=== PATIENT | female | born 1995 | race Caucasian/White ===

== ENCOUNTER 2023-09-24 09:06 | Outpatient (OUT) | payer BC, SELFPAY ==
--- NOTE | 2023-09-24 | US_ITS ---
[address] [address] Patient Name: DONALD VELÁSQUEZ MRN: [id number] date: 1995 Sex: F Assigned Patient Location: [place] Current Patient Location: [place] Accession/Order Number: [id number] Exam Date: 09/24/2023 09:10 Report Date: 09/24/2023 13:14 At the request of: ADDIE DOE Procedure: US OB transvaginal EXAMINATION: US OB transvaginal HISTORY: MISSED MENSES COMPARISON: No relevant comparison available. FINDINGS: Rivero intrauterine gestation Gestational sac: 2.5 cm, 7 weeks 1 day CRL: 1.43 cm, 7 weeks 5 days Yolk sac: 3.1 mm Heart rate: 155 beats minute Cervix: Closed, 3.8 cm The uterus is normal, anteverted, anteflexed The left ovary is not visualized. The right ovary appears normal Clinical age: 10 weeks 4 days Clinical LAUREN: 04/17/2024 Ultrasound age: 7 weeks 5 days Ultrasound LAUREN: 05/07/2024 US/US OB transvaginal IMPRESSION: Viable rivero intrauterine gestation measuring 7 weeks 5 days Electronically authenticated by: DARLEEN LOZOYA Date: 09/24/2023 13:14
== END 2023-09-24 09:07 | disposition home or self-care (01) ==
LOC: US 09:06
PROVIDERS: Visit Provider Obstetrics & Gynecology
DX: Z34.91 Encounter for supervision of normal pregnancy, unspecified, first trimester (principal)
CPT/HCPCS: 76817

== ENCOUNTER 2023-10-28 11:15 | Outpatient (OUT) | payer BC, SELFPAY ==
--- OUTSIDE RECORDS SUMMARY | 2023-10-28 11:21 | XMS_ITS | CCD ---
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 Specialist Name Role Phone Sherry Nielsen Unavailable Sherry Nielsen Attending Unavailable Sherry Nielsen Primary Care Unavailable Sherry Nielsen Admitting Unavailable LYNNE Nielsen Primary Care Provider LYNNE Nielsen Attending Provider Allergies Allergy Classification Reported Allergen(s) Allergy Type Date of Onset Reaction(s) Facility (1 source) Adhesive agent Drug allergy [facility] Other Problems Problem Classification Problem Date Documented Da te Episodic/Chronic Unclassified (1 source) Encounter for general adult medical examination without abnormal findings; Translations: [Encounter for general adult medical examination without abnormal findings] Onset: 06-22-2023 Results Test Name Value Interpretation Reference Range Facility Alanine aminotransferase [En zymatic activity/volume] in Serum or PlasmaOrdered By: Sherry Nielsen on 06-22-2023 ALT [Catalytic activity/Vol] 14 U/L 7-52 [facility] Albumin [Mass/volume] in Ser um or Plasma by Bromocresol green (BCG) dye binding methoOrdered By: Sherry Nielsen on 06-22-2023 Albumin BCG dye [Mass/Vol] 4.3 g/dL 3.5-5.7 [facility] Alkaline phosphatase [Enzyma tic activity/volume] in Serum or PlasmaOrdered By: Sherry Nielsen on 06-22-2023 ALP [Catalytic activity/Vol] 88 U/L 34-104 [facility] Aspartate aminotransferase [ Enzymatic activity/volume] in Serum or PlasmaOrdered By: Sherry Nielsen on 06-22-2023 AST [Catalytic activity/Vol] 15 U/L 13-39 [facility] Basophils Auto (Bld) [#/Vol] Ordered By: Sherry Gia on 06-22-2023 Basophils (Bld) [#/Vol] 0.0 10*3/uL 0.0-0.2 [facility] Basophils/100 WBC Auto (Bld) Ordered By: Sherry Nielsen on 06-22-2023 Basophils/100 WBC (Bld) 0.5 % . [facility] Bilirubin.total [Mass/volume ] in Serum or PlasmaOrdered By: Sherry Nielsen on 06-22-2023 Bilirubin [Mass/Vol] 1.1 mg/dL 0.3-1.0 [facility] CMP with reflex to A1Con Albumin [Mass/Vol] 4.3 g/dL Normal 3.5-5.7 [facility] Comment on above: Order Comment: Reaso n for Exam Well adult exam Performed By: #### F E PRO, CMP wRFX A1C, TSH3, [id number], [id number], CBC, LIPID #### [facility] [address] Albumin/Globulin [Mass ratio] 1.4 {ratio} Normal [facility] Comment on above: Order Comment: Reaso n for Exam Well adult exam Performed By: #### F E PRO, CMP wRFX A1C, TSH3, [id number], [id number], CBC, LIPID #### [facility] [address] [place] [address] [place] ALP [Catalytic activity/Vol] 88 U/L Normal 34-104 [facility] Comment on above: Order Comment: Reaso n for Exam Well adult exam Performed By: #### F E PRO, CMP wRFX A1C, TSH3, [id number], [id number], CBC, LIPID #### [facility] [address] [place] [address] [place] ALT [Catalytic activity/Vol] 14 U/L Normal 7-52 [facility] Comment on above: Order Comment: Reaso n for Exam Well adult exam Performed By: #### F E PRO, CMP wRFX A1C, TSH3, [id number], [id number], CBC, LIPID #### [facility] [address] Anion gap [Moles/Vol] 10.2 mmol/L Normal 6.0-15.0 [facility] Comment on above: Order Comment: Reaso n for Exam Well adult exam Performed By: #### F E PRO, CMP wRFX A1C, TSH3, [id number], [id number], CBC, LIPID #### [facility] [address] AST [Catalytic activity/Vol] 15 U/L Normal 13-39 [facility] Comment on above: Order Comment: Reaso n for Exam Well adult exam Performed By: #### F E PRO, CMP wRFX A1C, TSH3, [id number], [id number], CBC, LIPID #### [facility] [address] Bilirubin [Mass/Vol] 1.1 mg/dL High 0.3-1.0 [facility] Comment on above: Order Comment: Reaso n for Exam Well adult exam Performed By: #### F E PRO, CMP wRFX A1C, TSH3, [id number], [id number], CBC, LIPID #### [facility] [address] [place] [id number] [facility] Calcium [Mass/Vol] 9.3 mg/dL Normal 8.6-10.3 [facility] Comment on above: Order Comment: Reaso n for Exam Well adult exam Performed By: #### F E PRO, CMP wRFX A1C, TSH3, [id number], [id number], CBC, LIPID #### [facility] [address] [place] [id number] [place] Chloride [Moles/Vol] 105 mmol/L Normal 98-107 [facility] Comment on above: Order Comment: Reaso n for Exam Well adult exam Performed By: #### F E PRO, CMP wRFX A1C, TSH3, [id number], [id number], CBC, LIPID #### [facility] [address] CO2 [Moles/Vol] 27.1 mmol/L Normal 21.0-31.0 [facility] Comment on above: Order Comment: Reaso n for Exam Well adult exam Performed By: #### F E PRO, CMP wRFX A1C, TSH3, [id number], [id number], CBC, LIPID #### [facility] [address] Creatinine [Mass/Vol] 0.90 mg/dL Normal 0.60-1.20 [facility] Comment on above: Order Comment: Reaso n for Exam Well adult exam Performed By: #### F E PRO, CMP wRFX A1C, TSH3, [id number], [id number], CBC, LIPID #### [address] GFR/1.73 sq M.predicted MDRD (S/P/Bld) [Vol rate/Area] mL/min/{1.73_m2} Normal [facility] Comment on above: Order Comment: Reaso n for Exam Well adult exam Performed By: #### F E PRO, CMP wRFX A1C, TSH3, [id number], [id number], CBC, LIPID #### [address] Globulin (S) [Mass/Vol] 3.1 g/dL Normal [facility] Comment on above: Order Comment: Reaso n for Exam Well adult exam Performed By: #### F E PRO, CMP wRFX A1C, TSH3, [id number], [id number], CBC, LIPID #### [facility] [address] Glucose [Mass/Vol] 94 mg/dL Normal 70-100 [facility] Comment on above: Order Comment: Reaso n for Exam Well adult exam Performed By: #### F E PRO, CMP wRFX A1C, TSH3, [id number], [id number], CBC, LIPID #### [facility] [address] Potassium [Moles/Vol] 4.3 mmol/L Normal 3.5-5.1 [facility] Comment on above: Order Comment: Reaso n for Exam Well adult exam Performed By: #### F E PRO, CMP wRFX A1C, TSH3, [id number], [id number], CBC, LIPID #### [facility] [address] Protein [Mass/Vol] 7.4 g/dL Normal 6.4-8.9 [facility] Comment on above: Order Comment: Reaso n for Exam Well adult exam Performed By: #### F E PRO, CMP wRFX A1C, TSH3, [id number], [id number], CBC, LIPID #### [facility] [address] Sodium [Moles/Vol] 138 mmol/L Normal 136-145 [facility] Comment on above: Order Comment: Reaso n for Exam Well adult exam Performed By: #### F E PRO, CMP wRFX A1C, TSH3, [id number], [id number], CBC, LIPID #### [facility] [address] [place] [id number] [place] Urea nitrogen [Mass/Vol] 16 mg/dL Normal 7-25 [facility] Comment on above: Order Comment: Reaso n for Exam Well adult exam Performed By: #### F E PRO, CMP wRFX A1C, TSH3, [id number], [id number], CBC, LIPID #### [facility] [address] [place] [id number] [place] Calcium [Mass/volume] in Ser um or PlasmaOrdered By: Sherry Nielsen on 06-22-2023 Calcium [Mass/Vol] 9.3 mg/dL 8.6-10.3 [facility] Carbon dioxide, total [Moles /volume] in Serum or PlasmaOrdered By: Sherry Nielsen on 06-22-2023 CO2 [Moles/Vol] 27.1 mmol/L 21.0-31.0 [facility] Chloride [Moles/volume] in S adriano or PlasmaOrdered By: Sherry Nielsen on 06-22-2023 Chloride [Moles/Vol] 105 mmol/L 98-107 [facility] Cholesterol [Mass/volume] in Serum or PlasmaOrdered By: Sherry Nielsen on 06-22-2023 Cholesterol [Mass/Vol] 149 mg/dL 140-200 [facility] Comment on above: Chol less than 200 m g/dl low riskChol 201-239 mg/dl borderline riskChol 240 mg/dl and greater high risk Cholesterol in LDL Calc [Mas s/Vol]Ordered By: Sherry Nielsen on 06-22-2023 Cholesterol in LDL [Mass/Vol] 70 mg/dL 0-100 [facility] Comment on above: LDL ATP III CLASSIFI CATIONLDL less than 100 mg/dL OptimalLDL 100-129 mg/dL Near or above optimalLDL 130-159 mg/dL Borderline highLDL 160-189 mg/dL HighLDL greater than 189 mg/dL Very high Cholesterol in VLDL Calc [Ma ss/Vol]Ordered By: Sherry Nielsen on 06-22-2023 Cholesterol in VLDL [Mass/Vol] 16 mg/dL [facility] Complete Blood Count Auto Di ffon 06-22-2023 Basophils (Bld) [#/Vol] 0.0 10*3/uL Normal 0.0-0.2 [facility] Comment on above: Order Comment: Reaso n for Exam Well adult exam Result Comment: PERF ORMED BY: [place] [address] PATHOLOGIST FOUNDATION ASSISTANT GLORIA MESA M.D. Performed By: #### F E PRO, CMP wRFX A1C, TSH3, [id number], [id number], CBC, LIPID #### [facility] [address] Basophils/100 WBC (Bld) 0.5 % Normal . [facility] Comment on above: Order Comment: Reaso n for Exam Well adult exam Performed By: #### F E PRO, CMP wRFX A1C, TSH3, [id number], [id number], CBC, LIPID #### [facility] [address] [place] [address] Eosinophils (Bld) [#/Vol] 0.1 10*3/uL Normal 0.0-0.45 [facility] Comment on above: Order Comment: Reaso n for Exam Well adult exam Performed By: #### F E PRO, CMP wRFX A1C, TSH3, [id number], [id number], CBC, LIPID #### [facility] [address] [place] [address] Eosinophils/100 WBC (Bld) 2.2 % Normal . [facility] Comment on above: Order Comment: Reaso n for Exam Well adult exam Performed By: #### F E PRO, CMP wRFX A1C, TSH3, [id number], [id number], CBC, LIPID #### [address] Erythrocyte distribution width (RBC) [Ratio] 12.6 % Normal 11.9-15.3 [facility] Comment on above: Order Comment: Reaso n for Exam Well adult exam Performed By: #### F E PRO, CMP wRFX A1C, TSH3, [id number], [id number], CBC, LIPID #### [address] Hematocrit (Bld) [Volume fraction] 41.6 % Normal 34.0-46.4 [facility] Comment on above: Order Comment: Reaso n for Exam Well adult exam Performed By: #### F E PRO, CMP wRFX A1C, TSH3, [id number], [id number], CBC, LIPID #### [address] Hemoglobin (Bld) [Mass/Vol] 14.0 g/dL Normal 11.8-15.4 [facility] Comment on above: Order Comment: Reaso n for Exam Well adult exam Performed By: #### F E PRO, CMP wRFX A1C, TSH3, [id number], [id number], CBC, LIPID #### [place] [address] [place] Lymphocytes (Bld) [#/Vol] 2.1 10*3/uL Normal 1.00-4.8 [facility] Comment on above: Order Comment: Reaso n for Exam Well adult exam Performed By: #### F E PRO, CMP wRFX A1C, TSH3, [id number], [id number], CBC, LIPID #### [facility] [address] Lymphocytes/100 WBC (Bld) 34.6 % Normal . [facility] Comment on above: Order Comment: Reaso n for Exam Well adult exam Performed By: #### F E PRO, CMP wRFX A1C, TSH3, [id number], [id number], CBC, LIPID #### [facility] [address] MCH (RBC) [Entitic mass] 30.5 pg Normal 24.7-34.3 [facility] Comment on above: Order Comment: Reaso n for Exam Well adult exam Performed By: #### F E PRO, CMP wRFX A1C, TSH3, [id number], [id number], CBC, LIPID #### [facility] [address] MCV (RBC) [Entitic vol] 90.9 fL Normal 80-100 [facility] Comment on above: Order Comment: Reaso n for Exam Well adult exam Performed By: #### F E PRO, CMP wRFX A1C, TSH3, [id number], [id number], CBC, LIPID #### [facility] [address] Mean Corpuscular HGB Conc 33.6 g/dL Normal 32.0-35.0 [facility] Comment on above: Order Comment: Reaso n for Exam Well adult exam Performed By: #### F E PRO, CMP wRFX A1C, TSH3, [id number], [id number], CBC, LIPID #### [address] Monocytes (Bld) [#/Vol] 0.5 10*3/uL Normal 0.0-0.8 [facility] Comment on above: Order Comment: Reaso n for Exam Well adult exam Performed By: #### F E PRO, CMP wRFX A1C, TSH3, [id number], [id number], CBC, LIPID #### [facility] [address] Monocytes/100 WBC (Bld) 7.9 % Normal . [facility] Comment on above: Order Comment: Reaso n for Exam Well adult exam Performed By: #### F E PRO, CMP wRFX A1C, TSH3, [id number], [id number], CBC, LIPID #### [facility] [address] Neutrophils (Bld) [#/Vol] 3.4 10*3/uL Normal 1.8-7.7 [facility] Comment on above: Order Comment: Reaso n for Exam Well adult exam Performed By: #### F E PRO, CMP wRFX A1C, TSH3, [id number], [id number], CBC, LIPID #### [facility] [address] Neutrophils/100 WBC (Bld) 54.8 % Normal . [facility] Comment on above: Order Comment: Reaso n for Exam Well adult exam Performed By: #### F E PRO, CMP wRFX A1C, TSH3, [id number], [id number], CBC, LIPID #### [facility] [address] [place] [address] NRBC% 0.3 /100{WBC} Normal 0-0.5 [facility] Comment on above: Order Comment: Reaso n for Exam Well adult exam Performed By: #### F E PRO, CMP wRFX A1C, TSH3, [id number], [id number], CBC, LIPID #### [facility] [address] [place] [address] Platelet mean volume (Bld) [Entitic vol] 8.8 fL Normal 6.3-10.7 [facility] Comment on above: Order Comment: Reaso n for Exam Well adult exam Performed By: #### F E PRO, CMP wRFX A1C, TSH3, [id number], [id number], CBC, LIPID #### [facility] [address] Platelets (Bld) [#/Vol] 219 10*3/uL Normal 150-450 [facility] Comment on above: Order Comment: Reaso n for Exam Well adult exam Performed By: #### F E PRO, CMP wRFX A1C, TSH3, [id number], [id number], CBC, LIPID #### [facility] [address] RBC (Bld) [#/Vol] 4.58 10*6/uL Normal 3.60-5.00 [facility] Comment on above: Order Comment: Reaso n for Exam Well adult exam Performed By: #### F E PRO, CMP wRFX A1C, TSH3, [id number], [id number], CBC, LIPID #### [facility] [address] WBC (Bld) [#/Vol] 6.1 10*3/uL Normal 3.8-11.6 [facility] Comment on above: Order Comment: Reaso n for Exam Well adult exam Performed By: #### F E PRO, CMP wRFX A1C, TSH3, [id number], [id number], CBC, LIPID #### [facility] [address] Creatinine [Mass/volume] in Serum or PlasmaOrdered By: Sherry Nielsen on 06-22-2023 Creatinine [Mass/Vol] 0.90 mg/dL 0.60-1.20 [facility] Eosinophils Auto (Bld) [#/Vo l]Ordered By: Sherry Nielsen on 06-22-2023 Eosinophils (Bld) [#/Vol] 0.1 10*3/uL 0.0-0.45 [facility] Eosinophils/100 WBC Auto (Bl d)Ordered By: Sherry Nielsen on 06-22-2023 Eosinophils/100 WBC (Bld) 2.2 % . [facility] Erythrocyte distribution wid th Auto (RBC) [Ratio]Ordered By: Sherry Nielsen on 06-22-2023 Erythrocyte distribution width (RBC) [Ratio] 12.6 % 11.9-15.3 [facility] FE PROon 06-22-2023 % Iron Saturation 34.8 % Normal 20-50 [facility] Comment on above: Order Comment: Reaso n for Exam Well adult exam Performed By: #### F E PRO, CMP wRFX A1C, TSH3, [id number], [id number], CBC, LIPID #### [facility] [address] [place] [id number] [place] Ferritin [Mass/Vol] 33.1 ng/mL Normal 11.0-306.8 [facility] Comment on above: Order Comment: Reaso n for Exam Well adult exam Performed By: #### F E PRO, CMP wRFX A1C, TSH3, [id number], [id number], CBC, LIPID #### [facility] [address] [place] [address] [place] Iron [Mass/Vol] 122 ug/dL Normal 50-212 [facility] Comment on above: Order Comment: Reaso n for Exam Well adult exam Performed By: #### F E PRO, CMP wRFX A1C, TSH3, [id number], [id number], CBC, LIPID #### [facility] [address] [place] [phone] [place] Total Iron Binding Capacity 351 ug/dL Normal 255-450 [facility] Comment on above: Order Comment: Reaso n for Exam Well adult exam Performed By: #### F E PRO, CMP wRFX A1C, TSH3, [id number], [id number], CBC, LIPID #### [facility] [address] [place] [id number] [place] Transferrin [Mass/Vol] 251 mg/dL Normal 203-362 [facility] Comment on above: Order Comment: Reaso n for Exam Well adult exam Performed By: #### F E PRO, CMP wRFX A1C, TSH3, [id number], [id number], CBC, LIPID #### [facility] [address] [place] [id number] [facility] Ferritin [Mass/volume] in Se rum or PlasmaOrdered By: Sherry Nielsen on 06-22-2023 Ferritin [Mass/Vol] 33.1 ng/mL 11.0-306.8 [facility] Folate [Mass/volume] in Seru m or PlasmaOrdered By: Sherry Nielsen on 06-22-2023 Folate [Mass/Vol] 23.0 ng/mL >5.9 [facility] Comment on above: Folate reference ran ge: >5.9 ng/mlThe WHO technical consultation on folate and vitamin [id number] has determined that folate concentrations lessthan 4 ng/ml are considered deficient. Globulin Calc (S) [Mass/Vol] Ordered By: Sherry Nielsen on 06-22-2023 Globulin (S) [Mass/Vol] 3.1 g/dL [facility] Glucose [Mass/volume] in Ser um or PlasmaOrdered By: Sherry Nielsen on 06-22-2023 Glucose [Mass/Vol] 94 mg/dL 70-100 [facility] Hematocrit Auto (Bld) [Volum e fraction]Ordered By: Sherry Nielsen on 06-22-2023 Hematocrit (Bld) [Volume fraction] 41.6 % 34.0-46.4 [facility] Hemoglobin [Mass/volume] in BloodOrdered By: Sherry Nielsen on 06-22-2023 Hemoglobin (Bld) [Mass/Vol] 14.0 g/dL 11.8-15.4 [facility] Iron [Mass/volume] in Serum or PlasmaOrdered By: Sherry Nielsen on 06-22-2023 Iron [Mass/Vol] 122 ug/dL 50-212 [facility] Iron binding capacity [Mass/ volume] in Serum or PlasmaOrdered By: Sherry Nielsen on 06-22-2023 Iron binding capacity [Mass/Vol] 351 ug/dL 255-450 [facility] Iron saturation [Mass Fracti on] in Serum or PlasmaOrdered By: Sherry Nielsen on 06-22-2023 Iron saturation [Mass fraction] 34.8 % 20-50 [facility] Leukocytes [#/volume] correc wilber for nucleated erythrocytes in Blood by Automated counOrdered By: Sherry Nielsen on 06-22-2023 WBC corrected for nucl RBC Auto (Bld) [#/Vol] 6.1 10*3/uL 3.8-11.6 [facility] Lipid Panelon 06-22-2023 Cholesterol [Mass/Vol] 149 mg/dL Normal 140-200 [facility] Comment on above: Order Comment: Silvanao n for Exam Well adult exam Result Comment: Chol less than 200 mg/dl low risk Chol 201-239 mg/dl borderline risk Chol 240 mg/dl and greater high risk Performed By: #### F E PRO, CMP wRFX A1C, TSH3, [id number], [id number], CBC, LIPID #### [facility] [address] [place] [id number] [facility] Cholesterol in HDL [Mass/Vol] 63 mg/dL Normal 23-92 [facility] Comment on above: Order Comment: [place] n for Exam Well adult exam Result Comment: HDL CHOL ATP-III CLASSIFICATION Cardiovascular Risk HDL > or equal to 60 mg/dL LOW HDL < 40 mg/dL HIGH Performed By: #### F E PRO, CMP wRFX A1C, TSH3, [id number], [id number], CBC, LIPID #### [facility] [address] [place] [address] [place] Cholesterol.total/Choles terol in HDL [Mass ratio] 2.4 {ratio} Normal <5.0 [facility] Comment on above: Order Comment: Silvanao n for Exam Well adult exam Performed By: #### F E PRO, CMP wRFX A1C, TSH3, [id number], [id number], CBC, LIPID #### [facility] [address] [place] [address] [place] LDL Cholesterol,Calculated 70 mg/dL Normal 0-100 [facility] Comment on above: Order Comment: Silvanao n for Exam Well adult exam Result Comment: LDL ATP III CLASSIFICATION LDL less than 100 mg/dL Optimal LDL 100-129 mg/dL Near or above optimal LDL 130-159 mg/dL Borderline high LDL 160-189 mg/dL High LDL greater than 189 mg/dL Very high Performed By: #### F E PRO, CMP wRFX A1C, TSH3, [id number], [id number], CBC, LIPID #### [facility] [address] Triglyceride w/Reflex 82 mg/dL Normal 0-149 [facility] Comment on above: Order Comment: Reaso n for Exam Well adult exam Result Comment: TRIG ATP III CLASSIFICATION TRIG less than 150 mg/dL Normal TRIG 150-199 mg/dL Borderline high TRIG 200-500 mg/dL High TRIG greater than 500 mg/dL Very high Standard traceable to the Center for Disease Conrtrol and Prevention (CDC) test method. Performed By: #### F E PRO, CMP wRFX A1C, TSH3, [id number], [id number], CBC, LIPID #### [facility] [address] VLDL CHOLESTEROL 16 mg/dL Normal [facility] Comment on above: Order Comment: Reaso n for Exam Well adult exam Performed By: #### F E PRO, CMP wRFX A1C, TSH3, [id number], [id number], CBC, LIPID #### [facility] [address] Lymphocytes Auto (Bld) [#/Vo l]Ordered By: Sherry Nielsen on 06-22-2023 Lymphocytes (Bld) [#/Vol] 2.1 10*3/uL 1.00-4.8 [facility] Lymphocytes/100 WBC Auto (Bl d)Ordered By: Sherry Nielsen on 06-22-2023 Lymphocytes/100 WBC (Bld) 34.6 % . [facility] MCH Auto (RBC) [Entitic mass ]Ordered By: Sherry Nielsen on 06-22-2023 MCH (RBC) [Entitic mass] 30.5 pg 24.7-34.3 [facility] MCHC Auto (RBC) [Mass/Vol]Or dered By: Sherry Nielsen on 06-22-2023 MCHC (RBC) [Mass/Vol] 33.6 g/dL 32.0-35.0 [facility] MCV Auto (RBC) [Entitic vol] Ordered By: Sherry Nielsen on 06-22-2023 MCV (RBC) [Entitic vol] 90.9 fL 80-100 [facility] Monocytes Auto (Bld) [#/Vol] Ordered By: Sherry Nielsen on 06-22-2023 Monocytes (Bld) [#/Vol] 0.5 10*3/uL 0.0-0.8 [facility] Monocytes/100 WBC Auto (Bld) Ordered By: Sherry Nielsen on 06-22-2023 Monocytes/100 WBC (Bld) 7.9 % . [facility] Neutrophils Auto (Bld) [#/Vo l]Ordered By: Sherry Nielsen on 06-22-2023 Neutrophils (Bld) [#/Vol] 3.4 10*3/uL 1.8-7.7 [facility] Neutrophils/100 WBC Auto (Bl d)Ordered By: Sherry Nielsen on 06-22-2023 Neutrophils/100 WBC (Bld) 54.8 % . [facility] No Panel InformationOrdered By: Sherry Nielsen on 06-22-2023 Estimated GFR (CKD-EPI) > 60.0 mL/Min [facility] Creatinine Clearance (Chem N/A [facility] Nucleated erythrocytes [Pres ence] in Blood by Automated countOrdered By: Sherry Nielsen on 06-22-2023 Nucleated RBC Auto Ql (Bld) 0.3 /100{WBC} 0-0.5 [facility] Platelet mean volume Auto (B ld) [Entitic vol]Ordered By: Sherry Nielsen on 06-22-2023 Platelet mean volume (Bld) [Entitic vol] 8.8 fL 6.3-10.7 [facility] Platelets Auto (Bld) [#/Vol] Ordered By: Sherry Nielsen on 06-22-2023 Platelets (Bld) [#/Vol] 219 10*3/uL 150-450 [facility] Potassium [Moles/volume] in Serum or PlasmaOrdered By: Sherry Nielsen on 06-22-2023 Potassium [Moles/Vol] 4.3 mmol/L 3.5-5.1 [facility] Protein [Mass/volume] in Ser um or PlasmaOrdered By: Sherry Nielsen on 06-22-2023 Protein [Mass/Vol] 7.4 g/dL 6.4-8.9 [facility] RBC Auto (Bld) [#/Vol]Ordere d By: Sherry Nielsen on 06-22-2023 RBC (Bld) [#/Vol] 4.58 10*6/uL 3.60-5.00 [facility] Serum or plasma albumin/glob ulin mass ratioOrdered By: Sherry Nielsen on 06-22-2023 Albumin/Globulin [Mass ratio] 1.4 {ratio} [facility] Serum or plasma anion gap de terminationOrdered By: Sherry Nielsen on 06-22-2023 Anion gap [Moles/Vol] 10.2 mmol/L 6.0-15.0 [facility] Serum or plasma high density lipoprotein (HDL) cholesterol measurementOrdered By: Sherry Nielsen on 06-22-2023 Cholesterol in HDL [Mass/Vol] 63 mg/dL 23-92 [facility] Comment on above: HDL CHOL ATP-III CLA SSIFICATION Cardiovascular RiskHDL > or equal to 60 mg/dL LOWHDL < 40 mg/dL HIGH Serum or plasma total choles terol/high density lipoprotein (HDL) cholesterol mass ratOrdered By: Sherry Nielsen on 06-22-2023 Cholesterol.total/Choles terol in HDL [Mass ratio] 2.4 {ratio} <5.0 [facility] Sodium [Moles/volume] in Ser um or PlasmaOrdered By: Sherry Nielsen on 06-22-2023 Sodium [Moles/Vol] 138 mmol/L 136-145 [facility] Thyroid Stimulating Hormoneo n 06-22-2023 TSH Qn 1.93 m[IU]/L Normal 0.45-5.33 [facility] Comment on above: Order Comment: Reaso n for Exam Well adult exam Performed By: #### F E PRO, CMP wRFX A1C, TSH3, [id number], [id number], CBC, LIPID #### [facility] [address] Thyrotropin [Units/volume] i n Serum or PlasmaOrdered By: Sherry Neilsen on 06-22-2023 TSH Qn 1.93 m[IU]/L 0.45-5.33 [facility] Transferrin [Mass/volume] in Serum or PlasmaOrdered By: Sherry Nielsen on 06-22-2023 Transferrin [Mass/Vol] 251 mg/dL 203-362 [facility] Triglyceride [Mass/volume] i n Serum or PlasmaOrdered By: Sherry Nielsen on 06-22-2023 Triglyceride [Mass/Vol] 82 mg/dL 0-149 [facility] Comment on above: TRIG ATP III CLASSIF ICATIONTRIG less than 150 mg/dL NormalTRIG 150-199 mg/dL Borderline highTRIG 200-500 mg/dL High TRIG greater than 500 mg/dL Very highStandard traceable to the Center for Disease Conrtrol and Prevention (CDC) test method. Urea nitrogen [Mass/volume] in Serum or PlasmaOrdered By: Sherry Nielsen on 06-22-2023 Urea nitrogen [Mass/Vol] 16 mg/dL 7-25 [facility] Vit. B12/Folate Profileon Cobalamin (Vitamin B12) [Mass/Vol] 333 pg/mL Normal 180-914 [facility] Comment on above: Order Comment: Reaso n for Exam Well adult exam Performed By: #### F E PRO, CMP wRFX A1C, TSH3, [id number], [id number], CBC, LIPID #### [facility] [address] Folate 23.0 ng/mL Normal >5.9 [facility] Comment on above: Order Comment: Reaso n for Exam Well adult exam Result Comment: [place] reference range: >5.9 ng/ml The WHO technical consultation on folate and vitamin b12 deficiencies has determined that folate concentrations less than 4 ng/ml are considered deficient. Performed By: #### F E PRO, CMP wRFX A1C, TSH3, [id number], [id number], CBC, LIPID #### [facility] [address] [place] [id number] [facility] Vitamin B12 ser/plasOrdered By: Sherry Nielsen on 06-22-2023 Cobalamin (Vitamin B12) [Mass/Vol] 333 pg/mL 180-914 [facility] Vitamin D 25 Hydroxy Totalon 06-22-2023 Vitamin D 25 Hydroxy Total 45.4 ng/mL Normal 30-100 [facility] Comment on above: Order Comment: Reaso n for Exam Well adult exam Result Comment: TEX MIN D STATUS 25(OH)VITAMIN D RANGE (ng/mL) Deficient <20 Insufficient 20 to <30 Sufficient 30 to 100 Reference: Marielena Sandoval, Maximilian HAMILTON, et al. Evaluation,treatment, and prevention of vitamin D deficiency; an Endocrine Society clinical practice guideline. JCEM. 2010; 96(7):191-. PERFORMED BY: [place] [address] PATHOLOGIST [employer] GLORIA MESA M.D. Performed By: #### F E PRO, CMP wRFX A1C, TSH3, [id number], [id number], CBC, LIPID #### [address] Vitamin D+Metabolites [Mass/ volume] in Serum or PlasmaOrdered By: Sherry Nielsen on 06-22-2023 Vitamin D+Metabolites [Mass/Vol] 45.4 ng/mL 30-100 [facility] Comment on above: VITAMIN D STATUS 25( [place])VITAMIN D RANGE (ng/mL) Deficient <20 Insufficient 20 to <30Sufficient 30 to 100Reference: Marielena Sandoval, Maximilian HAMILTON, et al. Evaluation,treatment, and prevention of vitamin D deficiency; an Endocrine Society clinical practice guideline. JCEM. 2010; 96(7):191-. WBC Auto (Bld) [#/Vol]Ordere d By: Sherry Nielsen on 06-22-2023 WBC (Bld) [#/Vol] 6.1 10*3/uL 3.8-11.6 [facility] Vital Signs Date Time Vital Sign Value Performing Clinician Facility 06-18-2023 07:30-0400 Body height 156.21 cm Sherry Nielsen Other [facility] Other 06-18-2023 07:30-0400 Body mass index (BMI) [Ratio] 31.73 kg/m2 Sherry Nielsen Other [facility] Other 06-18-2023 07:30-0400 Body weight 77.43 kg Sherry Nielsen Other [facility] Other 06-18-2023 07:30-0400 Diastolic blood pressure 70 mm[Hg] Sherry Nielsen Other [facility] Other 06-18-2023 07:30-0400 Respiratory rate 18 /min Sherry Nielsen Other [facility] Other 06-18-2023 07:30-0400 SaO2% (BldA) [Mass fraction] 98 % Sherry Nielsen Other [facility] Other 06-18-2023 07:30-0400 Systolic blood pressure 110 mm[Hg] Sherry Nielsen Other [facility] Other Encounters Encounter Date Encounter Type Care Provider Facility Start: 09-24-2023 End: 09-24-2023 ambulatory Not Available Start: 06-22-2023 End: 06-22-2023 ambulatory Sherry Nielsen Facility:[facility] Start: 06-22-2023 End: 06-22-2023 ambulatory DNP Sherry Nielsen Work Phone: [facility] Work Phone: Start: 06-22-2023 End: 06-22-2023 Patient encounter procedure DNP Sherry Nielsen Work Phone: [facility] Start: 06-18-2023 End: 06-18-2023 ambulatory Sherry Nielsen Other [facility] Other Start: 06-18-2023 Encounter for genera l adult medical examination without abnormal findings Sherry Gia [facility] [place] Start: 06-18-2023 Initial preventive medicine new pt age 18-39yrs Sherry Gia [facility] [place] Payers Date Payer Category Payer Self-pay 2023 [facility] [id number] 1993 Unknown [id number] Unknown [id number] Unknown HCAP/HFA/FAP Active [id number] Social History Date Type Detail Facility Sex Assigned At [facility]self [facility] [employer] Other Start: 1995 Sex Assigned At Female F [facility] Evaluation note 06-18-2023 Note Date & Type Note Facility 06-18-2023 Evaluation note Encounter Date Diagnosis Assessment Notes Jun, Well adult exam (ICD-10 - Z00.00) Routine lab work ordered. She will continue to keep appointment with [facility], eye doctor and dentist. Patient is advised to work on healthy diet choices and appropriate servings, weight control, regular exercise as directed, reduced fat intake, and salt avoidance. Patient voiced understanding of this and agrees to this plan. [facility] Other Evaluation note Note Date & Type Note Facility Evaluation note No assessment information availa [facility] Work Phone: History general Narrative - Reported Note Date & Type Note Facility History general Narrative - Reported Type Surgical History Foot Surgery Surgical History GALLBLADDER Surgical History 2015 Surgical History SHOULDER-LEFT 2018 Hospitalization History see above [facility] Other Summary Purpose Family History No Family History Records FoundNo Family History Records Found Advance Directives No Advanced Directives Records Found Advance Directive Response Recorded Date/ Time Advance Directives No June 22, 2023 7:06am Chief Complaint and Reason for Visit Chief Complaint Z00.00 Additional Source Comments REASON FOR VISIT (unrecogniz ed section and content) EST PCP INFORMATION SOURCE (unrecogn ized section and content) DATE CREATED AUTHOR 06/22/2023 [facility] DATE CREATED AUTHOR AUTHOR'S ORGANIZ ATION 09/27/2023 [facility] Care Teams (unrecognized sec tion and content) Team Status: Active Member Role Status Dates Sherry Nielsen DNP Primary Care Provider Active Team Status: Inactive Member Role Status Dates Sherry Nielsen DNP Primary Care Provider, Attending Provider Active Goals (unrecognized section and content) Goals may be documented in a n alternate section FOR RECORDS PERTAINING TO PATIENTS WHO ARE OR HAVE BEEN ENROLLED IN A CHEMICAL DEPENDENCY/SUBSTANCEABUSE PROGRAM, SOME INFORMATION MAY BE OMITTED. This clinical summary was aggregated from multiple sources. Caution should be exercised in using it in the provision of clinical care. This summary normalizes information from multiple sources, and as a consequence, information in this document may materially change the coding, format and clinical context of patient data. In addition, data may be omitted in some cases. CLINICAL DECISIONS SHOULD BE BASED ON THE PRIMARY CLINICAL RECORDS. [facility] [employer] [facility]. provides no warranty or guarantee of the accuracy or completeness of information in this document.
[2023-10-28 11:41] LABS: Basophils Percent Auto 0.3 % (0.2-2.0); Eosinophils Absolute Auto 0.1 10^3/uL (0.0-0.7); Eosinophils Percent Auto 0.8 % (0.9-7.0); Hematocrit 40.3 % (36.0-48.0); Hemoglobin 13.2 g/dL (12.0-16.0); Immature Granulocytes Abs Auto 0.06 10^3/uL (0.00-0.03); Immature Granulocytes Pct Auto 0.5 % (0.0-0.5); Lymphocytes Absolute Auto 2.3 10^3/uL (1.2-3.8); Lymphocytes Percent Auto 19.4 % (20.5-60.0); Mean Corpuscular HGB Conc 32.8 g/dL (29.9-35.2); Mean Corpuscular Hemoglobin 30.4 pg (26.7-34.0); Mean Corpuscular Volume 92.9 fL (81.0-99.0); Monocytes Absolute Auto 0.6 10^3/uL (0.3-0.8); Monocytes Percent Auto 5.4 % (1.7-12.0); Neutrophils Absolute Auto 8.7 10^3/uL (1.4-6.5); Neutrophils Percent Auto 73.6 % (43.0-75.0); Platelet Count 259 10^3/uL (150-450); Red Blood Count 4.34 10^6/uL (4.20-5.40); Red Cell Distribution Width 12.6 % (11.0-15.0); White Blood Count 11.8 10^3/uL (4.0-11.0)
[2023-10-28 11:54] LABS: Estimated Average Glucose 108 mg/dL; Glycohemoglobin A1C 5.4 % (4.5-6.2)
[2023-10-28 12:03] LABS: Thyroid Stimulating Hormone 0.996 uIU/mL (0.358-3.740)
[2023-10-29 06:16] LABS: HBsAg Screen Negative (Negative); HCV Ab Non Reactive (Non Reactive); HIV Ab/p24 Ag Screen Non Reactive (Non Reactive)
[2023-10-29 08:22] LABS: Rubella Antibodies, IgG 6.55 index (Immune >0.99)
[2023-10-29 10:13] LABS: Rapid Plasma Reagin, Quant Non Reactive titer (NonRea<1:1)
== END 2023-10-28 11:16 | disposition home or self-care (01) ==
LOC: LAB 11:18
PROVIDERS: Visit Provider Obstetrics & Gynecology
DX: Z12.4 Encounter for screening for malignant neoplasm of cervix (principal); N92.6 Irregular menstruation, unspecified
CPT/HCPCS: 36415; 83036; 84443; 85025; 86592; 86762; 86803; 86850; 86900; 86901; 87086; 87340; 87389; 87624; G0145

== ENCOUNTER 2023-10-28 20:29 | Outpatient (REF) | payer BC, SELFPAY ==
--- OUTSIDE RECORDS SUMMARY | 2023-10-28 20:33 | XMS_ITS | CCD ---
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 Name Role Phone Sherry Nielsen Unavailable Sherry Nielsen Attending Unavailable Sherry Nielsen Primary Care Unavailable Sherry Nielsen Admitting Unavailable LYNNE Nielsen Primary Care Provider LYNNE Nielsen Attending Provider Allergies Allergy Classification Reported Allergen(s) Allergy Type Date of Onset Reaction(s) Facility (1 source) Adhesive agent Drug allergy [employer] Other Problems Problem Classification Problem Date Documented Da te Episodic/Chronic Unclassified (1 source) Encounter for general adult medical examination without abnormal findings; Translations: [Encounter for general adult medical examination without abnormal findings] Onset: 06-22-2023 Results Test Name Value Interpretation Reference Range Facility Alanine aminotransferase [En zymatic activity/volume] in Serum or PlasmaOrdered By: Sherry Nielsen on 06-22-2023 ALT [Catalytic activity/Vol] 14 U/L 7-52 [facility] Albumin [Mass/volume] in Ser um or Plasma by Bromocresol green (BCG) dye binding methoOrdered By: Sherry Nielsen on 06-22-2023 Albumin BCG dye [Mass/Vol] 4.3 g/dL 3.5-5.7 [facility] Alkaline phosphatase [Enzyma tic activity/volume] in Serum or PlasmaOrdered By: Sherry Nielsen on 06-22-2023 ALP [Catalytic activity/Vol] 88 U/L 34-104 [facility] Aspartate aminotransferase [ Enzymatic activity/volume] in Serum or PlasmaOrdered By: Sherry Nielsen on 06-22-2023 AST [Catalytic activity/Vol] 15 U/L 13-39 [facility] Basophils Auto (Bld) [#/Vol] Ordered By: Sherry Gia on 06-22-2023 Basophils (Bld) [#/Vol] 0.0 10*3/uL 0.0-0.2 [facility] Basophils/100 WBC Auto (Bld) Ordered By: Sherry Nielsen on 06-22-2023 Basophils/100 WBC (Bld) 0.5 % . [facility] Bilirubin.total [Mass/volume ] in Serum or PlasmaOrdered By: Sherry Nielsen on 06-22-2023 Bilirubin [Mass/Vol] 1.1 mg/dL 0.3-1.0 [facility] CMP with reflex to A1Con Albumin [Mass/Vol] 4.3 g/dL Normal 3.5-5.7 [facility] Comment on above: Order Comment: Reaso n for Exam Well adult exam Performed By: #### F E PRO, CMP wRFX A1C, TSH3, [id number], [id number], CBC, LIPID #### [facility] [address] Albumin/Globulin [Mass ratio] 1.4 {ratio} Normal [facility] Comment on above: Order Comment: Reaso n for Exam Well adult exam Performed By: #### F E PRO, CMP wRFX A1C, TSH3, [id number], [id number], CBC, LIPID #### [facility] [address] [place] [address] [place] ALP [Catalytic activity/Vol] 88 U/L Normal 34-104 [facility] Comment on above: Order Comment: Reaso n for Exam Well adult exam Performed By: #### F E PRO, CMP wRFX A1C, TSH3, [id number], [id number], CBC, LIPID #### [facility] [address] [place] [address] [place] ALT [Catalytic activity/Vol] 14 U/L Normal 7-52 [facility] Comment on above: Order Comment: Reaso n for Exam Well adult exam Performed By: #### F E PRO, CMP wRFX A1C, TSH3, [id number], [id number], CBC, LIPID #### [facility] [address] Anion gap [Moles/Vol] 10.2 mmol/L Normal 6.0-15.0 [facility] Comment on above: Order Comment: Reaso n for Exam Well adult exam Performed By: #### F E PRO, CMP wRFX A1C, TSH3, [id number], [id number], CBC, LIPID #### [facility] [address] AST [Catalytic activity/Vol] 15 U/L Normal 13-39 [facility] Comment on above: Order Comment: Reaso n for Exam Well adult exam Performed By: #### F E PRO, CMP wRFX A1C, TSH3, [id number], [id number], CBC, LIPID #### [facility] [address] Bilirubin [Mass/Vol] 1.1 mg/dL High 0.3-1.0 [facility] Comment on above: Order Comment: Reaso n for Exam Well adult exam Performed By: #### F E PRO, CMP wRFX A1C, TSH3, [id number], [id number], CBC, LIPID #### [facility] [address] [place] [id number] [facility] Calcium [Mass/Vol] 9.3 mg/dL Normal 8.6-10.3 [facility] Comment on above: Order Comment: Reaso n for Exam Well adult exam Performed By: #### F E PRO, CMP wRFX A1C, TSH3, [id number], [id number], CBC, LIPID #### [facility] [address] [place] [id number] [place] Chloride [Moles/Vol] 105 mmol/L Normal 98-107 [facility] Comment on above: Order Comment: Reaso n for Exam Well adult exam Performed By: #### F E PRO, CMP wRFX A1C, TSH3, [id number], [id number], CBC, LIPID #### [facility] [address] CO2 [Moles/Vol] 27.1 mmol/L Normal 21.0-31.0 [facility] Comment on above: Order Comment: Reaso n for Exam Well adult exam Performed By: #### F E PRO, CMP wRFX A1C, TSH3, [id number], [id number], CBC, LIPID #### [facility] [address] Creatinine [Mass/Vol] 0.90 mg/dL Normal 0.60-1.20 [facility] Comment on above: Order Comment: Reaso n for Exam Well adult exam Performed By: #### F E PRO, CMP wRFX A1C, TSH3, [id number], [id number], CBC, LIPID #### [address] GFR/1.73 sq M.predicted MDRD (S/P/Bld) [Vol rate/Area] mL/min/{1.73_m2} Normal [facility] Comment on above: Order Comment: Reaso n for Exam Well adult exam Performed By: #### F E PRO, CMP wRFX A1C, TSH3, [id number], [id number], CBC, LIPID #### [address] Globulin (S) [Mass/Vol] 3.1 g/dL Normal [facility] Comment on above: Order Comment: Reaso n for Exam Well adult exam Performed By: #### F E PRO, CMP wRFX A1C, TSH3, [id number], [id number], CBC, LIPID #### [facility] [address] Glucose [Mass/Vol] 94 mg/dL Normal 70-100 [facility] Comment on above: Order Comment: Reaso n for Exam Well adult exam Performed By: #### F E PRO, CMP wRFX A1C, TSH3, [id number], [id number], CBC, LIPID #### [facility] [address] Potassium [Moles/Vol] 4.3 mmol/L Normal 3.5-5.1 [facility] Comment on above: Order Comment: Reaso n for Exam Well adult exam Performed By: #### F E PRO, CMP wRFX A1C, TSH3, [id number], [id number], CBC, LIPID #### [facility] [address] Protein [Mass/Vol] 7.4 g/dL Normal 6.4-8.9 [facility] Comment on above: Order Comment: Reaso n for Exam Well adult exam Performed By: #### F E PRO, CMP wRFX A1C, TSH3, [id number], [id number], CBC, LIPID #### [facility] [address] Sodium [Moles/Vol] 138 mmol/L Normal 136-145 [facility] Comment on above: Order Comment: Reaso n for Exam Well adult exam Performed By: #### F E PRO, CMP wRFX A1C, TSH3, [id number], [id number], CBC, LIPID #### [facility] [address] [place] [id number] [place] Urea nitrogen [Mass/Vol] 16 mg/dL Normal 7-25 [facility] Comment on above: Order Comment: Reaso n for Exam Well adult exam Performed By: #### F E PRO, CMP wRFX A1C, TSH3, [id number], [id number], CBC, LIPID #### [facility] [address] [place] [id number] [place] Calcium [Mass/volume] in Ser um or PlasmaOrdered By: Sherry Nielsen on 06-22-2023 Calcium [Mass/Vol] 9.3 mg/dL 8.6-10.3 [facility] Carbon dioxide, total [Moles /volume] in Serum or PlasmaOrdered By: Sherry Nielsen on 06-22-2023 CO2 [Moles/Vol] 27.1 mmol/L 21.0-31.0 [facility] Chloride [Moles/volume] in S adriano or PlasmaOrdered By: Sherry Nielsen on 06-22-2023 Chloride [Moles/Vol] 105 mmol/L 98-107 [facility] Cholesterol [Mass/volume] in Serum or PlasmaOrdered By: Sherry Nielsen on 06-22-2023 Cholesterol [Mass/Vol] 149 mg/dL 140-200 [facility] Comment on above: Chol less than 200 m g/dl low riskChol 201-239 mg/dl borderline riskChol 240 mg/dl and greater high risk Cholesterol in LDL Calc [Mas s/Vol]Ordered By: Sherry Nielsen on 06-22-2023 Cholesterol in LDL [Mass/Vol] 70 mg/dL 0-100 [facility] Comment on above: LDL ATP III CLASSIFI CATIONLDL less than 100 mg/dL OptimalLDL 100-129 mg/dL Near or above optimalLDL 130-159 mg/dL Borderline highLDL 160-189 mg/dL HighLDL greater than 189 mg/dL Very high Cholesterol in VLDL Calc [Ma ss/Vol]Ordered By: Sherry Nielsen on 06-22-2023 Cholesterol in VLDL [Mass/Vol] 16 mg/dL [facility] Complete Blood Count Auto Di ffon 06-22-2023 Basophils (Bld) [#/Vol] 0.0 10*3/uL Normal 0.0-0.2 [facility] Comment on above: Order Comment: Reaso n for Exam Well adult exam Result Comment: PERF ORMED BY: [place] [address] PATHOLOGIST AUTO DRIVER GLORIA MESA M.D. Performed By: #### F E PRO, CMP wRFX A1C, TSH3, [id number], [id number], CBC, LIPID #### [facility] [address] Basophils/100 WBC (Bld) 0.5 % Normal . [facility] Comment on above: Order Comment: Reaso n for Exam Well adult exam Performed By: #### F E PRO, CMP wRFX A1C, TSH3, [id number], [id number], CBC, LIPID #### [facility] [address] [place] [address] Eosinophils (Bld) [#/Vol] 0.1 10*3/uL Normal 0.0-0.45 [facility] Comment on above: Order Comment: Reaso n for Exam Well adult exam Performed By: #### F E PRO, CMP wRFX A1C, TSH3, [id number], [id number], CBC, LIPID #### [facility] [address] [place] [address] Eosinophils/100 WBC (Bld) 2.2 % Normal . [facility] Comment on above: Order Comment: Reaso n for Exam Well adult exam Performed By: #### F E PRO, CMP wRFX A1C, TSH3, [id number], [id number], CBC, LIPID #### [address] Erythrocyte distribution width (RBC) [Ratio] 12.6 % Normal 11.9-15.3 [facility] Comment on above: Order Comment: Reaso n for Exam Well adult exam Performed By: #### F E PRO, CMP wRFX A1C, TSH3, [id number], [id number], CBC, LIPID #### [address] Hematocrit (Bld) [Volume fraction] 41.6 % Normal 34.0-46.4 [facility] Comment on above: Order Comment: Reaso n for Exam Well adult exam Performed By: #### F E PRO, CMP wRFX A1C, TSH3, [id number], [id number], CBC, LIPID #### [address] Hemoglobin (Bld) [Mass/Vol] 14.0 g/dL Normal 11.8-15.4 [facility] Comment on above: Order Comment: Reaso n for Exam Well adult exam Performed By: #### F E PRO, CMP wRFX A1C, TSH3, [id number], [id number], CBC, LIPID #### [place] [address] [place] Lymphocytes (Bld) [#/Vol] 2.1 10*3/uL Normal 1.00-4.8 [facility] Comment on above: Order Comment: Reaso n for Exam Well adult exam Performed By: #### F E PRO, CMP wRFX A1C, TSH3, [id number], [id number], CBC, LIPID #### [facility] [address] Lymphocytes/100 WBC (Bld) 34.6 % Normal . [facility] Comment on above: Order Comment: Reaso n for Exam Well adult exam Performed By: #### F E PRO, CMP wRFX A1C, TSH3, [id number], [id number], CBC, LIPID #### [facility] [address] MCH (RBC) [Entitic mass] 30.5 pg Normal 24.7-34.3 [facility] Comment on above: Order Comment: Reaso n for Exam Well adult exam Performed By: #### F E PRO, CMP wRFX A1C, TSH3, [id number], [id number], CBC, LIPID #### [facility] [address] MCV (RBC) [Entitic vol] 90.9 fL Normal 80-100 [facility] Comment on above: Order Comment: Reaso n for Exam Well adult exam Performed By: #### F E PRO, CMP wRFX A1C, TSH3, [id number], [id number], CBC, LIPID #### [facility] [address] Mean Corpuscular HGB Conc 33.6 g/dL Normal 32.0-35.0 [facility] Comment on above: Order Comment: Reaso n for Exam Well adult exam Performed By: #### F E PRO, CMP wRFX A1C, TSH3, [id number], [id number], CBC, LIPID #### [address] Monocytes (Bld) [#/Vol] 0.5 10*3/uL Normal 0.0-0.8 [facility] Comment on above: Order Comment: Reaso n for Exam Well adult exam Performed By: #### F E PRO, CMP wRFX A1C, TSH3, [id number], [id number], CBC, LIPID #### [facility] [address] Monocytes/100 WBC (Bld) 7.9 % Normal . [facility] Comment on above: Order Comment: Reaso n for Exam Well adult exam Performed By: #### F E PRO, CMP wRFX A1C, TSH3, [id number], [id number], CBC, LIPID #### [facility] [address] Neutrophils (Bld) [#/Vol] 3.4 10*3/uL Normal 1.8-7.7 [facility] Comment on above: Order Comment: Reaso n for Exam Well adult exam Performed By: #### F E PRO, CMP wRFX A1C, TSH3, [id number], [id number], CBC, LIPID #### [facility] [address] Neutrophils/100 WBC (Bld) 54.8 % Normal . [facility] Comment on above: Order Comment: Reaso n for Exam Well adult exam Performed By: #### F E PRO, CMP wRFX A1C, TSH3, [id number], [id number], CBC, LIPID #### [facility] [address] [place] [address] NRBC% 0.3 /100{WBC} Normal 0-0.5 [facility] Comment on above: Order Comment: Reaso n for Exam Well adult exam Performed By: #### F E PRO, CMP wRFX A1C, TSH3, [id number], [id number], CBC, LIPID #### [facility] [address] [place] [address] Platelet mean volume (Bld) [Entitic vol] 8.8 fL Normal 6.3-10.7 [facility] Comment on above: Order Comment: Reaso n for Exam Well adult exam Performed By: #### F E PRO, CMP wRFX A1C, TSH3, [id number], [id number], CBC, LIPID #### [facility] [address] Platelets (Bld) [#/Vol] 219 10*3/uL Normal 150-450 [facility] Comment on above: Order Comment: Reaso n for Exam Well adult exam Performed By: #### F E PRO, CMP wRFX A1C, TSH3, [id number], [id number], CBC, LIPID #### [facility] [address] RBC (Bld) [#/Vol] 4.58 10*6/uL Normal 3.60-5.00 [facility] Comment on above: Order Comment: Reaso n for Exam Well adult exam Performed By: #### F E PRO, CMP wRFX A1C, TSH3, [id number], [id number], CBC, LIPID #### [facility] [address] WBC (Bld) [#/Vol] 6.1 10*3/uL Normal 3.8-11.6 [facility] Comment on above: Order Comment: Reaso n for Exam Well adult exam Performed By: #### F E PRO, CMP wRFX A1C, TSH3, [id number], [id number], CBC, LIPID #### [facility] [address] Creatinine [Mass/volume] in Serum or PlasmaOrdered By: Sherry Nielsen on 06-22-2023 Creatinine [Mass/Vol] 0.90 mg/dL 0.60-1.20 [facility] Eosinophils Auto (Bld) [#/Vo l]Ordered By: Sherry Nielsen on 06-22-2023 Eosinophils (Bld) [#/Vol] 0.1 10*3/uL 0.0-0.45 [facility] Eosinophils/100 WBC Auto (Bl d)Ordered By: Sherry Nielsen on 06-22-2023 Eosinophils/100 WBC (Bld) 2.2 % . [facility] Erythrocyte distribution wid th Auto (RBC) [Ratio]Ordered By: Sherry Nielsen on 06-22-2023 Erythrocyte distribution width (RBC) [Ratio] 12.6 % 11.9-15.3 [facility] FE PROon 06-22-2023 % Iron Saturation 34.8 % Normal 20-50 [facility] Comment on above: Order Comment: Reaso n for Exam Well adult exam Performed By: #### F E PRO, CMP wRFX A1C, TSH3, [id number], [id number], CBC, LIPID #### [facility] [address] [place] [id number] [place] Ferritin [Mass/Vol] 33.1 ng/mL Normal 11.0-306.8 [facility] Comment on above: Order Comment: Reaso n for Exam Well adult exam Performed By: #### F E PRO, CMP wRFX A1C, TSH3, [id number], [id number], CBC, LIPID #### [facility] [address] [place] [address] [place] Iron [Mass/Vol] 122 ug/dL Normal 50-212 [facility] Comment on above: Order Comment: Reaso n for Exam Well adult exam Performed By: #### F E PRO, CMP wRFX A1C, TSH3, [id number], [id number], CBC, LIPID #### [facility] [address] [place] [id number] [place] Total Iron Binding Capacity 351 ug/dL Normal 255-450 [facility] Comment on above: Order Comment: Reaso n for Exam Well adult exam Performed By: #### F E PRO, CMP wRFX A1C, TSH3, [id number], [id number], CBC, LIPID #### [facility] [address] [place] [id number] [place] Transferrin [Mass/Vol] 251 mg/dL Normal 203-362 [facility] Comment on above: Order Comment: Reaso n for Exam Well adult exam Performed By: #### F E PRO, CMP wRFX A1C, TSH3, [id number], [id number], CBC, LIPID #### [facility] [address] [place] [id number] [facility] Ferritin [Mass/volume] in Se rum or PlasmaOrdered By: Sherry Nielsen on 06-22-2023 Ferritin [Mass/Vol] 33.1 ng/mL 11.0-306.8 [facility] Folate [Mass/volume] in Seru m or PlasmaOrdered By: Sherry Nielsen on 06-22-2023 Folate [Mass/Vol] 23.0 ng/mL >5.9 [facility] Comment on above: Folate reference ran ge: >5.9 ng/mlThe WHO technical consultation on folate and vitamin [id number] has determined that folate concentrations lessthan 4 ng/ml are considered deficient. Globulin Calc (S) [Mass/Vol] Ordered By: Sherry Nielsen on 06-22-2023 Globulin (S) [Mass/Vol] 3.1 g/dL [facility] Glucose [Mass/volume] in Ser um or PlasmaOrdered By: Sherry Nielsen on 06-22-2023 Glucose [Mass/Vol] 94 mg/dL 70-100 [facility] Hematocrit Auto (Bld) [Volum e fraction]Ordered By: Sherry Nielsen on 06-22-2023 Hematocrit (Bld) [Volume fraction] 41.6 % 34.0-46.4 [facility] Hemoglobin [Mass/volume] in BloodOrdered By: Sherry Nielsen on 06-22-2023 Hemoglobin (Bld) [Mass/Vol] 14.0 g/dL 11.8-15.4 [facility] Iron [Mass/volume] in Serum or PlasmaOrdered By: Sherry Nielsen on 06-22-2023 Iron [Mass/Vol] 122 ug/dL 50-212 [facility] Iron binding capacity [Mass/ volume] in Serum or PlasmaOrdered By: Sherry Nielsen on 06-22-2023 Iron binding capacity [Mass/Vol] 351 ug/dL 255-450 [facility] Iron saturation [Mass Fracti on] in Serum or PlasmaOrdered By: Sherry Nielsen on 06-22-2023 Iron saturation [Mass fraction] 34.8 % 20-50 [facility] Leukocytes [#/volume] correc wilber for nucleated erythrocytes in Blood by Automated counOrdered By: Sherry Nielsen on 06-22-2023 WBC corrected for nucl RBC Auto (Bld) [#/Vol] 6.1 10*3/uL 3.8-11.6 [facility] Lipid Panelon 06-22-2023 Cholesterol [Mass/Vol] 149 mg/dL Normal 140-200 [facility] Comment on above: Order Comment: Silvanao n for Exam Well adult exam Result Comment: Chol less than 200 mg/dl low risk Chol 201-239 mg/dl borderline risk Chol 240 mg/dl and greater high risk Performed By: #### F E PRO, CMP wRFX A1C, TSH3, [id number], [id number], CBC, LIPID #### [facility] [address] [place] [id number] [facility] Cholesterol in HDL [Mass/Vol] 63 mg/dL Normal 23-92 [facility] Comment on above: Order Comment: Chandler n for Exam Well adult exam Result Comment: HDL CHOL ATP-III CLASSIFICATION Cardiovascular Risk HDL > or equal to 60 mg/dL LOW HDL < 40 mg/dL HIGH Performed By: #### F E PRO, CMP wRFX A1C, TSH3, [id number], [id number], CBC, LIPID #### [facility] [address] [place] [address] [place] Cholesterol.total/Choles terol in HDL [Mass ratio] 2.4 {ratio} Normal <5.0 [facility] Comment on above: Order Comment: Silvanao n for Exam Well adult exam Performed By: #### F E PRO, CMP wRFX A1C, TSH3, [id number], [id number], CBC, LIPID #### [facility] [address] [place] [address] [place] LDL Cholesterol,Calculated 70 mg/dL Normal 0-100 [facility] Comment on above: Order Comment: Silvanao n for Exam Well adult exam Result Comment: LDL ATP III CLASSIFICATION LDL less than 100 mg/dL Optimal LDL 100-129 mg/dL Near or above optimal LDL 130-159 mg/dL Borderline high LDL 160-189 mg/dL High LDL greater than 189 mg/dL Very high Performed By: #### F E PRO, CMP wRFX A1C, TSH3, [id number], [id number], CBC, LIPID #### [facility] [address] Triglyceride w/Reflex 82 mg/dL Normal 0-149 [facility] Comment on above: Order Comment: Reaso [...] F E PRO, CMP wRFX A1C, TSH3, [id number], [id number], CBC, LIPID #### [facility] [address] VLDL CHOLESTEROL 16 mg/dL Normal [facility] Comment on above: Order Comment: Reaso n for Exam Well adult exam Performed By: #### F E PRO, CMP wRFX A1C, TSH3, [id number], [id number], CBC, LIPID #### [facility] [address] Lymphocytes Auto (Bld) [#/Vo l]Ordered By: Sherry Nielsen on 06-22-2023 Lymphocytes (Bld) [#/Vol] 2.1 10*3/uL 1.00-4.8 [facility] Lymphocytes/100 WBC Auto (Bl d)Ordered By: Sherry Nielsen on 06-22-2023 Lymphocytes/100 WBC (Bld) 34.6 % . [facility] MCH Auto (RBC) [Entitic mass ]Ordered By: Sherry Nielsen on 06-22-2023 MCH (RBC) [Entitic mass] 30.5 pg 24.7-34.3 [facility] MCHC Auto (RBC) [Mass/Vol]Or dered By: Sherry Nielsen on 06-22-2023 MCHC (RBC) [Mass/Vol] 33.6 g/dL 32.0-35.0 [facility] MCV Auto (RBC) [Entitic vol] Ordered By: Sherry Nielsen on 06-22-2023 MCV (RBC) [Entitic vol] 90.9 fL 80-100 [facility] Monocytes Auto (Bld) [#/Vol] Ordered By: Sherry Nielsen on 06-22-2023 Monocytes (Bld) [#/Vol] 0.5 10*3/uL 0.0-0.8 [facility] Monocytes/100 WBC Auto (Bld) Ordered By: Sherry Nielsen on 06-22-2023 Monocytes/100 WBC (Bld) 7.9 % . [facility] Neutrophils Auto (Bld) [#/Vo l]Ordered By: Sherry Nielsen on 06-22-2023 Neutrophils (Bld) [#/Vol] 3.4 10*3/uL 1.8-7.7 [facility] Neutrophils/100 WBC Auto (Bl d)Ordered By: Sherry Nielsen on 06-22-2023 Neutrophils/100 WBC (Bld) 54.8 % . [facility] No Panel InformationOrdered By: Sherry Nielsen on 06-22-2023 Estimated GFR (CKD-EPI) > 60.0 mL/Min [facility] Creatinine Clearance (Chem N/A [facility] Nucleated erythrocytes [Pres ence] in Blood by Automated countOrdered By: Sherry Nielsen on 06-22-2023 Nucleated RBC Auto Ql (Bld) 0.3 /100{WBC} 0-0.5 [facility] Platelet mean volume Auto (B ld) [Entitic vol]Ordered By: Sherry Nielsen on 06-22-2023 Platelet mean volume (Bld) [Entitic vol] 8.8 fL 6.3-10.7 [facility] Platelets Auto (Bld) [#/Vol] Ordered By: Sherry Nielsen on 06-22-2023 Platelets (Bld) [#/Vol] 219 10*3/uL 150-450 [facility] Potassium [Moles/volume] in Serum or PlasmaOrdered By: Sherry Nielsen on 06-22-2023 Potassium [Moles/Vol] 4.3 mmol/L 3.5-5.1 [facility] Protein [Mass/volume] in Ser um or PlasmaOrdered By: Sherry Nielsen on 06-22-2023 Protein [Mass/Vol] 7.4 g/dL 6.4-8.9 [facility] RBC Auto (Bld) [#/Vol]Ordere d By: Sherry Nielsen on 06-22-2023 RBC (Bld) [#/Vol] 4.58 10*6/uL 3.60-5.00 [facility] Serum or plasma albumin/glob ulin mass ratioOrdered By: Sherry Nielsen on 06-22-2023 Albumin/Globulin [Mass ratio] 1.4 {ratio} [facility] Serum or plasma anion gap de terminationOrdered By: Sherry Nielsen on 06-22-2023 Anion gap [Moles/Vol] 10.2 mmol/L 6.0-15.0 [facility] Serum or plasma high density lipoprotein (HDL) cholesterol measurementOrdered By: Sherry Nielsen on 06-22-2023 Cholesterol in HDL [Mass/Vol] 63 mg/dL 23-92 [facility] Comment on above: HDL CHOL ATP-III CLA SSIFICATION Cardiovascular RiskHDL > or equal to 60 mg/dL LOWHDL < 40 mg/dL HIGH Serum or plasma total choles terol/high density lipoprotein (HDL) cholesterol mass ratOrdered By: Sherry Nielsen on 06-22-2023 Cholesterol.total/Choles terol in HDL [Mass ratio] 2.4 {ratio} <5.0 [facility] Sodium [Moles/volume] in Ser um or PlasmaOrdered By: Sherry Nielsen on 06-22-2023 Sodium [Moles/Vol] 138 mmol/L 136-145 [facility] Thyroid Stimulating Hormoneo n 06-22-2023 TSH Qn 1.93 m[IU]/L Normal 0.45-5.33 [facility] Comment on above: Order Comment: Reaso n for Exam Well adult exam Performed By: #### F E PRO, CMP wRFX A1C, TSH3, [id number], [id number], CBC, LIPID #### [facility] [address] Thyrotropin [Units/volume] i n Serum or PlasmaOrdered By: Sherry Nielsen on 06-22-2023 TSH Qn 1.93 m[IU]/L 0.45-5.33 [facility] Transferrin [Mass/volume] in Serum or PlasmaOrdered By: Sherry Nielsen on 06-22-2023 Transferrin [Mass/Vol] 251 mg/dL 203-362 [facility] Triglyceride [Mass/volume] i n Serum or PlasmaOrdered By: Sherry Nielsen on 06-22-2023 Triglyceride [Mass/Vol] 82 mg/dL 0-149 [facility] Comment on above: TRIG ATP III CLASSIF ICATIONTRIG less than 150 mg/dL NormalTRIG 150-199 mg/dL Borderline highTRIG 200-500 mg/dL High TRIG greater than 500 mg/dL Very highStandard traceable to the Center for Disease Conrtrol and Prevention (CDC) test method. Urea nitrogen [Mass/volume] in Serum or PlasmaOrdered By: Sherry Nielsen on 06-22-2023 Urea nitrogen [Mass/Vol] 16 mg/dL 7-25 [facility] Vit. B12/Folate Profileon Cobalamin (Vitamin B12) [Mass/Vol] 333 pg/mL Normal 180-914 [facility] Comment on above: Order Comment: Reaso n for Exam Well adult exam Performed By: #### F E PRO, CMP wRFX A1C, TSH3, [id number], [id number], CBC, LIPID #### [facility] [address] Folate 23.0 ng/mL Normal >5.9 [facility] Comment on above: Order Comment: Reaso n for Exam Well adult exam Result Comment: [place] reference range: >5.9 ng/ml The WHO technical consultation on folate and vitamin b12 deficiencies has determined that folate concentrations less than 4 ng/ml are considered deficient. Performed By: #### F E PRO, CMP wRFX A1C, TSH3, [id number], [id number], CBC, LIPID #### [facility] [address] [place] [id number] [facility] Vitamin B12 ser/plasOrdered By: Sherry Nielsen on 06-22-2023 Cobalamin (Vitamin B12) [Mass/Vol] 333 pg/mL 180-914 [facility] Vitamin D 25 Hydroxy Totalon 06-22-2023 Vitamin D 25 Hydroxy Total 45.4 ng/mL Normal 30-100 [facility] Comment on above: Order Comment: Reaso n for Exam Well adult exam Result Comment: [place] MIN D STATUS 25(OH)VITAMIN D RANGE (ng/mL) Deficient <20 Insufficient 20 to <30 Sufficient 30 to 100 Reference: Marielena Sandoval, Maximilian HAMILTON, et al. Evaluation,treatment, and prevention of vitamin D deficiency; an Endocrine Society clinical practice guideline. JCEM. 2010; 96(7):191-. PERFORMED BY: [place] [address] PATHOLOGIST AUTO DRIVER GLORIA MESA M.D. Performed By: #### F E PRO, CMP wRFX A1C, TSH3, [id number], [id number], CBC, LIPID #### [address] Vitamin D+Metabolites [Mass/ volume] in Serum or PlasmaOrdered By: Sherry Nielsen on 06-22-2023 Vitamin D+Metabolites [Mass/Vol] 45.4 ng/mL 30-100 [facility] Comment on above: VITAMIN D STATUS 25( [place])VITAMIN D RANGE (ng/mL) Deficient <20 Insufficient 20 to <30Sufficient 30 to 100Reference: Marielena Sandoval, Maximilian HAMILTON, et al. Evaluation,treatment, and prevention of vitamin D deficiency; an Endocrine Society clinical practice guideline. JCEM. 2010; 96(7):191-. WBC Auto (Bld) [#/Vol]Ordere d By: Sherry Nielsen on 06-22-2023 WBC (Bld) [#/Vol] 6.1 10*3/uL 3.8-11.6 [facility] Vital Signs Date Time Vital Sign Value Performing Clinician Facility 06-18-2023 07:30-0400 Body height 156.21 cm Sherry Nielsen Other [facility] Other 06-18-2023 07:30-0400 Body mass index (BMI) [Ratio] 31.73 kg/m2 Sherry Nielsen Other [facility] Other 06-18-2023 07:30-0400 Body weight 77.43 kg Sherry Nielsen Other [facility] Other 06-18-2023 07:30-0400 Diastolic blood pressure 70 mm[Hg] Sherry Nielsen Other [facility] Other 06-18-2023 07:30-0400 Respiratory rate 18 /min Sherry Nielsen Other [facility] Other 06-18-2023 07:30-0400 SaO2% (BldA) [Mass fraction] 98 % Sherry Nielsen Other [facility] Other 06-18-2023 07:30-0400 Systolic blood pressure 110 mm[Hg] Sherry Nielsen Other [facility] Other Encounters Encounter Date Encounter Type Care Provider Facility Start: 09-24-2023 End: 09-24-2023 ambulatory Not Available Start: 06-22-2023 End: 06-22-2023 ambulatory Sherry Nielsen Facility:[facility] Start: 06-22-2023 End: 06-22-2023 ambulatory DNP Sherry Nielsen Work Phone: [facility] Work Phone: Start: 06-22-2023 End: 06-22-2023 Patient encounter procedure DNP Sherry Nielsen Work Phone: [facility] Start: 06-18-2023 End: 06-18-2023 ambulatory Sherry Nielsen Other [facility] Other Start: 06-18-2023 Encounter for genera l adult medical examination without abnormal findings Sherry Gia [facility] [place] Start: 06-18-2023 Initial preventive medicine new pt age 18-39yrs Sherry Gia [facility] [place] Payers Date Payer Category Payer Self-pay 2023 [facility] [id number] 1995 Unknown [id number] Unknown [id number] Unknown HCAP/HFA/FAP Active [id number] Social History Date Type Detail Facility Sex Assigned At [facility] [employer] Other Start: 1995 Sex Assigned At Female F [facility] Evaluation note 06-18-2023 Note Date & Type Note Facility 06-18-2023 Evaluation note Encounter Date Diagnosis Assessment Notes Jun, Well adult exam (ICD-10 - Z00.00) Routine lab work ordered. She will continue to keep appointment with EQUIPMENT OPERATION INSTRUCTOR, eye doctor and dentist. Patient is advised to work on healthy diet choices and appropriate servings, weight control, regular exercise as directed, reduced fat intake, and salt avoidance. Patient voiced understanding of this and agrees to this plan. [facility] Other Evaluation note Note Date & Type Note Facility Evaluation note No assessment information availa [facility] Work Phone: History general Narrative - Reported Note Date & Type Note Facility History general Narrative - Reported Type Surgical History Foot Surgery Surgical History GALLBLADDER Surgical History 2015 Surgical History SHOULDER-LEFT 2018 Hospitalization History see above [facility] Other Summary Purpose Family History No Family [...] section and content) DATE CREATED AUTHOR 06/22/2023 [facility] DATE CREATED AUTHOR AUTHOR'S ORGANIZ ATION 09/27/2023 [facility] Care Teams (unrecognized sec tion and content) [...] BE BASED ON THE PRIMARY CLINICAL RECORDS. [facility] [email or web address] [facility]. provides no warranty or guarantee of the accuracy or completeness of information in this document.
[2023-11-04 11:08] LABS: Age Gdln ACOG Testing Note (.); HPV Aptima Negative (Negative); IGP, Aptima HPV, rfx 16/18,45 Note (.)
== END 2023-10-28 20:30 | disposition home or self-care (01) ==
LOC: LAB 20:29
PROVIDERS: Visit Provider Obstetrics & Gynecology
DX: Z12.4 Encounter for screening for malignant neoplasm of cervix (principal)
CPT/HCPCS: 87624; G0145

== ENCOUNTER 2023-12-27 08:36 | Outpatient (OUT) | payer BC, SELFPAY ==
--- NOTE | 2023-12-27 08:39 | US_ITS ---
[address] [address] Patient Name: DONALD VELÁSQUEZ MRN: [id number] date: 1995 Sex: F Assigned Patient Location: [facility] Current Patient Location: [facility] Accession/Order Number: [id number] Exam Date: 12/27/2023 08:40 Report Date: 12/27/2023 10:07 At the request of: ADDIE DOE Procedure: US OB cervical length EXAMINATION: US OB anatomy, US OB cervical length HISTORY: ANATOMY COMPARISON: No relevant comparison available. TECHNIQUE: Transabdominal sonographic examination was performed for obstetrical and evaluation. FINDINGS: Number: 1 Heart Rate: 166.0 bpm H.B. /min Amniotic Fluid Volume: Subjectively normal Placental Location: ANT/FUNDAL with lower margin 8.1 cm from os. Cervix Length: 3.9 cm, closed. ANATOMY: Normal Structures -cerebellum, choroid plexus, cisterna magna, lateral cerebral ventricles, orbits, midline falx, hard palate, four-chamber heart, RVOT, LVOT, stomach, kidneys, bladder, umbilical cord insertion into abdomen, three-vessel cord, cervical spine, thoracic spine, lumbar spine, sacral spine, right upper extremity, left upper extremity, right lower extremity, left lower extremity. SUBOPTIMALLY SEEN: None ABNORMALITIES: None BIOMETRY: BPD: 4.9 cm 21 weeks 0 days HC: 18.0 cm 20 weeks 3 days AC: 15.7 cm 20 weeks 6 days FL: 3.4 cm 20 weeks 5 days EFW:373.5 grams; 24 % FL/AC: 21.7 FL/BPD: 68.8 HC/AC: 1.2 GESTATIONAL AGE: Age by EDC: 21 weeks 1 days LAUREN by EDC: 05/07/2024 Age by current US: 20 weeks 5 days LAUREN by current US: 05/10/2024 US/US OB cervical length IMPRESSION: 1. Single live intrauterine with growth detailed above. Electronically authenticated by: EMMA NOEL Date: 12/27/2023 10:07
--- NOTE | 2023-12-27 08:39 | US_ITS ---
[address] [address] Patient Name: DONALD VELÁSQUEZ MRN: [id number] date: 1995 Sex: F Assigned Patient Location: [facility] Current Patient Location: [facility] Accession/Order Number: [id number] Exam Date: 12/27/2023 08:40 Report Date: 12/27/2023 10:07 At the request of: ADDIE DOE Procedure: US OB anatomy EXAMINATION: US OB anatomy, US OB cervical length HISTORY: ANATOMY COMPARISON: No relevant comparison available. TECHNIQUE: Transabdominal sonographic examination was performed for obstetrical and evaluation. FINDINGS: Number: 1 Heart Rate: 166.0 bpm H.B. /min Amniotic Fluid Volume: Subjectively normal Placental Location: ANT/FUNDAL with lower margin 8.1 cm from os. Cervix Length: 3.9 cm, closed. ANATOMY: Normal Structures -cerebellum, choroid plexus, cisterna magna, lateral cerebral ventricles, orbits, midline falx, hard palate, four-chamber heart, RVOT, LVOT, stomach, kidneys, bladder, umbilical cord insertion into abdomen, three-vessel cord, cervical spine, thoracic spine, lumbar spine, sacral spine, right upper extremity, left upper extremity, right lower extremity, left lower extremity. SUBOPTIMALLY SEEN: None ABNORMALITIES: None BIOMETRY: BPD: 4.9 cm 21 weeks 0 days HC: 18.0 cm 20 weeks 3 days AC: 15.7 cm 20 weeks 6 days FL: 3.4 cm 20 weeks 5 days EFW:373.5 grams; 24 % FL/AC: 21.7 FL/BPD: 68.8 HC/AC: 1.2 GESTATIONAL AGE: Age by EDC: 21 weeks 1 days LAUREN by EDC: 05/07/2024 Age by current US: 20 weeks 5 days LAUREN by current US: 05/10/2024 US/US OB anatomy IMPRESSION: 1. Single live intrauterine with growth detailed above. Electronically authenticated by: EMMA NOEL Date: 12/27/2023 10:07
--- OUTSIDE RECORDS SUMMARY | 2023-12-27 08:39 | XMS_ITS | CCD ---
Author Name Unknown Address [address] [place] [address] Organization [facility] Care Team Providers Care Mixer Tender Name Role Phone Sherry Nielsen Unavailable Sherry Nielsen Attending Unavailable Sherry Nielsen Primary Care Unavailable Sherry Nielsen Admitting Unavailable LYNNE Nielsen Primary Care Provider LYNNE Nielsen Attending Provider [phone] ROMMEL MARQUEZ Attending Unavailable ADDIE DOE Attending Unavailable Allergies Allergy Classification Reported Allergen(s) Allergy Type Date of Onset Reaction(s) Facility (1 source) Adhesive agent Drug allergy Adore Me Other Problems Problem Classification Problem Date Documented Da te Episodic/Chronic Unclassified (1 source) Encounter for general adult medical examination without abnormal findings; Translations: [Encounter for general adult medical examination without abnormal findings] Onset: 06-22-2023 Results Test Name Value Interpretation Reference Range Facility Alanine aminotransferase [En zymatic activity/volume] in Serum or PlasmaOrdered By: Sherry Nielsen on 06-22-2023 ALT [Catalytic activity/Vol] 14 U/L 7-52 [facility] Albumin [Mass/volume] in Ser um or Plasma by Bromocresol green (BCG) dye binding methoOrdered By: Sherry Nielsen on 06-22-2023 Albumin BCG dye [Mass/Vol] 4.3 g/dL 3.5-5.7 [facility] Alkaline phosphatase [Enzyma tic activity/volume] in Serum or PlasmaOrdered By: Sherry Nielsen on 06-22-2023 ALP [Catalytic activity/Vol] 88 U/L 34-104 [facility] Aspartate aminotransferase [ Enzymatic activity/volume] in Serum or PlasmaOrdered By: Sherry Nielsen on 06-22-2023 AST [Catalytic activity/Vol] 15 U/L 13-39 [facility] Basophils Auto (Bld) [#/Vol] Ordered By: Sherry Nielsen on 06-22-2023 Basophils (Bld) [#/Vol] 0.0 10*3/uL 0.0-0.2 [facility] Basophils/100 WBC Auto (Bld) Ordered By: Sherry Nielsen on 06-22-2023 Basophils/100 WBC (Bld) 0.5 % . [facility] Bilirubin.total [Mass/volume ] in Serum or PlasmaOrdered By: Sherry Nielsen on 06-22-2023 Bilirubin [Mass/Vol] 1.1 mg/dL 0.3-1.0 [facility] CMP with reflex to A1Con Albumin [Mass/Vol] 4.3 g/dL Normal 3.5-5.7 [facility] Comment on above: Order Comment: Reaso n for Exam Well adult exam Performed By: #### F E PRO, CMP wRFX A1C, TSH3, [id number], [id number], CBC, LIPID #### [facility] [address] Albumin/Globulin [Mass ratio] 1.4 {ratio} Normal [facility] Comment on above: Order Comment: Reaso n for Exam Well adult exam Performed By: #### F E PRO, CMP wRFX A1C, TSH3, [id number], [id number], CBC, LIPID #### [facility] [address] [place] [id number] [place] ALP [Catalytic activity/Vol] 88 U/L Normal 34-104 [facility] Comment on above: Order Comment: Reaso n for Exam Well adult exam Performed By: #### F E PRO, CMP wRFX A1C, TSH3, [id number], [id number], CBC, LIPID #### [facility] [address] [place] [phone] [place] ALT [Catalytic activity/Vol] 14 U/L Normal 7-52 [facility] Comment on above: Order Comment: Reaso n for Exam Well adult exam Performed By: #### F E PRO, CMP wRFX A1C, TSH3, [id number], [id number], CBC, LIPID #### [facility] [address] [place] [phone] [facility] Anion gap [Moles/Vol] 10.2 mmol/L Normal 6.0-15.0 [facility] Comment on above: Order Comment: Reaso n for Exam Well adult exam Performed By: #### F E PRO, CMP wRFX A1C, TSH3, [id number], [id number], CBC, LIPID #### [facility] [address] [place] [phone] [facility] AST [Catalytic activity/Vol] 15 U/L Normal 13-39 [facility] Comment on above: Order Comment: Reaso n for Exam Well adult exam Performed By: #### F E PRO, CMP wRFX A1C, TSH3, [id number], [id number], CBC, LIPID #### [facility] [address] Bilirubin [Mass/Vol] 1.1 mg/dL High 0.3-1.0 [facility] Comment on above: Order Comment: Reaso n for Exam Well adult exam Performed By: #### F E PRO, CMP wRFX A1C, TSH3, [id number], [id number], CBC, LIPID #### [facility] [address] Calcium [Mass/Vol] 9.3 mg/dL Normal 8.6-10.3 [facility] Comment on above: Order Comment: Reaso n for Exam Well adult exam Performed By: #### F E PRO, CMP wRFX A1C, TSH3, [id number], [id number], CBC, LIPID #### [facility] [address] [place] [phone] [facility] Chloride [Moles/Vol] 105 mmol/L Normal 98-107 [facility] Comment on above: Order Comment: Reaso n for Exam Well adult exam Performed By: #### F E PRO, CMP wRFX A1C, TSH3, [id number], [id number], CBC, LIPID #### [facility] [address] [place] [address] CO2 [Moles/Vol] 27.1 mmol/L Normal 21.0-31.[address] [facility] Comment on above: Order Comment: Reaso n for Exam Well adult exam Performed By: #### F E PRO, CMP wRFX A1C, TSH3, [id number], [id number], CBC, LIPID #### [address] Creatinine [Mass/Vol] 0.90 mg/dL Normal 0.60-1.20 [facility] Comment on above: Order Comment: Reaso n for Exam Well adult exam Performed By: #### F E PRO, CMP wRFX A1C, TSH3, [id number], [id number], CBC, LIPID #### [address] GFR/1.73 sq M.predicted MDRD (S/P/Bld) [Vol rate/Area] mL/min/{1.73_m2} [facility] Comment on above: Order Comment: Reaso n for Exam Well adult exam Performed By: #### F E PRO, CMP wRFX A1C, TSH3, [id number], [id number], CBC, LIPID #### [facility] [address] [place] [address] Globulin (S) [Mass/Vol] 3.1 g/dL Normal [facility] Comment on above: Order Comment: Reaso n for Exam Well adult exam Performed By: #### F E PRO, CMP wRFX A1C, TSH3, [id number], [id number], CBC, LIPID #### [facility] [address] [place] [address] Glucose [Mass/Vol] 94 mg/dL Normal 70-100 [facility] Comment on above: Order Comment: Reaso n for Exam Well adult exam Performed By: #### F E PRO, CMP wRFX A1C, TSH3, [id number], [id number], CBC, LIPID #### [facility] [address] Potassium [Moles/Vol] 4.3 mmol/L Normal 3.5-5.1 [facility] Comment on above: Order Comment: Reaso n for Exam Well adult exam Performed By: #### F E PRO, CMP wRFX A1C, TSH3, [id number], [id number], CBC, LIPID #### [facility] [address] Protein [Mass/Vol] 7.4 g/dL Normal 6.4-8.9 [facility] Comment on above: Order Comment: Reaso n for Exam Well adult exam Performed By: #### F E PRO, CMP wRFX A1C, TSH3, [id number], [id number], CBC, LIPID #### [facility] [address] [place] [phone] [place] Sodium [Moles/Vol] 138 mmol/L Normal 136-145 [facility] Comment on above: Order Comment: Reaso n for Exam Well adult exam Performed By: #### F E PRO, CMP wRFX A1C, TSH3, [id number], [id number], CBC, LIPID #### [facility] [address] [place] [phone] [place] Urea nitrogen [Mass/Vol] 16 mg/dL Normal 7-25 [facility] Comment on above: Order Comment: Reaso n for Exam Well adult exam Performed By: #### F E PRO, CMP wRFX A1C, TSH3, [id number], [id number], CBC, LIPID #### [facility] [address] [place] [phone] [place] Calcium [Mass/volume] in Ser um or PlasmaOrdered By: Sherry Nielsen on 06-22-2023 Calcium [Mass/Vol] 9.3 mg/dL 8.6-10.3 [facility] Carbon dioxide, total [Moles /volume] in Serum or PlasmaOrdered By: Sherry Nielsen on 06-22-2023 CO2 [Moles/Vol] 27.1 mmol/L 21.0-31.[address] [facility] Chloride [Moles/volume] in S adriano or PlasmaOrdered By: Sherry Nielsen on 06-22-2023 Chloride [Moles/Vol] 105 mmol/L 98-107 [facility] Cholesterol [Mass/volume] in Serum or PlasmaOrdered By: Sherry Nielsen on 06-22-2023 Cholesterol [Mass/Vol] 149 mg/dL 140-200 [facility] Comment on above: Chol less than 200 m g/dl low riskChol 201-239 mg/dl borderline riskChol 240 mg/dl and greater high risk Cholesterol in LDL Calc [Mas s/Vol]Ordered By: Sherry Nielsen on 06-22-2023 Cholesterol in LDL [Mass/Vol] 70 mg/dL 0-100 [facility] Comment on above: LDL ATP III CLASSIFI CATIONLDL less than 100 mg/dL OptimalLDL 100-129 mg/dL Near or above optimalLDL 130-159 mg/dL Borderline highLDL 160-189 mg/dL HighLDL greater than 189 mg/dL Very high Cholesterol in VLDL Calc [Ma ss/Vol]Ordered By: Sherry Nielsen on 06-22-2023 Cholesterol in VLDL [Mass/Vol] 16 mg/dL [facility] Complete Blood Count Auto Di ffon 06-22-2023 Basophils (Bld) [#/Vol] 0.0 10*3/uL Normal 0.0-0.2 [facility] Comment on above: Order Comment: Reaso n for Exam Well adult exam Result Comment: PERF ORMED BY: [place] [address] PATHOLOGIST [employer]ORAT[employer] TECHNICIAN GLORIA MESA M.D. Performed By: #### F E PRO, CMP wRFX A1C, TSH3, [id number], [id number], CBC, LIPID #### [facility] [address] Basophils/100 WBC (Bld) 0.5 % Normal . [facility] Comment on above: Order Comment: Reaso n for Exam Well adult exam Performed By: #### F E PRO, CMP wRFX A1C, TSH3, [id number], [id number], CBC, LIPID #### [facility] [address] Eosinophils (Bld) [#/Vol] 0.1 10*3/uL Normal 0.0-0.45 [facility] Comment on above: Order Comment: Reaso n for Exam Well adult exam Performed By: #### F E PRO, CMP wRFX A1C, TSH3, [id number], [id number], CBC, LIPID #### [facility] [address] Eosinophils/100 WBC (Bld) 2.2 % Normal . [facility] Comment on above: Order Comment: Reaso n for Exam Well adult exam Performed By: #### F E PRO, CMP wRFX A1C, TSH3, [id number], [id number], CBC, LIPID #### [address] Erythrocyte distribution width (RBC) [Ratio] 12.6 % Normal 11.9-15.3 [facility] Comment on above: Order Comment: Reaso n for Exam Well adult exam Performed By: #### F E PRO, CMP wRFX A1C, TSH3, [id number], [id number], CBC, LIPID #### [address] Hematocrit (Bld) [Volume fraction] 41.6 % Normal 34.0-46.4 [facility] Comment on above: Order Comment: Reaso n for Exam Well adult exam Performed By: #### F E PRO, CMP wRFX A1C, TSH3, [id number], [id number], CBC, LIPID #### [address] Hemoglobin (Bld) [Mass/Vol] 14.0 g/dL Normal 11.8-15.4 [facility] Comment on above: Order Comment: Reaso n for Exam Well adult exam Performed By: #### F E PRO, CMP wRFX A1C, TSH3, [id number], [id number], CBC, LIPID #### [facility] [address] Lymphocytes (Bld) [#/Vol] 2.1 10*3/uL Normal 1.00-4.8 [facility] Comment on above: Order Comment: Reaso n for Exam Well adult exam Performed By: #### F E PRO, CMP wRFX A1C, TSH3, [id number], [id number], CBC, LIPID #### [facility] [address] Lymphocytes/100 WBC (Bld) 34.6 % Normal . [facility] Comment on above: Order Comment: Reaso n for Exam Well adult exam Performed By: #### F E PRO, CMP wRFX A1C, TSH3, [id number], [id number], CBC, LIPID #### [address] MCH (RBC) [Entitic mass] 30.5 pg Normal 24.7-34.3 [facility] Comment on above: Order Comment: Reaso n for Exam Well adult exam Performed By: #### F E PRO, CMP wRFX A1C, TSH3, [id number], [id number], CBC, LIPID #### [address] MCV (RBC) [Entitic vol] 90.9 fL Normal 80-100 [facility] Comment on above: Order Comment: Reaso n for Exam Well adult exam Performed By: #### F E PRO, CMP wRFX A1C, TSH3, [id number], [id number], CBC, LIPID #### [address] Mean Corpuscular HGB Conc 33.6 g/dL Normal 32.0-35.0 [facility] Comment on above: Order Comment: Reaso n for Exam Well adult exam Performed By: #### F E PRO, CMP wRFX A1C, TSH3, [id number], [id number], CBC, LIPID #### [place] [address] [place] Monocytes (Bld) [#/Vol] 0.5 10*3/uL Normal 0.0-0.8 [facility] Comment on above: Order Comment: Reaso n for Exam Well adult exam Performed By: #### F E PRO, CMP wRFX A1C, TSH3, [id number], [id number], CBC, LIPID #### [facility] [address] [place] [address] [place] Monocytes/100 WBC (Bld) 7.9 % Normal . [facility] Comment on above: Order Comment: Reaso n for Exam Well adult exam Performed By: #### F E PRO, CMP wRFX A1C, TSH3, [id number], [id number], CBC, LIPID #### [facility] [address] [place] [address] [place] Neutrophils (Bld) [#/Vol] 3.4 10*3/uL Normal 1.8-7.7 [facility] Comment on above: Order Comment: Reaso n for Exam Well adult exam Performed By: #### F E PRO, CMP wRFX A1C, TSH3, [id number], [id number], CBC, LIPID #### [facility] [address] [place] [address] [place] Neutrophils/100 WBC (Bld) 54.8 % Normal . [facility] Comment on above: Order Comment: Reaso n for Exam Well adult exam Performed By: #### F E PRO, CMP wRFX A1C, TSH3, [id number], [id number], CBC, LIPID #### [facility] [address] [place] [address] [place] NRBC% 0.3 /100{WBC} Normal 0-0.5 [facility] Comment on above: Order Comment: Reaso n for Exam Well adult exam Performed By: #### F E PRO, CMP wRFX A1C, TSH3, [id number], [id number], CBC, LIPID #### [facility] [address] [place] [address] [place] Platelet mean volume (Bld) [Entitic vol] 8.8 fL Normal 6.3-10.7 [facility] Comment on above: Order Comment: Reaso n for Exam Well adult exam Performed By: #### F E PRO, CMP wRFX A1C, TSH3, [id number], [id number], CBC, LIPID #### [facility] [address] Platelets (Bld) [#/Vol] 219 10*3/uL Normal 150-450 [facility] Comment on above: Order Comment: Reaso n for Exam Well adult exam Performed By: #### F E PRO, CMP wRFX A1C, TSH3, [id number], [id number], CBC, LIPID #### [facility] [address] RBC (Bld) [#/Vol] 4.58 10*6/uL Normal 3.60-5.00 [facility] Comment on above: Order Comment: Reaso n for Exam Well adult exam Performed By: #### F E PRO, CMP wRFX A1C, TSH3, [id number], [id number], CBC, LIPID #### [facility] [address] WBC (Bld) [#/Vol] 6.1 10*3/uL Normal 3.8-11.6 [facility] Comment on above: Order Comment: Reaso n for Exam Well adult exam Performed By: #### F E PRO, CMP wRFX A1C, TSH3, [id number], [id number], CBC, LIPID #### [facility] [address] Creatinine [Mass/volume] in Serum or PlasmaOrdered By: Sherry Nielsen on 06-22-2023 Creatinine [Mass/Vol] 0.90 mg/dL 0.60-1.20 [facility] Eosinophils Auto (Bld) [#/Vo l]Ordered By: Sherry Nielsen on 06-22-2023 Eosinophils (Bld) [#/Vol] 0.1 10*3/uL 0.0-0.45 [facility] Eosinophils/100 WBC Auto (Bl d)Ordered By: Sherry Nielsen on 06-22-2023 Eosinophils/100 WBC (Bld) 2.2 % . [facility] Erythrocyte distribution wid th Auto (RBC) [Ratio]Ordered By: Sherry Nielsen on 06-22-2023 Erythrocyte distribution width (RBC) [Ratio] 12.6 % 11.9-15.3 [facility] FE PROon 06-22-2023 % Iron Saturation 34.8 % Normal 20-50 [facility] Comment on above: Order Comment: Reaso n for Exam Well adult exam Performed By: #### F E PRO, CMP wRFX A1C, TSH3, [id number], [id number], CBC, LIPID #### [facility] [address] [place] [address] [place] Ferritin [Mass/Vol] 33.1 ng/mL Normal 11.0-306.8 [facility] Comment on above: Order Comment: Reaso n for Exam Well adult exam Performed By: #### F E PRO, CMP wRFX A1C, TSH3, [id number], [id number], CBC, LIPID #### [facility] [address] [place] [address] [facility] Iron [Mass/Vol] 122 ug/dL Normal 50-212 [facility] Comment on above: Order Comment: Reaso n for Exam Well adult exam Performed By: #### F E PRO, CMP wRFX A1C, TSH3, [id number], [id number], CBC, LIPID #### [facility] [address] [place] [address] [place] Total Iron Binding Capacity 351 ug/dL Normal 255-450 [facility] Comment on above: Order Comment: Reaso n for Exam Well adult exam Performed By: #### F E PRO, CMP wRFX A1C, TSH3, [id number], [id number], CBC, LIPID #### [facility] [address] [place] [address] [place] Transferrin [Mass/Vol] 251 mg/dL Normal 203-362 [facility] Comment on above: Order Comment: Reaso n for Exam Well adult exam Performed By: #### F E PRO, CMP wRFX A1C, TSH3, [id number], [id number], CBC, LIPID #### [facility] [address] Ferritin [Mass/volume] in Se rum or PlasmaOrdered By: Sherry Nielsen on 06-22-2023 Ferritin [Mass/Vol] 33.1 ng/mL 11.0-306.8 [facility] Folate [Mass/volume] in Seru m or PlasmaOrdered By: Sherry Nielsen on 06-22-2023 Folate [Mass/Vol] 23.0 ng/mL >5.9 [facility] Comment on above: Folate reference ran ge: >5.9 ng/mlThe WHO technical consultation on folate and vitamin [id number] has determined that folate concentrations lessthan 4 ng/ml are considered deficient. Globulin Calc (S) [Mass/Vol] Ordered By: Sherry Nielsen on 06-22-2023 Globulin (S) [Mass/Vol] 3.1 g/dL [facility] Glucose [Mass/volume] in Ser um or PlasmaOrdered By: Sherry Nielsen on 06-22-2023 Glucose [Mass/Vol] 94 mg/dL 70-100 [facility] Hematocrit Auto (Bld) [Volum e fraction]Ordered By: Sherry Nielsen on 06-22-2023 Hematocrit (Bld) [Volume fraction] 41.6 % 34.0-46.4 [facility] Hemoglobin [Mass/volume] in BloodOrdered By: Sherry Nielsen on 06-22-2023 Hemoglobin (Bld) [Mass/Vol] 14.0 g/dL 11.8-15.4 [facility] Iron [Mass/volume] in Serum or PlasmaOrdered By: Sherry Nielsen on 06-22-2023 Iron [Mass/Vol] 122 ug/dL 50-212 [facility] Iron binding capacity [Mass/ volume] in Serum or PlasmaOrdered By: Sherry Nielsen on 06-22-2023 Iron binding capacity [Mass/Vol] 351 ug/dL 255-450 [facility] Iron saturation [Mass Fracti on] in Serum or PlasmaOrdered By: Sherry Nielsen on 06-22-2023 Iron saturation [Mass fraction] 34.8 % 20-50 [facility] Leukocytes [#/volume] correc wilber for nucleated erythrocytes in Blood by Automated counOrdered By: Sherry Nielsen on 06-22-2023 WBC corrected for nucl RBC Auto (Bld) [#/Vol] 6.1 10*3/uL 3.8-11.6 [facility] Lipid Panelon 06-22-2023 Cholesterol [Mass/Vol] 149 mg/dL Normal 140-200 [facility] Comment on above: Order Comment: Reaso n for Exam Well adult exam Result Comment: Chol less than 200 mg/dl low risk Chol 201-239 mg/dl borderline risk Chol 240 mg/dl and greater high risk Performed By: #### F E PRO, CMP wRFX A1C, TSH3, [id number], [id number], CBC, LIPID #### [facility] [address] [place] [id number] [place] Cholesterol in HDL [Mass/Vol] 63 mg/dL Normal 23-92 [facility] Comment on above: Order Comment: Reaso n for Exam Well adult exam Result Comment: HDL CHOL ATP-III CLASSIFICATION Cardiovascular Risk HDL > or equal to 60 mg/dL LOW HDL < 40 mg/dL HIGH Performed By: #### F E PRO, CMP wRFX A1C, TSH3, [id number], [id number], CBC, LIPID #### [facility] [address] [place] [address] [place] Cholesterol.total/Choles terol in HDL [Mass ratio] 2.4 {ratio} Normal <5.0 [facility] Comment on above: Order Comment: Reaso n for Exam Well adult exam Performed By: #### F E PRO, CMP wRFX A1C, TSH3, [id number], [id number], CBC, LIPID #### [facility] [address] [place] [address] [place] LDL Cholesterol,Calculated 70 mg/dL Normal 0-100 [facility] Comment on above: Order Comment: Reaso n for Exam Well adult exam Result Comment: LDL ATP III CLASSIFICATION LDL less than 100 mg/dL Optimal LDL 100-129 mg/dL Near or above optimal LDL 130-159 mg/dL Borderline high LDL 160-189 mg/dL High LDL greater than 189 mg/dL Very high Performed By: #### F E PRO, CMP wRFX A1C, TSH3, [id number], [id number], CBC, LIPID #### [facility] [address] Triglyceride w/Reflex 82 mg/dL Normal 0-149 [facility] Comment on above: Order Comment: Reaso n for Exam Well adult exam Result Comment: TRIG ATP III CLASSIFICATION TRIG less than 150 mg/dL Normal TRIG 150-199 mg/dL Borderline high TRIG 200-500 mg/dL High TRIG greater than 500 mg/dL Very high Standard traceable to the Center for Disease Conrtrol and Prevention (CDC) test method. Performed By: #### F E PRO, CMP wRFX A1C, TSH3, [id number], [id number], CBC, LIPID #### [facility] [address] VLDL CHOLESTEROL 16 mg/dL Normal [facility] Comment on above: Order Comment: Reaso n for Exam Well adult exam Performed By: #### F E PRO, CMP wRFX A1C, TSH3, [id number], [id number], CBC, LIPID #### [facility] [address] Lymphocytes Auto (Bld) [#/Vo l]Ordered By: Sherry Nielsen on 06-22-2023 Lymphocytes (Bld) [#/Vol] 2.1 10*3/uL 1.00-4.8 [facility] Lymphocytes/100 WBC Auto (Bl d)Ordered By: Sherry Nielsen on 06-22-2023 Lymphocytes/100 WBC (Bld) 34.6 % . [facility] MCH Auto (RBC) [Entitic mass ]Ordered By: Sherry Nielsen on 06-22-2023 MCH (RBC) [Entitic mass] 30.5 pg 24.7-34.3 [facility] MCHC Auto (RBC) [Mass/Vol]Or dered By: Sherry Nielsen on 06-22-2023 MCHC (RBC) [Mass/Vol] 33.6 g/dL 32.0-35.0 [facility] MCV Auto (RBC) [Entitic vol] Ordered By: Sherry Nielsen on 06-22-2023 MCV (RBC) [Entitic vol] 90.9 fL 80-100 [facility] Monocytes Auto (Bld) [#/Vol] Ordered By: Sherry Nielsen on 06-22-2023 Monocytes (Bld) [#/Vol] 0.5 10*3/uL 0.0-0.8 [facility] Monocytes/100 WBC Auto (Bld) Ordered By: Sherry Nielsen on 06-22-2023 Monocytes/100 WBC (Bld) 7.9 % . [facility] Neutrophils Auto (Bld) [#/Vo l]Ordered By: Sherry Nielsen on 06-22-2023 Neutrophils (Bld) [#/Vol] 3.4 10*3/uL 1.8-7.7 [facility] Neutrophils/100 WBC Auto (Bl d)Ordered By: Sherry Nielsen on 06-22-2023 Neutrophils/100 WBC (Bld) 54.8 % . [facility] No Panel InformationOrdered By: Sherry Nielsen on 06-22-2023 Estimated GFR (CKD-EPI) > 60.0 mL/Min [facility] Creatinine Clearance (Chem N/A [facility] Nucleated erythrocytes [Pres ence] in Blood by Automated countOrdered By: Sherry Nielsen on 06-22-2023 Nucleated RBC Auto Ql (Bld) 0.3 /100{WBC} 0-0.5 [facility] Platelet mean volume Auto (B ld) [Entitic vol]Ordered By: Sherry Nielsen on 06-22-2023 Platelet mean volume (Bld) [Entitic vol] 8.8 fL 6.3-10.7 [facility] Platelets Auto (Bld) [#/Vol] Ordered By: Sherry Nielsen on 06-22-2023 Platelets (Bld) [#/Vol] 219 10*3/uL 150-450 [facility] Potassium [Moles/volume] in Serum or PlasmaOrdered By: Sherry Nielsen on 06-22-2023 Potassium [Moles/Vol] 4.3 mmol/L 3.5-5.1 [facility] Protein [Mass/volume] in Ser um or PlasmaOrdered By: Sherry Nielsen on 06-22-2023 Protein [Mass/Vol] 7.4 g/dL 6.4-8.9 [facility] RBC Auto (Bld) [#/Vol]Ordere d By: Sherry Nielsen on 06-22-2023 RBC (Bld) [#/Vol] 4.58 10*6/uL 3.60-5.00 [facility] Serum or plasma albumin/glob ulin mass ratioOrdered By: Sherry Nielsen on 06-22-2023 Albumin/Globulin [Mass ratio] 1.4 {ratio} [facility] Serum or plasma anion gap de terminationOrdered By: Sherry Nielsen on 06-22-2023 Anion gap [Moles/Vol] 10.2 mmol/L 6.0-15.0 [facility] Serum or plasma high density lipoprotein (HDL) cholesterol measurementOrdered By: Sherry Nielsen on 06-22-2023 Cholesterol in HDL [Mass/Vol] 63 mg/dL 23-92 [facility] Comment on above: HDL CHOL ATP-III CLA SSIFICATION Cardiovascular RiskHDL > or equal to 60 mg/dL LOWHDL < 40 mg/dL HIGH Serum or plasma total choles terol/high density lipoprotein (HDL) cholesterol mass ratOrdered By: Sherry Nielsen on 06-22-2023 Cholesterol.total/Choles terol in HDL [Mass ratio] 2.4 {ratio} <5.0 [facility] Sodium [Moles/volume] in Ser um or PlasmaOrdered By: Sherry Nielsen on 06-22-2023 Sodium [Moles/Vol] 138 mmol/L 136-145 [facility] Thyroid Stimulating Hormoneo n 06-22-2023 TSH Qn 1.93 m[IU]/L Normal 0.45-5.33 [facility] Comment on above: Order Comment: Reaso n for Exam Well adult exam Performed By: #### F E PRO, CMP wRFX A1C, TSH3, [id number], [id number], CBC, LIPID #### [facility] [address] Thyrotropin [Units/volume] i n Serum or PlasmaOrdered By: Sherry Nielsen on 06-22-2023 TSH Qn 1.93 m[IU]/L 0.45-5.33 [facility] Transferrin [Mass/volume] in Serum or PlasmaOrdered By: Sherry Nielsen on 06-22-2023 Transferrin [Mass/Vol] 251 mg/dL 203-362 [facility] Triglyceride [Mass/volume] i n Serum or PlasmaOrdered By: Sherry Nielsen on 06-22-2023 Triglyceride [Mass/Vol] 82 mg/dL 0-149 [facility] Comment on above: TRIG ATP III CLASSIF ICATIONTRIG less than 150 mg/dL NormalTRIG 150-199 mg/dL Borderline highTRIG 200-500 mg/dL High TRIG greater than 500 mg/dL Very highStandard traceable to the Center for Disease Conrtrol and Prevention (CDC) test method. Urea nitrogen [Mass/volume] in Serum or PlasmaOrdered By: Sherry Nielsen on 06-22-2023 Urea nitrogen [Mass/Vol] 16 mg/dL 7-25 [facility] Vit. B12/Folate Profileon Cobalamin (Vitamin B12) [Mass/Vol] 333 pg/mL Normal 180-914 [facility] Comment on above: Order Comment: Reaso n for Exam Well adult exam Performed By: #### F E PRO, CMP wRFX A1C, TSH3, [id number], [id number], CBC, LIPID #### [facility] [address] [place] [id number] [facility] Folate 23.0 ng/mL Normal >5.9 [facility] Comment on above: Order Comment: Reaso n for Exam Well adult exam Result Comment: [place] te reference range: >5.9 ng/ml The WHO technical consultation on folate and vitamin b12 deficiencies has determined that folate concentrations less than 4 ng/ml are considered deficient. Performed By: #### F E PRO, CMP wRFX A1C, TSH3, [id number], [id number], CBC, LIPID #### [facility] [address] [place], [place] [id number] [facility] Vitamin B12 ser/plasOrdered By: Sherry Nielsen on 06-22-2023 Cobalamin (Vitamin B12) [Mass/Vol] 333 pg/mL 180-914 [facility] Vitamin D 25 Hydroxy Totalon 06-22-2023 Vitamin D 25 Hydroxy Total 45.4 ng/mL Normal 30-100 [facility] Comment on above: Order Comment: Reaso n for Exam Well adult exam Result Comment: TEX MIN D STATUS 25(OH)VITAMIN D RANGE (ng/mL) Deficient <20 Insufficient 20 to <30 Sufficient 30 to 100 Reference: Marielena Sandoval, Maximilian HAMILTON, et al. Evaluation,treatment, and prevention of vitamin D deficiency; an Endocrine Society clinical practice guideline. JCEM. 2010; 96(7):191-. PERFORMED BY: [place] [address] PATHOLOGIST [employer]ORATORY TECHNICIAN GLORIA MESA M.D. Performed By: #### F E PRO, CMP wRFX A1C, TSH3, [id number], [id number], CBC, LIPID #### [address] Vitamin D+Metabolites [Mass/ volume] in Serum or PlasmaOrdered By: Sherry Nielsen on 06-22-2023 Vitamin D+Metabolites [Mass/Vol] 45.4 ng/mL 30-100 [facility] Comment on above: VITAMIN D STATUS 25( [place])VITAMIN D RANGE (ng/mL) Deficient <20 Insufficient 20 to <30Sufficient 30 to 100Reference: Marielena Sandoval, Maximilian HAMILTON, et al. Evaluation,treatment, and prevention of vitamin D deficiency; an Endocrine Society clinical practice guideline. JCEM. 2010; 96(7):191-. WBC Auto (Bld) [#/Vol]Ordere d By: Sherry Nielsen on 06-22-2023 WBC (Bld) [#/Vol] 6.1 10*3/uL 3.8-11.6 [facility] Vital Signs Date Time Vital Sign Value Performing Clinician Facility 06-18-2023 07:30-0400 Body height 156.21 cm Sherry Nielsen Other [employer] Other 06-18-2023 07:30-0400 Body mass index (BMI) [Ratio] 31.73 kg/m2 Sherry Nielsen Other [employer] Other 06-18-2023 07:30-0400 Body weight 77.43 kg Sherry Nielsen Other [employer] Other 06-18-2023 07:30-0400 Diastolic blood pressure 70 mm[Hg] Sherry Nielsen Other [employer] Other 06-18-2023 07:30-0400 Respiratory rate 18 /min Sherry Nielsen Other [employer] Other 06-18-2023 07:30-0400 SaO2% (BldA) [Mass fraction] 98 % Sherry Nielsen Other [employer] Other 06-18-2023 07:30-0400 Systolic blood pressure 110 mm[Hg] Sherry Nielsen Other [employer] Other Encounters Encounter Date Encounter Type Care Provider Facility Start: 11-29-2023 End: 11-29-2023 ambulatory ROMMEL MARQUEZ Not Available Start: 10-28-2023 End: 10-28-2023 ambulatory ADDIE DOE Not Available Start: 09-24-2023 End: 09-24-2023 ambulatory ROMMEL MARQUEZ Not Available Start: 06-22-2023 End: 06-22-2023 ambulatory Sherry Nielsen Facility:[facility] Start: 06-22-2023 End: 06-22-2023 ambulatory DNP Sherry Nielsen Work Phone: [facility] Work Phone: Start: 06-22-2023 End: 06-22-2023 Patient encounter procedure DNP Sherry Nielsen Work Phone: [facility] Start: 06-18-2023 End: 06-18-2023 ambulatory Sherry Nielsen Other [facility] Other Start: 06-18-2023 Encounter for genera l adult medical examination without abnormal findings Sherry Gia [facility] [place] Start: 06-18-2023 Initial preventive medicine new pt age 18-39yrs Sherry Nielsen [facility] Payers Date Payer Category Payer Self-pay 2023 [employer] [place] [employer] [facility] [id number] 1995 Unknown [id number] 1995 Unknown [id number] 1995 Unknown [id number] Unknown [id number] Unknown HCAP/HFA/FAP Active [id number] Social History Date Type Detail Facility Sex Assigned At [facility] Other Start: 1995 Sex Assigned At Female F [facility] Evaluation note 06-18-2023 Note Date & Type Note Facility 06-18-2023 Evaluation note Encounter Date Diagnosis Assessment Notes Jun, Well adult exam (ICD-10 - Z00.00) Routine lab work ordered. 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 Patient is advised to work on healthy diet choices and appropriate servings, weight control, regular exercise as directed, reduced fat intake, and salt avoidance. Patient voiced understanding of this and agrees to this plan. [employer] Other Evaluation note Note Date & Type Note Facility Evaluation note No assessment information availa mani [facility] Work Phone: History general Narrative - Reported Note Date & Type Note Facility History general Narrative - Reported Type Surgical History Foot Surgery Surgical History GALLBLADDER Surgical History 2015 Surgical History SHOULDER-LEFT 2018 Hospitalization History see above [employer] [facility] Other Summary Purpose Family History No Family [...] section and content) DATE CREATED AUTHOR 06/22/2023 [facility] DATE CREATED AUTHOR AUTHOR'S ORGANIZ ATION 11/29/2023 [facility] [employer] Care Teams (unrecognized sec tion and content) [...] BE BASED ON THE PRIMARY CLINICAL RECORDS. [employer] provides no warranty or guarantee of the accuracy or completeness of information in this document.
== END 2023-12-27 08:37 | disposition home or self-care (01) ==
LOC: NOMS 08:36
PROVIDERS: Visit Provider Obstetrics & Gynecology
DX: Z36.89 Encounter for other specified antenatal screening (principal); Z3A.21 21 weeks gestation of pregnancy
CPT/HCPCS: 76805; 76817

== ENCOUNTER 2024-01-26 06:30 | Outpatient (OUT) | payer BC, SELFPAY ==
--- OUTSIDE RECORDS SUMMARY | 2024-01-26 06:32 | XMS_ITS | CCD ---
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 Name Role Phone Sherry Nielsen Unavailable Sherry Nielsen Attending Unavailable Sherry Nielsen Primary Care Unavailable Sherry Nielsen Admitting Unavailable LYNNE Nielsen Primary Care Provider LYNNE Nielsen Attending Provider [phone] ROMMEL MARQUEZ Attending Unavailable ADDIE DOE Attending Unavailable ADDIE DOE Attending Unavailable ROMMEL MARQUEZ Attending Unavailable Allergies Allergy Classification Reported Allergen(s) Allergy Type Date of Onset Reaction(s) Facility (1 source) Adhesive agent Drug allergy Vidaao Other Problems Problem Classification Problem Date Documented Da te Episodic/Chronic Unclassified (1 source) Encounter for general adult medical examination without abnormal findings; Translations: [Encounter for general adult medical examination without abnormal findings] Onset: 06-22-2023 Results Test Name Value Interpretation Reference Range Facility Alanine aminotransferase [En zymatic activity/volume] in Serum or PlasmaOrdered By: Sherry Nielsen on 06-22-2023 ALT [Catalytic activity/Vol] 14 U/L 7-52 [facility] Albumin [Mass/volume] in Ser um or Plasma by Bromocresol green (BCG) dye binding methoOrdered By: Sherry Nielsen on 06-22-2023 Albumin BCG dye [Mass/Vol] 4.3 g/dL 3.5-5.7 [facility] Alkaline phosphatase [Enzyma tic activity/volume] in Serum or PlasmaOrdered By: Sherry Nielsen on 06-22-2023 ALP [Catalytic activity/Vol] 88 U/L 34-104 [facility] Aspartate aminotransferase [ Enzymatic activity/volume] in Serum or PlasmaOrdered By: Sherry Nielsen on 06-22-2023 AST [Catalytic activity/Vol] 15 U/L 13-39 [facility] Basophils Auto (Bld) [#/Vol] Ordered By: Sherry Nielsen on 06-22-2023 Basophils (Bld) [#/Vol] 0.0 10*3/uL 0.0-0.2 [facility] Basophils/100 WBC Auto (Bld) Ordered By: Sherry Nielsen on 06-22-2023 Basophils/100 WBC (Bld) 0.5 % . [facility] Bilirubin.total [Mass/volume ] in Serum or PlasmaOrdered By: Sherry Nielsen on 06-22-2023 Bilirubin [Mass/Vol] 1.1 mg/dL 0.3-1.0 [facility] CMP with reflex to A1Con Albumin [Mass/Vol] 4.3 g/dL Normal 3.5-5.7 [facility] Comment on above: Order Comment: Reaso n for Exam Well adult exam Performed By: #### F E PRO, CMP wRFX A1C, TSH3, [id number], [id number], CBC, LIPID #### [facility] [address] Albumin/Globulin [Mass ratio] 1.4 {ratio} Normal [facility] Comment on above: Order Comment: Reaso n for Exam Well adult exam Performed By: #### F E PRO, CMP wRFX A1C, TSH3, [id number], [id number], CBC, LIPID #### [facility] [address] [place] [address] [place] ALP [Catalytic activity/Vol] 88 U/L Normal 34-104 [facility] Comment on above: Order Comment: Reaso n for Exam Well adult exam Performed By: #### F E PRO, CMP wRFX A1C, TSH3, [id number], [id number], CBC, LIPID #### [facility] [address] [place] [address] [place] ALT [Catalytic activity/Vol] 14 U/L Normal 7-52 [facility] Comment on above: Order Comment: Reaso n for Exam Well adult exam Performed By: #### F E PRO, CMP wRFX A1C, TSH3, [id number], [id number], CBC, LIPID #### [facility] [address] Anion gap [Moles/Vol] 10.2 mmol/L Normal 6.0-15.0 [facility] Comment on above: Order Comment: Reaso n for Exam Well adult exam Performed By: #### F E PRO, CMP wRFX A1C, TSH3, [id number], [id number], CBC, LIPID #### [facility] [address] AST [Catalytic activity/Vol] 15 U/L Normal 13-39 [facility] Comment on above: Order Comment: Reaso n for Exam Well adult exam Performed By: #### F E PRO, CMP wRFX A1C, TSH3, [id number], [id number], CBC, LIPID #### [facility] [address] Bilirubin [Mass/Vol] 1.1 mg/dL High 0.3-1.0 [facility] Comment on above: Order Comment: Reaso n for Exam Well adult exam Performed By: #### F E PRO, CMP wRFX A1C, TSH3, [id number], [id number], CBC, LIPID #### [facility] [address] Calcium [Mass/Vol] 9.3 mg/dL Normal 8.6-10.3 [facility] Comment on above: Order Comment: Reaso n for Exam Well adult exam Performed By: #### F E PRO, CMP wRFX A1C, TSH3, [id number], [id number], CBC, LIPID #### [facility] [address] [place] [id number] [facility] Chloride [Moles/Vol] 105 mmol/L Normal 98-107 [facility] Comment on above: Order Comment: Reaso n for Exam Well adult exam Performed By: #### F E PRO, CMP wRFX A1C, TSH3, [id number], [id number], CBC, LIPID #### [facility] [address] CO2 [Moles/Vol] 27.1 mmol/L Normal 21.0-31.0 [facility] Comment on above: Order Comment: Reaso n for Exam Well adult exam Performed By: #### F E PRO, CMP wRFX A1C, TSH3, [id number], [id number], CBC, LIPID #### [facility] [address] Creatinine [Mass/Vol] 0.90 mg/dL Normal 0.60-1.20 [facility] Comment on above: Order Comment: Reaso n for Exam Well adult exam Performed By: #### F E PRO, CMP wRFX A1C, TSH3, [id number], [id number], CBC, LIPID #### [facility] [address] [place] [address] GFR/1.73 sq M.predicted MDRD (S/P/Bld) [Vol rate/Area] mL/min/{1.73_m2} [facility] Comment on above: Order Comment: Reaso n for Exam Well adult exam Performed By: #### F E PRO, CMP wRFX A1C, TSH3, [id number], [id number], CBC, LIPID #### [facility] [address] [place] [address] Globulin (S) [Mass/Vol] 3.1 g/dL Normal [facility] Comment on above: Order Comment: Reaso n for Exam Well adult exam Performed By: #### F E PRO, CMP wRFX A1C, TSH3, [id number], [id number], CBC, LIPID #### [facility] [address] [place] [address] Glucose [Mass/Vol] 94 mg/dL Normal 70-100 [facility] Comment on above: Order Comment: Reaso n for Exam Well adult exam Performed By: #### F E PRO, CMP wRFX A1C, TSH3, [id number], [id number], CBC, LIPID #### [facility] [address] Potassium [Moles/Vol] 4.3 mmol/L Normal 3.5-5.1 [facility] Comment on above: Order Comment: Reaso n for Exam Well adult exam Performed By: #### F E PRO, CMP wRFX A1C, TSH3, [id number], [id number], CBC, LIPID #### [facility] [address] Protein [Mass/Vol] 7.4 g/dL Normal 6.4-8.9 [facility] Comment on above: Order Comment: Reaso n for Exam Well adult exam Performed By: #### F E PRO, CMP wRFX A1C, TSH3, [id number], [id number], CBC, LIPID #### [facility] [address] Sodium [Moles/Vol] 138 mmol/L Normal 136-145 [facility] Comment on above: Order Comment: Reaso n for Exam Well adult exam Performed By: #### F E PRO, CMP wRFX A1C, TSH3, [id number], [id number], CBC, LIPID #### [facility] [address] Urea nitrogen [Mass/Vol] 16 mg/dL Normal 7-25 [facility] Comment on above: Order Comment: Reaso n for Exam Well adult exam Performed By: #### F E PRO, CMP wRFX A1C, TSH3, [id number], [id number], CBC, LIPID #### [facility] [address] [place] [id number] [place] Calcium [Mass/volume] in Ser um or PlasmaOrdered By: Sherry Nielsen on 06-22-2023 Calcium [Mass/Vol] 9.3 mg/dL 8.6-10.3 [facility] Carbon dioxide, total [Moles /volume] in Serum or PlasmaOrdered By: Sherry Nielsen on 06-22-2023 CO2 [Moles/Vol] 27.1 mmol/L 21.0-31.0 [facility] Chloride [Moles/volume] in S adriano or PlasmaOrdered By: Sherry Nielsen on 06-22-2023 Chloride [Moles/Vol] 105 mmol/L 98-107 [facility] Cholesterol [Mass/volume] in Serum or PlasmaOrdered By: Sherry Nielsen on 06-22-2023 Cholesterol [Mass/Vol] 149 mg/dL 140-200 [facility] Comment on above: Chol less than 200 m g/dl low riskChol 201-239 mg/dl borderline riskChol 240 mg/dl and greater high risk Cholesterol in LDL Calc [Mas s/Vol]Ordered By: Sherry Nielsen on 06-22-2023 Cholesterol in LDL [Mass/Vol] 70 mg/dL 0-100 [facility] Comment on above: LDL ATP III CLASSIFI CATIONLDL less than 100 mg/dL OptimalLDL 100-129 mg/dL Near or above optimalLDL 130-159 mg/dL Borderline highLDL 160-189 mg/dL HighLDL greater than 189 mg/dL Very high Cholesterol in VLDL Calc [Ma ss/Vol]Ordered By: Sherry Nielsen on 06-22-2023 Cholesterol in VLDL [Mass/Vol] 16 mg/dL [facility] Complete Blood Count Auto Di ffon 06-22-2023 Basophils (Bld) [#/Vol] 0.0 10*3/uL Normal 0.0-0.2 [facility] Comment on above: Order Comment: Reaso n for Exam Well adult exam Result Comment: PERF ORMED BY: [place] [address] PATHOLOGIST WEB ANALYST GLORIA MESA M.D. Performed By: #### F E PRO, CMP wRFX A1C, TSH3, [id number], [id number], CBC, LIPID #### [facility] [address] Basophils/100 WBC (Bld) 0.5 % Normal . [facility] Comment on above: Order Comment: Reaso n for Exam Well adult exam Performed By: #### F E PRO, CMP wRFX A1C, TSH3, [id number], [id number], CBC, LIPID #### [facility] [address] Eosinophils (Bld) [#/Vol] 0.1 10*3/uL Normal 0.0-0.45 [facility] Comment on above: Order Comment: Reaso n for Exam Well adult exam Performed By: #### F E PRO, CMP wRFX A1C, TSH3, [id number], [id number], CBC, LIPID #### [facility] [address] Eosinophils/100 WBC (Bld) 2.2 % Normal . [facility] Comment on above: Order Comment: Reaso n for Exam Well adult exam Performed By: #### F E PRO, CMP wRFX A1C, TSH3, [id number], [id number], CBC, LIPID #### [address] Erythrocyte distribution width (RBC) [Ratio] 12.6 % Normal 11.9-15.3 [facility] Comment on above: Order Comment: Reaso n for Exam Well adult exam Performed By: #### F E PRO, CMP wRFX A1C, TSH3, [id number], [id number], CBC, LIPID #### [address] Hematocrit (Bld) [Volume fraction] 41.6 % Normal 34.0-46.4 [facility] Comment on above: Order Comment: Reaso n for Exam Well adult exam Performed By: #### F E PRO, CMP wRFX A1C, TSH3, [id number], [id number], CBC, LIPID #### [address] Hemoglobin (Bld) [Mass/Vol] 14.0 g/dL Normal 11.8-15.4 [facility] Comment on above: Order Comment: Reaso n for Exam Well adult exam Performed By: #### F E PRO, CMP wRFX A1C, TSH3, [id number], [id number], CBC, LIPID #### [facility] [address] [place] [address] Lymphocytes (Bld) [#/Vol] 2.1 10*3/uL Normal 1.00-4.8 [facility] Comment on above: Order Comment: Reaso n for Exam Well adult exam Performed By: #### F E PRO, CMP wRFX A1C, TSH3, [id number], [id number], CBC, LIPID #### [address] Lymphocytes/100 WBC (Bld) 34.6 % Normal . [facility] Comment on above: Order Comment: Reaso n for Exam Well adult exam Performed By: #### F E PRO, CMP wRFX A1C, TSH3, [id number], [id number], CBC, LIPID #### [address] MCH (RBC) [Entitic mass] 30.5 pg Normal 24.7-34.3 [facility] Comment on above: Order Comment: Reaso n for Exam Well adult exam Performed By: #### F E PRO, CMP wRFX A1C, TSH3, [id number], [id number], CBC, LIPID #### [address] MCV (RBC) [Entitic vol] 90.9 fL Normal 80-100 [facility] Comment on above: Order Comment: Reaso n for Exam Well adult exam Performed By: #### F E PRO, CMP wRFX A1C, TSH3, [id number], [id number], CBC, LIPID #### [address] Mean Corpuscular HGB Conc 33.6 g/dL Normal 32.0-35.0 [facility] Comment on above: Order Comment: Reaso n for Exam Well adult exam Performed By: #### F E PRO, CMP wRFX A1C, TSH3, [id number], [id number], CBC, LIPID #### [address] Monocytes (Bld) [#/Vol] 0.5 10*3/uL Normal 0.0-0.8 [facility] Comment on above: Order Comment: Reaso n for Exam Well adult exam Performed By: #### F E PRO, CMP wRFX A1C, TSH3, [id number], [id number], CBC, LIPID #### [facility] [address] [place] [address] [place] Monocytes/100 WBC (Bld) 7.9 % Normal . [facility] Comment on above: Order Comment: Reaso n for Exam Well adult exam Performed By: #### F E PRO, CMP wRFX A1C, TSH3, [id number], [id number], CBC, LIPID #### [facility] [address] [place] [address] [place] Neutrophils (Bld) [#/Vol] 3.4 10*3/uL Normal 1.8-7.7 [facility] Comment on above: Order Comment: Reaso n for Exam Well adult exam Performed By: #### F E PRO, CMP wRFX A1C, TSH3, [id number], [id number], CBC, LIPID #### [facility] [address] Neutrophils/100 WBC (Bld) 54.8 % Normal . [facility] Comment on above: Order Comment: Reaso n for Exam Well adult exam Performed By: #### F E PRO, CMP wRFX A1C, TSH3, [id number], [id number], CBC, LIPID #### [facility] [address] [place] [address] [place] NRBC% 0.3 /100{WBC} Normal 0-0.5 [facility] Comment on above: Order Comment: Reaso n for Exam Well adult exam Performed By: #### F E PRO, CMP wRFX A1C, TSH3, [id number], [id number], CBC, LIPID #### [facility] [address] Platelet mean volume (Bld) [Entitic vol] 8.8 fL Normal 6.3-10.7 [facility] Comment on above: Order Comment: Reaso n for Exam Well adult exam Performed By: #### F E PRO, CMP wRFX A1C, TSH3, [id number], [id number], CBC, LIPID #### [facility] [address] Platelets (Bld) [#/Vol] 219 10*3/uL Normal 150-450 [facility] Comment on above: Order Comment: Reaso n for Exam Well adult exam Performed By: #### F E PRO, CMP wRFX A1C, TSH3, [id number], [id number], CBC, LIPID #### [facility] [address] RBC (Bld) [#/Vol] 4.58 10*6/uL Normal 3.60-5.00 [facility] Comment on above: Order Comment: Reaso n for Exam Well adult exam Performed By: #### F E PRO, CMP wRFX A1C, TSH3, [id number], [id number], CBC, LIPID #### [facility] [address] WBC (Bld) [#/Vol] 6.1 10*3/uL Normal 3.8-11.6 [facility] Comment on above: Order Comment: Reaso n for Exam Well adult exam Performed By: #### F E PRO, CMP wRFX A1C, TSH3, [id number], [id number], CBC, LIPID #### [facility] [address] [place] [address] Creatinine [Mass/volume] in Serum or PlasmaOrdered By: Sherry Nielsen on 06-22-2023 Creatinine [Mass/Vol] 0.90 mg/dL 0.60-1.20 [facility] Eosinophils Auto (Bld) [#/Vo l]Ordered By: Sherry Nielsen on 06-22-2023 Eosinophils (Bld) [#/Vol] 0.1 10*3/uL 0.0-0.45 [facility] Eosinophils/100 WBC Auto (Bl d)Ordered By: Sherry Nielsen on 06-22-2023 Eosinophils/100 WBC (Bld) 2.2 % . [facility] Erythrocyte distribution wid th Auto (RBC) [Ratio]Ordered By: Sherry Nielsen on 06-22-2023 Erythrocyte distribution width (RBC) [Ratio] 12.6 % 11.9-15.3 [facility] FE PROon 06-22-2023 % Iron Saturation 34.8 % Normal 20-50 [facility] Comment on above: Order Comment: Reaso n for Exam Well adult exam Performed By: #### F E PRO, CMP wRFX A1C, TSH3, [id number], [id number], CBC, LIPID #### [facility] [address] [place] [address] [place] Ferritin [Mass/Vol] 33.1 ng/mL Normal 11.0-306.8 [facility] Comment on above: Order Comment: Reaso n for Exam Well adult exam Performed By: #### F E PRO, CMP wRFX A1C, TSH3, [id number], [id number], CBC, LIPID #### [facility] [address] [place] [id number] [facility] Iron [Mass/Vol] 122 ug/dL Normal 50-212 [facility] Comment on above: Order Comment: Reaso n for Exam Well adult exam Performed By: #### F E PRO, CMP wRFX A1C, TSH3, [id number], [id number], CBC, LIPID #### [facility] [address] [place] [address] [place] Total Iron Binding Capacity 351 ug/dL Normal 255-450 [facility] Comment on above: Order Comment: Reaso n for Exam Well adult exam Performed By: #### F E PRO, CMP wRFX A1C, TSH3, [id number], [id number], CBC, LIPID #### [facility] [address] [place] [address] [place] Transferrin [Mass/Vol] 251 mg/dL Normal 203-362 [facility] Comment on above: Order Comment: Reaso n for Exam Well adult exam Performed By: #### F E PRO, CMP wRFX A1C, TSH3, [id number], [id number], CBC, LIPID #### [facility] [address] [place] [id number] [facility] Ferritin [Mass/volume] in Se rum or PlasmaOrdered By: Sherry Nielsen on 06-22-2023 Ferritin [Mass/Vol] 33.1 ng/mL 11.0-306.8 [facility] Folate [Mass/volume] in Seru m or PlasmaOrdered By: Sherry Nielsen on 06-22-2023 Folate [Mass/Vol] 23.0 ng/mL >5.9 [facility] Comment on above: Folate reference ran ge: >5.9 ng/mlThe WHO technical consultation on folate and vitamin [id number] has determined that folate concentrations lessthan 4 ng/ml are considered deficient. Globulin Calc (S) [Mass/Vol] Ordered By: Sherry Nielsen on 06-22-2023 Globulin (S) [Mass/Vol] 3.1 g/dL [facility] Glucose [Mass/volume] in Ser um or PlasmaOrdered By: Sherry Nielsen on 06-22-2023 Glucose [Mass/Vol] 94 mg/dL 70-100 [facility] Hematocrit Auto (Bld) [Volum e fraction]Ordered By: Sherry Nielsen on 06-22-2023 Hematocrit (Bld) [Volume fraction] 41.6 % 34.0-46.4 [facility] Hemoglobin [Mass/volume] in BloodOrdered By: Sherry Nielsen on 06-22-2023 Hemoglobin (Bld) [Mass/Vol] 14.0 g/dL 11.8-15.4 [facility] Iron [Mass/volume] in Serum or PlasmaOrdered By: Sherry Nielsen on 06-22-2023 Iron [Mass/Vol] 122 ug/dL 50-212 [facility] Iron binding capacity [Mass/ volume] in Serum or PlasmaOrdered By: Sherry Nielsen on 06-22-2023 Iron binding capacity [Mass/Vol] 351 ug/dL 255-450 [facility] Iron saturation [Mass Fracti on] in Serum or PlasmaOrdered By: Sherry Nielsen on 06-22-2023 Iron saturation [Mass fraction] 34.8 % 20-50 [facility] Leukocytes [#/volume] correc wilber for nucleated erythrocytes in Blood by Automated counOrdered By: Sherry Nielsen on 06-22-2023 WBC corrected for nucl RBC Auto (Bld) [#/Vol] 6.1 10*3/uL 3.8-11.6 [facility] Lipid Panelon 06-22-2023 Cholesterol [Mass/Vol] 149 mg/dL Normal 140-200 [facility] Comment on above: Order Comment: Reaso n for Exam Well adult exam Result Comment: Chol less than 200 mg/dl low risk Chol 201-239 mg/dl borderline risk Chol 240 mg/dl and greater high risk Performed By: #### F E PRO, CMP wRFX A1C, TSH3, [id number], [id number], CBC, LIPID #### [facility] [address] [place] [address] [place] Cholesterol in HDL [Mass/Vol] 63 mg/dL Normal 23-92 [facility] Comment on above: Order Comment: Reaso n for Exam Well adult exam Result Comment: HDL CHOL ATP-III CLASSIFICATION Cardiovascular Risk HDL > or equal to 60 mg/dL LOW HDL < 40 mg/dL HIGH Performed By: #### F E PRO, CMP wRFX A1C, TSH3, [id number], [id number], CBC, LIPID #### [facility] [address] [place] [address] [place] Cholesterol.total/Choles terol in HDL [Mass ratio] 2.4 {ratio} Normal <5.0 [facility] Comment on above: Order Comment: Reaso n for Exam Well adult exam Performed By: #### F E PRO, CMP wRFX A1C, TSH3, [id number], [id number], CBC, LIPID #### [facility] [address] [place] [address] [place] LDL Cholesterol,Calculated 70 mg/dL Normal 0-100 [facility] Comment on above: Order Comment: Reaso n for Exam Well adult exam Result Comment: LDL ATP III CLASSIFICATION LDL less than 100 mg/dL Optimal LDL 100-129 mg/dL Near or above optimal LDL 130-159 mg/dL Borderline high LDL 160-189 mg/dL High LDL greater than 189 mg/dL Very high Performed By: #### F E PRO, CMP wRFX A1C, TSH3, [id number], [id number], CBC, LIPID #### [facility] [address] Triglyceride w/Reflex 82 mg/dL Normal 0-149 [facility] Comment on above: Order Comment: Reaso [...] F E PRO, CMP wRFX A1C, TSH3, [id number], [id number], CBC, LIPID #### [facility] [address] VLDL CHOLESTEROL 16 mg/dL Normal [facility] Comment on above: Order Comment: Reaso n for Exam Well adult exam Performed By: #### F E PRO, CMP wRFX A1C, TSH3, [id number], [id number], CBC, LIPID #### [facility] [address] Lymphocytes Auto (Bld) [#/Vo l]Ordered By: Sherry Nielsen on 06-22-2023 Lymphocytes (Bld) [#/Vol] 2.1 10*3/uL 1.00-4.8 [facility] Lymphocytes/100 WBC Auto (Bl d)Ordered By: Sherry Nielsen on 06-22-2023 Lymphocytes/100 WBC (Bld) 34.6 % . [facility] MCH Auto (RBC) [Entitic mass ]Ordered By: Sherry Nielsen on 06-22-2023 MCH (RBC) [Entitic mass] 30.5 pg 24.7-34.3 [facility] MCHC Auto (RBC) [Mass/Vol]Or dered By: Sherry Nielsen on 06-22-2023 MCHC (RBC) [Mass/Vol] 33.6 g/dL 32.0-35.0 [facility] MCV Auto (RBC) [Entitic vol] Ordered By: Sherry Nielsen on 06-22-2023 MCV (RBC) [Entitic vol] 90.9 fL 80-100 [facility] Monocytes Auto (Bld) [#/Vol] Ordered By: Sherry Nielsen on 06-22-2023 Monocytes (Bld) [#/Vol] 0.5 10*3/uL 0.0-0.8 [facility] Monocytes/100 WBC Auto (Bld) Ordered By: Sherry Nielsen on 06-22-2023 Monocytes/100 WBC (Bld) 7.9 % . [facility] Neutrophils Auto (Bld) [#/Vo l]Ordered By: Sherry Nielsen on 06-22-2023 Neutrophils (Bld) [#/Vol] 3.4 10*3/uL 1.8-7.7 [facility] Neutrophils/100 WBC Auto (Bl d)Ordered By: Sherry Nielsen on 06-22-2023 Neutrophils/100 WBC (Bld) 54.8 % . [facility] No Panel InformationOrdered By: Sherry Nielsen on 06-22-2023 Estimated GFR (CKD-EPI) > 60.0 mL/Min [facility] Creatinine Clearance (Chem N/A [facility] Nucleated erythrocytes [Pres ence] in Blood by Automated countOrdered By: Sherry Nielsen on 06-22-2023 Nucleated RBC Auto Ql (Bld) 0.3 /100{WBC} 0-0.5 [facility] Platelet mean volume Auto (B ld) [Entitic vol]Ordered By: Sherry Nielsen on 06-22-2023 Platelet mean volume (Bld) [Entitic vol] 8.8 fL 6.3-10.7 [facility] Platelets Auto (Bld) [#/Vol] Ordered By: Sherry Nielsen on 06-22-2023 Platelets (Bld) [#/Vol] 219 10*3/uL 150-450 [facility] Potassium [Moles/volume] in Serum or PlasmaOrdered By: Sherry Nielsen on 06-22-2023 Potassium [Moles/Vol] 4.3 mmol/L 3.5-5.1 [facility] Protein [Mass/volume] in Ser um or PlasmaOrdered By: Sherry Nielsen on 06-22-2023 Protein [Mass/Vol] 7.4 g/dL 6.4-8.9 [facility] RBC Auto (Bld) [#/Vol]Ordere d By: Sherry Nielsen on 06-22-2023 RBC (Bld) [#/Vol] 4.58 10*6/uL 3.60-5.00 [facility] Serum or plasma albumin/glob ulin mass ratioOrdered By: Sherry Nielsen on 06-22-2023 Albumin/Globulin [Mass ratio] 1.4 {ratio} [facility] Serum or plasma anion gap de terminationOrdered By: Sherry Nielsen on 06-22-2023 Anion gap [Moles/Vol] 10.2 mmol/L 6.0-15.0 [facility] Serum or plasma high density lipoprotein (HDL) cholesterol measurementOrdered By: Sherry Nielsen on 06-22-2023 Cholesterol in HDL [Mass/Vol] 63 mg/dL 23-92 [facility] Comment on above: HDL CHOL ATP-III CLA SSIFICATION Cardiovascular RiskHDL > or equal to 60 mg/dL LOWHDL < 40 mg/dL HIGH Serum or plasma total choles terol/high density lipoprotein (HDL) cholesterol mass ratOrdered By: Sherry Nielsen on 06-22-2023 Cholesterol.total/Choles terol in HDL [Mass ratio] 2.4 {ratio} <5.0 [facility] Sodium [Moles/volume] in Ser um or PlasmaOrdered By: Sherry Nilesen on 06-22-2023 Sodium [Moles/Vol] 138 mmol/L 136-145 [facility] [place] Thyroid Stimulating Hormoneo n 06-22-2023 TSH Qn 1.93 m[IU]/L Normal 0.45-5.33 [facility] Comment on above: Order Comment: Reaso n for Exam Well adult exam Performed By: #### F E PRO, CMP wRFX A1C, TSH3, [id number], [id number], CBC, LIPID #### [facility] [address] Thyrotropin [Units/volume] i n Serum or PlasmaOrdered By: Sherry Nielsen on 06-22-2023 TSH Qn 1.93 m[IU]/L 0.45-5.33 [facility] Transferrin [Mass/volume] in Serum or PlasmaOrdered By: Sherry Nielsen on 06-22-2023 Transferrin [Mass/Vol] 251 mg/dL 203-362 [facility] Triglyceride [Mass/volume] i n Serum or PlasmaOrdered By: Sherry Nielsen on 06-22-2023 Triglyceride [Mass/Vol] 82 mg/dL 0-149 [facility] Comment on above: TRIG ATP III CLASSIF ICATIONTRIG less than 150 mg/dL NormalTRIG 150-199 mg/dL Borderline highTRIG 200-500 mg/dL High TRIG greater than 500 mg/dL Very highStandard traceable to the Center for Disease Conrtrol and Prevention (CDC) test method. Urea nitrogen [Mass/volume] in Serum or PlasmaOrdered By: Sherry Nielsen on 06-22-2023 Urea nitrogen [Mass/Vol] 16 mg/dL 7-25 [facility] Vit. B12/Folate Profileon Cobalamin (Vitamin B12) [Mass/Vol] 333 pg/mL Normal 180-914 [facility] Comment on above: Order Comment: Reaso n for Exam Well adult exam Performed By: #### F E PRO, CMP wRFX A1C, TSH3, [id number], [id number], CBC, LIPID #### [facility] [address] Folate 23.0 ng/mL Normal >5.9 [facility] Comment on above: Order Comment: Reaso n for Exam Well adult exam Result Comment: [place] reference range: >5.9 ng/ml The WHO technical consultation on folate and vitamin b12 deficiencies has determined that folate concentrations less than 4 ng/ml are considered deficient. Performed By: #### F E PRO, CMP wRFX A1C, TSH3, [id number], [id number], CBC, LIPID #### [facility] [address] Vitamin B12 ser/plasOrdered By: Sherry Nielsen on 06-22-2023 Cobalamin (Vitamin B12) [Mass/Vol] 333 pg/mL 180-914 [facility] Vitamin D 25 Hydroxy Totalon 06-22-2023 Vitamin D 25 Hydroxy Total 45.4 ng/mL Normal 30-100 [facility] Comment on above: Order Comment: Reaso n for Exam Well adult exam Result Comment: TEX MIN D STATUS 25(OH)VITAMIN D RANGE (ng/mL) Deficient <20 Insufficient 20 to <30 Sufficient 30 to 100 Reference: Marielena Sandoval, Maximilian HAMILTON, et al. Evaluation,treatment, and prevention of vitamin D deficiency; an Endocrine Society clinical practice guideline. JCEM. 2010; 96(7):191-. PERFORMED BY: [place] [address] PATHOLOGIST WEB ANALYST GLORIA MESA M.D. Performed By: #### F E PRO, CMP wRFX A1C, TSH3, [id number], [id number], CBC, LIPID #### [facility] [address] [place] [id number] [facility] Vitamin D+Metabolites [Mass/ volume] in Serum or PlasmaOrdered By: Sherry Nielsen on 06-22-2023 Vitamin D+Metabolites [Mass/Vol] 45.4 ng/mL 30-100 [facility] Comment on above: VITAMIN D STATUS 25( [place])VITAMIN D RANGE (ng/mL) Deficient <20 Insufficient 20 to <30Sufficient 30 to 100Reference: Marielena Sandoval, Maximilian HAMILTON, et al. Evaluation,treatment, and prevention of vitamin D deficiency; an Endocrine Society clinical practice guideline. JCEM. 2010; 96(7):191-. WBC Auto (Bld) [#/Vol]Ordere d By: Sherry Nielsen on 06-22-2023 WBC (Bld) [#/Vol] 6.1 10*3/uL 3.8-11.6 [facility] [place] Vital Signs Date Time Vital Sign Value Performing Clinician Facility 06-18-2023 07:30-0400 Body height 156.21 cm Sherry Nielsen Other [facility] Other 06-18-2023 07:30-0400 Body mass index (BMI) [Ratio] 31.73 kg/m2 Sherry Nielsen Other [facility] Other 06-18-2023 07:30-0400 Body weight 77.43 kg Sherry Nielsen Other [facility] Other 06-18-2023 07:30-0400 Diastolic blood pressure 70 mm[Hg] Sherry Nielsen Other [facility] Other 06-18-2023 07:30-0400 Respiratory rate 18 /min Sherry Nielsen Other [facility] Other 06-18-2023 07:30-0400 SaO2% (BldA) [Mass fraction] 98 % Sherry Nielsen Other [facility] Other 06-18-2023 07:30-0400 Systolic blood pressure 110 mm[Hg] Sherry Nielsen Other [facility] Other Encounters Encounter Date Encounter Type Care Provider Facility Start: 01-24-2024 End: 01-24-2024 ambulatory ROMMEL MARQUEZ Not Available Start: 12-27-2023 End: 12-27-2023 ambulatory ADDIE BROOK Not Available Start: 11-29-2023 End: 11-29-2023 ambulatory ROMMEL ALMA Not Available Start: 10-28-2023 End: 10-28-2023 ambulatory ADDIE BROOK Not Available Start: 09-24-2023 End: 09-24-2023 ambulatory ROMMEL MARQUEZ Not Available Start: 06-22-2023 End: 06-22-2023 ambulatory Sherry Nielsen Facility:[facility] Start: 06-22-2023 End: 06-22-2023 ambulatory DNP Sherry Nielsen Work Phone: [facility] Work Phone: Start: 06-22-2023 End: 06-22-2023 Patient encounter procedure DNP Sherry Nielsen Work Phone: [facility] Start: 06-18-2023 End: 06-18-2023 ambulatory Sherry Gia Other [facility] Other Start: 06-18-2023 Encounter for genera l adult medical examination without abnormal findings Sherry Nielsen [facility] [place] Start: 06-18-2023 Initial preventive medicine new pt age 18-39yrs Sherry Nielsen [facility] [place] Payers Date Payer Category Payer Self-pay 2023 [facility] [id number] 1993 Unknown [id number] 1993 Unknown [id number] 1993 Unknown [id number] 1993 Unknown [id number] 1993 Unknown [id number] Unknown [id number] Unknown HCAP/HFA/FAP Active [id number] Social History Date Type Detail Facility Sex Assigned At [facility] Other Start: 1995 Sex Assigned At Female [facility] Evaluation note 06-18-2023 Note Date & Type Note Facility 06-18-2023 Evaluation note Encounter Date Diagnosis Assessment Notes Jun, Well adult exam (ICD-10 - Z00.00) Routine lab work ordered. She will continue to keep appointment with [employer], eye doctor and dentist. Patient is advised to work on healthy diet choices and appropriate servings, weight control, regular exercise as directed, reduced fat intake, and salt avoidance. Patient voiced understanding of this and agrees to this plan. [facility] Other Evaluation note Note Date & Type Note Facility Evaluation note No assessment information availa ble [facility] Work Phone: History general Narrative - Reported Note Date & Type Note Facility History general Narrative - Reported Type Surgical History Foot Surgery Surgical History GALLBLADDER Surgical History 2014 Surgical History SHOULDER-LEFT 2018 Hospitalization History see above [facility] Other Summary Purpose Family History No Family [...] section and content) DATE CREATED AUTHOR 06/22/2023 [facility] DATE CREATED AUTHOR AUTHOR'S ORGANIZ ATION 01/24/2024 [facility] EPIC Care Teams (unrecognized sec [...] BE BASED ON THE PRIMARY CLINICAL RECORDS. [facility] [employer] [facility]. provides no warranty or guarantee of the accuracy or completeness of information in this document.
[2024-01-26 07:46] LABS: Basophils Percent Auto 0.3 % (0.2-2.0); Eosinophils Absolute Auto 0.1 10^3/uL (0.0-0.7); Eosinophils Percent Auto 0.8 % (0.9-7.0); Hematocrit 38.2 % (36.0-48.0); Hemoglobin 12.4 g/dL (12.0-16.0); Immature Granulocytes Abs Auto 0.16 10^3/uL (0.00-0.03); Immature Granulocytes Pct Auto 1.2 % (0.0-0.5); Lymphocytes Absolute Auto 1.5 10^3/uL (1.2-3.8); Lymphocytes Percent Auto 11.4 % (20.5-60.0); Mean Corpuscular HGB Conc 32.5 g/dL (29.9-35.2); Mean Corpuscular Hemoglobin 30.2 pg (26.7-34.0); Mean Corpuscular Volume 93.2 fL (81.0-99.0); Mean Platelet Volume 9.9 fL (9.5-13.5); Monocytes Absolute Auto 0.6 10^3/uL (0.3-0.8); Neutrophils Absolute Auto 10.5 10^3/uL (1.4-6.5); Neutrophils Percent Auto 81.3 % (43.0-75.0); Platelet Count 214 10^3/uL (150-450); White Blood Count 12.9 10^3/uL (4.0-11.0)
[2024-01-26 07:57] LABS: Glucose 1 Hour 166 mg/dL (<130)
== END 2024-01-26 06:31 | disposition home or self-care (01) ==
LOC: LAB 06:30
PROVIDERS: Visit Provider Obstetrics & Gynecology
DX: Z13.1 Encounter for screening for diabetes mellitus (principal)
CPT/HCPCS: 36415; 82947; 82950; 85025

== ENCOUNTER 2024-01-29 06:17 | Outpatient (OUT) | payer BC, SELFPAY ==
--- OUTSIDE RECORDS SUMMARY | 2024-01-29 06:19 | XMS_ITS | CCD ---
Author Organization [facility] Care Team Providers Care Napper Grinder Name Role Phone Sherry Nielsen Unavailable Sherry Nielsen Attending Unavailable Sherry Nielsen Primary Care Unavailable Sherry Nielsen Admitting Unavailable LYNNE Nielsen Primary Care Provider LYNNE Nielsen Attending Provider ROMMEL MARQUEZ Attending Unavailable ADDIE DOE Attending Unavailable ADDIE DOE Attending Unavailable ROMMEL MARQUEZ Attending Unavailable Allergies Allergy Classification Reported Allergen(s) Allergy Type Date of Onset Reaction(s) Facility (1 source) Adhesive agent Drug allergy [facility] Other Problems Problem Classification Problem Date Documented Da te Episodic/Chronic Unclassified (1 source) Encounter for general adult medical examination without abnormal findings; Translations: [Encounter for general adult medical examination without abnormal findings] Onset: 06-22-2023 Results Test Name Value Interpretation Reference Range Facility Alanine aminotransferase [En zymatic activity/volume] in Serum or PlasmaOrdered By: Sherry Nielsen on 06-22-2023 ALT [Catalytic activity/Vol] 14 U/L 7-52 [facility] Albumin [Mass/volume] in Ser um or Plasma by Bromocresol green (BCG) dye binding methoOrdered By: Sherry Nielsen on 06-22-2023 Albumin BCG dye [Mass/Vol] 4.3 g/dL 3.5-5.7 [facility] Alkaline phosphatase [Enzyma tic activity/volume] in Serum or PlasmaOrdered By: Sherry Nielsen on 06-22-2023 ALP [Catalytic activity/Vol] 88 U/L 34-104 [facility] Aspartate aminotransferase [ Enzymatic activity/volume] in Serum or PlasmaOrdered By: Sherry Nielsen on 06-22-2023 AST [Catalytic activity/Vol] 15 U/L 13-39 [facility] Basophils Auto (Bld) [#/Vol] Ordered By: Sherry Nielsen on 06-22-2023 Basophils (Bld) [#/Vol] 0.0 10*3/uL 0.0-0.2 [facility] Basophils/100 WBC Auto (Bld) Ordered By: Sherry Nielsen on 06-22-2023 Basophils/100 WBC (Bld) 0.5 % . [facility] Bilirubin.total [Mass/volume ] in Serum or PlasmaOrdered By: Sherry Nielsen on 06-22-2023 Bilirubin [Mass/Vol] 1.1 mg/dL 0.3-1.0 [facility] CMP with reflex to A1Con Albumin [Mass/Vol] 4.3 g/dL Normal 3.5-5.7 [facility] Comment on above: Order Comment: Reaso n for Exam Well adult exam Performed By: #### F E PRO, CMP wRFX A1C, TSH3, [id number], [id number], CBC, LIPID #### [facility] [address] Albumin/Globulin [Mass ratio] 1.4 {ratio} Normal [facility] Comment on above: Order Comment: Reaso n for Exam Well adult exam Performed By: #### F E PRO, CMP wRFX A1C, TSH3, [id number], [id number], CBC, LIPID #### [facility] [address] [place] [address] [place] ALP [Catalytic activity/Vol] 88 U/L Normal 34-104 [facility] Comment on above: Order Comment: Reaso n for Exam Well adult exam Performed By: #### F E PRO, CMP wRFX A1C, TSH3, [id number], [id number], CBC, LIPID #### [facility] [address] [place] [address] [place] ALT [Catalytic activity/Vol] 14 U/L Normal 7-52 [facility] Comment on above: Order Comment: Reaso n for Exam Well adult exam Performed By: #### F E PRO, CMP wRFX A1C, TSH3, [id number], [id number], CBC, LIPID #### [facility] [address] Anion gap [Moles/Vol] 10.2 mmol/L Normal 6.0-15.0 [facility] Comment on above: Order Comment: Reaso n for Exam Well adult exam Performed By: #### F E PRO, CMP wRFX A1C, TSH3, [id number], [id number], CBC, LIPID #### [facility] [address] AST [Catalytic activity/Vol] 15 U/L Normal 13-39 [facility] Comment on above: Order Comment: Reaso n for Exam Well adult exam Performed By: #### F E PRO, CMP wRFX A1C, TSH3, [id number], [id number], CBC, LIPID #### [facility] [address] Bilirubin [Mass/Vol] 1.1 mg/dL High 0.3-1.0 [facility] Comment on above: Order Comment: Reaso n for Exam Well adult exam Performed By: #### F E PRO, CMP wRFX A1C, TSH3, [id number], [id number], CBC, LIPID #### [facility] [address] Calcium [Mass/Vol] 9.3 mg/dL Normal 8.6-10.3 [facility] Comment on above: Order Comment: Reaso n for Exam Well adult exam Performed By: #### F E PRO, CMP wRFX A1C, TSH3, [id number], [id number], CBC, LIPID #### [facility] [address] [place] [id number] [facility] Chloride [Moles/Vol] 105 mmol/L Normal 98-107 [facility] Comment on above: Order Comment: Reaso n for Exam Well adult exam Performed By: #### F E PRO, CMP wRFX A1C, TSH3, [id number], [id number], CBC, LIPID #### [facility] [address] CO2 [Moles/Vol] 27.1 mmol/L Normal 21.0-31.0 [facility] Comment on above: Order Comment: Reaso n for Exam Well adult exam Performed By: #### F E PRO, CMP wRFX A1C, TSH3, [id number], [id number], CBC, LIPID #### [facility] [address] Creatinine [Mass/Vol] 0.90 mg/dL Normal 0.60-1.20 [facility] Comment on above: Order Comment: Reaso n for Exam Well adult exam Performed By: #### F E PRO, CMP wRFX A1C, TSH3, [id number], [id number], CBC, LIPID #### [facility] [address] [place] [address] GFR/1.73 sq M.predicted MDRD (S/P/Bld) [Vol rate/Area] mL/min/{1.73_m2} [facility] Comment on above: Order Comment: Reaso n for Exam Well adult exam Performed By: #### F E PRO, CMP wRFX A1C, TSH3, [id number], [id number], CBC, LIPID #### [facility] [address] [place] [address] Globulin (S) [Mass/Vol] 3.1 g/dL Normal [facility] Comment on above: Order Comment: Reaso n for Exam Well adult exam Performed By: #### F E PRO, CMP wRFX A1C, TSH3, [id number], [id number], CBC, LIPID #### [facility] [address] [place] [address] Glucose [Mass/Vol] 94 mg/dL Normal 70-100 [facility] Comment on above: Order Comment: Reaso n for Exam Well adult exam Performed By: #### F E PRO, CMP wRFX A1C, TSH3, [id number], [id number], CBC, LIPID #### [facility] [address] Potassium [Moles/Vol] 4.3 mmol/L Normal 3.5-5.1 [facility] Comment on above: Order Comment: Reaso n for Exam Well adult exam Performed By: #### F E PRO, CMP wRFX A1C, TSH3, [id number], [id number], CBC, LIPID #### [facility] [address] Protein [Mass/Vol] 7.4 g/dL Normal 6.4-8.9 [facility] Comment on above: Order Comment: Reaso n for Exam Well adult exam Performed By: #### F E PRO, CMP wRFX A1C, TSH3, [id number], [id number], CBC, LIPID #### [facility] [address] Sodium [Moles/Vol] 138 mmol/L Normal 136-145 [facility] Comment on above: Order Comment: Reaso n for Exam Well adult exam Performed By: #### F E PRO, CMP wRFX A1C, TSH3, [id number], [id number], CBC, LIPID #### [facility] [address] Urea nitrogen [Mass/Vol] 16 mg/dL Normal 7-25 [facility] Comment on above: Order Comment: Reaso n for Exam Well adult exam Performed By: #### F E PRO, CMP wRFX A1C, TSH3, [id number], [id number], CBC, LIPID #### [facility] [address] [place] [id number] [place] Calcium [Mass/volume] in Ser um or PlasmaOrdered By: Sherry Nielsen on 06-22-2023 Calcium [Mass/Vol] 9.3 mg/dL 8.6-10.3 [facility] Carbon dioxide, total [Moles /volume] in Serum or PlasmaOrdered By: Sherry Nielsen on 06-22-2023 CO2 [Moles/Vol] 27.1 mmol/L 21.0-31.0 [facility] Chloride [Moles/volume] in S adriano or PlasmaOrdered By: Sherry Nielsen on 06-22-2023 Chloride [Moles/Vol] 105 mmol/L 98-107 [facility] Cholesterol [Mass/volume] in Serum or PlasmaOrdered By: Sherry Nielsen on 06-22-2023 Cholesterol [Mass/Vol] 149 mg/dL 140-200 [facility] Comment on above: Chol less than 200 m g/dl low riskChol 201-239 mg/dl borderline riskChol 240 mg/dl and greater high risk Cholesterol in LDL Calc [Mas s/Vol]Ordered By: Sherry Nielsen on 06-22-2023 Cholesterol in LDL [Mass/Vol] 70 mg/dL 0-100 [facility] Comment on above: LDL ATP III CLASSIFI CATIONLDL less than 100 mg/dL OptimalLDL 100-129 mg/dL Near or above optimalLDL 130-159 mg/dL Borderline highLDL 160-189 mg/dL HighLDL greater than 189 mg/dL Very high Cholesterol in VLDL Calc [Ma ss/Vol]Ordered By: Sherry Nielsen on 06-22-2023 Cholesterol in VLDL [Mass/Vol] 16 mg/dL [facility] Complete Blood Count Auto Di ffon 06-22-2023 Basophils (Bld) [#/Vol] 0.0 10*3/uL Normal 0.0-0.2 [facility] Comment on above: Order Comment: Reaso n for Exam Well adult exam Result Comment: PERF ORMED BY: [place] [address] PATHOLOGIST [employer]ACH[employer] MECHANIC GLORIA MESA M.D. Performed By: #### F E PRO, CMP wRFX A1C, TSH3, [id number], [id number], CBC, LIPID #### [facility] [address] Basophils/100 WBC (Bld) 0.5 % Normal . [facility] Comment on above: Order Comment: Reaso n for Exam Well adult exam Performed By: #### F E PRO, CMP wRFX A1C, TSH3, [id number], [id number], CBC, LIPID #### [facility] [address] Eosinophils (Bld) [#/Vol] 0.1 10*3/uL Normal 0.0-0.45 [facility] Comment on above: Order Comment: Reaso n for Exam Well adult exam Performed By: #### F E PRO, CMP wRFX A1C, TSH3, [id number], [id number], CBC, LIPID #### [facility] [address] Eosinophils/100 WBC (Bld) 2.2 % Normal . [facility] Comment on above: Order Comment: Reaso n for Exam Well adult exam Performed By: #### F E PRO, CMP wRFX A1C, TSH3, [id number], [id number], CBC, LIPID #### [address] Erythrocyte distribution width (RBC) [Ratio] 12.6 % Normal 11.9-15.3 [facility] Comment on above: Order Comment: Reaso n for Exam Well adult exam Performed By: #### F E PRO, CMP wRFX A1C, TSH3, [id number], [id number], CBC, LIPID #### [address] Hematocrit (Bld) [Volume fraction] 41.6 % Normal 34.0-46.4 [facility] Comment on above: Order Comment: Reaso n for Exam Well adult exam Performed By: #### F E PRO, CMP wRFX A1C, TSH3, [id number], [id number], CBC, LIPID #### [address] Hemoglobin (Bld) [Mass/Vol] 14.0 g/dL Normal 11.8-15.4 [facility] Comment on above: Order Comment: Reaso n for Exam Well adult exam Performed By: #### F E PRO, CMP wRFX A1C, TSH3, [id number], [id number], CBC, LIPID #### [facility] [address] [place] [address] Lymphocytes (Bld) [#/Vol] 2.1 10*3/uL Normal 1.00-4.8 [facility] Comment on above: Order Comment: Reaso n for Exam Well adult exam Performed By: #### F E PRO, CMP wRFX A1C, TSH3, [id number], [id number], CBC, LIPID #### [address] Lymphocytes/100 WBC (Bld) 34.6 % Normal . [facility] Comment on above: Order Comment: Reaso n for Exam Well adult exam Performed By: #### F E PRO, CMP wRFX A1C, TSH3, [id number], [id number], CBC, LIPID #### [address] MCH (RBC) [Entitic mass] 30.5 pg Normal 24.7-34.3 [facility] Comment on above: Order Comment: Reaso n for Exam Well adult exam Performed By: #### F E PRO, CMP wRFX A1C, TSH3, [id number], [id number], CBC, LIPID #### [address] MCV (RBC) [Entitic vol] 90.9 fL Normal 80-100 [facility] Comment on above: Order Comment: Reaso n for Exam Well adult exam Performed By: #### F E PRO, CMP wRFX A1C, TSH3, [id number], [id number], CBC, LIPID #### [address] Mean Corpuscular HGB Conc 33.6 g/dL Normal 32.0-35.0 [facility] Comment on above: Order Comment: Reaso n for Exam Well adult exam Performed By: #### F E PRO, CMP wRFX A1C, TSH3, [id number], [id number], CBC, LIPID #### [address] Monocytes (Bld) [#/Vol] 0.5 10*3/uL Normal 0.0-0.8 [facility] Comment on above: Order Comment: Reaso n for Exam Well adult exam Performed By: #### F E PRO, CMP wRFX A1C, TSH3, [id number], [id number], CBC, LIPID #### [facility] [address] [place] [address] [place] Monocytes/100 WBC (Bld) 7.9 % Normal . [facility] Comment on above: Order Comment: Reaso n for Exam Well adult exam Performed By: #### F E PRO, CMP wRFX A1C, TSH3, [id number], [id number], CBC, LIPID #### [facility] [address] [place] [address] [place] Neutrophils (Bld) [#/Vol] 3.4 10*3/uL Normal 1.8-7.7 [facility] Comment on above: Order Comment: Reaso n for Exam Well adult exam Performed By: #### F E PRO, CMP wRFX A1C, TSH3, [id number], [id number], CBC, LIPID #### [facility] [address] Neutrophils/100 WBC (Bld) 54.8 % Normal . [facility] Comment on above: Order Comment: Reaso n for Exam Well adult exam Performed By: #### F E PRO, CMP wRFX A1C, TSH3, [id number], [id number], CBC, LIPID #### [facility] [address] [place] [address] [place] NRBC% 0.3 /100{WBC} Normal 0-0.5 [facility] Comment on above: Order Comment: Reaso n for Exam Well adult exam Performed By: #### F E PRO, CMP wRFX A1C, TSH3, [id number], [id number], CBC, LIPID #### [facility] [address] Platelet mean volume (Bld) [Entitic vol] 8.8 fL Normal 6.3-10.7 [facility] Comment on above: Order Comment: Reaso n for Exam Well adult exam Performed By: #### F E PRO, CMP wRFX A1C, TSH3, [id number], [id number], CBC, LIPID #### [facility] [address] Platelets (Bld) [#/Vol] 219 10*3/uL Normal 150-450 [facility] Comment on above: Order Comment: Reaso n for Exam Well adult exam Performed By: #### F E PRO, CMP wRFX A1C, TSH3, [id number], [id number], CBC, LIPID #### [facility] [address] RBC (Bld) [#/Vol] 4.58 10*6/uL Normal 3.60-5.00 [facility] Comment on above: Order Comment: Reaso n for Exam Well adult exam Performed By: #### F E PRO, CMP wRFX A1C, TSH3, [id number], [id number], CBC, LIPID #### [facility] [address] WBC (Bld) [#/Vol] 6.1 10*3/uL Normal 3.8-11.6 [facility] Comment on above: Order Comment: Reaso n for Exam Well adult exam Performed By: #### F E PRO, CMP wRFX A1C, TSH3, [id number], [id number], CBC, LIPID #### [facility] [address] [place] [address] Creatinine [Mass/volume] in Serum or PlasmaOrdered By: Sherry Nielsen on 06-22-2023 Creatinine [Mass/Vol] 0.90 mg/dL 0.60-1.20 [facility] Eosinophils Auto (Bld) [#/Vo l]Ordered By: Sherry Nielsen on 06-22-2023 Eosinophils (Bld) [#/Vol] 0.1 10*3/uL 0.0-0.45 [facility] Eosinophils/100 WBC Auto (Bl d)Ordered By: Sherry Nielsen on 06-22-2023 Eosinophils/100 WBC (Bld) 2.2 % . [facility] Erythrocyte distribution wid th Auto (RBC) [Ratio]Ordered By: Sherry Nielsen on 06-22-2023 Erythrocyte distribution width (RBC) [Ratio] 12.6 % 11.9-15.3 [facility] FE PROon 06-22-2023 % Iron Saturation 34.8 % Normal 20-50 [facility] Comment on above: Order Comment: Reaso n for Exam Well adult exam Performed By: #### F E PRO, CMP wRFX A1C, TSH3, [id number], [id number], CBC, LIPID #### [facility] [address] [place] [address] [place] Ferritin [Mass/Vol] 33.1 ng/mL Normal 11.0-306.8 [facility] Comment on above: Order Comment: Reaso n for Exam Well adult exam Performed By: #### F E PRO, CMP wRFX A1C, TSH3, [id number], [id number], CBC, LIPID #### [facility] [address] [place] [id number] [facility] Iron [Mass/Vol] 122 ug/dL Normal 50-212 [facility] Comment on above: Order Comment: Reaso n for Exam Well adult exam Performed By: #### F E PRO, CMP wRFX A1C, TSH3, [id number], [id number], CBC, LIPID #### [facility] [address] [place] [address] [place] Total Iron Binding Capacity 351 ug/dL Normal 255-450 [facility] Comment on above: Order Comment: Reaso n for Exam Well adult exam Performed By: #### F E PRO, CMP wRFX A1C, TSH3, [id number], [id number], CBC, LIPID #### [facility] [address] [place] [address] [place] Transferrin [Mass/Vol] 251 mg/dL Normal 203-362 [facility] Comment on above: Order Comment: Reaso n for Exam Well adult exam Performed By: #### F E PRO, CMP wRFX A1C, TSH3, [id number], [id number], CBC, LIPID #### [facility] [address] [place] [id number] [facility] Ferritin [Mass/volume] in Se rum or PlasmaOrdered By: Sherry Nielsen on 06-22-2023 Ferritin [Mass/Vol] 33.1 ng/mL 11.0-306.8 [facility] Folate [Mass/volume] in Seru m or PlasmaOrdered By: Sherry Nielsen on 06-22-2023 Folate [Mass/Vol] 23.0 ng/mL >5.9 [facility] Comment on above: Folate reference ran ge: >5.9 ng/mlThe WHO technical consultation on folate and vitamin [id number] has determined that folate concentrations lessthan 4 ng/ml are considered deficient. Globulin Calc (S) [Mass/Vol] Ordered By: Sherry Nielsen on 06-22-2023 Globulin (S) [Mass/Vol] 3.1 g/dL F [facility] Glucose [Mass/volume] in Ser um or PlasmaOrdered By: Sherry Nielsen on 06-22-2023 Glucose [Mass/Vol] 94 mg/dL 70-100 [facility] Hematocrit Auto (Bld) [Volum e fraction]Ordered By: Sherry Nielsen on 06-22-2023 Hematocrit (Bld) [Volume fraction] 41.6 % 34.0-46.4 [facility] Hemoglobin [Mass/volume] in BloodOrdered By: Sherry Nielsen on 06-22-2023 Hemoglobin (Bld) [Mass/Vol] 14.0 g/dL 11.8-15.4 [facility] Iron [Mass/volume] in Serum or PlasmaOrdered By: Sherry Nielsen on 06-22-2023 Iron [Mass/Vol] 122 ug/dL 50-212 [facility] Iron binding capacity [Mass/ volume] in Serum or PlasmaOrdered By: Sherry Nielsen on 06-22-2023 Iron binding capacity [Mass/Vol] 351 ug/dL 255-450 [facility] Iron saturation [Mass Fracti on] in Serum or PlasmaOrdered By: Sherry Nielsen on 06-22-2023 Iron saturation [Mass fraction] 34.8 % 20-50 [facility] Leukocytes [#/volume] correc wilber for nucleated erythrocytes in Blood by Automated counOrdered By: Sherry Nielsen on 06-22-2023 WBC corrected for nucl RBC Auto (Bld) [#/Vol] 6.1 10*3/uL 3.8-11.6 [facility] Lipid Panelon 06-22-2023 Cholesterol [Mass/Vol] 149 mg/dL Normal 140-200 [facility] Comment on above: Order Comment: Reaso n for Exam Well adult exam Result Comment: Chol less than 200 mg/dl low risk Chol 201-239 mg/dl borderline risk Chol 240 mg/dl and greater high risk Performed By: #### F E PRO, CMP wRFX A1C, TSH3, [id number], [id number], CBC, LIPID #### [facility] [address] [place] [address] [place] Cholesterol in HDL [Mass/Vol] 63 mg/dL Normal 23-92 [facility] Comment on above: Order Comment: Reaso n for Exam Well adult exam Result Comment: HDL CHOL ATP-III CLASSIFICATION Cardiovascular Risk HDL > or equal to 60 mg/dL LOW HDL < 40 mg/dL HIGH Performed By: #### F E PRO, CMP wRFX A1C, TSH3, [id number], [id number], CBC, LIPID #### [facility] [address] [place] [address] [place] Cholesterol.total/Choles terol in HDL [Mass ratio] 2.4 {ratio} Normal <5.0 [facility] Comment on above: Order Comment: Reaso n for Exam Well adult exam Performed By: #### F E PRO, CMP wRFX A1C, TSH3, [id number], [id number], CBC, LIPID #### [facility] [address] [place] [address] [place] LDL Cholesterol,Calculated 70 mg/dL Normal 0-100 [facility] Comment on above: Order Comment: Reaso n for Exam Well adult exam Result Comment: LDL ATP III CLASSIFICATION LDL less than 100 mg/dL Optimal LDL 100-129 mg/dL Near or above optimal LDL 130-159 mg/dL Borderline high LDL 160-189 mg/dL High LDL greater than 189 mg/dL Very high Performed By: #### F E PRO, CMP wRFX A1C, TSH3, [id number], [id number], CBC, LIPID #### [facility] [address] Triglyceride w/Reflex 82 mg/dL Normal 0-149 [facility] Comment on above: Order Comment: Reaso [...] F E PRO, CMP wRFX A1C, TSH3, [id number], [id number], CBC, LIPID #### [facility] [address] VLDL CHOLESTEROL 16 mg/dL Normal [facility] Comment on above: Order Comment: Reaso n for Exam Well adult exam Performed By: #### F E PRO, CMP wRFX A1C, TSH3, [id number], [id number], CBC, LIPID #### [facility] [address] Lymphocytes Auto (Bld) [#/Vo l]Ordered By: Sherry Nielsen on 06-22-2023 Lymphocytes (Bld) [#/Vol] 2.1 10*3/uL 1.00-4.8 [facility] Lymphocytes/100 WBC Auto (Bl d)Ordered By: Sherry Nielsen on 06-22-2023 Lymphocytes/100 WBC (Bld) 34.6 % . [facility] MCH Auto (RBC) [Entitic mass ]Ordered By: Sherry Nielsen on 06-22-2023 MCH (RBC) [Entitic mass] 30.5 pg 24.7-34.3 [facility] MCHC Auto (RBC) [Mass/Vol]Or dered By: Sherry Nielsen on 06-22-2023 MCHC (RBC) [Mass/Vol] 33.6 g/dL 32.0-35.0 [facility] MCV Auto (RBC) [Entitic vol] Ordered By: Sherry Nielsen on 06-22-2023 MCV (RBC) [Entitic vol] 90.9 fL 80-100 [facility] Monocytes Auto (Bld) [#/Vol] Ordered By: Sherry Nielsen on 06-22-2023 Monocytes (Bld) [#/Vol] 0.5 10*3/uL 0.0-0.8 [facility] Monocytes/100 WBC Auto (Bld) Ordered By: Sherry Nielsen on 06-22-2023 Monocytes/100 WBC (Bld) 7.9 % . [facility] Neutrophils Auto (Bld) [#/Vo l]Ordered By: Sherry Nielsen on 06-22-2023 Neutrophils (Bld) [#/Vol] 3.4 10*3/uL 1.8-7.7 [facility] Neutrophils/100 WBC Auto (Bl d)Ordered By: Sherry Nielsen on 06-22-2023 Neutrophils/100 WBC (Bld) 54.8 % . [facility] No Panel InformationOrdered By: Sherry Nielsen on 06-22-2023 Estimated GFR (CKD-EPI) > 60.0 mL/Min [facility] Creatinine Clearance (Chem N/A [facility] Nucleated erythrocytes [Pres ence] in Blood by Automated countOrdered By: Sherry Nielsen on 06-22-2023 Nucleated RBC Auto Ql (Bld) 0.3 /100{WBC} 0-0.5 [facility] Platelet mean volume Auto (B ld) [Entitic vol]Ordered By: Sherry Nielsen on 06-22-2023 Platelet mean volume (Bld) [Entitic vol] 8.8 fL 6.3-10.7 [facility] Platelets Auto (Bld) [#/Vol] Ordered By: Sherry Nielsen on 06-22-2023 Platelets (Bld) [#/Vol] 219 10*3/uL 150-450 [facility] Potassium [Moles/volume] in Serum or PlasmaOrdered By: Sherry Nielsen on 06-22-2023 Potassium [Moles/Vol] 4.3 mmol/L 3.5-5.1 [facility] Protein [Mass/volume] in Ser um or PlasmaOrdered By: Sherry Nielsen on 06-22-2023 Protein [Mass/Vol] 7.4 g/dL 6.4-8.9 [facility] RBC Auto (Bld) [#/Vol]Ordere d By: Sherry Nielsen on 06-22-2023 RBC (Bld) [#/Vol] 4.58 10*6/uL 3.60-5.00 [facility] Serum or plasma albumin/glob ulin mass ratioOrdered By: Sherry Nielsen on 06-22-2023 Albumin/Globulin [Mass ratio] 1.4 {ratio} [facility] Serum or plasma anion gap de terminationOrdered By: Sherry Nielsen on 06-22-2023 Anion gap [Moles/Vol] 10.2 mmol/L 6.0-15.0 [facility] Serum or plasma high density lipoprotein (HDL) cholesterol measurementOrdered By: Sherry Nielsen on 06-22-2023 Cholesterol in HDL [Mass/Vol] 63 mg/dL 23-92 [facility] Comment on above: HDL CHOL ATP-III CLA SSIFICATION Cardiovascular RiskHDL > or equal to 60 mg/dL LOWHDL < 40 mg/dL HIGH Serum or plasma total choles terol/high density lipoprotein (HDL) cholesterol mass ratOrdered By: Sherry Nielsen on 06-22-2023 Cholesterol.total/Choles terol in HDL [Mass ratio] 2.4 {ratio} <5.0 [facility] Sodium [Moles/volume] in Ser um or PlasmaOrdered By: Sherry Nielsen on 06-22-2023 Sodium [Moles/Vol] 138 mmol/L 136-145 [facility] Thyroid Stimulating Hormoneo n 06-22-2023 TSH Qn 1.93 m[IU]/L Normal 0.45-5.33 [facility] Comment on above: Order Comment: Reaso n for Exam Well adult exam Performed By: #### F E PRO, CMP wRFX A1C, TSH3, [id number], [id number], CBC, LIPID #### [facility] [address] Thyrotropin [Units/volume] i n Serum or PlasmaOrdered By: Sherry Nielsen on 06-22-2023 TSH Qn 1.93 m[IU]/L 0.45-5.33 [facility] Transferrin [Mass/volume] in Serum or PlasmaOrdered By: Sherry Nielsen on 06-22-2023 Transferrin [Mass/Vol] 251 mg/dL 203-362 [facility] Triglyceride [Mass/volume] i n Serum or PlasmaOrdered By: Sherry Nielsen on 06-22-2023 Triglyceride [Mass/Vol] 82 mg/dL 0-149 [facility] [facility] Comment on above: TRIG ATP III CLASSIF ICATIONTRIG less than 150 mg/dL NormalTRIG 150-199 mg/dL Borderline highTRIG 200-500 mg/dL High TRIG greater than 500 mg/dL Very highStandard traceable to the Center for Disease Conrtrol and Prevention (CDC) test method. Urea nitrogen [Mass/volume] in Serum or PlasmaOrdered By: Sherry Nielsen on 06-22-2023 Urea nitrogen [Mass/Vol] 16 mg/dL 7-25 [facility] Vit. B12/Folate Profileon Cobalamin (Vitamin B12) [Mass/Vol] 333 pg/mL Normal 180-914 [facility] Comment on above: Order Comment: Reaso n for Exam Well adult exam Performed By: #### F E PRO, CMP wRFX A1C, TSH3, [id number], [id number], CBC, LIPID #### [facility] [address] Folate 23.0 ng/mL Normal >5.9 [facility] Comment on above: Order Comment: Reaso n for Exam Well adult exam Result Comment: [place] reference range: >5.9 ng/ml The WHO technical consultation on folate and vitamin b12 deficiencies has determined that folate concentrations less than 4 ng/ml are considered deficient. Performed By: #### F E PRO, CMP wRFX A1C, TSH3, [id number], [id number], CBC, LIPID #### [facility] [address] Vitamin B12 ser/plasOrdered By: Sherry Nielsen on 06-22-2023 Cobalamin (Vitamin B12) [Mass/Vol] 333 pg/mL 180-914 [facility] Vitamin D 25 Hydroxy Totalon 06-22-2023 Vitamin D 25 Hydroxy Total 45.4 ng/mL Normal 30-100 [facility] Comment on above: Order Comment: Reaso n for Exam Well adult exam Result Comment: [place] MIN D STATUS 25(OH)VITAMIN D RANGE (ng/mL) Deficient <20 Insufficient 20 to <30 Sufficient 30 to 100 Reference: Marielena Sandoval, Maximilian HAMILTON, et al. Evaluation,treatment, and prevention of vitamin D deficiency; an Endocrine Society clinical practice guideline. JCEM. 2010; 96(7):191-. PERFORMED BY: [place] [address] PATHOLOGIST [employer] MACHINE MECHANIC GLORIA MESA M.D. Performed By: #### F E PRO, CMP wRFX A1C, TSH3, [id number], [id number], CBC, LIPID #### [facility] [id number] [facility] Vitamin D+Metabolites [Mass/ volume] in Serum or PlasmaOrdered By: Sherry Nielsen on 06-22-2023 Vitamin D+Metabolites [Mass/Vol] 45.4 ng/mL 30-100 [facility] Comment on above: VITAMIN D STATUS 25( [place])VITAMIN D RANGE (ng/mL) Deficient <20 Insufficient 20 to <30Sufficient 30 to 100Reference: Marielena Sandoval, Maximilian HAMILTON, et al. Evaluation,treatment, and prevention of vitamin D deficiency; an Endocrine Society clinical practice guideline. JCEM. 2010; 96(7):191-. WBC Auto (Bld) [#/Vol]Ordere d By: Sherry Nielsen on 06-22-2023 WBC (Bld) [#/Vol] 6.1 10*3/uL 3.8-11.6 [facility] Vital Signs Date Time Vital Sign Value Performing Clinician Facility 06-18-2023 07:30-0400 Body height 156.21 cm Sherry Nielsen Other [facility] Other 06-18-2023 07:30-0400 Body mass index (BMI) [Ratio] 31.73 kg/m2 Sherry Nielsen Other [facility] Other 06-18-2023 07:30-0400 Body weight 77.43 kg Sherry Nielsne Other [facility] Other 06-18-2023 07:30-0400 Diastolic blood pressure 70 mm[Hg] Sherry Nielsen Other [facility] Other 06-18-2023 07:30-0400 Respiratory rate 18 /min Sherry Nielsen Other [facility] Other 06-18-2023 07:30-0400 SaO2% (BldA) [Mass fraction] 98 % Sherry Nielsen Other [facility] Other 06-18-2023 07:30-0400 Systolic blood pressure 110 mm[Hg] Sherry Nielsen Other [facility] Other Encounters Encounter Date Encounter Type Care Provider Facility Start: 01-24-2024 End: 01-24-2024 ambulatory ROMMEL MARQUEZ Not Available Start: 12-27-2023 End: 12-27-2023 ambulatory ADDIE BROOK Not Available Start: 11-29-2023 End: 11-29-2023 ambulatory ROMMEL ALMA Not Available Start: 10-28-2023 End: 10-28-2023 ambulatory ADDIE BROOK Not Available Start: 09-24-2023 End: 09-24-2023 ambulatory ROMMEL MARQUEZ Not Available Start: 06-22-2023 End: 06-22-2023 ambulatory Sherry Nielsen Facility:[facility] Start: 06-22-2023 End: 06-22-2023 ambulatory DNP Sherry Nielsen Work Phone: [facility] Work Phone: Start: 06-22-2023 End: 06-22-2023 Patient encounter procedure DNP Sherry Nielsen Work Phone: [facility] Start: 06-18-2023 End: 06-18-2023 ambulatory Sherry Gia Other [facility] Other Start: 06-18-2023 Encounter for genera l adult medical examination without abnormal findings Sherry Nielsen [facility] [place] Start: 06-18-2023 Initial preventive medicine new pt age 18-39yrs Sherry Nielsen [facility] [place] Payers Date Payer Category Payer Self-pay 2023 [facility] [id number] 1993 Unknown [id number] 1993 Unknown [id number] 1993 Unknown [id number] 1993 Unknown [id number] 1993 Unknown [id number] Unknown [id number] Unknown HCAP/HFA/FAP Active [id number] Social History Date Type Detail Facility Sex Assigned At [facility] Other Start: 1995 Sex Assigned At Female F [facility] Evaluation note 06-18-2023 Note Date & Type Note Facility 06-18-2023 Evaluation note Encounter Date Diagnosis Assessment Notes Jun, Well adult exam (ICD-10 - Z00.00) Routine lab work ordered. 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 Patient is advised to work on healthy diet choices and appropriate servings, weight control, regular exercise as directed, reduced fat intake, and salt avoidance. Patient voiced understanding of this and agrees to this plan. [facility] Other Evaluation note Note Date & Type Note Facility Evaluation note No assessment information availa ble [facility] Work Phone: History general Narrative - Reported Note Date & Type Note Facility History general Narrative - Reported Type Surgical History Foot Surgery Surgical History GALLBLADDER Surgical History 2014 Surgical History SHOULDER-LEFT 2018 Hospitalization History see above [facility] Other Summary Purpose Family History No Family [...] section and content) DATE CREATED AUTHOR 06/22/2023 [facility] DATE CREATED AUTHOR AUTHOR'S ORGANIZ ATION 01/24/2024 [facility] d[facility] Specialists EPIC Care Teams (unrecognized [...] BE BASED ON THE PRIMARY CLINICAL RECORDS. [facility] [employer] [facility]. provides no warranty or guarantee of the accuracy or completeness of information in this document.
[2024-01-29 06:59] LABS: Glucose Fasting 97 mg/dL (<95)
[2024-01-29 08:02] LABS: Glucose 1 Hour 166 mg/dL (<180)
[2024-01-29 08:55] LABS: Glucose 2 Hour 153 mg/dL (<155)
[2024-01-29 10:22] LABS: Glucose 3 Hour 111 mg/dL (<140)
== END 2024-01-29 06:18 | disposition home or self-care (01) ==
PROVIDERS: Visit Provider Obstetrics & Gynecology
DX: R73.09 Other abnormal glucose (principal)
CPT/HCPCS: 36415; 82951; 82952

== ENCOUNTER 2024-04-13 19:31 | Outpatient (REF) | payer BC, SELFPAY ==
--- OUTSIDE RECORDS SUMMARY | 2024-04-13 19:35 | XMS_ITS | CCD ---
Author Organization [facility] Care Team Providers Care Handyman Name Role Phone Sherry Nielsen Unavailable Sherry Nielsen Attending Unavailable Sherry Nielsen Primary Care Unavailable Sherry Nielsen Admitting Unavailable LYNNE Nielsen Primary Care Provider LYNNE Nielsen Attending Provider ROMMEL MARQUEZ Attending Unavailable BROOK, ADDIE Attending Unavailable ROMMEL MARQUEZ Attending Unavailable BROOKADDIE Attending Unavailable BROOK, ADDIE Attending Unavailable BROOK, ADDIE Attending Unavailable BROOK, ADDIE Attending Unavailable BROOK, ADDIE Attending Unavailable Allergies Allergy Classification Reported Allergen(s) Allergy Type Date of Onset Reaction(s) Facility (1 source) Adhesive agent Drug allergy Quack Other Problems Problem Classification Problem Date Documented [...] [Catalytic activity/Vol] 14 U/L 7-[address] [facility] Albumin [Mass/volume] in Ser um or Plasma by Bromocresol green (BCG) dye binding methoOrdered By: Sherry Nielsen on 06-22-2023 Albumin BCG dye [Mass/Vol] 4.3 g/dL 3.5-5.[address] [facility] Alkaline phosphatase [Enzyma tic activity/volume] in Serum or PlasmaOrdered By: Sherry Nielsen on 06-22-2023 ALP [Catalytic activity/Vol] 88 U/L 34-[address] [facility] Aspartate aminotransferase [ Enzymatic activity/volume] in Serum or PlasmaOrdered By: Sherry Nielsen on 06-22-2023 AST [Catalytic activity/Vol] 15 U/L 13-[address] [facility] Basophils Auto (Bld) [#/Vol] Ordered By: Sherry Nielsen on 06-22-2023 Basophils (Bld) [#/Vol] 0.0 10*3/uL 0.0-0.[address] [facility] Basophils/100 WBC Auto (Bld) Ordered By: Sherry Nielsen on 06-22-2023 Basophils/100 WBC (Bld) 0.5 % . [facility] Bilirubin.total [Mass/volume ] in Serum or PlasmaOrdered By: Sherry Nielsen on 06-22-2023 Bilirubin [Mass/Vol] 1.1 mg/dL 0.3-1.0 [facility] CMP with reflex to A1Con Albumin [Mass/Vol] 4.3 g/dL Normal 3.5-5.7 [facility] Comment on above: Order Comment: Reaso n for Exam Well adult exam Performed By: #### F E PRO, CMP wRFX A1C, TSH3, [id number], [id number], CBC, LIPID #### [facility] [address] Albumin/Globulin [Mass ratio] 1.4 {ratio} Normal [facility] Comment on above: Order Comment: Reaso n for Exam Well adult exam Performed By: #### F E PRO, CMP wRFX A1C, TSH3, [id number], [id number], CBC, LIPID #### [facility] [address] [place] [address] [place] ALP [Catalytic activity/Vol] 88 U/L Normal 34-[address] [facility] Comment on above: Order Comment: Reaso n for Exam Well adult exam Performed By: #### F E PRO, CMP wRFX A1C, TSH3, [id number], [id number], CBC, LIPID #### [facility] [address] [place] [address] [place] ALT [Catalytic activity/Vol] 14 U/L Normal 7-[address] [facility] Comment on above: Order Comment: Reaso n for Exam Well adult exam Performed By: #### F E PRO, CMP wRFX A1C, TSH3, [id number], [id number], CBC, LIPID #### [facility] [address] [place] [address] [facility] Anion gap [Moles/Vol] 10.2 mmol/L Normal 6.0-15.0 [facility] Comment on above: Order Comment: Reaso n for Exam Well adult exam Performed By: #### F E PRO, CMP wRFX A1C, TSH3, [id number], [id number], CBC, LIPID #### [facility] [address] [place] [address] [facility] AST [Catalytic activity/Vol] 15 U/L Normal 13-[address] [facility] Comment on above: Order Comment: Reaso n for Exam Well adult exam Performed By: #### F E PRO, CMP wRFX A1C, TSH3, [id number], [id number], CBC, LIPID #### [facility] [address] [place] [address] [place] Bilirubin [Mass/Vol] 1.1 mg/dL High 0.3-1.0 [facility] Comment on above: Order Comment: Reaso n for Exam Well adult exam Performed By: #### F E PRO, CMP wRFX A1C, TSH3, [id number], [id number], CBC, LIPID #### [facility] [address] [place] [address] [place] Calcium [Mass/Vol] 9.3 mg/dL Normal 8.6-10.3 [facility] Comment on above: Order Comment: Reaso n for Exam Well adult exam Performed By: #### F E PRO, CMP wRFX A1C, TSH3, [id number], [id number], CBC, LIPID #### [facility] [address] [place] [address] [place] Chloride [Moles/Vol] 105 mmol/L Normal 98-107 [facility] Comment on above: Order Comment: Reaso n for Exam Well adult exam Performed By: #### F E PRO, CMP wRFX A1C, TSH3, [id number], [id number], CBC, LIPID #### [facility] [address] [place] [id number] [facility] CO2 [Moles/Vol] 27.1 mmol/L Normal 21.0-31.0 [facility] Comment on above: Order Comment: Reaso n for Exam Well adult exam Performed By: #### F E PRO, CMP wRFX A1C, TSH3, [id number], [id number], CBC, LIPID #### [facility] [address] Creatinine [Mass/Vol] 0.90 mg/dL Normal 0.60-1.20 [facility] Comment on above: Order Comment: Reaso n for Exam Well adult exam Performed By: #### F E PRO, CMP wRFX A1C, TSH3, [id number], [id number], CBC, LIPID #### [facility] [address] [place] [address] [place] GFR/1.73 sq M.predicted MDRD (S/P/Bld) [Vol rate/Area] mL/min/{1.73_m2} Normal [facility] Comment on above: Order Comment: Reaso n for Exam Well adult exam Performed By: #### F E PRO, CMP wRFX A1C, TSH3, [id number], [id number], CBC, LIPID #### [facility] [address] [place] [id number] [facility] Globulin (S) [Mass/Vol] 3.1 g/dL Normal [facility] Comment on above: Order Comment: Reaso n for Exam Well adult exam Performed By: #### F E PRO, CMP wRFX A1C, TSH3, [id number], [id number], CBC, LIPID #### [facility] [address] [place] [address] [facility] Glucose [Mass/Vol] 94 mg/dL Normal 70-100 [facility] Comment on above: Order Comment: Reaso n for Exam Well adult exam Performed By: #### F E PRO, CMP wRFX A1C, TSH3, [id number], [id number], CBC, LIPID #### [facility] [address] Potassium [Moles/Vol] 4.3 mmol/L Normal 3.5-5.1 [facility] Comment on above: Order Comment: Reaso n for Exam Well adult exam Performed By: #### F E PRO, CMP wRFX A1C, TSH3, [id number], [id number], CBC, LIPID #### [facility] [address] Protein [Mass/Vol] 7.4 g/dL Normal 6.4-8.9 [facility] Comment on above: Order Comment: Reaso n for Exam Well adult exam Performed By: #### F E PRO, CMP wRFX A1C, TSH3, [id number], [id number], CBC, LIPID #### [facility] [address] Sodium [Moles/Vol] 138 mmol/L Normal 136-145 [facility] Comment on above: Order Comment: Reaso n for Exam Well adult exam Performed By: #### F E PRO, CMP wRFX A1C, TSH3, [id number], [id number], CBC, LIPID #### [facility] [address] Urea nitrogen [Mass/Vol] 16 mg/dL Normal 7-[address] [facility] Comment on above: Order Comment: Reaso n for Exam Well adult exam Performed By: #### F E PRO, CMP wRFX A1C, TSH3, [id number], [id number], CBC, LIPID #### [facility] [address] [place] [id number] [place] Calcium [Mass/volume] in Ser um or PlasmaOrdered By: Sherry Nielsen on 06-22-2023 Calcium [Mass/Vol] 9.3 mg/dL 8.6-10.3 [facility] Carbon dioxide, total [Moles /volume] in Serum or PlasmaOrdered By: Sherry Nielsen on 06-22-2023 CO2 [Moles/Vol] 27.1 mmol/L 21.0-31.0 [facility] Chloride [Moles/volume] in S adriano or PlasmaOrdered By: Sherry Nielsen on 06-22-2023 Chloride [Moles/Vol] 105 mmol/L 98-107 [facility] Cholesterol [Mass/volume] in Serum or PlasmaOrdered By: Sherry Nielsen on 06-22-2023 Cholesterol [Mass/Vol] 149 mg/dL 140-200 [facility] Comment on above: Chol less than 200 m g/dl low riskChol 201-239 mg/dl borderline riskChol 240 mg/dl and greater high risk Cholesterol in LDL Calc [Mas s/Vol]Ordered By: Sherry Nielsen on 06-22-2023 Cholesterol in LDL [Mass/Vol] 70 mg/dL 0-[address] [facility] Comment on above: LDL ATP III CLASSIFI CATIONLDL less than 100 mg/dL OptimalLDL 100-129 mg/dL Near or above optimalLDL 130-159 mg/dL Borderline highLDL 160-189 mg/dL HighLDL greater than 189 mg/dL Very high Cholesterol in VLDL Calc [Ma ss/Vol]Ordered By: Sherry Nielsen on 06-22-2023 Cholesterol in VLDL [Mass/Vol] 16 mg/dL [facility] Complete Blood Count Auto Di ffon 06-22-2023 Basophils (Bld) [#/Vol] 0.0 10*3/uL Normal 0.0-0.[address] [facility] Comment on above: Order Comment: Reaso n for Exam Well adult exam Result Comment: PERF ORMED BY: [place] [address] PATHOLOGIST DIRECTOR OF DATABASE MARKETING GLORIA MESA M.D. Performed By: #### F E PRO, CMP wRFX A1C, TSH3, [id number], [id number], CBC, LIPID #### [facility] [address] Basophils/100 WBC (Bld) 0.5 % Normal . [facility] Comment on above: Order Comment: Reaso n for Exam Well adult exam Performed By: #### F E PRO, CMP wRFX A1C, TSH3, [id number], [id number], CBC, LIPID #### [facility] [address] Eosinophils (Bld) [#/Vol] 0.1 10*3/uL Normal 0.0-0.[address] [facility] Comment on above: Order Comment: Reaso n for Exam Well adult exam Performed By: #### F E PRO, CMP wRFX A1C, TSH3, [id number], [id number], CBC, LIPID #### [facility] [address] Eosinophils/100 WBC (Bld) 2.2 % Normal . [facility] Comment on above: Order Comment: Reaso n for Exam Well adult exam Performed By: #### F E PRO, CMP wRFX A1C, TSH3, [id number], [id number], CBC, LIPID #### [facility] [address] [place] [address] Erythrocyte distribution width (RBC) [Ratio] 12.6 % Normal 11.9-15.[address] [facility] Comment on above: Order Comment: Reaso n for Exam Well adult exam Performed By: #### F E PRO, CMP wRFX A1C, TSH3, [id number], [id number], CBC, LIPID #### [facility] [address] [place] [address] Hematocrit (Bld) [Volume fraction] 41.6 % Normal 34.0-46.[address] [facility] Comment on above: Order Comment: Reaso n for Exam Well adult exam Performed By: #### F E PRO, CMP wRFX A1C, TSH3, [id number], [id number], CBC, LIPID #### [facility] [address] [place] [address] Hemoglobin (Bld) [Mass/Vol] 14.0 g/dL Normal 11.8-15.[address] [facility] Comment on above: Order Comment: Reaso n for Exam Well adult exam Performed By: #### F E PRO, CMP wRFX A1C, TSH3, [id number], [id number], CBC, LIPID #### [address] Lymphocytes (Bld) [#/Vol] 2.1 10*3/uL Normal 1.00-4.[address] [facility] Comment on above: Order Comment: Reaso n for Exam Well adult exam Performed By: #### F E PRO, CMP wRFX A1C, TSH3, [id number], [id number], CBC, LIPID #### [facility] [address] Lymphocytes/100 WBC (Bld) 34.6 % Normal . [facility] Comment on above: Order Comment: Reaso n for Exam Well adult exam Performed By: #### F E PRO, CMP wRFX A1C, TSH3, [id number], [id number], CBC, LIPID #### [address] MCH (RBC) [Entitic mass] 30.5 pg Normal 24.7-34.[address] [facility] Comment on above: Order Comment: Reaso n for Exam Well adult exam Performed By: #### F E PRO, CMP wRFX A1C, TSH3, [id number], [id number], CBC, LIPID #### [address] MCV (RBC) [Entitic vol] 90.9 fL Normal 80-100 [facility] Comment on above: Order Comment: Reaso n for Exam Well adult exam Performed By: #### F E PRO, CMP wRFX A1C, TSH3, [id number], [id number], CBC, LIPID #### [address] Mean Corpuscular HGB Conc 33.6 g/dL Normal 32.0-35.[address] [facility] Comment on above: Order Comment: Reaso n for Exam Well adult exam Performed By: #### F E PRO, CMP wRFX A1C, TSH3, [id number], [id number], CBC, LIPID #### [facility] [address] [place] [address] [place] Monocytes (Bld) [#/Vol] 0.5 10*3/uL Normal 0.0-0.[address] [facility] Comment on above: Order Comment: Reaso n for Exam Well adult exam Performed By: #### F E PRO, CMP wRFX A1C, TSH3, [id number], [id number], CBC, LIPID #### [facility] [address] [place] [address] [place] Monocytes/100 WBC (Bld) 7.9 % Normal . [facility] Comment on above: Order Comment: Reaso n for Exam Well adult exam Performed By: #### F E PRO, CMP wRFX A1C, TSH3, [id number], [id number], CBC, LIPID #### [place] [address] [place] Neutrophils (Bld) [#/Vol] 3.4 10*3/uL Normal 1.8-7.[address] [facility] Comment on above: Order Comment: Reaso n for Exam Well adult exam Performed By: #### F E PRO, CMP wRFX A1C, TSH3, [id number], [id number], CBC, LIPID #### [address] Neutrophils/100 WBC (Bld) 54.8 % Normal . [facility] Comment on above: Order Comment: Reaso n for Exam Well adult exam Performed By: #### F E PRO, CMP wRFX A1C, TSH3, [id number], [id number], CBC, LIPID #### [place] [address] [place] NRBC% 0.3 /100{WBC} Normal 0-0.[address] [facility] Comment on above: Order Comment: Reaso n for Exam Well adult exam Performed By: #### F E PRO, CMP wRFX A1C, TSH3, [id number], [id number], CBC, LIPID #### [facility] [address] [place] [address] [place] Platelet mean volume (Bld) [Entitic vol] 8.8 fL Normal 6.3-10.[address] [facility] Comment on above: Order Comment: Reaso n for Exam Well adult exam Performed By: #### F E PRO, CMP wRFX A1C, TSH3, [id number], [id number], CBC, LIPID #### [facility] [address] [place] [address] [place] Platelets (Bld) [#/Vol] 219 10*3/uL Normal 150-[address] [facility] Comment on above: Order Comment: Reaso n for Exam Well adult exam Performed By: #### F E PRO, CMP wRFX A1C, TSH3, [id number], [id number], CBC, LIPID #### [facility] [address] [place] [id number] [facility] RBC (Bld) [#/Vol] 4.58 10*6/uL Normal 3.60-5.00 [facility] Comment on above: Order Comment: Reaso n for Exam Well adult exam Performed By: #### F E PRO, CMP wRFX A1C, TSH3, [id number], [id number], CBC, LIPID #### [facility] [address] [place] [id number] [place] WBC (Bld) [#/Vol] 6.1 10*3/uL Normal 3.8-11.6 [facility] Comment on above: Order Comment: Reaso n for Exam Well adult exam Performed By: #### F E PRO, CMP wRFX A1C, TSH3, [id number], [id number], CBC, LIPID #### [facility] [address] [place] [id number] [facility] Creatinine [Mass/volume] in Serum or PlasmaOrdered By: Sherry Nielsen on 06-22-2023 Creatinine [Mass/Vol] 0.90 mg/dL 0.60-1.20 [facility] Eosinophils Auto (Bld) [#/Vo l]Ordered By: Sherry Nielsen on 06-22-2023 Eosinophils (Bld) [#/Vol] 0.1 10*3/uL 0.0-0.[address] [facility] Eosinophils/100 WBC Auto (Bl d)Ordered By: Sherry Nielsen on 06-22-2023 Eosinophils/100 WBC (Bld) 2.2 % . [facility] Erythrocyte distribution wid th Auto (RBC) [Ratio]Ordered By: Sherry Nielsen on 06-22-2023 Erythrocyte distribution width (RBC) [Ratio] 12.6 % 11.9-15.[address] [facility] FE PROon 06-22-2023 % Iron Saturation 34.8 % Normal 20-50 [facility] Comment on above: Order Comment: Reaso n for Exam Well adult exam Performed By: #### F E PRO, CMP wRFX A1C, TSH3, [id number], [id number], CBC, LIPID #### [facility] [address] [place] [address] [facility] Ferritin [Mass/Vol] 33.1 ng/mL Normal 11.0-306.8 [facility] Comment on above: Order Comment: Reaso n for Exam Well adult exam Performed By: #### F E PRO, CMP wRFX A1C, TSH3, [id number], [id number], CBC, LIPID #### [facility] [address] [place] [address] [place] Iron [Mass/Vol] 122 ug/dL Normal 50-[address] [facility] Comment on above: Order Comment: Reaso n for Exam Well adult exam Performed By: #### F E PRO, CMP wRFX A1C, TSH3, [id number], [id number], CBC, LIPID #### [facility] [address] [place] [address] [place] Total Iron Binding Capacity 351 ug/dL Normal 255-[address] [facility] Comment on above: Order Comment: Reaso n for Exam Well adult exam Performed By: #### F E PRO, CMP wRFX A1C, TSH3, [id number], [id number], CBC, LIPID #### [facility] [address] [place] [address] [place] Transferrin [Mass/Vol] 251 mg/dL Normal 203-362 [facility] Comment on above: Order Comment: Reaso n for Exam Well adult exam Performed By: #### F E PRO, CMP wRFX A1C, TSH3, [id number], [id number], CBC, LIPID #### [facility] [address] [place] [id number] [facility] Ferritin [Mass/volume] in Se rum or PlasmaOrdered By: Sherry Nielsen on 06-22-2023 Ferritin [Mass/Vol] 33.1 ng/mL 11.0-306.8 [facility] Folate [Mass/volume] in Seru m or PlasmaOrdered By: Sherry Nielsen on 06-22-2023 Folate [Mass/Vol] 23.0 ng/mL >5.9 [facility] Comment on above: Folate reference ran ge: >5.9 ng/mlThe WHO technical consultation on folate and vitamin d62evsbrshyhsve has determined that folate concentrations lessthan 4 ng/ml are considered deficient. Globulin Calc (S) [Mass/Vol] Ordered By: Sherry Nielsen on 06-22-2023 Globulin (S) [Mass/Vol] 3.1 g/dL [facility] Glucose [Mass/volume] in Ser um or PlasmaOrdered By: Sherry Nielsen on 06-22-2023 Glucose [Mass/Vol] 94 mg/dL 70-100 [facility] Hematocrit Auto (Bld) [Volum e fraction]Ordered By: Sherry Nielsen on 06-22-2023 Hematocrit (Bld) [Volume fraction] 41.6 % 34.0-46.[address] [facility] Hemoglobin [Mass/volume] in BloodOrdered By: Sherry Nielsen on 06-22-2023 Hemoglobin (Bld) [Mass/Vol] 14.0 g/dL 11.8-15.[address] [facility] Iron [Mass/volume] in Serum or PlasmaOrdered By: Sherry Nielsen on 06-22-2023 Iron [Mass/Vol] 122 ug/dL 50-[address] [facility] Iron binding capacity [Mass/ volume] in Serum or PlasmaOrdered By: Sherry Nielsen on 06-22-2023 Iron binding capacity [Mass/Vol] 351 ug/dL 255-[address] [facility] Iron saturation [Mass Fracti on] in Serum or PlasmaOrdered By: Sherry Nielsen on 06-22-2023 Iron saturation [Mass fraction] 34.8 % 20-[address] [facility] Leukocytes [#/volume] correc wilber for nucleated erythrocytes in Blood by Automated counOrdered By: Sherry Nielsen on 06-22-2023 WBC corrected for nucl RBC Auto (Bld) [#/Vol] 6.1 10*3/uL 3.8-11.[address] [facility] Lipid Panelon 06-22-2023 Cholesterol [Mass/Vol] 149 mg/dL Normal 140-200 [facility] Comment on above: Order Comment: Reaso n for Exam Well adult exam Result Comment: Chol less than 200 mg/dl low risk Chol 201-239 mg/dl borderline risk Chol 240 mg/dl and greater high risk Performed By: #### F E PRO, CMP wRFX A1C, TSH3, [id number], [id number], CBC, LIPID #### [facility] [address] [place] [id number] [facility] Cholesterol in HDL [Mass/Vol] 63 mg/dL Normal 23-[address] [facility] Comment on above: Order Comment: Reaso n for Exam Well adult exam Result Comment: HDL CHOL ATP-III CLASSIFICATION Cardiovascular Risk HDL > or equal to 60 mg/dL LOW HDL < 40 mg/dL HIGH Performed By: #### F E PRO, CMP wRFX A1C, TSH3, [id number], [id number], CBC, LIPID #### [facility] [address] [place] [address] [facility] Cholesterol.total/Choles terol in HDL [Mass ratio] 2.4 {ratio} Normal <5.[address] [facility] Comment on above: Order Comment: Reaso n for Exam Well adult exam Performed By: #### F E PRO, CMP wRFX A1C, TSH3, [id number], [id number], CBC, LIPID #### [facility] [address] [place] [address] [place] LDL Cholesterol,Calculated 70 mg/dL Normal 0-[address] [facility] Comment on above: Order Comment: Reaso n for Exam Well adult exam Result Comment: LDL ATP III CLASSIFICATION LDL less than 100 mg/dL Optimal LDL 100-129 mg/dL Near or above optimal LDL 130-159 mg/dL Borderline high LDL 160-189 mg/dL High LDL greater than 189 mg/dL Very high Performed By: #### F E PRO, CMP wRFX A1C, TSH3, [id number], [id number], CBC, LIPID #### [facility] [address] Triglyceride w/Reflex 82 mg/dL Normal 0-149 [facility] Comment on above: Order Comment: [...] F E PRO, CMP wRFX A1C, TSH3, [id number], [id number], CBC, LIPID #### [facility] [address] VLDL CHOLESTEROL 16 mg/dL Normal [facility] Comment on above: Order Comment: Reaso n for Exam Well adult exam Performed By: #### F E PRO, CMP wRFX A1C, TSH3, [id number], [id number], CBC, LIPID #### [facility] [address] Lymphocytes Auto (Bld) [#/Vo l]Ordered By: Sherry Nielsen on 06-22-2023 Lymphocytes (Bld) [#/Vol] 2.1 10*3/uL 1.00-4.[address] [facility] Lymphocytes/100 WBC Auto (Bl d)Ordered By: Sherry Nielsen on 06-22-2023 Lymphocytes/100 WBC (Bld) 34.6 % . [facility] MCH Auto (RBC) [Entitic mass ]Ordered By: Sherry Nielsen on 06-22-2023 MCH (RBC) [Entitic mass] 30.5 pg 24.7-34.[address] [facility] MCHC Auto (RBC) [Mass/Vol]Or dered By: Sherry Nielsen on 06-22-2023 MCHC (RBC) [Mass/Vol] 33.6 g/dL 32.0-35.0 [facility] MCV Auto (RBC) [Entitic vol] Ordered By: Sherry Nielsen on 06-22-2023 MCV (RBC) [Entitic vol] 90.9 fL 80-100 [facility] Monocytes Auto (Bld) [#/Vol] Ordered By: Sherry Nielsen on 06-22-2023 Monocytes (Bld) [#/Vol] 0.5 10*3/uL 0.0-0.[address] [facility] Monocytes/100 WBC Auto (Bld) Ordered By: Sherry Nielsen on 06-22-2023 Monocytes/100 WBC (Bld) 7.9 % . [facility] Neutrophils Auto (Bld) [#/Vo l]Ordered By: Sherry Nielsen on 06-22-2023 Neutrophils (Bld) [#/Vol] 3.4 10*3/uL 1.8-7.[address] [facility] Neutrophils/100 WBC Auto (Bl d)Ordered By: Sherry Nielsen on 06-22-2023 Neutrophils/100 WBC (Bld) 54.8 % . [facility] No Panel InformationOrdered By: Sherry Nielsen on 06-22-2023 Estimated GFR (CKD-EPI) > 60.0 mL/Min [facility] Creatinine Clearance (Chem N/A [facility] Nucleated erythrocytes [Pres ence] in Blood by Automated countOrdered By: Sherry Nielsen on 06-22-2023 Nucleated RBC Auto Ql (Bld) 0.3 /100{WBC} 0-0.[address] [facility] Platelet mean volume Auto (B ld) [Entitic vol]Ordered By: Sherry Nielsen on 06-22-2023 Platelet mean volume (Bld) [Entitic vol] 8.8 fL 6.3-10.[address] [facility] Platelets Auto (Bld) [#/Vol] Ordered By: Sherry Nielsen on 06-22-2023 Platelets (Bld) [#/Vol] 219 10*3/uL 150-[address] [facility] Potassium [Moles/volume] in Serum or PlasmaOrdered By: Sherry Nielsen on 06-22-2023 Potassium [Moles/Vol] 4.3 mmol/L 3.5-5.1 [facility] Protein [Mass/volume] in Ser um or PlasmaOrdered By: Sherry Nielsen on 06-22-2023 Protein [Mass/Vol] 7.4 g/dL 6.4-8.9 [facility] RBC Auto (Bld) [#/Vol]Ordere d By: Sherry Nielsen on 06-22-2023 RBC (Bld) [#/Vol] 4.58 10*6/uL 3.60-5.00 [facility] Serum or plasma albumin/glob ulin mass ratioOrdered By: Sherry Nielsen on 06-22-2023 Albumin/Globulin [Mass ratio] 1.4 {ratio} [facility] Serum or plasma anion gap de terminationOrdered By: Sherry Nielsen on 06-22-2023 Anion gap [Moles/Vol] 10.2 mmol/L 6.0-15.0 [facility] Serum or plasma high density lipoprotein (HDL) cholesterol measurementOrdered By: Sherry Nielsen on 06-22-2023 Cholesterol in HDL [Mass/Vol] 63 mg/dL 23-[address] [facility] Comment on above: HDL CHOL ATP-III CLA SSIFICATION Cardiovascular RiskHDL > or equal to 60 mg/dL LOWHDL < 40 mg/dL HIGH Serum or plasma total choles terol/high density lipoprotein (HDL) cholesterol mass ratOrdered By: Sherry Nielsen on 06-22-2023 Cholesterol.total/Choles terol in HDL [Mass ratio] 2.4 {ratio} <5.[address] [facility] Sodium [Moles/volume] in Ser um or PlasmaOrdered By: Sherry Nielsen on 06-22-2023 Sodium [Moles/Vol] 138 mmol/L 136-145 [facility] Thyroid Stimulating Hormoneo n 06-22-2023 TSH Qn 1.93 m[IU]/L Normal 0.45-5.[address] [facility] Comment on above: Order Comment: Reaso n for Exam Well adult exam Performed By: #### F E PRO, CMP wRFX A1C, TSH3, [id number], [id number], CBC, LIPID #### [facility] [address] Thyrotropin [Units/volume] i n Serum or PlasmaOrdered By: Sherry Nielsen on 06-22-2023 TSH Qn 1.93 m[IU]/L 0.45-5.[address] [facility] Transferrin [Mass/volume] in Serum or PlasmaOrdered By: Sherry Nielsen on 06-22-2023 Transferrin [Mass/Vol] 251 mg/dL 203-362 [facility] Triglyceride [Mass/volume] i n Serum or PlasmaOrdered By: Sherry Nielsen on 06-22-2023 Triglyceride [Mass/Vol] 82 mg/dL 0-149 [facility] Comment on above: TRIG ATP III CLASSIF ICATIONTRIG less than 150 mg/dL NormalTRIG 150-199 mg/dL Borderline highTRIG 200-500 mg/dL High TRIG greater than 500 mg/dL Very highStandard traceable to the Center for Disease Conrtrol and Prevention (CDC) test method. Urea nitrogen [Mass/volume] in Serum or PlasmaOrdered By: Sherry Nielsen on 06-22-2023 Urea nitrogen [Mass/Vol] 16 mg/dL 7-[address] [facility] Vit. B12/Folate Profileon Cobalamin (Vitamin B12) [Mass/Vol] 333 pg/mL Normal 180-[address] [facility] Comment on above: Order Comment: Reaso n for Exam Well adult exam Performed By: #### F E PRO, CMP wRFX A1C, TSH3, [id number], [id number], CBC, LIPID #### [facility] [address] [place] [address] [facility] Folate 23.0 ng/mL Normal >5.[address] [facility] Comment on above: Order Comment: Reaso n for Exam Well adult exam Result Comment: [place] reference range: >5.9 ng/ml The WHO technical consultation on folate and vitamin b12 deficiencies has determined that folate concentrations less than 4 ng/ml are considered deficient. Performed By: #### F E PRO, CMP wRFX A1C, TSH3, [id number], [id number], CBC, LIPID #### [facility] [address] Vitamin B12 ser/plasOrdered By: Sherry Nielsen on 06-22-2023 Cobalamin (Vitamin B12) [Mass/Vol] 333 pg/mL 180-[address] [facility] Vitamin D 25 Hydroxy Totalon 06-22-2023 Vitamin D 25 Hydroxy Total 45.4 ng/mL Normal 30-[address] [facility] Comment on above: Order Comment: Reaso n for Exam Well adult exam Result Comment: TEX MIN D STATUS 25(OH)VITAMIN D RANGE (ng/mL) Deficient <20 Insufficient 20 to <30 Sufficient 30 to 100 Reference: Marielena Sandoval, Maximilian HAMILTON, et al. Evaluation,treatment, and prevention of vitamin D deficiency; an Endocrine Society clinical practice guideline. JCEM. 2010; 96(7):191-. PERFORMED BY: [place] [address] PATHOLOGIST DIRECTOR OF DATABASE MARKETING GLORIA MESA M.D. Performed By: #### F E PRO, CMP wRFX A1C, TSH3, [id number], [id number], CBC, LIPID #### [facility] [address] [place] [address] Vitamin D+Metabolites [Mass/ volume] in Serum or PlasmaOrdered By: Sherry Nielsen on 06-22-2023 Vitamin D+Metabolites [Mass/Vol] 45.4 ng/mL 30-[address] [facility] Comment on above: VITAMIN D STATUS 25( [place])VITAMIN D RANGE (ng/mL) Deficient <20 Insufficient 20 to <30Sufficient 30 to 100Reference: Marielena Sandoval, Maximilian HAMILTON, et al. Evaluation,treatment, and prevention of vitamin D deficiency; an Endocrine Society clinical practice guideline. JCEM. 2010; 96(7):1911-. WBC Auto (Bld) [#/Vol]Ordere d By: Sherry Nielsen on 06-22-2023 WBC (Bld) [#/Vol] 6.1 10*3/uL 3.8-11.6 [facility] Vital Signs Date Time Vital Sign Value Performing Clinician Facility 06-18-2023 07:30-0400 Body height 156.21 cm Sherry Nielsen Other [email or web address] Other 06-18-2023 07:30-0400 Body mass index (BMI) [Ratio] 31.73 kg/m2 Sherry Nielsen Other [email or web address] Other 06-18-2023 07:30-0400 Body weight 77.43 kg Sherry Nielsen Other [email or web address] Other 06-18-2023 07:30-0400 Diastolic blood pressure 70 mm[Hg] Sherry Nielsen Other [email or web address] Other 06-18-2023 07:30-0400 Respiratory rate 18 /min Sherry Nielsen Other [email or web address] Other 06-18-2023 07:30-0400 SaO2% (BldA) [Mass fraction] 98 % Sherry Nielsen Other [email or web address] Other 06-18-2023 07:30-0400 Systolic blood pressure 110 mm[Hg] Sherry Nielsen Other [email or web address] Other Encounters Encounter Date Encounter Type Care Provider Facility Start: 04-06-2024 End: 04-06-2024 ambulatory ADDIE BROOK Not Available Start: 03-23-2024 End: 03-23-2024 ambulatory ADDIE BROOK Not Available Start: 03-07-2024 End: 03-07-2024 ambulatory ADDIE BROOK Not Available Start: 02-22-2024 End: 02-22-2024 ambulatory ADDIE BROOK Not Available Start: 01-24-2024 End: 01-24-2024 ambulatory ROMMEL MARQUEZ Not Available Start: 12-27-2023 End: 12-27-2023 ambulatory ADDIE BROOK Not Available Start: 11-29-2023 End: 11-29-2023 ambulatory ROMMEL MARQUEZ Not Available Start: 10-28-2023 End: 10-28-2023 ambulatory ADDIE BROOK Not Available Start: 09-24-2023 End: 09-24-2023 ambulatory ROMMEL MARQUEZ Not Available Start: 06-22-2023 End: 06-22-2023 ambulatory Sherry Nielsen Facility:[facility] Start: 06-22-2023 End: 06-22-2023 ambulatory DNP Sherry Nielsen Work Phone: [facility] Work Phone: Start: 06-22-2023 End: 06-22-2023 Patient encounter procedure DNP Sherry Nielsen Work Phone: [facility] Start: 06-18-2023 End: 06-18-2023 ambulatory Sherry Nielsen Other [email or web address] Other Start: 06-18-2023 Encounter for genera l adult medical examination without abnormal findings Sherry Nielsen [facility] [place] Start: 06-18-2023 Initial preventive medicine new pt age 18-39yrs Sherry Nielsen [facility] [place] Payers Date Payer Category Payer Self-pay 2023 [facility] [id number] 1993 Unknown [id number] 1993 Unknown [id number] 1993 Unknown [id number] 1993 Unknown [id number] 1993 Unknown [id number] 1993 Unknown [id number] 1993 Unknown [id number] 1993 Unknown [id number] 1993 Unknown [id number] Unknown [id number] Unknown HCAP/HFA/FAP Active [id number] Social History Date Type Detail Facility Sex [facility]igned At [facility] [facility] Other Start: 1995 Sex Assigned At Female F [facility] Evaluation note 06-18-2023 Note Date & Type Note Facility 06-18-2023 Evaluation note Encounter Date Diagnosis Assessment Notes Jun, Well adult exam (ICD-10 - Z00.00) Routine lab work ordered. She will continue to keep appointment with [facility], eye doctor and dentist. Patient is advised to work on healthy diet choices and appropriate servings, weight control, regular exercise as directed, reduced fat intake, and salt avoidance. Patient voiced understanding of this and agrees to this plan. [email or web address] Other Evaluation note Note Date & Type Note Facility Evaluation note No assessment information availa [facility] Work Phone: History general Narrative - Reported Note Date & Type Note Facility History general Narrative - Reported Type Surgical History Foot Surgery Surgical History GALLBLADDER Surgical History 2015 Surgical History SHOULDER-LEFT 2018 Hospitalization History see above [email or web address] Other Summary Purpose Family History No Family [...] section and content) DATE CREATED AUTHOR 06/22/2023 [facility] DATE CREATED AUTHOR AUTHOR'S ORGANIZ ATION 04/07/2024 [facility] Care Teams (unrecognized sec tion and [...] BE BASED ON THE PRIMARY CLINICAL RECORDS. [employer] provides no warranty or guarantee of the accuracy or completeness of information in this document.
== END 2024-04-13 19:32 | disposition home or self-care (01) ==
LOC: LAB 19:31
PROVIDERS: Visit Provider Obstetrics & Gynecology
DX: Z34.93 Encounter for supervision of normal pregnancy, unspecified, third trimester (principal)
CPT/HCPCS: 87081

== ENCOUNTER 2024-04-19 16:54 | Inpatient (IN) | payer BC, SELFPAY ==
[2024-04-19] VITALS (43 sets, daily range): BP systolic 107–179; BP diastolic 71–104; PULSE 98–118; TEMP 36.3–36.8; O2SAT 99–100
--- OUTSIDE RECORDS SUMMARY | 2024-04-19 17:02 | XMS_ITS | CCD ---
Author Organization [facility] Care Team Providers Care Bulk Mail Clerk Name Role Phone Sherry Nielsen Unavailable Sherry Nielsen Attending Unavailable Sherry Nielsen Primary Care Unavailable Sherry Nielsen Admitting Unavailable LYNNE Nielsen Primary Care Provider LYNNE Nielsen Attending Provider ROMMEL MARQUEZ Attending Unavailable BROOK, ADDIE Attending Unavailable ROMMEL MARQUEZ Attending Unavailable BROOK, ADDIE Attending Unavailable BROOK, ADDIE Attending Unavailable BROOK, ADDIE Attending Unavailable BROOK, ADDIE Attending Unavailable BROOK, ADDIE Attending Unavailable BROOK, ADDIE Attending Unavailable Allergies Allergy Classification Reported Allergen(s) Allergy Type Date of Onset Reaction(s) Facility (1 source) Adhesive agent Drug allergy [employer] Other Problems Problem Classification Problem Date Documented Da te Episodic/Chronic Unclassified (1 source) Encounter for general adult medical examination without abnormal findings; Translations: [Encounter for general adult medical examination without abnormal findings] Onset: 06-22-2023 Results Test Name Value Interpretation Reference Range Facility Alanine aminotransferase [En zymatic activity/volume] in Serum or PlasmaOrdered By: Sherry Nielsen on 06-22-2023 ALT [Catalytic activity/Vol] 14 U/L 7-52 [facility] Albumin [Mass/volume] in Ser um or Plasma by Bromocresol green (BCG) dye binding methoOrdered By: Sherry Nielsen on 06-22-2023 Albumin BCG dye [Mass/Vol] 4.3 g/dL 3.5-5.7 [facility] Alkaline phosphatase [Enzyma tic activity/volume] in Serum or PlasmaOrdered By: Sherry Nielsen on 06-22-2023 ALP [Catalytic activity/Vol] 88 U/L 34-104 [facility] Aspartate aminotransferase [ Enzymatic activity/volume] in Serum or PlasmaOrdered By: Sherry Nielsen on 06-22-2023 AST [Catalytic activity/Vol] 15 U/L 13-39 [facility] Basophils Auto (Bld) [#/Vol] Ordered By: Sherry Nielsen on 06-22-2023 Basophils (Bld) [#/Vol] 0.0 10*3/uL 0.0-0.2 [facility] Basophils/100 WBC Auto (Bld) Ordered By: Sherry Nielsen on 06-22-2023 Basophils/100 WBC (Bld) 0.5 % . [facility] Bilirubin.total [Mass/volume ] in Serum or PlasmaOrdered By: Sherry Nielsen on 06-22-2023 Bilirubin [Mass/Vol] 1.1 mg/dL 0.3-1.0 [facility] CMP with reflex to A1Con Albumin [Mass/Vol] 4.3 g/dL Normal 3.5-5.7 [facility] Comment on above: Order Comment: Reaso n for Exam Well adult exam Performed By: #### F E PRO, CMP wRFX A1C, TSH3, [id number], [id number], CBC, LIPID #### [facility] [address] Albumin/Globulin [Mass ratio] 1.4 {ratio} Normal [facility] Comment on above: Order Comment: Reaso n for Exam Well adult exam Performed By: #### F E PRO, CMP wRFX A1C, TSH3, [id number], [id number], CBC, LIPID #### [facility] [address] [place] [address] [place] ALP [Catalytic activity/Vol] 88 U/L Normal 34-104 [facility] Comment on above: Order Comment: Reaso n for Exam Well adult exam Performed By: #### F E PRO, CMP wRFX A1C, TSH3, [id number], [id number], CBC, LIPID #### [facility] [address] [place] [address] [place] ALT [Catalytic activity/Vol] 14 U/L Normal 7-52 [facility] Comment on above: Order Comment: Reaso n for Exam Well adult exam Performed By: #### F E PRO, CMP wRFX A1C, TSH3, [id number], [id number], CBC, LIPID #### [facility] [address] [place] [id number] [facility] Anion gap [Moles/Vol] 10.2 mmol/L Normal 6.0-15.0 [facility] Comment on above: Order Comment: Reaso n for Exam Well adult exam Performed By: #### F E PRO, CMP wRFX A1C, TSH3, [id number], [id number], CBC, LIPID #### [facility] [address] [place] [id number] [facility] AST [Catalytic activity/Vol] 15 U/L Normal 13-39 [facility] Comment on above: Order Comment: Reaso n for Exam Well adult exam Performed By: #### F E PRO, CMP wRFX A1C, TSH3, [id number], [id number], CBC, LIPID #### [facility] [address] [place] [id number] [place] Bilirubin [Mass/Vol] 1.1 mg/dL High 0.3-1.0 [facility] Comment on above: Order Comment: Reaso n for Exam Well adult exam Performed By: #### F E PRO, CMP wRFX A1C, TSH3, [id number], [id number], CBC, LIPID #### [facility] [address] [place] [phone] [place] Calcium [Mass/Vol] 9.3 mg/dL Normal 8.6-10.3 [facility] Comment on above: Order Comment: Reaso n for Exam Well adult exam Performed By: #### F E PRO, CMP wRFX A1C, TSH3, [id number], [id number], CBC, LIPID #### [facility] [address] [place] [phone] [place] Chloride [Moles/Vol] 105 mmol/L Normal 98-107 [facility] Comment on above: Order Comment: Reaso n for Exam Well adult exam Performed By: #### F E PRO, CMP wRFX A1C, TSH3, [id number], [id number], CBC, LIPID #### [facility] [address] [place] [phone] [place] CO2 [Moles/Vol] 27.1 mmol/L Normal 21.0-31.0 [facility] Comment on above: Order Comment: Reaso n for Exam Well adult exam Performed By: #### F E PRO, CMP wRFX A1C, TSH3, [id number], [id number], CBC, LIPID #### [facility] [address] Creatinine [Mass/Vol] 0.90 mg/dL Normal 0.60-1.20 [facility] Comment on above: Order Comment: Reaso n for Exam Well adult exam Performed By: #### F E PRO, CMP wRFX A1C, TSH3, [id number], [id number], CBC, LIPID #### [facility] [address] [place] [address] [place] GFR/1.73 sq M.predicted MDRD (S/P/Bld) [Vol rate/Area] mL/min/{1.73_m2} Normal [facility] Comment on above: Order Comment: Reaso n for Exam Well adult exam Performed By: #### F E PRO, CMP wRFX A1C, TSH3, [id number], [id number], CBC, LIPID #### [facility] [address] [place] [phone] [place] Globulin (S) [Mass/Vol] 3.1 g/dL Normal [facility] Comment on above: Order Comment: Reaso n for Exam Well adult exam Performed By: #### F E PRO, CMP wRFX A1C, TSH3, [id number], [id number], CBC, LIPID #### [facility] [address] [place] [phone] [place] Glucose [Mass/Vol] 94 mg/dL Normal 70-100 [facility] Comment on above: Order Comment: Reaso n for Exam Well adult exam Performed By: #### F E PRO, CMP wRFX A1C, TSH3, [id number], [id number], CBC, LIPID #### [facility] [address] Potassium [Moles/Vol] 4.3 mmol/L Normal 3.5-5.1 [facility] Comment on above: Order Comment: Reaso n for Exam Well adult exam Performed By: #### F E PRO, CMP wRFX A1C, TSH3, [id number], [id number], CBC, LIPID #### [facility] [address] Protein [Mass/Vol] 7.4 g/dL Normal 6.4-8.9 [facility] Comment on above: Order Comment: Reaso n for Exam Well adult exam Performed By: #### F E PRO, CMP wRFX A1C, TSH3, [id number], [id number], CBC, LIPID #### [facility] [address] Sodium [Moles/Vol] 138 mmol/L Normal 136-145 [facility] Comment on above: Order Comment: Reaso n for Exam Well adult exam Performed By: #### F E PRO, CMP wRFX A1C, TSH3, [id number], [id number], CBC, LIPID #### [facility] [address] [place] [phone] [facility] Urea nitrogen [Mass/Vol] 16 mg/dL Normal 7-25 [facility] Comment on above: Order Comment: Reaso n for Exam Well adult exam Performed By: #### F E PRO, CMP wRFX A1C, TSH3, [id number], [id number], CBC, LIPID #### [facility] [address] [place] [phone] [facility] Calcium [Mass/volume] in Ser um or PlasmaOrdered By: Sherry Nielsen on 06-22-2023 Calcium [Mass/Vol] 9.3 mg/dL 8.6-10.3 [facility] Carbon dioxide, total [Moles /volume] in Serum or PlasmaOrdered By: Sherry Nielsen on 06-22-2023 CO2 [Moles/Vol] 27.1 mmol/L 21.0-31.0 [facility] Chloride [Moles/volume] in S adriano or PlasmaOrdered By: Sherry Nielsen on 06-22-2023 Chloride [Moles/Vol] 105 mmol/L 98-107 [facility] Cholesterol [Mass/volume] in Serum or PlasmaOrdered By: Sherry Nielsen on 06-22-2023 Cholesterol [Mass/Vol] 149 mg/dL 140-200 [facility] Comment on above: Chol less than 200 m g/dl low riskChol 201-239 mg/dl borderline riskChol 240 mg/dl and greater high risk Cholesterol in LDL Calc [Mas s/Vol]Ordered By: Sherry Nielsen on 06-22-2023 Cholesterol in LDL [Mass/Vol] 70 mg/dL 0-100 [facility] Comment on above: LDL ATP III CLASSIFI CATIONLDL less than 100 mg/dL OptimalLDL 100-129 mg/dL Near or above optimalLDL 130-159 mg/dL Borderline highLDL 160-189 mg/dL HighLDL greater than 189 mg/dL Very high Cholesterol in VLDL Calc [Ma ss/Vol]Ordered By: Sherry Nielsen on 06-22-2023 Cholesterol in VLDL [Mass/Vol] 16 mg/dL [facility] Complete Blood Count Auto Di ffon 06-22-2023 Basophils (Bld) [#/Vol] 0.0 10*3/uL Normal 0.0-0.2 [facility] Comment on above: Order Comment: Reaso n for Exam Well adult exam Result Comment: PERF ORMED BY: [facility] [address] [place] [address] PATHOLOGIST [employer] GLORIA MESA M.D. Performed By: #### F E PRO, CMP wRFX A1C, TSH3, [id number], [id number], CBC, LIPID #### [facility] [address] Basophils/100 WBC (Bld) 0.5 % Normal . F [facility] Comment on above: Order Comment: Reaso n for Exam Well adult exam Performed By: #### F E PRO, CMP wRFX A1C, TSH3, [id number], [id number], CBC, LIPID #### [facility] [address] Eosinophils (Bld) [#/Vol] 0.1 10*3/uL Normal 0.0-0.45 [facility] Comment on above: Order Comment: Reaso n for Exam Well adult exam Performed By: #### F E PRO, CMP wRFX A1C, TSH3, [id number], [id number], CBC, LIPID #### [facility] [address] Eosinophils/100 WBC (Bld) 2.2 % Normal . [facility] Comment on above: Order Comment: Reaso n for Exam Well adult exam Performed By: #### F E PRO, CMP wRFX A1C, TSH3, [id number], [id number], CBC, LIPID #### [address] Erythrocyte distribution width (RBC) [Ratio] 12.6 % Normal 11.9-15.3 [facility] Comment on above: Order Comment: Reaso n for Exam Well adult exam Performed By: #### F E PRO, CMP wRFX A1C, TSH3, [id number], [id number], CBC, LIPID #### [facility] [address] [place] [address] Hematocrit (Bld) [Volume fraction] 41.6 % Normal 34.0-46.4 [facility] Comment on above: Order Comment: Reaso n for Exam Well adult exam Performed By: #### F E PRO, CMP wRFX A1C, TSH3, [id number], [id number], CBC, LIPID #### [facility] [address] [place] [address] Hemoglobin (Bld) [Mass/Vol] 14.0 g/dL Normal 11.8-15.4 [facility] Comment on above: Order Comment: Reaso n for Exam Well adult exam Performed By: #### F E PRO, CMP wRFX A1C, TSH3, [id number], [id number], CBC, LIPID #### [address] Lymphocytes (Bld) [#/Vol] 2.1 10*3/uL Normal 1.00-4.8 [facility] Comment on above: Order Comment: Reaso n for Exam Well adult exam Performed By: #### F E PRO, CMP wRFX A1C, TSH3, [id number], [id number], CBC, LIPID #### [address] Lymphocytes/100 WBC (Bld) 34.6 % Normal . [facility] Comment on above: Order Comment: Reaso n for Exam Well adult exam Performed By: #### F E PRO, CMP wRFX A1C, TSH3, [id number], [id number], CBC, LIPID #### [address] MCH (RBC) [Entitic mass] 30.5 pg Normal 24.7-34.3 [facility] Comment on above: Order Comment: Reaso n for Exam Well adult exam Performed By: #### F E PRO, CMP wRFX A1C, TSH3, [id number], [id number], CBC, LIPID #### [address] MCV (RBC) [Entitic vol] 90.9 fL Normal 80-100 [facility] Comment on above: Order Comment: Reaso n for Exam Well adult exam Performed By: #### F E PRO, CMP wRFX A1C, TSH3, [id number], [id number], CBC, LIPID #### [address] Mean Corpuscular HGB Conc 33.6 g/dL Normal 32.0-35.0 [facility] Comment on above: Order Comment: Reaso n for Exam Well adult exam Performed By: #### F E PRO, CMP wRFX A1C, TSH3, [id number], [id number], CBC, LIPID #### [facility] [address] [place] [address] [place] Monocytes (Bld) [#/Vol] 0.5 10*3/uL Normal 0.0-0.8 [facility] Comment on above: Order Comment: Reaso n for Exam Well adult exam Performed By: #### F E PRO, CMP wRFX A1C, TSH3, [id number], [id number], CBC, LIPID #### [facility] [address] [place] [address] [place] Monocytes/100 WBC (Bld) 7.9 % Normal . [facility] Comment on above: Order Comment: Reaso n for Exam Well adult exam Performed By: #### F E PRO, CMP wRFX A1C, TSH3, [id number], [id number], CBC, LIPID #### [facility] [address] [place] [address] [place] Neutrophils (Bld) [#/Vol] 3.4 10*3/uL Normal 1.8-7.7 [facility] Comment on above: Order Comment: Reaso n for Exam Well adult exam Performed By: #### F E PRO, CMP wRFX A1C, TSH3, [id number], [id number], CBC, LIPID #### [facility] [address] [place] [address] [place] Neutrophils/100 WBC (Bld) 54.8 % Normal . [facility] Comment on above: Order Comment: Reaso n for Exam Well adult exam Performed By: #### F E PRO, CMP wRFX A1C, TSH3, [id number], [id number], CBC, LIPID #### [facility] [address] [place] [address] [place] NRBC% 0.3 /100{WBC} Normal 0-0.5 [facility] Comment on above: Order Comment: Reaso n for Exam Well adult exam Performed By: #### F E PRO, CMP wRFX A1C, TSH3, [id number], [id number], CBC, LIPID #### [facility] [address] Platelet mean volume (Bld) [Entitic vol] 8.8 fL Normal 6.3-10.7 [facility] Comment on above: Order Comment: Reaso n for Exam Well adult exam Performed By: #### F E PRO, CMP wRFX A1C, TSH3, [id number], [id number], CBC, LIPID #### [facility] [address] Platelets (Bld) [#/Vol] 219 10*3/uL Normal 150-450 [facility] Comment on above: Order Comment: Reaso n for Exam Well adult exam Performed By: #### F E PRO, CMP wRFX A1C, TSH3, [id number], [id number], CBC, LIPID #### [facility] [address] RBC (Bld) [#/Vol] 4.58 10*6/uL Normal 3.60-5.00 [facility] Comment on above: Order Comment: Reaso n for Exam Well adult exam Performed By: #### F E PRO, CMP wRFX A1C, TSH3, [id number], [id number], CBC, LIPID #### [facility] [address] [place] [address] [place] WBC (Bld) [#/Vol] 6.1 10*3/uL Normal 3.8-11.6 [facility] Comment on above: Order Comment: Reaso n for Exam Well adult exam Performed By: #### F E PRO, CMP wRFX A1C, TSH3, [id number], [id number], CBC, LIPID #### [facility] [address] [place] [id number] [facility] Creatinine [Mass/volume] in Serum or PlasmaOrdered By: Sherry Nielsen on 06-22-2023 Creatinine [Mass/Vol] 0.90 mg/dL 0.60-1.20 [facility] Eosinophils Auto (Bld) [#/Vo l]Ordered By: Sherry Nielsen on 06-22-2023 Eosinophils (Bld) [#/Vol] 0.1 10*3/uL 0.0-0.45 [facility] Eosinophils/100 WBC Auto (Bl d)Ordered By: Sherry Gia on 06-22-2023 Eosinophils/100 WBC (Bld) 2.2 % . [facility] Erythrocyte distribution wid th Auto (RBC) [Ratio]Ordered By: Hserry Gia on 06-22-2023 Erythrocyte distribution width (RBC) [Ratio] 12.6 % 11.9-15.3 [facility] FE PROon 06-22-2023 % Iron Saturation 34.8 % Normal 20-50 [facility] Comment on above: Order Comment: Reaso n for Exam Well adult exam Performed By: #### F E PRO, CMP wRFX A1C, TSH3, [id number], [id number], CBC, LIPID #### [facility] [address] [place] [address] [place] Ferritin [Mass/Vol] 33.1 ng/mL Normal 11.0-306.8 [facility] Comment on above: Order Comment: Reaso n for Exam Well adult exam Performed By: #### F E PRO, CMP wRFX A1C, TSH3, [id number], [id number], CBC, LIPID #### [facility] [address] [place] [address] [place] Iron [Mass/Vol] 122 ug/dL Normal 50-212 [facility] Comment on above: Order Comment: Reaso n for Exam Well adult exam Performed By: #### F E PRO, CMP wRFX A1C, TSH3, [id number], [id number], CBC, LIPID #### [facility] [address] [place] [address] [place] Total Iron Binding Capacity 351 ug/dL Normal 255-450 [facility] Comment on above: Order Comment: Reaso n for Exam Well adult exam Performed By: #### F E PRO, CMP wRFX A1C, TSH3, [id number], [id number], CBC, LIPID #### [facility] [address] [place] [address] [place] Transferrin [Mass/Vol] 251 mg/dL Normal 203-362 [facility] Comment on above: Order Comment: Reaso n for Exam Well adult exam Performed By: #### F E PRO, CMP wRFX A1C, TSH3, [id number], [id number], CBC, LIPID #### [facility] [address] Ferritin [Mass/volume] in Se rum or PlasmaOrdered By: Sherry Nielsen on 06-22-2023 Ferritin [Mass/Vol] 33.1 ng/mL 11.0-306.8 [facility] Folate [Mass/volume] in Seru m or PlasmaOrdered By: Sherry Nielsen on 06-22-2023 Folate [Mass/Vol] 23.0 ng/mL >5.9 [facility] Comment on above: Folate reference ran ge: >5.9 ng/mlThe WHO technical consultation on folate and vitamin [id number] has determined that folate concentrations lessthan 4 ng/ml are considered deficient. Globulin Calc (S) [Mass/Vol] Ordered By: Sherry Nielsen on 06-22-2023 Globulin (S) [Mass/Vol] 3.1 g/dL [facility] Glucose [Mass/volume] in Ser um or PlasmaOrdered By: Sherry Nielsen on 06-22-2023 Glucose [Mass/Vol] 94 mg/dL 70-100 [facility] Hematocrit Auto (Bld) [Volum e fraction]Ordered By: Sherry Nielsen on 06-22-2023 Hematocrit (Bld) [Volume fraction] 41.6 % 34.0-46.4 [facility] Hemoglobin [Mass/volume] in BloodOrdered By: Sherry Nielsen on 06-22-2023 Hemoglobin (Bld) [Mass/Vol] 14.0 g/dL 11.8-15.4 [facility] Iron [Mass/volume] in Serum or PlasmaOrdered By: Sherry Nielsen on 06-22-2023 Iron [Mass/Vol] 122 ug/dL 50-212 [facility] Iron binding capacity [Mass/ volume] in Serum or PlasmaOrdered By: Sherry Nielsen on 06-22-2023 Iron binding capacity [Mass/Vol] 351 ug/dL 255-450 [facility] Iron saturation [Mass Fracti on] in Serum or PlasmaOrdered By: Sherry Nielsen on 06-22-2023 Iron saturation [Mass fraction] 34.8 % 20-50 [facility] Leukocytes [#/volume] correc wilber for nucleated erythrocytes in Blood by Automated counOrdered By: Sherry Nielsen on 06-22-2023 WBC corrected for nucl RBC Auto (Bld) [#/Vol] 6.1 10*3/uL 3.8-11.6 [facility] Lipid Panelon 06-22-2023 Cholesterol [Mass/Vol] 149 mg/dL Normal 140-200 [facility] Comment on above: Order Comment: Reaso n for Exam Well adult exam Result Comment: Chol less than 200 mg/dl low risk Chol 201-239 mg/dl borderline risk Chol 240 mg/dl and greater high risk Performed By: #### F E PRO, CMP wRFX A1C, TSH3, [id number], [id number], CBC, LIPID #### [facility] [address] [place] [id number] [facility] Cholesterol in HDL [Mass/Vol] 63 mg/dL Normal 23-92 [facility] Comment on above: Order Comment: Reaso n for Exam Well adult exam Result Comment: HDL CHOL ATP-III CLASSIFICATION Cardiovascular Risk HDL > or equal to 60 mg/dL LOW HDL < 40 mg/dL HIGH Performed By: #### F E PRO, CMP wRFX A1C, TSH3, [id number], [id number], CBC, LIPID #### [facility] [address] [place] [address] [facility] Cholesterol.total/Choles terol in HDL [Mass ratio] 2.4 {ratio} Normal <5.0 [facility] Comment on above: Order Comment: Reaso n for Exam Well adult exam Performed By: #### F E PRO, CMP wRFX A1C, TSH3, [id number], [id number], CBC, LIPID #### [facility] [address] [place] [address] [facility] LDL Cholesterol,Calculated 70 mg/dL Normal 0-100 [facility] Comment on above: Order Comment: Reaso n for Exam Well adult exam Result Comment: LDL ATP III CLASSIFICATION LDL less than 100 mg/dL Optimal LDL 100-129 mg/dL Near or above optimal LDL 130-159 mg/dL Borderline high LDL 160-189 mg/dL High LDL greater than 189 mg/dL Very high Performed By: #### F E PRO, CMP wRFX A1C, TSH3, [id number], [id number], CBC, LIPID #### [facility] [address] Triglyceride w/Reflex 82 mg/dL Normal 0-149 [facility] Comment on above: Order Comment: [...] F E PRO, CMP wRFX A1C, TSH3, [id number], [id number], CBC, LIPID #### [facility] [address] VLDL CHOLESTEROL 16 mg/dL Normal [facility] Comment on above: Order Comment: Reaso n for Exam Well adult exam Performed By: #### F E PRO, CMP wRFX A1C, TSH3, [id number], [id number], CBC, LIPID #### [facility] [address] Lymphocytes Auto (Bld) [#/Vo l]Ordered By: Sherry Nielsen on 06-22-2023 Lymphocytes (Bld) [#/Vol] 2.1 10*3/uL 1.00-4.8 [facility] Lymphocytes/100 WBC Auto (Bl d)Ordered By: Sherry Nielsen on 06-22-2023 Lymphocytes/100 WBC (Bld) 34.6 % . [facility] MCH Auto (RBC) [Entitic mass ]Ordered By: Sherry Nielsen on 06-22-2023 MCH (RBC) [Entitic mass] 30.5 pg 24.7-34.3 [facility] MCHC Auto (RBC) [Mass/Vol]Or dered By: Sherry Nielsen on 06-22-2023 MCHC (RBC) [Mass/Vol] 33.6 g/dL 32.0-35.0 [facility] MCV Auto (RBC) [Entitic vol] Ordered By: Sherry Nielsen on 06-22-2023 MCV (RBC) [Entitic vol] 90.9 fL 80-100 [facility] Monocytes Auto (Bld) [#/Vol] Ordered By: Sherry Nielsen on 06-22-2023 Monocytes (Bld) [#/Vol] 0.5 10*3/uL 0.0-0.8 [facility] Monocytes/100 WBC Auto (Bld) Ordered By: Sherry Nielsen on 06-22-2023 Monocytes/100 WBC (Bld) 7.9 % . [facility] Neutrophils Auto (Bld) [#/Vo l]Ordered By: Sherry Nielsen on 06-22-2023 Neutrophils (Bld) [#/Vol] 3.4 10*3/uL 1.8-7.7 [facility] Neutrophils/100 WBC Auto (Bl d)Ordered By: Sherry Nielsen on 06-22-2023 Neutrophils/100 WBC (Bld) 54.8 % . [facility] No Panel InformationOrdered By: Sherry Nielsen on 06-22-2023 Estimated GFR (CKD-EPI) > 60.0 mL/Min [facility] Creatinine Clearance (Chem N/A [facility] Nucleated erythrocytes [Pres ence] in Blood by Automated countOrdered By: Sherry Nielsen on 06-22-2023 Nucleated RBC Auto Ql (Bld) 0.3 /100{WBC} 0-0.5 [facility] Platelet mean volume Auto (B ld) [Entitic vol]Ordered By: Sherry Nielsen on 06-22-2023 Platelet mean volume (Bld) [Entitic vol] 8.8 fL 6.3-10.7 [facility] Platelets Auto (Bld) [#/Vol] Ordered By: Sherry Nielsen on 06-22-2023 Platelets (Bld) [#/Vol] 219 10*3/uL 150-450 [facility] Potassium [Moles/volume] in Serum or PlasmaOrdered By: Sherry Nielsen on 06-22-2023 Potassium [Moles/Vol] 4.3 mmol/L 3.5-5.1 [facility] Protein [Mass/volume] in Ser um or PlasmaOrdered By: Sherry Nielsen on 06-22-2023 Protein [Mass/Vol] 7.4 g/dL 6.4-8.9 [facility] RBC Auto (Bld) [#/Vol]Ordere d By: Sherry Nielsen on 06-22-2023 RBC (Bld) [#/Vol] 4.58 10*6/uL 3.60-5.00 [facility] Serum or plasma albumin/glob ulin mass ratioOrdered By: Sherry Nielsen on 06-22-2023 Albumin/Globulin [Mass ratio] 1.4 {ratio} [facility] Serum or plasma anion gap de terminationOrdered By: Sherry Nielsen on 06-22-2023 Anion gap [Moles/Vol] 10.2 mmol/L 6.0-15.0 [facility] Serum or plasma high density lipoprotein (HDL) cholesterol measurementOrdered By: Sherry Nielsen on 06-22-2023 Cholesterol in HDL [Mass/Vol] 63 mg/dL 23-92 [facility] Comment on above: HDL CHOL ATP-III CLA SSIFICATION Cardiovascular RiskHDL > or equal to 60 mg/dL LOWHDL < 40 mg/dL HIGH Serum or plasma total choles terol/high density lipoprotein (HDL) cholesterol mass ratOrdered By: Sherry Nielsen on 06-22-2023 Cholesterol.total/Choles terol in HDL [Mass ratio] 2.4 {ratio} <5.0 [facility] Sodium [Moles/volume] in Ser um or PlasmaOrdered By: Sherry Nielsen on 06-22-2023 Sodium [Moles/Vol] 138 mmol/L 136-145 [facility] Thyroid Stimulating Hormoneo n 06-22-2023 TSH Qn 1.93 m[IU]/L Normal 0.45-5.33 [facility] Comment on above: Order Comment: Reaso n for Exam Well adult exam Performed By: #### F E PRO, CMP wRFX A1C, TSH3, [id number], [id number], CBC, LIPID #### [facility] [address] Thyrotropin [Units/volume] i n Serum or PlasmaOrdered By: Sherry Nielsen on 06-22-2023 TSH Qn 1.93 m[IU]/L 0.45-5.33 [facility] Transferrin [Mass/volume] in Serum or PlasmaOrdered By: [...] 06-22-2023 Urea nitrogen [Mass/Vol] 16 mg/dL 7-25 [facility] Vit. B12/Folate Profileon Cobalamin (Vitamin B12) [Mass/Vol] 333 pg/mL Normal 180-914 [facility] Comment on above: Order Comment: Reaso n for Exam Well adult exam Performed By: #### F E PRO, CMP wRFX A1C, TSH3, [id number], [id number], CBC, LIPID #### [facility] [address] Folate 23.0 ng/mL Normal >5.9 [facility] Comment on above: Order Comment: Reaso n for Exam Well adult exam Result Comment: [place] reference range: >5.9 ng/ml The WHO technical consultation on folate and vitamin b12 deficiencies has determined that folate concentrations less than 4 ng/ml are considered deficient. Performed By: #### F E PRO, CMP wRFX A1C, TSH3, [id number], [id number], CBC, LIPID #### [facility] [address] Vitamin B12 ser/plasOrdered By: Sherry Nielsen on 06-22-2023 Cobalamin (Vitamin B12) [Mass/Vol] 333 pg/mL 180-914 [facility] Vitamin D 25 Hydroxy Totalon 06-22-2023 Vitamin D 25 Hydroxy Total 45.4 ng/mL Normal 30-100 [facility] Comment on above: Order Comment: Reaso n for Exam Well adult exam Result Comment: TEX MIN D STATUS 25(OH)VITAMIN D RANGE (ng/mL) Deficient <20 Insufficient 20 to <30 Sufficient 30 to 100 Reference: Marielena Sandoval, Maximilian HAMILTON, et al. Evaluation,treatment, and prevention of vitamin D deficiency; an Endocrine Society clinical practice guideline. JCEM. 2010; 96(7):1911-. PERFORMED BY: [place] [address] PATHOLOGIST [employer] SPECIALIST GLORIA MESA M.D. Performed By: #### F E PRO, CMP wRFX A1C, TSH3, [id number], [id number], CBC, LIPID #### [facility] [address] [place] [address] Vitamin D+Metabolites [Mass/ volume] in Serum or PlasmaOrdered By: Sherry Nielsen on 06-22-2023 Vitamin D+Metabolites [Mass/Vol] 45.4 ng/mL 30-100 [facility] Comment on above: VITAMIN D STATUS 25( [place])VITAMIN D RANGE (ng/mL) Deficient <20 Insufficient 20 to <30Sufficient 30 to 100Reference: Marielena Sandoval, Maximilian HAMILTON, et al. Evaluation,treatment, and prevention of vitamin D deficiency; an Endocrine Society clinical practice guideline. JCEM. 2010; 96(7):1911-30. WBC Auto (Bld) [#/Vol]Ordere d By: Sherry Nielsen on 06-22-2023 WBC (Bld) [#/Vol] 6.1 10*3/uL 3.8-11.6 [facility] Vital Signs Date Time Vital Sign Value Performing Clinician Facility 06-18-2023 07:30-0400 Body height 156.21 cm Sherry Nielsen Other [facility] Other 06-18-2023 07:30-0400 Body mass index (BMI) [Ratio] 31.73 kg/m2 Sherry Nielsen Other [facility] Other 06-18-2023 07:30-0400 Body weight 77.43 kg Sherry Nielsen Other [facility] Other 06-18-2023 07:30-0400 Diastolic blood pressure 70 mm[Hg] Sherry Nielsen Other [facility] Other 06-18-2023 07:30-0400 Respiratory rate 18 /min Sherry Nielsen Other [facility] Other 06-18-2023 07:30-0400 SaO2% (BldA) [Mass fraction] 98 % Sherry Nielsen Other [facility] Other 06-18-2023 07:30-0400 Systolic blood pressure 110 mm[Hg] Sherry Nielsen Other [facility] Other Encounters Encounter Date Encounter Type Care Provider Facility Start: 04-13-2024 End: 04-13-2024 ambulatory ADDIE BROOK Not Available Start: 04-06-2024 End: 04-06-2024 ambulatory ADDIE BROOK Not Available Start: 03-23-2024 End: 03-23-2024 ambulatory ADDIE BROOK Not Available Start: 03-07-2024 End: 03-07-2024 ambulatory ADDIE BROOK Not Available Start: 02-22-2024 End: 02-22-2024 ambulatory ADDIE BROOK Not Available Start: 01-24-2024 End: 01-24-2024 ambulatory ROMMEL ALMA Not Available Start: 12-27-2023 End: 12-27-2023 ambulatory ADDIE BROOK Not Available Start: 11-29-2023 End: 11-29-2023 ambulatory ROMMEL ALMA Not Available Start: 10-28-2023 End: 10-28-2023 ambulatory ADDIE BROOK Not Available Start: 09-24-2023 End: 09-24-2023 ambulatory ROMMEL ALMA Not Available Start: 06-22-2023 End: 06-22-2023 ambulatory Sherry Nielsen Facility:[facility] Start: 06-22-2023 End: 06-22-2023 ambulatory DNP Sherry Gia Work Phone: [facility] Work Phone: Start: 06-22-2023 End: 06-22-2023 Patient encounter procedure DNP Sherry Nielsen Work Phone: [facility] Start: 06-18-2023 End: 06-18-2023 ambulatory Sherry Nielsen Other [facility] [employer] Other Start: 06-18-2023 Encounter for genera l adult medical examination without abnormal findings Sherry Nielsen [facility] [place] Start: 06-18-2023 Initial preventive medicine new pt age 18-39yrs Sherry Nielsen [facility] [place] Payers Date Payer Category Payer Self-pay 2023 [facility] [id number] 1993 Unknown [id number] 1993 Unknown [id number] 1993 Unknown [id number] 1993 Unknown [id number] 1993 Unknown [id number] 1993 Unknown [id number] 1993 Unknown [id number] 1993 Unknown [id number] 1993 Unknown [id number] 1993 Unknown [id number] Unknown [id number] Unknown HCAP/HFA/FAP Active [id number] Social History Date Type Detail Facility Sex Assigned At [facility] Other Start: 1995 Sex Assigned At Female F [facility] Evaluation note 06-18-2023 Note Date & Type Note Facility 06-18-2023 Evaluation note Encounter Date Diagnosis Assessment Notes Jun, Well adult exam (ICD-10 - Z00.00) Routine lab work ordered. She will continue to keep appointment with [employer], eye doctor and dentist. Patient is advised to work on healthy diet choices and appropriate servings, weight control, regular exercise as directed, reduced fat intake, and salt avoidance. Patient voiced understanding of this and agrees to this plan. [facility] Other Evaluation note Note Date & Type Note Facility Evaluation note No assessment information [facility] Work Phone: History general Narrative - Reported Note Date & Type Note Facility History general Narrative - Reported Type Surgical History Foot Surgery Surgical History GALLBLADDER Surgical History 2015 Surgical History SHOULDER-LEFT 2018 Hospitalization History see above [facility] Other Summary Purpose Family History No Family [...] section and content) DATE CREATED AUTHOR 06/22/2023 [facility] DATE CREATED AUTHOR AUTHOR'S ORGANIZ ATION 04/14/2024 [facility] Care Teams (unrecognized sec tion and [...] BE BASED ON THE PRIMARY CLINICAL RECORDS. [employer] provides no warranty or guarantee of the accuracy or completeness of information in this document.
[2024-04-19 18:01] LABS: Basophils Percent Auto 0.2 % (0.2-2.0); Eosinophils Percent Auto 0.3 % (0.9-7.0); Hematocrit 34.4 % (36.0-48.0); Hemoglobin 11.2 g/dL (12.0-16.0); Immature Granulocytes Abs Auto 0.12 10^3/uL (0.00-0.03); Immature Granulocytes Pct Auto 0.9 % (0.0-0.5); Lymphocytes Absolute Auto 1.9 10^3/uL (1.2-3.8); Lymphocytes Percent Auto 14.4 % (20.5-60.0); Mean Corpuscular HGB Conc 32.6 g/dL (29.9-35.2); Mean Corpuscular Hemoglobin 28.8 pg (26.7-34.0); Mean Corpuscular Volume 88.4 fL (81.0-99.0); Mean Platelet Volume 10.7 fL (9.5-13.5); Monocytes Absolute Auto 0.8 10^3/uL (0.3-0.8); Monocytes Percent Auto 6.2 % (1.7-12.0); Neutrophils Absolute Auto 10.2 10^3/uL (1.4-6.5); Platelet Count 235 10^3/uL (150-450); Red Blood Count 3.89 10^6/uL (4.20-5.40); Red Cell Distribution Width 13.2 % (11.0-15.0)
[2024-04-19 18:08] LABS: Lactate Dehydrogenase 197 U/L (81-234)
[2024-04-19 18:13] LABS: Alanine Aminotransferase 18 U/L (14-59); Aspartate Amino Transferase 16 U/L (15-37); Estimated GFR (African America >60 (>=60); Estimated GFR (Non-African Ame >60 (>=60); Uric Acid 5.2 mg/dL (2.6-6.0)
[2024-04-19 18:33] LABS: Partial Thromboplastin Time 24.8 sec (22.3-36.2); Prothrombin Time 9.7 sec (9.0-11.6)
[2024-04-19 18:39] LABS: Fibrinogen 540 mg/dL (200-400); INR <0.93
[2024-04-19 18:55] LABS: Cannabinoid Screen Urine NEGATIVE (NEGATIVE); Cocaine Screen Urine NEGATIVE (NEGATIVE); Methamphetamines Screen Urine NEGATIVE (NEGATIVE); Opiate Screen Urine NEGATIVE (NEGATIVE); Phencyclidine Screen Urine NEGATIVE (NEGATIVE)
[2024-04-19 18:56] LABS: Amphetamine Screen Urine NEGATIVE (NEGATIVE); Barbiturates Screen Urine NEGATIVE (NEGATIVE); Benzodiazepines Screen Urine NEGATIVE (NEGATIVE); Buprenorphine Screen Urine NEGATIVE (NEGATIVE); Methadone Screen Urine NEGATIVE (NEGATIVE); Oxycodone Screen Urine NEGATIVE (NEGATIVE); Tricyclic Antidepressant Urine NEGATIVE (NEGATIVE)
[2024-04-19] MEDS: 0.9 % SODIUM CHLORIDE 1,000 ML 1000 ML IV ×2 (18:56→19:47)
[2024-04-19] MEDS: FAMOTIDINE/PF 20 MG/2 ML VIAL IV (18:56)
[2024-04-19] MEDS: METOCLOPRAMIDE HCL 10 MG/2 ML VIAL IVP (18:56)
[2024-04-19] MEDS: CITRIC ACID/SODIUM CITRATE 30 ML SOLUTION ORACIT SHOHL'S SOLN PO (19:03)
[2024-04-19] MEDS: CEFAZOLIN SODIUM/DEXTROSE,ISO 2 GM/50 ML PIGGYBACK IV (19:47)
--- NOTE | 2024-04-19 20:29 | P.OBPRC_ITS ---
Procedure Pre-op/Post-op diagnoses: Pre-Op/Post-Op Diagnoses Operation Date: 04/19/24 19:30 <No data on this case meets the specified criteria> Procedure: Procedures Operation Date: 04/19/24 19:30 Actual Procedure Side Surgeon p with bilateral salpingectomy Bilateral Domingo Jin DO Paint Sprayer Sandblaster: Sherry Sanchez Estimated blood loss (mL): 600 Disposition: PACU Anesthesia type: Spinal
[2024-04-19] MEDS: 0.9 % SODIUM CHLORIDE 10 ML VIAL 30 ML INJ (20:30)
[2024-04-19] MEDS: BUPIVACAINE HCL 0.5% PF 50 MG/10 ML VIAL INJ (20:30)
[2024-04-19] MEDS: BUPIVACAINE LIPOSOME/PF 266 MG/13.3 ML VIAL INJ (20:30)
--- NOTE | 2024-04-19 20:30 | PM.ONB ---
Brief Operative Note Date of procedure: 04/19/24 Pre-op diagnosis general: iup at 37 4/7wks, mild preeclampsia, previous c/s, desires permanent sterilization Post-op diagnosis: same as pre-op Procedure: NAME OF PROCEDURE: [ section with bilateral salpingectomy ] PROCEDURE: Patient was taken back to the Operating Room where she was given a spinal anesthesia with Duramorph without difficulty. She was prepped and draped in the normal sterile fashion. A Pfannenstiel skin incision was then made 2?cm above the symphysis pubis and carried down to underlying rectus fascia using a Bovie. The fascia was incised in the midline and extended laterally using Cano scissors. Two Ant clamps were placed on the superior aspect of the fascia and dissected off the underlying rectus muscles. The same was performed on the inferior aspect as well. The muscles were then in the midline. Peritoneum was identified and entered bluntly. The peritoneum was then extended superiorly and inferiorly with good visualization of the bladder. The bladder blade was inserted. Vesicouterine peritoneum was identified, tented up, and entered with Metzenbaum scissors. A bladder flap was then created digitally. The bladder blade was reinserted. A low transverse incision was made on the patient's uterus and extended laterally digitally. The was then delivered atraumatically after the bladder blade was removed in the cephalic position. The cord was clamped and cut. Cord blood was obtained. The infant was handed off to awaiting team. The patient's placenta was spontaneously delivered. The uterus was then exteriorized. The uterus was cleared of all clots and debris. The bladder blade was reinserted. The patient's uterine incision was closed using #0 Vicryl in a running lock fashion. Excellent hemostasis was assured.? The rt tube was identified and grasped with babock, the ligasure was used to transect and ligate the tube in its entirity, this was done on the contralateral side as well. The uterus was then returned to the patient's abdomen. The patient's abdomen was copiously irrigated using warm saline. Peritoneal gutters were cleared of all clots and debris. Again excellent hemostasis was assured. The patient's fascia was closed using #0 Vicryl in a running fashion. The patient's skin was closed using 4-0 Vicryl subcuticularly. The patient tolerated the procedure well. Sponge, lap, and needle counts were correct x2. The patient was taken to the Recovery Room in stable condition. Anesthesia: spinal Surgeon: Domingo Jin Dust Operator: Sherry Sanchez Estimated blood loss (mL): 600 Pathology: other (placenta and tubes) Condition: stable Disposition: floor Urinary Catheter Management Urinary Catheter Management Urethral: Cath placed during this visit: no
--- NOTE | 2024-04-19 21:31 | PC.NURSE ---
04/19/2024. Bilateral feet are swollen.
[2024-04-19] MEDS: OXYTOCIN/0.9 % SODIUM CHLORIDE 20 UNITS/1,000 ML PLAST..BAG 125 UNIT IV (21:57)
[2024-04-20] VITALS (8 sets, daily range): BP systolic 131–157; BP diastolic 72–89; PULSE 94–100; TEMP 36.7–37.1; O2SAT 98
[2024-04-20] MEDS: KETOROLAC TROMETHAMINE 30 MG/ML VIAL IVP ×2 (02:24→10:29)
[2024-04-20] MEDS: CEFAZOLIN SODIUM/DEXTROSE,ISO 2 GM/50 ML PIGGYBACK IV (02:24)
[2024-04-20 06:11] LABS: Basophils Percent Auto 0.2 % (0.2-2.0); Hematocrit 31.2 % (36.0-48.0); Hemoglobin 10.3 g/dL (12.0-16.0); Immature Granulocytes Abs Auto 0.17 10^3/uL (0.00-0.03); Immature Granulocytes Pct Auto 0.8 % (0.0-0.5); Lymphocytes Absolute Auto 1.4 10^3/uL (1.2-3.8); Mean Corpuscular Hemoglobin 28.9 pg (26.7-34.0); Mean Corpuscular Volume 87.6 fL (81.0-99.0); Mean Platelet Volume 10.6 fL (9.5-13.5); Monocytes Absolute Auto 0.8 10^3/uL (0.3-0.8); Monocytes Percent Auto 3.9 % (1.7-12.0); Neutrophils Absolute Auto 18.3 10^3/uL (1.4-6.5); Neutrophils Percent Auto 88.1 % (43.0-75.0); Platelet Count 218 10^3/uL (150-450); Red Blood Count 3.56 10^6/uL (4.20-5.40); Red Cell Distribution Width 13.1 % (11.0-15.0); White Blood Count 20.7 10^3/uL (4.0-11.0)
[2024-04-20] MEDS: ACETAMINOPHEN 500 MG TABLET 1000 MG PO ×2 (06:18→17:28)
--- NOTE | 2024-04-20 06:59 | PM.OBPN ---
OB - PN: Subj Subjective Patient comments: no complaints and pain well controlled status: doing well Exam Constitutional Vital Signs, click to edit/add: Last Vital Signs Temp 98.8 F 04/20/24 03:58 Pulse 98 H 04/20/24 03:34 Resp 16 04/20/24 03:58 BP 136/72 04/20/24 03:34 Pulse Ox 100 04/19/24 21:40 O2 Del Method Room Air 04/20/24 03:58 Documenting provider has reviewed patient's vital signs: yes Common normals: no apparent distress Respiratory Common normals: normal respiratory effort and clear to auscultation bilaterally Cardio Common normals: regular rate and regular rhythm GI Common normals: Normal to inspection, nondistended, normoactive bowel sounds present Extremity Common normals: no clubbing, cyanosis or edema and no calf tenderness Results Labs Labs: Short CBC 04/19/24 04/20/24 Range/Units 17:42 06:05 WBC 13.0 H 20.7 H (4.0-11.0) 10^3/uL Hgb 11.2 L 10.3 L (12.0-16.0) g/dL Hct 34.4 L 31.2 L (36.0-48.0) % Plt Count 235 218 (150-450) 10^3/uL BMP 04/19/24 17:42 BUN 10.0 Creatinine 0.93 Liver Function 04/19/24 Range/Units 17:42 AST 16 (15-37) U/L ALT 18 (14-59) U/L Urinary Catheter Management Urinary Catheter Management Urethral: Cath placed during this visit: no OB - PN: A/P Assessment and Plan (1) Mild preeclampsia: Plan - day: 1 Plan: routine postop care Time Spent with Patient Time: Total time spent is greater than 50% in coordination of care (as documented) at patient's floor/unit and/or counseling patient: Total time spent with greater than 50% in coordination of care (as documented) at patient's floor/unit and/or counseling patient: less than 15 minutes
[2024-04-20] MEDS: DOCUSATE SODIUM 100 MG CAPSULE PO (10:32)
[2024-04-20] MEDS: ENOXAPARIN SODIUM 40 MG/0.4 ML SYRINGE SUBQ (10:37)
[2024-04-20] MEDS: IBUPROFEN 400 MG TABLET 800 MG PO (19:40)
[2024-04-21 00:20] VITALS: TEMP 36.8
[2024-04-21 00:25] VITALS: BP 126/78; PULSE 104
[2024-04-21] MEDS: IBUPROFEN 400 MG TABLET 800 MG PO ×3 (02:08→18:07)
[2024-04-21] MEDS: ACETAMINOPHEN 500 MG TABLET 1000 MG PO ×3 (02:08→21:16)
[2024-04-21] MEDS: DOCUSATE SODIUM 100 MG CAPSULE PO ×2 (08:35→21:16)
[2024-04-21] MEDS: ENOXAPARIN SODIUM 40 MG/0.4 ML SYRINGE SUBQ (08:35)
[2024-04-21 08:39] VITALS: BP 139/89; PULSE 98
[2024-04-21 08:41] VITALS: PULSE 88; TEMP 36.5
--- NOTE | 2024-04-21 12:55 | PM.OBPN ---
OB - PN: Subj Subjective Patient comments: no complaints and pain well controlled Exam Narrative Exam Narrative: NO COMPLAINTS OF HEADACHE OR VISUAL CHANGES OR RUQ PAIN Constitutional Vital Signs, click to edit/add: Last Vital Signs Temp 97.7 F 04/21/24 08:41 Pulse 88 04/21/24 08:41 Resp 14 04/21/24 08:41 BP 139/89 04/21/24 08:39 Pulse Ox 98 04/20/24 07:44 O2 Del Method Room Air 04/21/24 08:41 Documenting provider has reviewed patient's vital signs: yes Common normals: no apparent distress and oriented x3 HENMT Common normals: normocephalic and head/scalp atraumatic Eye Pupil: PERRL and accommodation reflex normal Neck & C-Spine Common normals: full ROM and supple Respiratory Common normals: normal respiratory effort Cardio Common normals: regular rate and regular rhythm GI Common normals: Normal to inspection, nondistended, normoactive bowel sounds present and soft to palpation Common normals: no CVA tenderness Back & Pelvis Common normals: no thoracic nor lumbar tenderness Extremity Common normals: normal to inspection, full ROM and no calf tenderness Neuro Common normals: CN's II-XII intact bilaterally, moves all extremities, no focal motor deficits and no sensory deficits noted Psych Common normals: mental status grossly normal, thought process normal, cooperative, affect normal and speech normal Urinary Catheter Management Urinary Catheter Management Urethral: Cath placed during this visit: no OB - PN: A/P Assessment and Plan (1) Mild preeclampsia: Assessment and Plan: VOICING NO COMPLAINTS, HOWEVER BLOOD PRESSURES OCCASIONALLY ELEVATED AND SIGNIFICANT NONDEPENDENT EDEMA Qualifiers: Trimester: third trimester Qualified Code(s): O14.03 - Mild to moderate pre-eclampsia, third trimester Plan REASSESS FOR TOXEMIA WITH SEVERE FEATURES: CMP, CBC/DIF, PT, PTT, FIBRINOGEN, URIC ACID, LDH, URINE P:C RATION START MEDICATION FOR PERSISTENT BLOOD PRESSURES GREATER OR EQUAL TO 150/90 Plan - day: 2 Plan: routine postop care Time Spent with Patient Time: Total time spent is greater than 50% in coordination of care (as documented) at patient's floor/unit and/or counseling patient: Total time spent with greater than 50% in coordination of care (as documented) at patient's floor/unit and/or counseling patient: less than 15 minutes
[2024-04-21 13:35] LABS: Basophils Percent Auto 0.2 % (0.2-2.0); Eosinophils Absolute Auto 0.2 10^3/uL (0.0-0.7); Eosinophils Percent Auto 1.6 % (0.9-7.0); Hematocrit 31.5 % (36.0-48.0); Hemoglobin 10.2 g/dL (12.0-16.0); Immature Granulocytes Abs Auto 0.15 10^3/uL (0.00-0.03); Immature Granulocytes Pct Auto 1.1 % (0.0-0.5); Lymphocytes Absolute Auto 1.7 10^3/uL (1.2-3.8); Lymphocytes Percent Auto 12.7 % (20.5-60.0); Mean Corpuscular HGB Conc 32.4 g/dL (29.9-35.2); Mean Corpuscular Hemoglobin 28.6 pg (26.7-34.0); Mean Corpuscular Volume 88.2 fL (81.0-99.0); Mean Platelet Volume 10.3 fL (9.5-13.5); Monocytes Absolute Auto 0.7 10^3/uL (0.3-0.8); Neutrophils Absolute Auto 10.4 10^3/uL (1.4-6.5); Neutrophils Percent Auto 79.4 % (43.0-75.0); Platelet Count 250 10^3/uL (150-450); Red Blood Count 3.57 10^6/uL (4.20-5.40); Red Cell Distribution Width 13.2 % (11.0-15.0); White Blood Count 13.1 10^3/uL (4.0-11.0)
[2024-04-21 13:46] LABS: Alanine Aminotransferase 13 U/L (14-59); Albumin Globulin Ratio 0.5; Albumin Level 2.3 g/dL (3.4-5.0); Alkaline Phosphatase 169 U/L (46-116); Anion Gap 10.5; Aspartate Amino Transferase 15 U/L (15-37); BUN Creatinine Ratio 10.4; Bilirubin Total 0.5 mg/dL (0.2-1.0); Calcium 8.5 mg/dL (8.5-10.1); Carbon Dioxide 25.2 mmol/L (21.0-32.0); Chloride 105 mmol/L (98-107); Estimated GFR (African America >60 (>=60); Estimated GFR (Non-African Ame >60 (>=60); Globulin 4.3 g/dL; Glucose 99 mg/dL (74-106); Lactate Dehydrogenase 193 U/L (81-234); Potassium 3.7 mmol/L (3.5-5.1); Sodium 137 mmol/L (136-145); Total Protein 6.6 g/dL (6.4-8.2); Uric Acid 5.5 mg/dL (2.6-6.0)
[2024-04-21 13:47] LABS: Partial Thromboplastin Time 27.9 sec (22.3-36.2); Prothrombin Time 9.8 sec (9.0-11.6)
[2024-04-21 13:54] LABS: INR <0.93
[2024-04-21 14:08] LABS: Fibrinogen 522 mg/dL (200-400)
[2024-04-21 16:03] LABS: Creatinine Urine Random 47.81 mg/dL (20.00-300.00); Protein Creatinine Ratio Urine 0.32; Total Protein Urine Random 15.2 mg/dL (<=11.9)
--- NOTE | 2024-04-21 16:38 | RESP.RT ---
done per nursing
--- NOTE | 2024-04-21 18:48 | PC.NURSE ---
1814 Surgical dressing removed, incision clean with steri-strips intact. small amount of brown drainage noted to left side of dressing and steri strips. quarter size blister noted to right side of incision. patient states she is sensitive to adhesives. blister left open to air, patient applies surgical healing cover from home. education provided to keeping incision open to air to promote healing as well. pt verbalizes understanding
[2024-04-21 21:02] VITALS: BP 149/87; PULSE 96
[2024-04-21 21:04] VITALS: BP 142/86; PULSE 98
[2024-04-22] VITALS (9 sets, daily range): BP systolic 138–161; BP diastolic 88–102; PULSE 100–104; TEMP 36.6–36.8
[2024-04-22] MEDS: IBUPROFEN 400 MG TABLET 800 MG PO (02:35)
[2024-04-22] MEDS: ACETAMINOPHEN 500 MG TABLET 1000 MG PO ×2 (06:02→11:28)
[2024-04-22] MEDS: ENOXAPARIN SODIUM 40 MG/0.4 ML SYRINGE SUBQ (09:14)
[2024-04-22] MEDS: NIFEdipine 30 MG TAB.ER.24 PO (11:29)
--- NOTE | 2024-04-22 11:48 | PM.OBDS ---
DS: Providers Provider Date of admission: 04/19/24 18:05 Primary care physician: SKY JUAN Admitting clinician: Domingo Jin Attending physician on discharge: Shaunna Montaño Anticipated date of discharge: 04/22/24 DS: Diagnosis Discharge Diagnosis (1) Mild preeclampsia: Assessment and plan: FEELS WELL, WANTS TO BE DISCHARGED. CLINICAL EXAM NONFOCAL. FOLLOW UP WEDNESDAY FOR BLOOD PRESSURE CHECK. WILL CALL WITH SYMPTOMS C/W SEVERE PREECLAMPSIA Qualifiers: Trimester: third trimester Qualified Code(s): O14.03 - Mild to moderate pre-eclampsia, third trimester Plan INSTRUCTIONS: WHEN TO NOTIFY PHYSICIAN WITH SYMPTOMS OF TOXEMIA GIVEN TO PATIENT. HOMEGOING INSTRUCTIONS GIVEN. SCRIPTS PROVIDED FOR NIFEDIPINE 30 MG ER, PERCOCET 5/325 AND IBUPROFEN 600 MG. NO SWIMMING FOR 6 WEEKS. NO EXERCISE OTHER THAN WALKING FOR SIX WEEKS. NO SEX FOR SIX WEEKS. MAY SHOWER. SPORTS BRA 31/05 IF DECIDES TO STOP BREAST FEEDING. WILL FOLLOW UP WITH DR. JIN IN ONE WEEK FOR INCISION CHECK OB - DS: Summary Hospital Course Hospital Course: UNCOMPLICATED, HAD MILD PREECLAMPSIA WHEN DELIVERED WHICH IS RESOLVING Time spent discussing smoking cessation with patient: more than 10 minutes Peripartum Data - Procedures: Procedures Operation Date: 04/19/24 19:30 Actual Procedure Side Surgeon p with bilateral salpingectomy Bilateral Domingo Jin DO Peripartum Data - Vaginal Delivery Procedures: Procedures Operation Date: 04/19/24 19:30 Actual Procedure Side Surgeon p with bilateral salpingectomy Bilateral Domnigo Jin DO Complications complications: none Delivery method: section Gender: female Discharge plan: home Status at Discharge Cognitive/behavioral status at discharge: WNL Functional status at discharge: independent ambulation Overall status at discharge: patient is progressing back to baseline Time Spent with Patient Time attestation: Total time spent providing and/or coordinating discharge services: Time spent: greater than 30 minutes Exam Narrative Exam Narrative: VOICING NO COMPLAINTS Constitutional Vital Signs, click to edit/add: Last Vital Signs Temp 98.0 F 04/22/24 08:39 Pulse 104 H 04/22/24 11:31 Resp 16 04/22/24 08:39 BP 161/98 H 04/22/24 11:31 Pulse Ox 98 04/20/24 07:44 O2 Del Method Room Air 04/22/24 00:05 Documenting provider has reviewed patient's vital signs: yes Common normals: no apparent distress, oriented x3, no limitations, healthy appearing, alert and well nourished General appearance: cooperative, comfortable and well kempt Orientation/consciousness: Yes oriented to person, Yes oriented to place and Yes oriented to time HENMT Common normals: normocephalic and head/scalp atraumatic Eye Pupil: PERRL and accommodation reflex normal Neck & C-Spine Common normals: full ROM and supple Respiratory Common normals: normal respiratory effort Cardio Common normals: regular rate and regular rhythm GI Common normals: Normal to inspection, nondistended, normoactive bowel sounds present and soft to palpation Common normals: no CVA tenderness Back & Pelvis Common normals: no thoracic nor lumbar tenderness Extremity Common normals: normal to inspection, full ROM and no calf tenderness Neuro Common normals: CN's II-XII intact bilaterally, no focal motor deficits and no sensory deficits noted Sensorium/orientation: awake, alert, oriented to person, oriented to place and oriented to time Psych Common normals: mental status grossly normal, thought process normal, cooperative, affect normal and speech normal DS: Data Data Completed and Pending Labs on day of discharge: Labs from last 24 hours 04/21/24 04/21/24 15:45 13:17 WBC 13.1 H RBC 3.57 L Hgb 10.2 L Hct 31.5 L MCV 88.2 MCH 28.6 MCHC 32.4 RDW 13.2 Plt Count 250 MPV 10.3 Neut % (Auto) 79.4 H Lymph % (Auto) 12.7 L [place] % (Auto) 5.0 Eos % (Auto) 1.6 Baso % (Auto) 0.2 Neut # (Auto) 10.4 H Lymph # (Auto) 1.7 [place] # (Auto) 0.7 Eos # (Auto) 0.2 Baso # (Auto) 0.0 Abs Immat Gran (auto) 0.15 H Imm/Tot Granulo (auto) 1.1 H PT 9.8 INR <0.93 APTT 27.9 Fibrinogen 522 H Sodium 137 Potassium 3.7 Chloride 105 Carbon Dioxide 25.2 Anion Gap 10.5 BUN 10.0 Creatinine 0.96 Est GFR ( Amer) >60 Est GFR (Non-Af Amer) >60 BUN/Creatinine Ratio 10.4 Glucose 99 Uric Acid 5.5 Calcium 8.5 Total Bilirubin 0.5 AST 15 ALT 13 L Alkaline Phosphatase 169 H Lactate Dehydrogenase 193 Total Protein 6.6 Albumin 2.3 L Globulin 4.3 Albumin/Globulin Ratio 0.5 Ur Random Creatinine 47.81 U Random Total Protein 15.2 H Protein/Creatinin Ratio 0.32 Discharge Plan Discharge Disposition: Home, Self-Care Condition: Good Assessment: LFT'S, PLTS, CREATININE, NORMAL, URINE P:C RATION 0.390, DID START NIFEDIPINE 30 MG ER ONE PO QD, FOR BP'S 150'S OVER 90'S. NO SEVERE FEATURES. WILL SEND HOME ON BLOOD PRESSURE MEDICATION Health Concerns: MONITOR FOR TOTAL RESOLUTION OF PREECLAMPSIA WITHOUT SEVERE FEATURES Plan of Treatment: WILL DISCHARGE HOME WITH FOLLOW UP WEDNESDAY FOR BLOOD PRESSURE CHECK Discharge Medications: New ibuprofen 800 mg tablet 800 mg PO Q8H PRN (Reason: pain) 14 Days Qty: 40 0RF oxycodone-acetaminophen [Percocet] 5-325 mg tablet 1 tab PO Q6H PRN (Reason: pain) 7 Days Qty: 28 0RF Print Language: Kosovan Patient Instructions: Preeclampsia During (DC), Preeclampsia and Eclampsia After Delivery (GEN) Forms: Delivery - Discharge, Portal Instructions
== END 2024-04-22 13:45 | disposition home or self-care (01) | DRG 785 ==
PROVIDERS: Obstetrics & Gynecology; Admitting Provider Obstetrics & Gynecology; PCP Nurse Practitioner Family; Visit Provider Obstetrics & Gynecology
PROC: 10D00Z1 Extraction of Products of Conception, Low, Open Approach (ICD-10-PCS; CPT 59514; principal; 2024-04-19 19:30)
DX: O14.04 Mild to moderate pre-eclampsia, complicating childbirth (principal); Z3A.37 37 weeks gestation of pregnancy; Z37.0 Single live birth; Z30.2 Encounter for sterilization; O34.219 Maternal care for unspecified type scar from previous cesarean delivery; Z90.49 Acquired absence of other specified parts of digestive tract
CPT/HCPCS: 36415; 51702; 59025; 64488; 80053; 80307; 82565; 82570; 82948; 83615; 84156; 84450; 84460; 84520; 84550; 85025; 85384; 85610; 85730; 86850; 86900; 86901; 88302; 88307; 94667; 94668; 96372; 96374; 96375; J0131; J0665; J0690; J1100; J1650; J1885; J2274; J2405; J2590; J2765

== ENCOUNTER 2024-04-24 08:29 | Outpatient (OUT) | payer BC, SELFPAY ==
--- OUTSIDE RECORDS SUMMARY | 2024-04-24 08:44 | XMS_ITS | CCD ---
Author Organization [facility] Care Team Providers Care Bone Tender Name Role Phone Sherry Nielsen Unavailable LYNNE Nielsen Primary Care Provider LYNNE Nielsen Attending Provider [phone] Addie Jin Attending Provider ALMA, ROMMEL Attending Unavailable ANNABEL, ADDIE Attending Unavailable ALMA, ROMMEL Attending Unavailable ANNABEL, ADDIE Attending Unavailable ANNABEL, ADDIE Attending Unavailable ANNABEL, ADDIE Attending Unavailable ANNABEL, ADDIE Attending Unavailable ANNABEL, ADDIE Attending Unavailable ANNABEL, ADDIE Attending Unavailable ANNABEL, ADDIE Attending Unavailable Annabel, Addie Attending Unavailable Annabel, Addie Admitting Unavailable Sherry Nielsen Attending Unavailable Sherry Nielsen Primary Care Unavailable Sherry Nielsen Admitting Unavailable Allergies Allergy Classification Reported Allergen(s) Allergy Type Date of Onset Reaction(s) Facility (2 sources) Adhesive agent; Translations: [adhesive] Drug allergy 06-18-2023 [facility] Repository Problems Problem Classification Problem Date Documented Da te Episodic/Chronic Unclassified (1 source) Encounter for general adult medical examination without abnormal findings; Translations: [Encounter for general adult medical examination without abnormal findings] Onset: 06-22-2023 Results Test Name Value Interpretation Reference Range Facility Basophils Auto (Bld) [#/Vol] on 04-20-2024 Basophils (Bld) [#/Vol] 0.0 10 3/uL 0.0-0.1 [facility] Basophils/100 WBC Auto (Bld) on 04-20-2024 Basophils/100 WBC (Bld) 0.2 % 0.2-2.0 [facility] Eosinophils/100 WBC Auto (Bl d)on 04-20-2024 Eosinophils/100 WBC (Bld) 0.0 % 0.9-7.0 [facility] Erythrocyte distribution wid th Auto (RBC) [Ratio]on 04-20-2024 Erythrocyte distribution width (RBC) [Ratio] 13.1 % 11.0-15.0 [facility] Hematocrit Auto (Bld) [Volum e fraction]on 04-20-2024 Hematocrit (Bld) [Volume fraction] 31.2 % 36.0-48.0 [facility] Hemoglobin [Mass/volume] in Bloodon 04-20-2024 Hemoglobin (Bld) [Mass/Vol] 10.3 g/dL 12.0-16.0 [facility] Laboratory - Hematology and Cell countson 04-20-2024 Immature granulocytes/100 WBC (Bld) 0.8 % 0.0-0.5 [facility] Leukocytes [#/volume] correc wilber for nucleated erythrocytes in Blood by Automated counon 04-20-2024 WBC corrected for nucl RBC Auto (Bld) [#/Vol] 20.7 10 3/uL 4.0-11.0 [facility] Lymphocytes Auto (Bld) [#/Vo l]on 04-20-2024 Lymphocytes (Bld) [#/Vol] 1.4 10 3/uL 1.2-3.8 [facility] Lymphocytes/100 WBC Auto (Bl d)on 04-20-2024 Lymphocytes/100 WBC (Bld) 7.0 % 20.5-60.0 [facility] MCH Auto (RBC) [Entitic mass ]on 04-20-2024 MCH (RBC) [Entitic mass] 28.9 pg 26.7-34.0 [facility] MCHC Auto (RBC) [Mass/Vol]on 04-20-2024 MCHC (RBC) [Mass/Vol] 33.0 g/dL 29.9-35.2 [facility] MCV Auto (RBC) [Entitic vol] on 04-20-2024 MCV (RBC) [Entitic vol] 87.6 fL 81.0-99.0 [facility] Monocytes Auto (Bld) [#/Vol] on 04-20-2024 Monocytes (Bld) [#/Vol] 0.8 10 3/uL 0.3-0.8 [facility] Monocytes/100 WBC Auto (Bld) on 04-20-2024 Monocytes/100 WBC (Bld) 3.9 % 1.7-12.0 [facility] Neutrophils Auto (Bld) [#/Vo l]on 04-20-2024 Neutrophils (Bld) [#/Vol] 18.3 10 3/uL 1.4-6.5 [facility] Neutrophils/100 WBC Auto (Bl d)on 04-20-2024 Neutrophils/100 WBC (Bld) 88.1 % 43.0-75.0 [facility] No Panel Informationon 04-20 Eosinophils # (Auto) 0.0 10 3/uL 0.0-0.7 [facility] Immature Granulocyte # (Auto) 0.17 10 3/uL 0.00-0.03 [facility] Platelet mean volume Auto (B ld) [Entitic vol]on 04-20-2024 Platelet mean volume (Bld) [Entitic vol] 10.6 fL 9.5-13.5 [facility] Platelets Auto (Bld) [#/Vol] on 04-20-2024 Platelets (Bld) [#/Vol] 218 10 3/uL 150-450 [facility] RBC Auto (Bld) [#/Vol]on RBC (Bld) [#/Vol] 3.56 10 6/uL 4.20-5.[address] [facility] Activated partial thrombopla stin time (aPTT) in platelet poor plasma by coagulation aon 04-19-2024 aPTT Coag (PPP) [Time] 24.8 s 22.3-36.2 [facility] Basophils Auto (Bld) [#/Vol] on 04-19-2024 Basophils (Bld) [#/Vol] 0.0 10 3/uL 0.0-0.1 [facility] Basophils/100 WBC Auto (Bld) on 04-19-2024 Basophils/100 WBC (Bld) 0.2 % 0.2-2.0 [facility] Buprenorphine [Presence] in Urineon 04-19-2024 Buprenorphine Ql (U) Negative NEGATIVE [facility] Comment on above: DRUG CLASS TEST SYST EM CUT-OFF CONCENTRATIONS ARE ASFOLLOWS:AMP (Amphetamine): 500 ng/mLBAR (Barbiturates): 200 ng/mLBZO (Benzodiazepines): 150 ng/mLBUP (Buprenorphine): 10 ng/mLCOC (Cocaine): 150 ng/mLmAMP (Methamphetamine): 500 ng/mLMTD (Methadone): 200 ng/mLOPI (Opiates): 100 ng/mLOXY (Oxycodone): 100 ng/mLPCP (Phencyclidine): 25 ng/mLTHC (Cannabinoids): 50 ng/mLTCA (Trycyclic Antidepressants): 300 ng/mL Eosinophils/100 WBC Auto (Bl d)on 04-19-2024 Eosinophils/100 WBC (Bld) 0.3 % 0.9-7.0 [facility] Erythrocyte distribution wid th Auto (RBC) [Ratio]on 04-19-2024 Erythrocyte distribution width (RBC) [Ratio] 13.2 % 11.0-15.0 [facility] Estimated glomerular filtrat ion rate (GFR) non- Americanon 04-19-2024 GFR/1.73 sq M.predicted among non-blacks MDRD (S/P/Bld) [Vol rate/Area] mL/min/{1.73_m2} >=60 [facility] Fibrinogen [Mass/volume] in Platelet poor plasma by Coagulation assayon 04-19-2024 Fibrinogen Coag (PPP) [Mass/Vol] 540 mg/dL 200-400 [facility] Hematocrit Auto (Bld) [Volum e fraction]on 04-19-2024 Hematocrit (Bld) [Volume fraction] 34.4 % 36.0-48.0 [facility] Hemoglobin [Mass/volume] in Bloodon 04-19-2024 Hemoglobin (Bld) [Mass/Vol] 11.2 g/dL 12.0-16.0 [facility] INR in Platelet poor plasma by Coagulation assayon 04-19-2024 INR Coag (PPP) [Relative time] {INR} [facility] Comment on above: DESIRED INR:2.0-3.0 CONDITIONS NOT LISTED BELOW2.5-3.5 FOR PROSTHETIC HEART VALVE REPLACEMENT2.5-3.5 RECURRENT THROMBOSIS Laboratory - Chemistry and C hemistry - challengeon 04-19-2024 ALT [Catalytic activity/Vol] 18 U/L 14-59 [facility] AST [Catalytic activity/Vol] 16 U/L 15-37 [facility] Creatinine [Mass/Vol] 0.93 mg/dL 0.55-1.02 [facility] GFR/1.73 sq M.predicted MDRD (S/P/Bld) [Vol rate/Area] mL/min/{1.73_m2} >=60 [facility] LDH [Catalytic activity/Vol] 197 U/L 81-234 [facility] Urate [Mass/Vol] 5.2 mg/dL 2.6-6.0 [facility] Urea nitrogen [Mass/Vol] 10.0 mg/dL 7.0-18.0 [facility] Laboratory - Drug toxicology on 04-19-2024 Amphetamines Ql (U) Negative NEGATIVE [facility] Benzodiazepines Ql (U) Negative NEGATIVE [facility] Cocaine Ql (U) Negative NEGATIVE [facility] Opiates Ql (U) Negative NEGATIVE [facility] Phencyclidine Ql (U) Negative NEGATIVE [facility] Laboratory - Hematology and Cell countson 04-19-2024 Immature granulocytes/100 WBC (Bld) 0.9 % 0.0-0.5 [facility] Leukocytes [#/volume] correc wilber for nucleated erythrocytes in Blood by Automated counon 04-19-2024 WBC corrected for nucl RBC Auto (Bld) [#/Vol] 13.0 10 3/uL 4.0-11.0 [facility] Lymphocytes Auto (Bld) [#/Vo l]on 04-19-2024 Lymphocytes (Bld) [#/Vol] 1.9 10 3/uL 1.2-3.8 [facility] Lymphocytes/100 WBC Auto (Bl d)on 04-19-2024 Lymphocytes/100 WBC (Bld) 14.4 % 20.5-60.0 [facility] MCH Auto (RBC) [Entitic mass ]on 04-19-2024 MCH (RBC) [Entitic mass] 28.8 pg 26.7-34.0 [facility] MCHC Auto (RBC) [Mass/Vol]on 04-19-2024 MCHC (RBC) [Mass/Vol] 32.6 g/dL 29.9-35.2 [facility] MCV Auto (RBC) [Entitic vol] on 04-19-2024 MCV (RBC) [Entitic vol] 88.4 fL 81.0-99.0 [facility] Methadone [Presence] in Urin e by Screen methodon 04-19-2024 Methadone Screen Ql (U) Negative NEGATIVE [facility] Monocytes Auto (Bld) [#/Vol] on 04-19-2024 Monocytes (Bld) [#/Vol] 0.8 10 3/uL 0.3-0.8 [facility] Monocytes/100 WBC Auto (Bld) on 04-19-2024 Monocytes/100 WBC (Bld) 6.2 % 1.7-12.0 [facility] Neutrophils Auto (Bld) [#/Vo l]on 04-19-2024 Neutrophils (Bld) [#/Vol] 10.2 10 3/uL 1.4-6.5 [facility] Neutrophils/100 WBC Auto (Bl d)on 04-19-2024 Neutrophils/100 WBC (Bld) 78.0 % 43.0-75.0 [facility] No Panel Informationon 04-19 Urine Barbiturates Screen Negative NEGATIVE [facility] Urine Marijuana (THC) Screen Negative NEGATIVE [facility] Urine Methamphetamines Screen Negative NEGATIVE [facility] Eosinophils # (Auto) 0.0 10 3/uL 0.0-0.7 [facility] Immature Granulocyte # (Auto) 0.12 10 3/uL 0.00-0.03 [facility] Platelet mean volume Auto (B ld) [Entitic vol]on 04-19-2024 Platelet mean volume (Bld) [Entitic vol] 10.7 fL 9.5-13.5 [facility] Platelets Auto (Bld) [#/Vol] on 04-19-2024 Platelets (Bld) [#/Vol] 235 10 3/uL 150-450 [facility] Prothrombin time (PT)on 04-08 PT Coag (PPP) [Time] 9.7 s 9.0-11.6 [facility] RBC Auto (Bld) [#/Vol]on RBC (Bld) [#/Vol] 3.89 10 6/uL 4.20-5.[address] [facility] Urine tricyclic antidepressa nt measurementon 04-19-2024 Tricyclic antidepressants (U) [Mass/Vol] Negative NEGATIVE [facility] oxyCODONE+oxyMORphone [Prese nce] in Urine by Screen methodon 04-19-2024 oxyCODONE+oxyMORphone Screen Ql (U) Negative NEGATIVE [facility] Alanine aminotransferase [En zymatic activity/volume] in Serum or PlasmaOrdered By: Sherry Nielsen on 06-22-2023 ALT [Catalytic activity/Vol] 14 U/L Normal 7-52 [facility] Comment on above: Order Comment: Reaso n for Exam Well adult exam Performed By: #### F E PRO, CMP wRFX A1C, TSH3, [id number], [id number], CBC, LIPID #### [facility] [address] [id number] [place] Albumin [Mass/volume] in Ser um or Plasma by Bromocresol green (BCG) dye binding methoOrdered By: Sherry Nielsen on 06-22-2023 Albumin BCG dye [Mass/Vol] 4.3 g/dL 3.5-5.7 [facility] Alkaline phosphatase [Enzyma tic activity/volume] in Serum or PlasmaOrdered By: Sherry Nielsen on 06-22-2023 ALP [Catalytic activity/Vol] 88 U/L Normal 34-104 [facility] Comment on above: Order Comment: Reaso n for Exam Well adult exam Performed By: #### F E PRO, CMP wRFX A1C, TSH3, [id number], [id number], CBC, LIPID #### [facility] [address] [place] [address] [place] Aspartate aminotransferase [ Enzymatic activity/volume] in Serum or PlasmaOrdered By: Sherry Nielsen on 06-22-2023 AST [Catalytic activity/Vol] 15 U/L Normal 13-39 [facility] Comment on above: Order Comment: Reaso n for Exam Well adult exam Performed By: #### F E PRO, CMP wRFX A1C, TSH3, [id number], [id number], CBC, LIPID #### [address] Automated basophil %Ordered By: Sherry Nielsen on 06-22-2023 Basophils/100 WBC (Bld) 0.5 % Normal . [facility] Comment on above: Order Comment: Reaso n for Exam Well adult exam Performed By: #### F E PRO, CMP wRFX A1C, TSH3, [id number], [id number], CBC, LIPID #### [address] Automated basophil countOrde red By: Sherry Nielsen on 06-22-2023 Basophils (Bld) [#/Vol] 0.0 10*3/uL Normal 0.0-0.2 [facility] Comment on above: Order Comment: Reaso n for Exam Well adult exam Result Comment: PERF ORMED BY: [place] [address] PATHOLOGIST MERCURY PURIFIER GLORIA MESA M.D. Performed By: #### F E PRO, CMP wRFX A1C, TSH3, [id number], [id number], CBC, LIPID #### [address] Automated blood monocyte cou ntOrdered By: Sherry Nielsen on 06-22-2023 Monocytes (Bld) [#/Vol] 0.5 10*3/uL Normal 0.0-0.8 [facility] Comment on above: Order Comment: Reaso n for Exam Well adult exam Performed By: #### F E PRO, CMP wRFX A1C, TSH3, [id number], [id number], CBC, LIPID #### [address] Automated eosinophil %Ordere d By: Sherry Nielsen on 06-22-2023 Eosinophils/100 WBC (Bld) 2.2 % Normal . [facility] Comment on above: Order Comment: Reaso n for Exam Well adult exam Performed By: #### F E PRO, CMP wRFX A1C, TSH3, [id number], [id number], CBC, LIPID #### [facility] [address] Automated eosinophil countOr dered By: Sherry Nielsen on 06-22-2023 Eosinophils (Bld) [#/Vol] 0.1 10*3/uL Normal 0.0-0.45 [facility] Comment on above: Order Comment: Reaso n for Exam Well adult exam Performed By: #### F E PRO, CMP wRFX A1C, TSH3, [id number], [id number], CBC, LIPID #### [facility] [address] Automated monocyte %Ordered By: Sherry Nielsen on 06-22-2023 Monocytes/100 WBC (Bld) 7.9 % Normal . [facility] Comment on above: Order Comment: Reaso n for Exam Well adult exam Performed By: #### F E PRO, CMP wRFX A1C, TSH3, [id number], [id number], CBC, LIPID #### [facility] [address] [phone] [facility] Automated neutrophil %Ordere d By: Sherry Nielsen on 06-22-2023 Neutrophils/100 WBC (Bld) 54.8 % Normal . [facility] Comment on above: Order Comment: Reaso n for Exam Well adult exam Performed By: #### F E PRO, CMP wRFX A1C, TSH3, [id number], [id number], CBC, LIPID #### [facility] [address] [place] [address] [place] Bilirubin.total [Mass/volume ] in Serum or PlasmaOrdered By: Sherry Nielsen on 06-22-2023 Bilirubin [Mass/Vol] 1.1 mg/dL High 0.3-1.0 [facility] Comment on above: Order Comment: Reaso n for Exam Well adult exam Performed By: #### F E PRO, CMP wRFX A1C, TSH3, [id number], [id number], CBC, LIPID #### [facility] [address] CMP with reflex to A1Con Albumin [Mass/Vol] 4.3 g/dL Normal 3.5-5.7 [facility] Comment on above: Order Comment: Reaso n for Exam Well adult exam Performed By: #### F E PRO, CMP wRFX A1C, TSH3, [id number], [id number], CBC, LIPID #### [facility] [address] GFR/1.73 sq M.predicted MDRD (S/P/Bld) [Vol rate/Area] mL/min/{1.73_m2} Normal [facility] Comment on above: Order Comment: Reaso n for Exam Well adult exam Performed By: #### F E PRO, CMP wRFX A1C, TSH3, [id number], [id number], CBC, LIPID #### [facility] [address] Calcium [Mass/volume] in Ser um or PlasmaOrdered By: Sherry Nielsen on 06-22-2023 Calcium [Mass/Vol] 9.3 mg/dL Normal 8.6-10.3 [facility] Comment on above: Order Comment: Reaso n for Exam Well adult exam Performed By: #### F E PRO, CMP wRFX A1C, TSH3, [id number], [id number], CBC, LIPID #### [facility] [address] [id number] [facility] Carbon dioxide, total [Moles /volume] in Serum or PlasmaOrdered By: Sherry Nielsen on 06-22-2023 CO2 [Moles/Vol] 27.1 mmol/L Normal 21.0-31.0 [facility] Comment on above: Order Comment: Reaso n for Exam Well adult exam Performed By: #### F E PRO, CMP wRFX A1C, TSH3, [id number], [id number], CBC, LIPID #### [facility] [address] [place] [address] [place] Chloride [Moles/volume] in S adriano or PlasmaOrdered By: Sherry Nielsen on 06-22-2023 Chloride [Moles/Vol] 105 mmol/L Normal 98-107 [facility] Comment on above: Order Comment: Reaso n for Exam Well adult exam Performed By: #### F E PRO, CMP wRFX A1C, TSH3, [id number], [id number], CBC, LIPID #### [facility] [address] [place] [address] [place] Cholesterol [Mass/volume] in Serum or PlasmaOrdered By: Sherry Nielsen on 06-22-2023 Cholesterol [Mass/Vol] 149 mg/dL Normal 140-200 [facility] Comment on above: Chol less than 200 m g/dl low riskChol 201-239 mg/dl borderline riskChol 240 mg/dl and greater high risk Order Comment: Reaso n for Exam Well adult exam Result Comment: Chol less than 200 mg/dl low risk Chol 201-239 mg/dl borderline risk Chol 240 mg/dl and greater high risk Performed By: #### F E PRO, CMP wRFX A1C, TSH3, [id number], [id number], CBC, LIPID #### [facility] [address] [place] [address] [place] Cholesterol in LDL Calc [Mas s/Vol]Ordered By: Sherry Nielsen on 06-22-2023 Cholesterol in LDL [Mass/Vol] 70 mg/dL 0-100 [facility] Comment on above: LDL ATP III CLASSIFI CATIONLDL less than 100 mg/dL OptimalLDL 100-129 mg/dL Near or above optimalLDL 130-159 mg/dL Borderline highLDL 160-189 mg/dL HighLDL greater than 189 mg/dL Very high Cholesterol in VLDL Calc [Ma ss/Vol]Ordered By: Sherry Nielsen on 06-22-2023 Cholesterol in VLDL [Mass/Vol] 16 mg/dL [facility] Complete Blood Count Auto Di ffon 06-22-2023 Mean Corpuscular HGB Conc 33.6 g/dL Normal 32.0-35.0 [facility] Comment on above: Order Comment: Reaso n for Exam Well adult exam Performed By: #### F E PRO, CMP wRFX A1C, TSH3, [id number], [id number], CBC, LIPID #### [facility] [address] NRBC% 0.3 /100{WBC} Normal 0-0.5 [facility] Comment on above: Order Comment: Reaso n for Exam Well adult exam Performed By: #### F E PRO, CMP wRFX A1C, TSH3, [id number], [id number], CBC, LIPID #### [facility] [address] Creatinine [Mass/volume] in Serum or PlasmaOrdered By: Sherry Nielsen on 06-22-2023 Creatinine [Mass/Vol] 0.90 mg/dL Normal 0.60-1.20 [facility] Comment on above: Order Comment: Reaso n for Exam Well adult exam Performed By: #### F E PRO, CMP wRFX A1C, TSH3, [id number], [id number], CBC, LIPID #### [facility] [address] Erythrocyte distribution wid th [Ratio] by Automated countOrdered By: Sherry Nielsen on 06-22-2023 Erythrocyte distribution width (RBC) [Ratio] 12.6 % Normal 11.9-15.3 [facility] Comment on above: Order Comment: Reaso n for Exam Well adult exam Performed By: #### F E PRO, CMP wRFX A1C, TSH3, [id number], [id number], CBC, LIPID #### [facility] [address] [id number] [facility] Erythrocytes [#/volume] in B lood by Automated countOrdered By: Sherry Nielsen on 06-22-2023 RBC (Bld) [#/Vol] 4.58 10*6/uL Normal 3.60-5.[address] [facility] Comment on above: Order Comment: Reaso n for Exam Well adult exam Performed By: #### F E PRO, CMP wRFX A1C, TSH3, [id number], [id number], CBC, LIPID #### [facility] [address] [place] [address] [place] FE PROon 06-22-2023 % Iron Saturation 34.8 % Normal 20-50 [facility] Comment on above: Order Comment: Reaso n for Exam Well adult exam Performed By: #### F E PRO, CMP wRFX A1C, TSH3, [id number], [id number], CBC, LIPID #### [facility] [address] [place] [address] [facility] Total Iron Binding Capacity 351 ug/dL Normal 255-450 [facility] Comment on above: Order Comment: Reaso n for Exam Well adult exam Performed By: #### F E PRO, CMP wRFX A1C, TSH3, [id number], [id number], CBC, LIPID #### [facility] [address] [id number] [place] Ferritin [Mass/volume] in Se rum or PlasmaOrdered By: Sherry Nielsen on 06-22-2023 Ferritin [Mass/Vol] 33.1 ng/mL Normal 11.0-306.[address] [facility] Comment on above: Order Comment: Reaso n for Exam Well adult exam Performed By: #### F E PRO, CMP wRFX A1C, TSH3, [id number], [id number], CBC, LIPID #### [facility] [address] [id number] [facility] Folate [Mass/volume] in Seru m or PlasmaOrdered By: Sherry Nielsen on 06-22-2023 Folate [Mass/Vol] 23.0 ng/mL >5.9 [facility] Comment on above: Folate reference ran ge: >5.9 ng/mlThe WHO technical consultation on folate and vitamin [id number] has determined that folate concentrations lessthan 4 ng/ml are considered deficient. Glucose [Mass/volume] in Ser um or PlasmaOrdered By: Sherry Nielsen on 06-22-2023 Glucose [Mass/Vol] 94 mg/dL Normal 70-100 [facility] Comment on above: Order Comment: Reaso n for Exam Well adult exam Performed By: #### F E PRO, CMP wRFX A1C, TSH3, [id number], [id number], CBC, LIPID #### [facility] [address] [id number] [facility] Hematocrit [Volume Fraction] of Blood by Automated countOrdered By: Sherry Nielsen on 06-22-2023 Hematocrit (Bld) [Volume fraction] 41.6 % Normal 34.0-46.4 [facility] Comment on above: Order Comment: Reaso n for Exam Well adult exam Performed By: #### F E PRO, CMP wRFX A1C, TSH3, [id number], [id number], CBC, LIPID #### [facility] [address] Hemoglobin [Mass/volume] in BloodOrdered By: Sherry Nielsen on 06-22-2023 Hemoglobin (Bld) [Mass/Vol] 14.0 g/dL Normal 11.8-15.4 [facility] Comment on above: Order Comment: Reaso n for Exam Well adult exam Performed By: #### F E PRO, CMP wRFX A1C, TSH3, [id number], [id number], CBC, LIPID #### [facility] [address] [id number] [place] Iron [Mass/volume] in Serum or PlasmaOrdered By: Sherry Nielsen on 06-22-2023 Iron [Mass/Vol] 122 ug/dL Normal 50-212 [facility] Comment on above: Order Comment: Reaso n for Exam Well adult exam Performed By: #### F E PRO, CMP wRFX A1C, TSH3, [id number], [id number], CBC, LIPID #### [facility] [address] [id number] [place] Iron binding capacity [Mass/ volume] in Serum or PlasmaOrdered By: Sherry Nielsen on 06-22-2023 Iron binding capacity [Mass/Vol] 351 ug/dL 255-450 [facility] Iron saturation [Mass Fracti on] in Serum or PlasmaOrdered By: Sherry Nielsen on 06-22-2023 Iron saturation [Mass fraction] 34.8 % 20-50 [facility] Leukocytes [#/volume] correc wilber for nucleated erythrocytes in Blood by Automated counOrdered By: Sherry Gia on 06-22-2023 WBC corrected for nucl RBC Auto (Bld) [#/Vol] 6.1 10*3/uL 3.8-11.6 [facility] Leukocytes [#/volume] in Blo od by Automated countOrdered By: Sherry Gia on 06-22-2023 WBC (Bld) [#/Vol] 6.1 10*3/uL Normal 3.8-11.6 [facility] Comment on above: Order Comment: Reaso n for Exam Well adult exam Performed By: #### F E PRO, CMP wRFX A1C, TSH3, [id number], [id number], CBC, LIPID #### [facility] [address] Lipid Panelon 06-22-2023 LDL Cholesterol,Calculated 70 mg/dL Normal 0-100 [facility] Comment on above: Order Comment: Reaso n for Exam Well adult exam Result Comment: LDL ATP III CLASSIFICATION LDL less than 100 mg/dL Optimal LDL 100-129 mg/dL Near or above optimal LDL 130-159 mg/dL Borderline high LDL 160-189 mg/dL High LDL greater than 189 mg/dL Very high Performed By: #### F E PRO, CMP wRFX A1C, TSH3, [id number], [id number], CBC, LIPID #### [facility] [address] Triglyceride w/Reflex 82 mg/dL Normal 0-149 [facility] Comment on above: Order Comment: Reaso n for Exam Well adult exam Result Comment: TRIG ATP III CLASSIFICATION TRIG less than 150 mg/dL Normal TRIG 150-199 mg/dL Borderline high TRIG 200-500 mg/dL High TRIG greater than 500 mg/dL Very high Standard traceable to the Center for Disease Conrtrol and Prevention (CDC) test method. Performed By: #### F E PRO, CMP wRFX A1C, TSH3, [id number], [id number], CBC, LIPID #### [facility] [address] [id number] [facility] VLDL CHOLESTEROL 16 mg/dL Normal [facility] Comment on above: Order Comment: Reaso n for Exam Well adult exam Performed By: #### F E PRO, CMP wRFX A1C, TSH3, [id number], [id number], CBC, LIPID #### [facility] [address] [id number] [facility] Lymphocytes [#/volume] in Bl ood by Automated countOrdered By: Sherry Nielsen on 06-22-2023 Lymphocytes (Bld) [#/Vol] 2.1 10*3/uL Normal 1.00-4.8 [facility] Comment on above: Order Comment: Reaso n for Exam Well adult exam Performed By: #### F E PRO, CMP wRFX A1C, TSH3, [id number], [id number], CBC, LIPID #### [address] Lymphocytes/100 leukocytes i n Blood by Automated countOrdered By: Sherry Nielsen on 06-22-2023 Lymphocytes/100 WBC (Bld) 34.6 % Normal . [facility] Comment on above: Order Comment: Reaso n for Exam Well adult exam Performed By: #### F E PRO, CMP wRFX A1C, TSH3, [id number], [id number], CBC, LIPID #### [address] MCH [Entitic mass] by Automa wilber countOrdered By: Sherry Nielsen on 06-22-2023 MCH (RBC) [Entitic mass] 30.5 pg Normal 24.7-34.3 [facility] Comment on above: Order Comment: Reaso n for Exam Well adult exam Performed By: #### F E PRO, CMP wRFX A1C, TSH3, [id number], [id number], CBC, LIPID #### [address] [id number] [facility] MCHC Auto (RBC) [Mass/Vol]Or dered By: Sherry Nielsen on 08-15-2023 MCHC (RBC) [Mass/Vol] 33.6 g/dL 32.0-35.0 [facility] MCV [Entitic volume] by Auto mated countOrdered By: Sherry Nielsen on 06-22-2023 MCV (RBC) [Entitic vol] 90.9 fL Normal 80-100 [facility] Comment on above: Order Comment: Reaso n for Exam Well adult exam Performed By: #### F E PRO, CMP wRFX A1C, TSH3, [id number], [id number], CBC, LIPID #### [facility] [address] Neutrophils [#/volume] in Bl ood by Automated countOrdered By: Sherry Nielsen on 06-22-2023 Neutrophils (Bld) [#/Vol] 3.4 10*3/uL Normal 1.8-7.7 [facility] Comment on above: Order Comment: Reaso n for Exam Well adult exam Performed By: #### F E PRO, CMP wRFX A1C, TSH3, [id number], [id number], CBC, LIPID #### [facility] [address] No Panel InformationOrdered By: Sherry Nielsen on 06-22-2023 Estimated GFR (CKD-EPI) > 60.0 mL/Min [facility] Creatinine Clearance (Chem N/A [facility] Nucleated erythrocytes [Pres ence] in Blood by Automated countOrdered By: Sherry Nielsen on 06-22-2023 Nucleated RBC Auto Ql (Bld) 0.3 /100{WBC} 0-0.5 [facility] Platelet mean volume [Entiti c volume] in Blood by Automated countOrdered By: Sherry Nielsen on 06-22-2023 Platelet mean volume (Bld) [Entitic vol] 8.8 fL Normal 6.3-10.7 [facility] Comment on above: Order Comment: Reaso n for Exam Well adult exam Performed By: #### F E PRO, CMP wRFX A1C, TSH3, [id number], [id number], CBC, LIPID #### [facility] [address] [id number] [place] Platelets [#/volume] in Bloo d by Automated countOrdered By: Sherry Nielsen on 06-22-2023 Platelets (Bld) [#/Vol] 219 10*3/uL Normal 150-450 [facility] Comment on above: Order Comment: Reaso n for Exam Well adult exam Performed By: #### F E PRO, CMP wRFX A1C, TSH3, [id number], [id number], CBC, LIPID #### [facility] [address] [id number] [facility] Potassium [Moles/volume] in Serum or PlasmaOrdered By: Sherry Nielsen on 06-22-2023 Potassium [Moles/Vol] 4.3 mmol/L Normal 3.5-5.1 [facility] Comment on above: Order Comment: Reaso n for Exam Well adult exam Performed By: #### F E PRO, CMP wRFX A1C, TSH3, [id number], [id number], CBC, LIPID #### [facility] [address] [id number] [facility] Protein [Mass/volume] in Ser um or PlasmaOrdered By: Sherry Nielsen on 06-22-2023 Protein [Mass/Vol] 7.4 g/dL Normal 6.4-8.9 [facility] Comment on above: Order Comment: Reaso n for Exam Well adult exam Performed By: #### F E PRO, CMP wRFX A1C, TSH3, [id number], [id number], CBC, LIPID #### [facility] [address] [id number] [facility] Serum globulin measurement b y calculation (mass/volume)Ordered By: Sherry Nielsen on 06-22-2023 Globulin (S) [Mass/Vol] 3.1 g/dL Normal [facility] Comment on above: Order Comment: Reaso n for Exam Well adult exam Performed By: #### F E PRO, CMP wRFX A1C, TSH3, [id number], [id number], CBC, LIPID #### [facility] [address] [place] [address] [place] Serum or plasma albumin/glob ulin mass ratioOrdered By: Sherry Nielsen on 06-22-2023 Albumin/Globulin [Mass ratio] 1.4 {ratio} Normal [facility] Comment on above: Order Comment: Reaso n for Exam Well adult exam Performed By: #### F E PRO, CMP wRFX A1C, TSH3, [id number], [id number], CBC, LIPID #### [facility] [address] [id number] [facility] Serum or plasma anion gap de terminationOrdered By: Sherry Nielsen on 06-22-2023 Anion gap [Moles/Vol] 10.2 mmol/L Normal 6.0-15.0 [facility] Comment on above: Order Comment: Reaso n for Exam Well adult exam Performed By: #### F E PRO, CMP wRFX A1C, TSH3, [id number], [id number], CBC, LIPID #### [facility] [address] Serum or plasma high density lipoprotein (HDL) cholesterol measurementOrdered By: Sherry Nielsen on 06-22-2023 Cholesterol in HDL [Mass/Vol] 63 mg/dL Normal 23-92 [facility] Comment on above: HDL CHOL ATP-III CLA SSIFICATION Cardiovascular RiskHDL > or equal to 60 mg/dL LOWHDL < 40 mg/dL HIGH Order Comment: Reaso n for Exam Well adult exam Result Comment: HDL CHOL ATP-III CLASSIFICATION Cardiovascular Risk HDL > or equal to 60 mg/dL LOW HDL < 40 mg/dL HIGH Performed By: #### F E PRO, CMP wRFX A1C, TSH3, [id number], [id number], CBC, LIPID #### [facility] [address] [id number] [facility] Serum or plasma total choles terol/high density lipoprotein (HDL) cholesterol mass ratOrdered By: Sherry Nielsen on 06-22-2023 Cholesterol.total/Choles terol in HDL [Mass ratio] 2.4 {ratio} Normal <5.0 [facility] Comment on above: Order Comment: Reaso n for Exam Well adult exam Performed By: #### F E PRO, CMP wRFX A1C, TSH3, [id number], [id number], CBC, LIPID #### [facility] [address] [place] [address] [place] Sodium [Moles/volume] in Ser um or PlasmaOrdered By: Sherry Nielsen on 06-22-2023 Sodium [Moles/Vol] 138 mmol/L Normal 136-145 [facility] Comment on above: Order Comment: Reaso n for Exam Well adult exam Performed By: #### F E PRO, CMP wRFX A1C, TSH3, [id number], [id number], CBC, LIPID #### [facility] [address] [place] [address] [facility] Thyrotropin [Units/volume] i n Serum or PlasmaOrdered By: Sherry Nielsen on 06-22-2023 TSH Qn 1.93 m[IU]/L Normal 0.45-5.33 [facility] Comment on above: Order Comment: Reaso n for Exam Well adult exam Performed By: #### F E PRO, CMP wRFX A1C, TSH3, [id number], [id number], CBC, LIPID #### [facility] [address] [place] [address] [place] Transferrin [Mass/volume] in Serum or PlasmaOrdered By: Sherry Nielsen on 06-22-2023 Transferrin [Mass/Vol] 251 mg/dL Normal 203-362 [facility] Comment on above: Order Comment: Reaso n for Exam Well adult exam Performed By: #### F E PRO, CMP wRFX A1C, TSH3, [id number], [id number], CBC, LIPID #### [facility] [address] [place] [address] [facility] Triglyceride [Mass/volume] i n Serum or PlasmaOrdered By: Sherry Nielsen on 06-22-2023 Triglyceride [Mass/Vol] 82 mg/dL 0-149 [facility] Comment on above: TRIG ATP III CLASSIF ICATIONTRIG less than 150 mg/dL NormalTRIG 150-199 mg/dL Borderline highTRIG 200-500 mg/dL High TRIG greater than 500 mg/dL Very highStandard traceable to the Center for Disease Conrtrol and Prevention (CDC) test method. Urea nitrogen [Mass/volume] in Serum or PlasmaOrdered By: Sherry Nielsen on 06-22-2023 Urea nitrogen [Mass/Vol] 16 mg/dL Normal 7-25 [facility] Comment on above: Order Comment: Reaso n for Exam Well adult exam Performed By: #### F E PRO, CMP wRFX A1C, TSH3, [id number], [id number], CBC, LIPID #### [facility] [address] [id number] [facility] Vit. B12/Folate Profileon Folate 23.0 ng/mL Normal >5.9 [facility] Comment on above: Order Comment: Reaso n for Exam Well adult exam Result Comment: [place] te reference range: >5.9 ng/ml The WHO technical consultation on folate and vitamin b12 deficiencies has determined that folate concentrations less than 4 ng/ml are considered deficient. Performed By: #### F E PRO, CMP wRFX A1C, TSH3, [id number], [id number], CBC, LIPID #### [facility] [address] [id number] [facility] Vitamin B12 ser/plasOrdered By: Sherry Nielsen on 06-22-2023 Cobalamin (Vitamin B12) [Mass/Vol] 333 pg/mL Normal 180-914 [facility] Comment on above: Order Comment: Reaso n for Exam Well adult exam Performed By: #### F E PRO, CMP wRFX A1C, TSH3, [id number], [id number], CBC, LIPID #### [facility] [address] [id number] [place] Vitamin D 25 Hydroxy Totalon 06-22-2023 Vitamin D 25 Hydroxy Total 45.4 ng/mL Normal 30-100 [facility] Comment on above: Order Comment: Reaso n for Exam Well adult exam Result Comment: TEX MIN D STATUS 25(OH)VITAMIN D RANGE (ng/mL) Deficient <20 Insufficient 20 to <30 Sufficient 30 to 100 Reference: Mary MF,Marielena NC, Maximilian HAMILTON, et al. Evaluation,treatment, and prevention of vitamin D deficiency; an Endocrine Society clinical practice guideline. JCEM. 2010; 96(7):191-. PERFORMED BY: [facility] [address] [place] [address] PATHOLOGIST MERCURY PURIFIER GLORIA MESA M.D. Performed By: #### F E PRO, CMP wRFX A1C, TSH3, [id number], [id number], CBC, LIPID #### [facility] [address] Vitamin D+Metabolites [Mass/ volume] in Serum or PlasmaOrdered By: Sherry Nielsen on 06-22-2023 Vitamin D+Metabolites [Mass/Vol] 45.4 ng/mL 30-100 [facility] Comment on above: VITAMIN D STATUS 25( [place])VITAMIN D RANGE (ng/mL) Deficient <20 Insufficient 20 to <30Sufficient 30 to 100Reference: Mary MF,Marielena NC, Maximilian HAMILTON, et al. Evaluation,treatment, and prevention of vitamin D deficiency; an Endocrine Society clinical practice guideline. JCEM. 2010; 96(7):1911-. Vital Signs Date Time Vital Sign Value Performing Clinician Facility 06-18-2023 07:30-0400 Body height 156.21 cm Sherry Nielsen Other [facility] Other 06-18-2023 07:30-0400 Body mass index (BMI) [Ratio] 31.73 kg/m2 Sherry Nielsen Other [facility] Other 06-18-2023 07:30-0400 Body weight 77.43 kg Sherry Nielsen Other [facility] Other 06-18-2023 07:30-0400 Diastolic blood pressure 70 mm[Hg] Sherry Nielsen Other [facility] Other 06-18-2023 07:30-0400 Respiratory rate 18 /min Sherry Nielsen Other [facility] Other 06-18-2023 07:30-0400 SaO2% (BldA) [Mass fraction] 98 % Sherry Nielsen Other [facility] Other 06-18-2023 07:30-0400 Systolic blood pressure 110 mm[Hg] Sherry Nielsen Other [facility] Other Encounters Encounter Date Encounter Type Care Provider Facility Start: 04-20-2024 Non-patient / Non-visit Addie Annabel Work Phone: [facility] Work Phone: Start: 04-19-2024 End: 04-19-2024 ambulatory Addie Annabel [facility] Work Phone: Start: 04-19-2024 End: 04-19-2024 Departed Referred Addie Annabel Work Phone: [facility] Start: 04-19-2024 Non-patient / Non-visit Addie Annabel Work Phone: [facility] Work Phone: Start: 04-19-2024 End: 04-19-2024 ambulatory ADDIE ANNABEL Not Available Start: 04-13-2024 End: 04-13-2024 ambulatory ADDIE ANNABEL Not Available Start: 04-06-2024 End: 04-06-2024 ambulatory ADDIE ANNABEL Not Available Start: 03-23-2024 End: 03-23-2024 ambulatory ADDIE ANNABEL Not Available Start: 03-07-2024 End: 03-07-2024 ambulatory ADDIE ANNABEL Not Available Start: 02-22-2024 End: 02-22-2024 ambulatory ADDIE ANNABEL Not Available Start: 01-24-2024 End: 01-24-2024 ambulatory ROMMEL ALMA Not Available Start: 12-27-2023 End: 12-27-2023 ambulatory ADDIE ANNABEL Not Available Start: 11-29-2023 End: 11-29-2023 ambulatory ROMMEL MARQUEZ Not Available Start: 10-28-2023 End: 10-28-2023 ambulatory ADDIE ANNABEL Not Available Start: 09-24-2023 End: 09-24-2023 ambulatory ROMMEL MARQUEZ Not Available Start: 06-22-2023 End: 06-22-2023 Patient encounter procedure DNP Sherry Nielsen Work Phone: [facility] Start: 06-22-2023 End: 06-22-2023 ambulatory DNP Sherry Gia Work Phone: [facility] Work Phone: Start: 06-18-2023 End: 06-18-2023 ambulatory Sherry Nielsen Other [facility] [employer] Other Start: 06-18-2023 Encounter for genera l adult medical examination without abnormal findings Sherry Nielsen [facility] [place] Start: 06-18-2023 Initial preventive medicine new pt age 18-39yrs Sherry Nielsen [facility] [place] Payers Date Payer Category Payer Self-pay 2023 [facility] [id number] 1993 Unknown [id number] 1993 Unknown [id number] 1993 Unknown [id number] 1993 Unknown [id number] 1993 Unknown [id number] [id number] 1993 Unknown [id number] [id number] 1993 Unknown [id number] [id number] 1993 Unknown [id number] [id number] 1993 Unknown [id number] 2.16.840.1.663726.3.579.2.9 1993 Unknown [id number] [id number] 1993 Unknown [id number] [id number] Unknown HCAP/HFA/FAP Active [id number] Unknown [id number] Unknown [id number] [id number] Social History Date Type Detail Facility Sex Assigned At [facility] [employer] Other Start: 1995 Sex Assigned At Female F [facility] Start: 06-18-2023 Tobacco smoking stat [facility] Never smoked tobacco (finding) [facility] Evaluation note 06-18-2023 Note Date & Type Note Facility 06-18-2023 Evaluation note Encounter Date Diagnosis Assessment Notes Jun, Well adult exam (ICD-10 - Z00.00) Routine lab work ordered. She will continue to keep appointment with CANCER PROGRAM COORDINATOR, eye doctor and dentist. Patient is advised to work on healthy diet choices and appropriate servings, weight control, regular exercise as directed, reduced fat intake, and salt avoidance. Patient voiced understanding of this and agrees to this plan. [facility] Other Evaluation note Note Date & Type Note Facility Evaluation note No assessment information availa ble [facility] Work Phone: History general Narrative - Reported Note Date & Type Note Facility History general Narrative - Reported Type Surgical History Foot Surgery Surgical History GALLBLADDER Surgical History 2015 Surgical History SHOULDER-LEFT 2018 Hospitalization History see above [facility] Other Chief Complaint and Reason for Visit Chief Complaint Z00.00 Chief Complaint Unknown Advance Directives No Advanced Directives Records Found Advance Directive Response Recorded Date/ Time Advance Directives No June 22, 2023 7:06am Summary Purpose Family History No Family History Records FoundNo Family History Records Found Additional Source Comments REASON FOR VISIT (unrecogniz ed section and content) EST PCP Care Teams (unrecognized sec tion and content) Team Status: Active Member Role Status Dates Sherry Nielsen DNP Primary Care Provider Active Team Status: Inactive Member Role Status Dates Sherry Nielsen DNP Primary Care Provider, Attending Provider Active Team Status: Active Member Role Status Dates Sherry Nielsen DNP Primary Care Provider Active Start: April 19, 2024 Addie Jin Attending Provider Active Start: 2023 Team Status: Inactive Member Role Status Dates Addie Jin Attending Provider Active Start: 2023 End: April 19, 2024 Team Status: Active Member Role Status Dates Sherry Nielsen DNP Primary Care Provider Active Start: April 20, 2024 Addie Jin Attending Provider Active Start: 2023 Goals (unrecognized section and content) Goals may be documented in a n alternate section INFORMATION SOURCE (unrecogn ized section and content) DATE CREATED AUTHOR 04/21/2024 [facility] DATE CREATED AUTHOR 'S ORGANIZ ATION 04/21/2024 [facility] FOR RECORDS PERTAINING TO PATIENTS WHO ARE [...] BE BASED ON THE PRIMARY CLINICAL RECORDS. [facility]. provides no warranty or guarantee of the accuracy or completeness of information in this document.
--- NOTE | 2024-04-24 14:09 | PC.NURSE ---
Aaron Marie and 5 day old Cristian arrive for follow up visit. Parents report baby is doing well, no concerns voiced. Cristian rooting and fussy, Dad wants to feed baby. VSS and assessment WNL. Weight is steady with good output reported. 10 yellow stools with every feeding and 8+ wets noted by parents Baby feeding every 2 hours around the clock, taking 30-60 ml each feed. Diaper area red and excoriated. Encouraged to allow baby to wake for feeds every 2-3 hours and to slow pace feed . To use diaper ointment to protect skin such as A&D, Desitin. Verbalized understanding. Julia states has been resting as much as possible. Has low grade headache since started taking Procardia for blood pressure. No visual disturbances, no epigastric discomfort or sudden swelling. States I do feel SOB when waking, currently sleeping in recliner, throat feels dry, and feels like a bit out of breathe. Symptoms recede when drinking water or has been awake and up for few minutes. Reports was frequently SOB during and this feels the same. VSS with elevated BP. BP noted to be lower than on discharge day. Taken X 2 with 141/99 and 142/94 results. PT has +3 edema of feet and lower legs. Incision clean and dry, steri strips intact and no drainage noted. Using abdominal binder for comfort. TC to Dr Vazquez and update on pt status given. 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 TC to Dr Montaño, given status update, no orders received at this time. Pt to continue taking Procardia 30mg ER daily and have BP check in Dr vazquez office along with incision check. Pt verbalized understanding. Family leaves ambulatory, aware to call for concerns.
[2024-04-24 14:11] VITALS: BP 141/99; PULSE 92; TEMP 36.8; O2SAT 98
== END 2024-04-24 10:45 | disposition home or self-care (01) ==
LOC: FBCO 08:30
PROVIDERS: PCP Nurse Practitioner Family; Visit Provider Obstetrics & Gynecology
DX: Z39.2 Encounter for routine postpartum follow-up (principal)

== ENCOUNTER 2024-10-09 10:51 | Outpatient (OUT) | payer BC, SELFPAY ==
[2024-10-09 11:10] LABS: Basophils Percent Auto 0.5 % (0.2-2.0); Eosinophils Absolute Auto 0.1 10^3/uL (0.0-0.7); Eosinophils Percent Auto 1.1 % (0.9-7.0); Hemoglobin 13.9 g/dL (12.0-16.0); Immature Granulocytes Abs Auto 0.03 10^3/uL (0.00-0.03); Immature Granulocytes Pct Auto 0.4 % (0.0-0.5); Lymphocytes Percent Auto 24.4 % (20.5-60.0); Mean Corpuscular HGB Conc 32.3 g/dL (29.9-35.2); Mean Corpuscular Hemoglobin 28.5 pg (26.7-34.0); Mean Corpuscular Volume 88.1 fL (81.0-99.0); Mean Platelet Volume 9.6 fL (9.5-13.5); Monocytes Absolute Auto 0.4 10^3/uL (0.3-0.8); Monocytes Percent Auto 5.2 % (1.7-12.0); Neutrophils Absolute Auto 5.6 10^3/uL (1.4-6.5); Neutrophils Percent Auto 68.4 % (43.0-75.0); Platelet Count 255 10^3/uL (150-450); Red Blood Count 4.88 10^6/uL (4.20-5.40); Red Cell Distribution Width 13.5 % (11.0-15.0); White Blood Count 8.2 10^3/uL (4.0-11.0)
[2024-10-09 11:23] LABS: INR 0.98; Partial Thromboplastin Time 30.2 sec (22.3-36.2); Prothrombin Time 10.4 sec (9.0-11.6)
[2024-10-09 11:36] LABS: Estimated Average Glucose 117 mg/dL; Glycohemoglobin A1C 5.7 % (4.5-6.2)
[2024-10-09 12:17] LABS: Thyroid Stimulating Hormone 1.175 uIU/mL (0.358-3.740)
[2024-10-09 12:18] LABS: Free T4 0.94 ng/dL (0.76-1.46)
[2024-10-09 12:19] LABS: HCG Quantitative <1 mIU/mL
== END 2024-10-09 10:52 | disposition home or self-care (01) ==
LOC: LAB 10:54
PROVIDERS: PCP Nurse Practitioner Family; Visit Provider Obstetrics & Gynecology
DX: N92.0 Excessive and frequent menstruation with regular cycle (principal)
CPT/HCPCS: 36415; 83036; 84439; 84443; 84702; 85025; 85610; 85730

== ENCOUNTER 2024-10-24 09:18 | Outpatient (OUT) | payer BC, SELFPAY ==
--- NOTE | 2024-10-24 09:20 | US_ITS ---
[address] [address] Patient Name: DONALD VELÁSQUEZ MRN: [id number] date: 1995 Sex: F Assigned [facility] Current Patient Location: Accession/Order Number: [id number] Exam Date: 10/24/2024 09:20 Report Date: 10/25/2024 04:39 At the request of: ADDIE DOE Procedure: US pelvis w/ transvaginal EXAMINATION: US pelvis w/ transvaginal HISTORY: MENORRHAGIA COMPARISON: No relevant comparison available. TECHNIQUE: Transabdominal and/or transvaginal sonographic examination was performed as indicated by examination type. FINDINGS: UTERUS: Normal size and appearance. Uterus size: 7.9 x 3.1 x 4.8 cm ENDOMETRIUM: Normal homogeneous appearance. Endometrial thickness: 9 mm RIGHT OVARY: Normal size and appearance. Duplex Doppler demonstrates normal waveform and flow; resistive index 0.4. Ovary size: 2.8 x 1.6 x 3.6 cm LEFT OVARY: Normal size and appearance. Duplex Doppler demonstrates normal waveform and flow; resistive index 0.7. Ovary size: 3.4 x 2.4 x 2.4 cm CUL-DE-SAC: Unremarkable. No significant free fluid. BLADDER: Unremarkable. OTHER: None. US/US pelvis w/ transvaginal IMPRESSION: 1. Normal pelvic ultrasound. Electronically authenticated by: EMMA NOEL Date: 10/25/2024 04:39
--- OUTSIDE RECORDS SUMMARY | 2024-10-24 09:37 | XMS_ITS | CCD ---
Author Organization [facility] Care Team Providers Care Customer Service Manager Name Role Phone Sherry Nielsen Unavailable LYNNE Nielsen Primary Care Provider LYNNE Nielsen Attending Provider Addie Jin Attending Provider Annabel, Addie Attending Unavailable Annabel, Addie Admitting Unavailable Sherry iNelsen Attending Unavailable Sherry Nielsen Primary Care Unavailable Sherry Nielsen Admitting Unavailable Unavailable Primary Care Provider Unavailabl e ROMMEL MARQUEZ Attending Unavailable ANNABEL, ADDIE Attending Unavailable ALMA, ROMMEL Attending Unavailable ANNABEL, ADDIE Attending Unavailable ANNABEL, ADDIE Attending Unavailable ANNABEL, ADDIE Attending Unavailable ANNABEL, ADDIE Attending Unavailable ANNABEL, ADDIE Attending Unavailable ANNABEL, ADDIE Attending Unavailable ANNABEL, ADDIE Attending Unavailable ALMA, ROMMEL Attending Unavailable ANNABEL, ADDIE Attending Unavailable ANNABEL, ADDIE Attending Unavailable Allergies Allergy Classification Reported Allergen(s) Allergy Type Date of Onset Reaction(s) Facility (2 sources) Adhesive agent; Translations: [adhesive] Drug allergy 3 [facility] Repository (4 sources) Chlorhexidine / Ethanol Drug Allergy 5 Hives, Itching, Rash [facility] Work Phone: (4 sources) Wound Dressing Adhesive Drug Allergy 3 [facility] Medications Current Medications Medication Drug Class(es) Dates Sig (Normalized) Sig (Original) 24 hr metFORMIN hydrochloride 500 mg extended release oral tablet (3 sources) Biguanide Start: 10-09-2024 End: 10-09-2025 take 1 tablet by mouth every twenty-four hours at mealtime metFORMIN XR (Glucophage-XR) 500 MG 24 hr tablet Indications: Irregular periods/menstrual cycles Take 1 tablet (500 mg) by mouth in the evening. Take with meals Do not crush, chew, or split. 30 tablet 11 10/09/2024 10/09/2025 Active omeprazole 20 mg delayed release oral capsule (4 sources) Proton Pump Inhibitor Start: 02-22-2024 End: 02-21-2025 take 1 capsule by mouth before mealtime omeprazole (PriLOSEC) [address] capsule Indications: Gastroesophageal reflux disease with esophagitis without hemorrhage Take 1 capsule (20 mg) by mouth in the morning. Take before meals. Do not crush or chew.. 30 capsule 11 02/22/2024 02/21/2025 Active Problems Active Problems Problem Classification Problem Date Documented Da te Episodic/Chronic Esophageal disorders (4 sources) Gastro-esophageal reflux disease with esophagitis; Translations: [Gastroesophageal reflux disease with esophagitis without hemorrhage] Onset: 02-22-2024 02-22-2024 Chronic Menstrual disorders (4 sources) Irregular periods; Translations: [Irregular menstruation, unspecified] 10-09-2024 Chronic Unclassified (1 source) Encounter for general adult medical examination without abnormal findings; Translations: [Encounter for general adult medical examination without abnormal findings] Onset: 06-22-2023 Past or Other Problems Problem Classification Problem Date Documented Date Episodic/Chronic Contraceptive and procreative management (4 sources) Patient encounter status; Translations: [Encounter for other general counseling and advice on contraception] Onset: 10-28-2023 02-22-2024 Episodic Other complications of (4 sources) Bacterial vaginosis in ; Translations: [Infection of other part of genital tract in , unspecified trimester] Onset: 10-28-2023 Resolved: 04-19-2024 05-04-2024 Episodic Other female genital disorders (4 sources) Vaginal discharge; Translations: [Other specified noninflammatory disorders of vagina] Onset: 10-28-2023 10-28-2023 Episodic Other and delivery including normal (4 sources) First trimester ; Translations: [Encounter for supervision of normal , unspecified, first trimester] Onset: 10-28-2023 Resolved: 04-19-2024 05-04-2024 Episodic Results Test Name Value Interpretation Reference Range Facility ALL CBC WITH AUTO DIFFon BASOPHILS ABSOLUTE AUTO 0 [facility] Basophils/100 WBC (Bld) 0.5 % 0.2 - 2.0 % [facility] Eosinophils/100 WBC (Bld) 1.1 % 0.9 - 7.0 % [facility] Erythrocyte distribution width (RBC) [Ratio] 13.5 % 11.0 - 15.0 % [facility] Hematocrit (Bld) [Volume fraction] 43 % 36.0 - 48.0 % [facility] Hemoglobin (Bld) [Mass/Vol] 13.9 g/dL 12.0 - 16.0 g/dL [facility] IMMATURE GRANULOCYTES ABS AUTO 0.03 [facility] Immature granulocytes/100 WBC (Bld) 0.4 % 0.0 - 0.5 % [facility] LYMPHOCYTES ABSOLUTE AUTO 2 [facility] Lymphocytes/100 WBC (Bld) 24.4 % 20.5 - 60.0 % [facility] MCH (RBC) [Entitic mass] 28.5 pg 26. 7 - 34.0 pg [facility] MCHC (RBC) [Mass/Vol] 32.3 g/dL 29.9 - 35.2 g/dL [facility] MCV (RBC) [Entitic vol] 88.1 fL 81.0 - 99.0 fL [facility] MONOCYTES ABSOLUTE AUTO 0.4 [facility] Monocytes/100 WBC (Bld) 5.2 % 1.7 - 12.0 % [facility] NEUTROPHILS ABSOLUTE AUTO 5.6 [facility] Neutrophils/100 WBC (Bld) 68.4 % 43.0 - 75.0 % [facility] Platelet mean volume (Bld) [Entitic vol] 9.6 fL 9.5 - 13.5 fL [facility] TB EO # 0.1 [facility] TB PLT 255 [facility] RBC 4.88 [facility] TB WBC 8.2 [facility] HCG ( test) Ql (U)o n 10-09-2024 Interpretation and review of laboratory results Normal [facility] Preg Test, Ur Negative Negative [facility] Basophils Auto (Bld) [#/Vol] on 04-20-2024 Basophils (Bld) [#/Vol] 0.0 10 3/uL 0.0-0.1 [facility] Basophils/100 WBC Auto (Bld) on 04-20-2024 Basophils/100 WBC (Bld) 0.2 % 0.2-2.0 [facility] Eosinophils/100 WBC Auto (Bl d)on 04-20-2024 Eosinophils/100 WBC (Bld) 0.0 % 0.9-7.0 [facility] Erythrocyte distribution wid th Auto (RBC) [Ratio]on 04-20-2024 Erythrocyte distribution width (RBC) [Ratio] 13.1 % 11.0-15.0 [facility] Hematocrit Auto (Bld) [Volum e fraction]on 04-20-2024 Hematocrit (Bld) [Volume fraction] 31.2 % 36.0-48.0 [facility] Hemoglobin [Mass/volume] in Bloodon 04-20-2024 Hemoglobin (Bld) [Mass/Vol] 10.3 g/dL 12.0-16.0 [facility] Laboratory - Hematology and Cell countson 04-20-2024 Immature granulocytes/100 WBC (Bld) 0.8 % 0.0-0.5 [facility] Leukocytes [#/volume] correc wilber for nucleated erythrocytes in Blood by Automated counon 04-20-2024 WBC corrected for nucl RBC Auto (Bld) [#/Vol] 20.7 10 3/uL 4.0-11.0 [facility] Lymphocytes Auto (Bld) [#/Vo l]on 04-20-2024 Lymphocytes (Bld) [#/Vol] 1.4 10 3/uL 1.2-3.8 [facility] Lymphocytes/100 WBC Auto (Bl d)on 04-20-2024 Lymphocytes/100 WBC (Bld) 7.0 % 20.5-60.0 [facility] MCH Auto (RBC) [Entitic mass ]on 04-20-2024 MCH (RBC) [Entitic mass] 28.9 pg 26.7-34.0 [facility] MCHC Auto (RBC) [Mass/Vol]on 04-20-2024 MCHC (RBC) [Mass/Vol] 33.0 g/dL 29.9-35.2 [facility] MCV Auto (RBC) [Entitic vol] on 04-20-2024 MCV (RBC) [Entitic vol] 87.6 fL 81.0-99.0 [facility] Monocytes Auto (Bld) [#/Vol] on 04-20-2024 Monocytes (Bld) [#/Vol] 0.8 10 3/uL 0.3-0.8 [facility] Monocytes/100 WBC Auto (Bld) on 04-20-2024 Monocytes/100 WBC (Bld) 3.9 % 1.7-12.0 [facility] Neutrophils Auto (Bld) [#/Vo l]on 04-20-2024 Neutrophils (Bld) [#/Vol] 18.3 10 3/uL 1.4-6.5 [facility] Neutrophils/100 WBC Auto (Bl d)on 04-20-2024 Neutrophils/100 WBC (Bld) 88.1 % 43.0-75.0 [facility] No Panel Informationon 04-20 Eosinophils # (Auto) 0.0 10 3/uL 0.0-0.7 [facility] Immature Granulocyte # (Auto) 0.17 10 3/uL 0.00-0.03 [facility] Platelet mean volume Auto (B ld) [Entitic vol]on 04-20-2024 Platelet mean volume (Bld) [Entitic vol] 10.6 fL 9.5-13.5 [facility] Platelets Auto (Bld) [#/Vol] on 04-20-2024 Platelets (Bld) [#/Vol] 218 10 3/uL 150-450 [facility] RBC Auto (Bld) [#/Vol]on RBC (Bld) [#/Vol] 3.56 10 6/uL 4.20-5.40 [facility] Activated partial thrombopla stin time (aPTT) in platelet poor plasma by coagulation aon 04-19-2024 aPTT Coag (PPP) [Time] 24.8 s 22.3-36.2 [place] Basophils Auto (Bld) [#/Vol] on 04-19-2024 Basophils (Bld) [#/Vol] 0.0 10 3/uL 0.0-0.1 [facility] Basophils/100 WBC Auto (Bld) on 04-19-2024 Basophils/100 WBC (Bld) 0.2 % 0.2-2.0 [facility] Buprenorphine [Presence] in Urineon 04-19-2024 Buprenorphine Ql (U) Negative NEGATIVE [facility] Comment on above: DRUG CLASS TEST SYST EM CUT-OFF CONCENTRATIONS ARE ASFOLLOWS:AMP (Amphetamine): 500 ng/mLBAR (Barbiturates): 200 ng/mLBZO (Benzodiazepines): 150 ng/mLBUP (Buprenorphine): 10 ng/mLCOC (Cocaine): 150 ng/mLmAMP (Methamphetamine): 500 ng/mLMTD (Methadone): 200 ng/mLOPI (Opiates): 100 ng/mLOXY (Oxycodone): 100 ng/mLPCP (Phencyclidine): 25 ng/mLTHC (Cannabinoids): 50 ng/mLTCA (Trycyclic Antidepressants): 300 ng/mL Eosinophils/100 WBC Auto (Bl d)on 04-19-2024 Eosinophils/100 WBC (Bld) 0.3 % 0.9-7.0 [facility] Erythrocyte distribution wid th Auto (RBC) [Ratio]on 04-19-2024 Erythrocyte distribution width (RBC) [Ratio] 13.2 % 11.0-15.0 [facility] Estimated glomerular filtrat ion rate (GFR) non- Americanon 04-19-2024 GFR/1.73 sq M.predicted among non-blacks MDRD (S/P/Bld) [Vol rate/Area] mL/min/{1.73_m2} >=60 [facility] Fibrinogen [Mass/volume] in Platelet poor plasma by Coagulation assayon 04-19-2024 Fibrinogen Coag (PPP) [Mass/Vol] 540 mg/dL 200-400 [facility] Hematocrit Auto (Bld) [Volum e fraction]on 04-19-2024 Hematocrit (Bld) [Volume fraction] 34.4 % 36.0-48.0 [facility] Hemoglobin [Mass/volume] in Bloodon 04-19-2024 Hemoglobin (Bld) [Mass/Vol] 11.2 g/dL 12.0-16.0 [facility] INR in Platelet poor plasma by Coagulation assayon 04-19-2024 INR Coag (PPP) [Relative time] {INR} [facility] Comment on above: DESIRED INR:2.0-3.0 CONDITIONS NOT LISTED BELOW2.5-3.5 FOR PROSTHETIC HEART VALVE REPLACEMENT2.5-3.5 RECURRENT THROMBOSIS Ray 04-19-2024 L Specimen: [id number] Received: 04/20/24 Status: TANNERAntonio Valdez Num: [id number] Spec Type: Surgical Subm Dr: Addie Jin Tissues: A Fallopian Tube - Sterilization (BILATERAL FT) B Placenta - 3rd Trimester (Greater than 28 weeks) (PLACENTA) Procedures: HE/7, Gross/Micro L5, Gross/Micro L2 Age/ Patient Sex Location Account Attending Physician Cynthia Givens 28/ LABELL [id number] Addie Jin SPEC NUM: [id number] RECD: 04/20/24 STATUS: SHANNEN VALDEZ NUM: [id number] CRISTIANA: 04/19/[address]: Addie Jin ENTERED: 04/20/[address] [facility] [address]: Tanja,Lab SPEC TYPE: Surgical DEPT: LO COSTELLO ORDERED: HE/7, Gross/Micro L5, Gross/Micro L2 ORDERED: HE/7, Gross/Micro L5, Gross/Micro L2 Pathological Diagnosis A. Bilateral fallopian tubes, resection: No significant pathologic abnormality. B. Placenta, With: Umbilical Cord: Three Vessel Cord, Unremarkable. Membranes: Unremarkable. Placenta: Mature Chorionic Villi, Consistent With Third Trimester Placenta. No Parenchymal Lesions Are Identified. Clinical Information G2, P1, Apgars 8/9. GA 37w 3d. Previous section, request for sterilization, mild preeclampsia. Gross Description A. Received in formalin labeled with the patient's name, date of and bilateral fallopian tubes are 2 undesignated fimbriated fallopian tubes assigned as #1 and #2. Each tube is covered by gaines-purple serosa containing multiple paratubal cysts ranging from 0.1 to 0.2 cm. Tube #1 measures 10.6 cm in length by 0.4-0.7 cm in diameter and tube #2 measures 11.5 cm in length by 0.4 to 0.6 cm in diameter. Cut sections for each tube demonstrate an intact luminal center lined by unremarkable gaines mucosa. Cupola Liner sections of each tube are submitted in A1 (tube #1) and A2 (tube #2). B. Received in formalin is a rivero, fused bilobed placental disc with minimal attached -------- Specimen: [id number] Received: 04/20/24 Status: SHANNEN Valdez Num: [id number] Spec Type: Surgical Subm Dr: Addie Jin Tissues: A Fallopian Tube - Sterilization (BILATERAL FT) B Placenta - 3rd Trimester (Greater than 28 weeks) (PLACENTA) Procedures: HE/Saritha, Gross/Micro L5, Gross/Micro L2 -------- Patient: Cynthia Givens [id number] (Continued) -------- Specimen: [id number] Received: 04/20/24 (Continued) Gross Description (Continued) Signed (signature on file) Jean Jarquin MD 04/26/24 1428 -------- Specimen: [id number] Received: 04/20/24 Status: SHANNEN Valdez Num: [id number] Spec Type: Surgical Subm Dr: Addie Jin Tissues: A Fallopian Tube - Sterilization (BILATERAL FT) B Placenta - 3rd Trimester (Greater than 28 weeks) (PLACENTA) Procedures: , Gross/Micro L5, Gross/Micro L2 -------- Patient: Cynthia Givens [id number] (Continued) -------- Specimen: [id number] Received: 04/20/24 (Continued) Gross Description (Continued) membranes, and attached umbilical cord. The 17.4 x 1.1 cm, three-vessel, gaines umbilical cord inserts eccentrically into the chorionic plate of the larger disc, 3.3 cm from the placental disc margin. The cord has normal spiraling with no knots or lesions present. The marginally inserted, complete membranes are gaines, slippery and translucent with the point of rupture from the disc margin I cannot be determined due to ragged appearance. Intramembranous blood vessels are absent. The chorionic plate is watts-blue with patent vessels that span out magistrally over the surface. The maternal surface has intact, lobulated cotyledons. No loose or adherent blood clot is attached to the placental disc. The parenchyma is pink-red and spongiform The 16.6 x 12.9 x 1.9 cm larger lobe, 14.1 x 10.3 x 1.6 cm smaller lobe devoid of membranes and cord, have a total trimmed weight of 374 grams. Summary of sections: B1: umbilical cord at end and membrane roll including possible site of rupture B2: umbilical cord at placental end and parenchyma adjacent to cord insertion site on larger lobe B3: random mid-zonal section of larger lobe B4?B5: Random midzonal sections of smaller lobe CPT Codes [id number] -------- -------- (more content not included)... Normal [facility] Laboratory - Chemistry and C hemistry - challengeon 04-19-2024 ALT [Catalytic activity/Vol] 18 U/L 14-59 [facility] AST [Catalytic activity/Vol] 16 U/L 15-37 [facility] Creatinine [Mass/Vol] 0.93 mg/dL 0.55-1.02 [facility] GFR/1.73 sq M.predicted MDRD (S/P/Bld) [Vol rate/Area] mL/min/{1.73_m2} >=60 [facility] LDH [Catalytic activity/Vol] 197 U/L 81-234 [facility] Urate [Mass/Vol] 5.2 mg/dL 2.6-6.0 [facility] Urea nitrogen [Mass/Vol] 10.0 mg/dL 7.0-18.0 [facility] Laboratory - Drug toxicology on 04-19-2024 Amphetamines Ql (U) Negative NEGATIVE [facility] Benzod[facility]ines Ql (U) Negative NEGATIVE [facility] Cocaine Ql (U) Negative NEGATIVE [facility] Opiates Ql (U) Negative NEGATIVE [facility] Phencyclidine Ql (U) Negative NEGATIVE [facility] Laboratory - Hematology and Cell countson 04-19-2024 Immature granulocytes/100 WBC (Bld) 0.9 % 0.0-0.5 [facility] Leukocytes [#/volume] correc wilber for nucleated erythrocytes in Blood by Automated counon 04-19-2024 WBC corrected for nucl RBC Auto (Bld) [#/Vol] 13.0 10 3/uL 4.0-11.0 [facility] Lymphocytes Auto (Bld) [#/Vo l]on 04-19-2024 Lymphocytes (Bld) [#/Vol] 1.9 10 3/uL 1.2-3.8 [facility] Lymphocytes/100 WBC Auto (Bl d)on 04-19-2024 Lymphocytes/100 WBC (Bld) 14.4 % 20.5-60.0 [facility] MCH Auto (RBC) [Entitic mass ]on 04-19-2024 MCH (RBC) [Entitic mass] 28.8 pg 26.7-34.0 [facility] MCHC Auto (RBC) [Mass/Vol]on 04-19-2024 MCHC (RBC) [Mass/Vol] 32.6 g/dL 29.9-35.2 [facility] MCV Auto (RBC) [Entitic vol] on 04-19-2024 MCV (RBC) [Entitic vol] 88.4 fL 81.0-99.0 [facility] Methadone [Presence] in Urin e by Screen methodon 04-19-2024 Methadone Screen Ql (U) Negative NEGATIVE [facility] Monocytes Auto (Bld) [#/Vol] on 04-19-2024 Monocytes (Bld) [#/Vol] 0.8 10 3/uL 0.3-0.8 [facility] Monocytes/100 WBC Auto (Bld) on 04-19-2024 Monocytes/100 WBC (Bld) 6.2 % 1.7-12.0 [facility] Neutrophils Auto (Bld) [#/Vo l]on 04-19-2024 Neutrophils (Bld) [#/Vol] 10.2 10 3/uL 1.4-6.5 [facility] Neutrophils/100 WBC Auto (Bl d)on 04-19-2024 Neutrophils/100 WBC (Bld) 78.0 % 43.0-75.0 [facility] No Panel Informationon 04-19 Urine Barbiturates Screen Negative NEGATIVE [facility] Urine Marijuana (THC) Screen Negative NEGATIVE [facility] Urine Methamphetamines Screen Negative NEGATIVE [facility] Eosinophils # (Auto) 0.0 10 3/uL 0.0-0.7 [facility] Immature Granulocyte # (Auto) 0.12 10 3/uL 0.00-0.03 [facility] Platelet mean volume Auto (B ld) [Entitic vol]on 04-19-2024 Platelet mean volume (Bld) [Entitic vol] 10.7 fL 9.5-13.5 [facility] Platelets Auto (Bld) [#/Vol] on 04-19-2024 Platelets (Bld) [#/Vol] 235 10 3/uL 150-450 [facility] Prothrombin time (PT)on 04-08 PT Coag (PPP) [Time] 9.7 s 9.0-11.6 [facility] RBC Auto (Bld) [#/Vol]on RBC (Bld) [#/Vol] 3.89 10 6/uL 4.20-5.40 [facility] Urine tricyclic antidepressa nt measurementon 04-19-2024 Tricyclic antidepressants (U) [Mass/Vol] Negative NEGATIVE [facility] oxyCODONE+oxyMORphone [Prese nce] in Urine by Screen methodon 04-19-2024 oxyCODONE+oxyMORphone Screen Ql (U) Negative NEGATIVE [facility] Alanine aminotransferase [En zymatic activity/volume] in Serum or PlasmaOrdered By: Sherry Nielsen on 06-22-2023 ALT [Catalytic activity/Vol] 14 U/L Normal 7-52 [facility] Comment on above: Order Comment: Reaso n for Exam Well adult exam Performed By: #### F E PRO, CMP wRFX A1C, TSH3, [id number], [id number], CBC, LIPID #### [facility] [address] [place] [address] [place] Albumin [Mass/volume] in Ser um or Plasma by Bromocresol green (BCG) dye binding methoOrdered By: Sherry Nielsen on 06-22-2023 Albumin BCG dye [Mass/Vol] 4.3 g/dL 3.5-5.7 [facility] Alkaline phosphatase [Enzyma tic activity/volume] in Serum or PlasmaOrdered By: Sherry Nielsen on 06-22-2023 ALP [Catalytic activity/Vol] 88 U/L Normal 34-104 [facility] Comment on above: Order Comment: Reaso n for Exam Well adult exam Performed By: #### F E PRO, CMP wRFX A1C, TSH3, [id number], [id number], CBC, LIPID #### [facility] [address] [place] [address] [place] Aspartate aminotransferase [ Enzymatic activity/volume] in Serum or PlasmaOrdered By: Sherry Nielsen on 06-22-2023 AST [Catalytic activity/Vol] 15 U/L Normal 13-39 [facility] Comment on above: Order Comment: Reaso n for Exam Well adult exam Performed By: #### F E PRO, CMP wRFX A1C, TSH3, [id number], [id number], CBC, LIPID #### [facility] [address] [place] [address] [place] Automated basophil %Ordered By: Sherry Nielsen on 06-22-2023 Basophils/100 WBC (Bld) 0.5 % Normal . [facility] Comment on above: Order Comment: Reaso n for Exam Well adult exam Performed By: #### F E PRO, CMP wRFX A1C, TSH3, [id number], [id number], CBC, LIPID #### [facility] [address] [place] [address] Automated basophil countOrde red By: Sherry Nielsen on 06-22-2023 Basophils (Bld) [#/Vol] 0.0 10*3/uL Normal 0.0-0.2 [facility] Comment on above: Order Comment: Reaso n for Exam Well adult exam Result Comment: PERF ORMED BY: [place] [address] PATHOLOGIST [employer] GLORIA MESA M.D. Performed By: #### F E PRO, CMP wRFX A1C, TSH3, [id number], [id number], CBC, LIPID #### [address] Automated blood monocyte cou ntOrdered By: Sherry Nielsen on 06-22-2023 Monocytes (Bld) [#/Vol] 0.5 10*3/uL Normal 0.0-0.8 [facility] Comment on above: Order Comment: Reaso n for Exam Well adult exam Performed By: #### F E PRO, CMP wRFX A1C, TSH3, [id number], [id number], CBC, LIPID #### [address] Automated eosinophil %Ordere d By: Sherry Nielsen on 06-22-2023 Eosinophils/100 WBC (Bld) 2.2 % Normal . [facility] Comment on above: Order Comment: Reaso n for Exam Well adult exam Performed By: #### F E PRO, CMP wRFX A1C, TSH3, [id number], [id number], CBC, LIPID #### [address] Automated eosinophil countOr dered By: Sherry Nielsen on 06-22-2023 Eosinophils (Bld) [#/Vol] 0.1 10*3/uL Normal 0.0-0.45 [facility] Comment on above: Order Comment: Reaso n for Exam Well adult exam Performed By: #### F E PRO, CMP wRFX A1C, TSH3, [id number], [id number], CBC, LIPID #### [facility] [address] Automated monocyte %Ordered By: Sherry Nielsen on 06-22-2023 Monocytes/100 WBC (Bld) 7.9 % Normal . [facility] Comment on above: Order Comment: Reaso n for Exam Well adult exam Performed By: #### F E PRO, CMP wRFX A1C, TSH3, [id number], [id number], CBC, LIPID #### [facility] [address] Automated neutrophil %Ordere d By: Sherry Nielsen on 06-22-2023 Neutrophils/100 WBC (Bld) 54.8 % Normal . [facility] Comment on above: Order Comment: Reaso n for Exam Well adult exam Performed By: #### F E PRO, CMP wRFX A1C, TSH3, [id number], [id number], CBC, LIPID #### [facility] [address] Bilirubin.total [Mass/volume ] in Serum or PlasmaOrdered By: Sherry Nielsen on 06-22-2023 Bilirubin [Mass/Vol] 1.1 mg/dL High 0.3-1.0 [facility] Comment on above: Order Comment: Reaso n for Exam Well adult exam Performed By: #### F E PRO, CMP wRFX A1C, TSH3, [id number], [id number], CBC, LIPID #### [facility] [address] CMP with reflex to A1Con Albumin [Mass/Vol] 4.3 g/dL Normal 3.5-5.7 [facility] Comment on above: Order Comment: Reaso n for Exam Well adult exam Performed By: #### F E PRO, CMP wRFX A1C, TSH3, [id number], [id number], CBC, LIPID #### [facility] [address] [place] [address] [place] GFR/1.73 sq M.predicted MDRD (S/P/Bld) [Vol rate/Area] mL/min/{1.73_m2} Normal [facility] Comment on above: Order Comment: Reaso n for Exam Well adult exam Performed By: #### F E PRO, CMP wRFX A1C, TSH3, [id number], [id number], CBC, LIPID #### [facility] [address] [place] [address] [facility] Calcium [Mass/volume] in Ser um or PlasmaOrdered By: Sherry Nielsen on 06-22-2023 Calcium [Mass/Vol] 9.3 mg/dL Normal 8.6-10.3 [facility] Comment on above: Order Comment: Reaso n for Exam Well adult exam Performed By: #### F E PRO, CMP wRFX A1C, TSH3, [id number], [id number], CBC, LIPID #### [facility] [address] [place], [place] [id number] [facility] [facility] Carbon dioxide, total [Moles /volume] in Serum or PlasmaOrdered By: Sherry Nielsen on 06-22-2023 CO2 [Moles/Vol] 27.1 mmol/L Normal 21.0-31.0 [facility] Comment on above: Order Comment: Reaso n for Exam Well adult exam Performed By: #### F E PRO, CMP wRFX A1C, TSH3, [id number], [id number], CBC, LIPID #### [facility] [address] [place], [place] [id number] [place] Chloride [Moles/volume] in S adriano or PlasmaOrdered By: Sherry Nielsen on 06-22-2023 Chloride [Moles/Vol] 105 mmol/L Normal 98-107 [facility] Comment on above: Order Comment: Reaso n for Exam Well adult exam Performed By: #### F E PRO, CMP wRFX A1C, TSH3, [id number], [id number], CBC, LIPID #### [facility] [address] Cholesterol [Mass/volume] in Serum or PlasmaOrdered By: Sherry Nielsen on 06-22-2023 Cholesterol [Mass/Vol] 149 mg/dL Normal 140-200 [place] Comment on above: Chol less than 200 m g/dl low riskChol 201-239 mg/dl borderline riskChol 240 mg/dl and greater high risk Order Comment: Reaso n for Exam Well adult exam Result Comment: Chol less than 200 mg/dl low risk Chol 201-239 mg/dl borderline risk Chol 240 mg/dl and greater high risk Performed By: #### F E PRO, CMP wRFX A1C, TSH3, [id number], [id number], CBC, LIPID #### [facility] [address] Cholesterol in LDL Calc [Mas s/Vol]Ordered By: Sehrry Nielsen on 06-22-2023 Cholesterol in LDL [Mass/Vol] 70 mg/dL 0-100 [facility] Comment on above: LDL ATP III CLASSIFI CATIONLDL less than 100 mg/dL OptimalLDL 100-129 mg/dL Near or above optimalLDL 130-159 mg/dL Borderline highLDL 160-189 mg/dL HighLDL greater than 189 mg/dL Very high Cholesterol in VLDL Calc [Ma ss/Vol]Ordered By: Sherry Nielsen on 06-22-2023 Cholesterol in VLDL [Mass/Vol] 16 mg/dL [facility] Complete Blood Count Auto Di ffon 06-22-2023 Mean Corpuscular HGB Conc 33.6 g/dL Normal 32.0-35.0 [facility] Comment on above: Order Comment: Reaso n for Exam Well adult exam Performed By: #### F E PRO, CMP wRFX A1C, TSH3, [id number], [id number], CBC, LIPID #### [facility] [address] [place] [id number] [facility] NRBC% 0.3 /100{WBC} Normal 0-0.5 [facility] Comment on above: Order Comment: Reaso n for Exam Well adult exam Performed By: #### F E PRO, CMP wRFX A1C, TSH3, [id number], [id number], CBC, LIPID #### [facility] [address] [place] [address] [facility] Creatinine [Mass/volume] in Serum or PlasmaOrdered By: Sherry Nielsen on 06-22-2023 Creatinine [Mass/Vol] 0.90 mg/dL Normal 0.60-1.20 [facility] Comment on above: Order Comment: Reaso n for Exam Well adult exam Performed By: #### F E PRO, CMP wRFX A1C, TSH3, [id number], [id number], CBC, LIPID #### [facility] [address] [place] [address] [place] Erythrocyte distribution wid th [Ratio] by Automated countOrdered By: Sherry Nielsen on 06-22-2023 Erythrocyte distribution width (RBC) [Ratio] 12.6 % Normal 11.9-15.3 [facility] Comment on above: Order Comment: Reaso n for Exam Well adult exam Performed By: #### F E PRO, CMP wRFX A1C, TSH3, [id number], [id number], CBC, LIPID #### [facility] [address] [place] [address] [facility] Erythrocytes [#/volume] in B lood by Automated countOrdered By: Sherry Nielsen on 06-22-2023 RBC (Bld) [#/Vol] 4.58 10*6/uL Normal 3.60-5.00 [facility] Comment on above: Order Comment: Reaso n for Exam Well adult exam Performed By: #### F E PRO, CMP wRFX A1C, TSH3, [id number], [id number], CBC, LIPID #### [facility] [address] [place] [address] [place] FE PROon 06-22-2023 % Iron Saturation 34.8 % Normal 20-50 [facility] Comment on above: Order Comment: Reaso n for Exam Well adult exam Performed By: #### F E PRO, CMP wRFX A1C, TSH3, [id number], [id number], CBC, LIPID #### [facility] [address] [place] [address] [place] Total Iron Binding Capacity 351 ug/dL Normal 255-450 [facility] Comment on above: Order Comment: Reaso n for Exam Well adult exam Performed By: #### F E PRO, CMP wRFX A1C, TSH3, [id number], [id number], CBC, LIPID #### [facility] [address] [place] [address] [facility] Ferritin [Mass/volume] in Se rum or PlasmaOrdered By: Sherry Nielsen on 06-22-2023 Ferritin [Mass/Vol] 33.1 ng/mL Normal 11.0-306.8 [facility] Comment on above: Order Comment: Reaso n for Exam Well adult exam Performed By: #### F E PRO, CMP wRFX A1C, TSH3, [id number], [id number], CBC, LIPID #### [facility] [address] [place] [address] [facility] Folate [Mass/volume] in Seru m or PlasmaOrdered By: Sherry Nielsen on 06-22-2023 Folate [Mass/Vol] 23.0 ng/mL >5.9 [facility] Comment on above: Folate reference ran ge: >5.9 ng/mlThe WHO technical consultation on folate and vitamin [id number] has determined that folate concentrations lessthan 4 ng/ml are considered deficient. Glucose [Mass/volume] in Ser um or PlasmaOrdered By: Sherry Nielsen on 06-22-2023 Glucose [Mass/Vol] 94 mg/dL Normal 70-100 [facility] Comment on above: Order Comment: Reaso n for Exam Well adult exam Performed By: #### F E PRO, CMP wRFX A1C, TSH3, [id number], [id number], CBC, LIPID #### [facility] [address] [place] [address] [place] Hematocrit [Volume Fraction] of Blood by Automated countOrdered By: Sherry Nielsen on 06-22-2023 Hematocrit (Bld) [Volume fraction] 41.6 % Normal 34.0-46.4 [facility] Comment on above: Order Comment: Reaso n for Exam Well adult exam Performed By: #### F E PRO, CMP wRFX A1C, TSH3, [id number], [id number], CBC, LIPID #### [facility] [address] [place] [id number] [place] Hemoglobin [Mass/volume] in BloodOrdered By: Sherry Nielsen on 06-22-2023 Hemoglobin (Bld) [Mass/Vol] 14.0 g/dL Normal 11.8-15.4 [facility] Comment on above: Order Comment: Reaso n for Exam Well adult exam Performed By: #### F E PRO, CMP wRFX A1C, TSH3, [id number], [id number], CBC, LIPID #### [facility] [address] [place] [id number] [place] Iron [Mass/volume] in Serum or PlasmaOrdered By: Sherry Nielsen on 06-22-2023 Iron [Mass/Vol] 122 ug/dL Normal 50-212 [facility] Comment on above: Order Comment: Reaso n for Exam Well adult exam Performed By: #### F E PRO, CMP wRFX A1C, TSH3, [id number], [id number], CBC, LIPID #### [facility] [address] [place] [id number] [facility] Iron binding capacity [Mass/ volume] in Serum or PlasmaOrdered By: Sherry Nielsen on 06-22-2023 Iron binding capacity [Mass/Vol] 351 ug/dL 255-450 [facility] Iron saturation [Mass Fracti on] in Serum or PlasmaOrdered By: Sherry Nielsen on 06-22-2023 Iron saturation [Mass fraction] 34.8 % 20-50 [facility] Leukocytes [#/volume] correc wilber for nucleated erythrocytes in Blood by Automated counOrdered By: Sherry Nielsen on 06-22-2023 WBC corrected for nucl RBC Auto (Bld) [#/Vol] 6.1 10*3/uL 3.8-11.6 [facility] Leukocytes [#/volume] in Blo od by Automated countOrdered By: Sherry Nielsen on 06-22-2023 WBC (Bld) [#/Vol] 6.1 10*3/uL Normal 3.8-11.6 [facility] Comment on above: Order Comment: Reaso n for Exam Well adult exam Performed By: #### F E PRO, CMP wRFX A1C, TSH3, [id number], [id number], CBC, LIPID #### [facility] [address] [place] [id number] [facility] Lipid Panelon 06-22-2023 LDL Cholesterol,Calculated 70 mg/dL Normal 0-100 The Count includes the [facility] Comment on above: Order Comment: Reaso n for Exam Well adult exam Result Comment: LDL ATP III CLASSIFICATION LDL less than 100 mg/dL Optimal LDL 100-129 mg/dL Near or above optimal LDL 130-159 mg/dL Borderline high LDL 160-189 mg/dL High LDL greater than 189 mg/dL Very high Performed By: #### F E PRO, CMP wRFX A1C, TSH3, [id number], [id number], CBC, LIPID #### [facility] [address] Triglyceride w/Reflex 82 mg/dL Normal 0-149 [facility] Comment on above: Order Comment: [...] F E PRO, CMP wRFX A1C, TSH3, [id number], [id number], CBC, LIPID #### [facility] [address] [place] [id number] [facility] VLDL CHOLESTEROL 16 mg/dL Normal [facility] Comment on above: Order Comment: Reaso n for Exam Well adult exam Performed By: #### F E PRO, CMP wRFX A1C, TSH3, [id number], [id number], CBC, LIPID #### [facility] [address] [place] [id number] [facility] Lymphocytes [#/volume] in Bl ood by Automated countOrdered By: Sherry Nielsen on 06-22-2023 Lymphocytes (Bld) [#/Vol] 2.1 10*3/uL Normal 1.00-4.8 [facility] Comment on above: Order Comment: Reaso n for Exam Well adult exam Performed By: #### F E PRO, CMP wRFX A1C, TSH3, [id number], [id number], CBC, LIPID #### [facility] [address] Lymphocytes/100 leukocytes i n Blood by Automated countOrdered By: Sherry Nielsen on 06-22-2023 Lymphocytes/100 WBC (Bld) 34.6 % Normal . [facility] Comment on above: Order Comment: Reaso n for Exam Well adult exam Performed By: #### F E PRO, CMP wRFX A1C, TSH3, [id number], [id number], CBC, LIPID #### [address] MCH [Entitic mass] by Automa wilber countOrdered By: Sherry Nielsen on 06-22-2023 MCH (RBC) [Entitic mass] 30.5 pg Normal 24.7-34.3 [facility] Comment on above: Order Comment: Reaso n for Exam Well adult exam Performed By: #### F E PRO, CMP wRFX A1C, TSH3, [id number], [id number], CBC, LIPID #### [address] MCHC Auto (RBC) [Mass/Vol]Or dered By: Sherry Nielsen on 06-22-2023 MCHC (RBC) [Mass/Vol] 33.6 g/dL 32.0-35.0 [facility] MCV [Entitic volume] by Auto mated countOrdered By: Sherry Nielsen on 06-22-2023 MCV (RBC) [Entitic vol] 90.9 fL Normal 80-100 [facility] Comment on above: Order Comment: Reaso n for Exam Well adult exam Performed By: #### F E PRO, CMP wRFX A1C, TSH3, [id number], [id number], CBC, LIPID #### [place] [address] [place] Neutrophils [#/volume] in Bl ood by Automated countOrdered By: Sherry Nielsen on 06-22-2023 Neutrophils (Bld) [#/Vol] 3.4 10*3/uL Normal 1.8-7.7 [facility] Comment on above: Order Comment: Reaso n for Exam Well adult exam Performed By: #### F E PRO, CMP wRFX A1C, TSH3, [id number], [id number], CBC, LIPID #### [facility] [address] No Panel InformationOrdered By: Sherry Nielsen on 06-22-2023 Estimated GFR (CKD-EPI) > 60.0 mL/Min [facility] Creatinine Clearance (Chem N/A [facility] Nucleated erythrocytes [Pres ence] in Blood by Automated countOrdered By: Sherry Nielsen on 06-22-2023 Nucleated RBC Auto Ql (Bld) 0.3 /100{WBC} 0-0.5 [facility] Platelet mean volume [Entiti c volume] in Blood by Automated countOrdered By: Sherry Nielsen on 06-22-2023 Platelet mean volume (Bld) [Entitic vol] 8.8 fL Normal 6.3-10.7 [facility] Comment on above: Order Comment: Reaso n for Exam Well adult exam Performed By: #### F E PRO, CMP wRFX A1C, TSH3, [id number], [id number], CBC, LIPID #### [facility] [address] [place] [address] [place] Platelets [#/volume] in Bloo d by Automated countOrdered By: Sherry Nielsen on 06-22-2023 Platelets (Bld) [#/Vol] 219 10*3/uL Normal 150-450 [facility] Comment on above: Order Comment: Reaso n for Exam Well adult exam Performed By: #### F E PRO, CMP wRFX A1C, TSH3, [id number], [id number], CBC, LIPID #### [facility] [address] Potassium [Moles/volume] in Serum or PlasmaOrdered By: Sherry Nielsen on 06-22-2023 Potassium [Moles/Vol] 4.3 mmol/L Normal 3.5-5.1 [facility] Comment on above: Order Comment: Reaso n for Exam Well adult exam Performed By: #### F E PRO, CMP wRFX A1C, TSH3, [id number], [id number], CBC, LIPID #### [facility] [address] Protein [Mass/volume] in Ser um or PlasmaOrdered By: Sherry Nielsen on 06-22-2023 Protein [Mass/Vol] 7.4 g/dL Normal 6.4-8.9 [facility] Comment on above: Order Comment: Reaso n for Exam Well adult exam Performed By: #### F E PRO, CMP wRFX A1C, TSH3, [id number], [id number], CBC, LIPID #### [facility] [address] Serum globulin measurement b y calculation (mass/volume)Ordered By: Sherry Nielsen on 06-22-2023 Globulin (S) [Mass/Vol] 3.1 g/dL Normal [facility] Comment on above: Order Comment: Reaso n for Exam Well adult exam Performed By: #### F E PRO, CMP wRFX A1C, TSH3, [id number], [id number], CBC, LIPID #### [facility] [address] Serum or plasma albumin/glob ulin mass ratioOrdered By: Sherry Nielsen on 06-22-2023 Albumin/Globulin [Mass ratio] 1.4 {ratio} Normal [facility] Comment on above: Order Comment: Reaso n for Exam Well adult exam Performed By: #### F E PRO, CMP wRFX A1C, TSH3, [id number], [id number], CBC, LIPID #### [facility] [address] [place] [id number] [facility] Serum or plasma anion gap de terminationOrdered By: Sherry Nielsen on 06-22-2023 Anion gap [Moles/Vol] 10.2 mmol/L Normal 6.0-15.0 [place] Comment on above: Order Comment: Reaso n for Exam Well adult exam Performed By: #### F E PRO, CMP wRFX A1C, TSH3, [id number], [id number], CBC, LIPID #### [facility] [address] [place] [id number] [facility] Serum or plasma high density lipoprotein (HDL) cholesterol measurementOrdered By: Sherry Nielsen on 06-22-2023 Cholesterol in HDL [Mass/Vol] 63 mg/dL Normal 23-92 [facility] Comment on above: HDL CHOL ATP-III CLA SSIFICATION Cardiovascular RiskHDL > or equal to 60 mg/dL LOWHDL < 40 mg/dL HIGH Order Comment: Reaso n for Exam Well adult exam Result Comment: HDL CHOL ATP-III CLASSIFICATION Cardiovascular Risk HDL > or equal to 60 mg/dL LOW HDL < 40 mg/dL HIGH Performed By: #### F E PRO, CMP wRFX A1C, TSH3, [id number], [id number], CBC, LIPID #### [facility] [address] Serum or plasma total choles terol/high density lipoprotein (HDL) cholesterol mass ratOrdered By: Sherry Nielsen on 06-22-2023 Cholesterol.total/Choles terol in HDL [Mass ratio] 2.4 {ratio} Normal <5.0 [facility] Comment on above: Order Comment: Reaso n for Exam Well adult exam Performed By: #### F E PRO, CMP wRFX A1C, TSH3, [id number], [id number], CBC, LIPID #### [facility] [address] [place] [id number] [facility] Sodium [Moles/volume] in Ser um or PlasmaOrdered By: Sherry Nielsen on 06-22-2023 Sodium [Moles/Vol] 138 mmol/L Normal 136-145 [facility] Comment on above: Order Comment: Reaso n for Exam Well adult exam Performed By: #### F E PRO, CMP wRFX A1C, TSH3, [id number], [id number], CBC, LIPID #### [facility] [address] [place] [address] [facility] Thyrotropin [Units/volume] i n Serum or PlasmaOrdered By: Sherry Nielsen on 06-22-2023 TSH Qn 1.93 m[IU]/L Normal 0.45-5.33 [facility] Comment on above: Order Comment: Reaso n for Exam Well adult exam Performed By: #### F E PRO, CMP wRFX A1C, TSH3, [id number], [id number], CBC, LIPID #### [facility] [address] [place] [address] [place] Transferrin [Mass/volume] in Serum or PlasmaOrdered By: Sherry Nielsen on 06-22-2023 Transferrin [Mass/Vol] 251 mg/dL Normal 203-362 [place] Comment on above: Order Comment: Reaso n for Exam Well adult exam Performed By: #### F E PRO, CMP wRFX A1C, TSH3, [id number], [id number], CBC, LIPID #### [facility] [address] [place] [address] [facility] Triglyceride [Mass/volume] i n Serum or PlasmaOrdered By: Sherry Nielsen on 06-22-2023 Triglyceride [Mass/Vol] 82 mg/dL 0-149 [facility] Comment on above: TRIG ATP III CLASSIF ICATIONTRIG less than 150 mg/dL NormalTRIG 150-199 mg/dL Borderline highTRIG 200-500 mg/dL High TRIG greater than 500 mg/dL Very highStandard traceable to the Center for Disease Conrtrol and Prevention (CDC) test method. Urea nitrogen [Mass/volume] in Serum or PlasmaOrdered By: Sherry Nielsen on 06-22-2023 Urea nitrogen [Mass/Vol] 16 mg/dL Normal 7-25 [facility] Comment on above: Order Comment: Reaso n for Exam Well adult exam Performed By: #### F E PRO, CMP wRFX A1C, TSH3, [id number], [id number], CBC, LIPID #### [facility] [address] [place] [address] [place] Vit. B12/Folate Profileon Folate 23.0 ng/mL Normal >5.9 [facility] Comment on above: Order Comment: Reaso n for Exam Well adult exam Result Comment: [place] te reference range: >5.9 ng/ml The WHO technical consultation on folate and vitamin b12 deficiencies has determined that folate concentrations less than 4 ng/ml are considered deficient. Performed By: #### F E PRO, CMP wRFX A1C, TSH3, [id number], [id number], CBC, LIPID #### [facility] [address] [place] [address] [facility] Vitamin B12 ser/plasOrdered By: Sherry Nielsen on 06-22-2023 Cobalamin (Vitamin B12) [Mass/Vol] 333 pg/mL Normal 180-914 [facility] Comment on above: Order Comment: Reaso n for Exam Well adult exam Performed By: #### F E PRO, CMP wRFX A1C, TSH3, [id number], [id number], CBC, LIPID #### [facility] [address] [place] [address] [facility] Vitamin D 25 Hydroxy Totalon 06-22-2023 Vitamin D 25 Hydroxy Total 45.4 ng/mL Normal 30-100 [facility] Comment on above: Order Comment: Reaso n for Exam Well adult exam Result Comment: [place] MIN D STATUS 25([place])VITAMIN D RANGE (ng/mL) Deficient <20 Insufficient 20 to <30 Sufficient 30 to 100 Reference: Mary MF,Marielena NC, Maximilian HAMILTON, et al. Evaluation,treatment, and prevention of vitamin D deficiency; an Endocrine Society clinical practice guideline. JCEM. 2010; 96(7):1911-30. PERFORMED BY: [facility] [address] [place] [address] PATHOLOGIST [employer] GLORIA MESA M.D. Performed By: #### F E PRO, CMP wRFX A1C, TSH3, [id number], [id number], CBC, LIPID #### [facility] [address] [place] [address] [facility] Vitamin D+Metabolites [Mass/ volume] in Serum or PlasmaOrdered By: Sherry Nielsen on 06-22-2023 Vitamin D+Metabolites [Mass/Vol] 45.4 ng/mL 30-100 [facility] Comment on above: VITAMIN D STATUS 25( [place])VITAMIN D RANGE (ng/mL) Deficient <20 Insufficient 20 to <30Sufficient 30 to 100Reference: Mary MF,Marielena HOUSER, Maximilian HAMILTON, et al. Evaluation,treatment, and prevention of vitamin D deficiency; an Endocrine Society clinical practice guideline. JCEM. 2010; 96(9):1911-30. Vital Signs Date Time Vital Sign Value Performing Clinician Facility 10-09-2024 09:44-0500 Body weight 94.08 kg [employer] Phone: [facility] 10-09-2024 09:44-0500 Diastolic blood pressure 70 mm[Hg] [employer] Phone: [facility] 10-09-2024 09:44-0500 Systolic blood pressure 120 mm[Hg] [employer] Work Phone: [facility] [employer] 06-18-2023 07:30-0400 Body height 156.21 cm Sherry Nielsen Other [employer] Other 06-18-2023 07:30-0400 Body mass index (BMI) [Ratio] 31.73 kg/m2 Sherry Nielsen Other [employer] Other 06-18-2023 07:30-0400 Body weight 77.43 kg Sherry Nielsen Other [employer] Other 06-18-2023 07:30-0400 Diastolic blood pressure 70 mm[Hg] Sherry Nielsen Other [employer] Other 06-18-2023 07:30-0400 Respiratory rate 18 /min Sherry Nielsen Other [employer] Other 06-18-2023 07:30-0400 SaO2% (BldA) [Mass fraction] 98 % Sherry Shipleycarolee Other [facility] [employer] Other 06-18-2023 07:30-0400 Systolic blood pressure 110 mm[Hg] Sherry Shipleycarolee Other [facility] [employer] Other Encounters Encounter Date Encounter Type Care Provider Facility Start: 10-09-2024 End: 10-09-2024 Bamboo flowsheet Addie Annabel DO Work Phone: [facility] Start: 10-09-2024 End: 10-09-2024 Bamboo flowsheet Addie Annabel DO Work Phone: [facility] Start: 10-09-2024 End: 10-09-2024 Clinisync Result Encounter Addie Annabel DO Work Phone: [facility] External Department Unsolicited Start: 10-09-2024 End: 10-09-2024 Office outpatient visit 15 minutes Addie Annabel DO Work Phone: [facility] Comment on above: Irregular periods/me nstrual cycles; Menorrhagia with regular cycle Start: 10-09-2024 End: 10-09-2024 ambulatory ADDIE ANNABEL Not Available Start: 05-31-2024 End: 05-31-2024 ambulatory ROMMEL ALMA Not Available Start: 05-10-2024 End: 05-10-2024 ambulatory ROMMEL ALMA Not Available Start: 05-04-2024 End: 05-04-2024 ambulatory ROMMEL ALMA Not Available Start: 04-27-2024 End: 04-27-2024 ambulatory ADDIE ANNABEL Not Available Start: 04-20-2024 Non-patient / Non-visit Addie Annabel Work Phone: [facility] [employer] Work Phone: Start: 04-19-2024 End: 04-19-2024 ambulatory Addie Annabel [facility] Work Phone: Start: 04-19-2024 End: 04-19-2024 Departed Referred Addie Annabel Work Phone: [facility] Start: 04-19-2024 Non-patient / Non-visit Addie Annabel Work Phone: [facility] [employer] Work Phone: Start: 04-19-2024 End: 04-19-2024 ambulatory ADDIE ANNABEL Not Available Start: 04-13-2024 End: 04-13-2024 ambulatory ADIDE ANNABEL Not Available Start: 04-06-2024 End: 04-06-2024 ambulatory ADDIE ANNABEL Not Available Start: 03-23-2024 End: 03-23-2024 ambulatory ADDIE ANNABEL Not Available Start: 03-07-2024 End: 03-07-2024 ambulatory ADDIE ANNABEL Not Available Start: 02-22-2024 End: 02-22-2024 ambulatory ADDIE ANNABEL Not Available Start: 01-24-2024 End: 01-24-2024 ambulatory ROMMLE ALMA Not Available Start: 12-27-2023 End: 12-27-2023 ambulatory ADDIE ANNABEL Not Available Start: 11-29-2023 End: 11-29-2023 ambulatory ROMMEL ALMA Not Available Start: 10-28-2023 End: 10-28-2023 ambulatory ADDIE ANNABEL Not Available Start: 06-22-2023 End: 06-22-2023 Patient encounter procedure DNP Sherry Gia Work Phone: [facility] Start: 06-22-2023 End: 06-22-2023 ambulatory DNP Sherry Gia Work Phone: [facility] Work Phone: Start: 06-18-2023 End: 06-18-2023 ambulatory Sherry Nielsen Other [facility] [employer] Other Start: 06-18-2023 Encounter for genera l adult medical examination without abnormal findings Sherry Nielsen [facility] [place] Start: 06-18-2023 Initial preventive medicine new pt age 18-39yrs Sherry Nielsen [facility] [place] Procedures Date Procedure Procedure Detail Performing Clinician Start: 10-09-2024 ALL CBC WITH AUTO DIFF Addie Annabel DO Work Phone: Start: 10-09-2024 Urine test visual color cmprsn meths Addie Annabel DO Work Phone: Plan of Treatment Date Care Activity Detail Author Start: 11-16-2024 End: 11-16-2024 Patient encounter procedure 11/16/2024 8:40 AM EST Office Visit [facility] [address] [facility] [address] [place] [phone] Addie Jin, DO [address], [place] [id number] [facility] Start: 10-24-2024 End: 10-24-2024 Professional / ancillary services management 10/24/2024 9:30 AM EST Ancillary Procedure [facility] [address] [place] [phone] [facility] Start: 10-09-2024 End: 10-09-2025 aPTT in Blood by Coagulation assay APTT Lab Routine Menorrhagia with regular cycle Expected: 10/09/2024 (Approximate), Expires: 10/09/2025 [facility] Comment on above: Expected: 10/09/2024 (Approximate), Expires: 10/09/2025 Start: 10-09-2024 End: 10-09-2025 US for US PELVIS-TRANSVAG IF INDICATED Imaging Routine Menorrhagia with regular cycle Expected: 10/09/2024 (Approximate), Expires: 10/09/2025 [facility] Comment on above: Expected: 10/09/2024 (Approximate), Expires: 10/09/2025 Start: 10-09-2024 End: 10-09-2024 Patient encounter procedure 10/09/2024 9:30 AM EST Office Visit [facility] [address] [facility] [place] [phone] Addie Jin DO [address] [facility] [place] [address] Arrived [facility] Comment on above: Arrived CBC W Auto Different ial panel - Blood CBC and differential Lab Routine Menorrhagia with regular cycle Ordered: 10/09/2024 [facility] Work Phone: Comment on above: Ordered: 10/09/2024 hCG, quantitative, hCG, quantitative, Lab Routine Menorrhagia with regular cycle Ordered: 10/09/2024 [facility] Comment on above: Ordered: 10/09/2024 Hemoglobin A1c/Hemoglobin.total in Blood Hemoglobin A1c Lab Routine Menorrhagia with regular cycle Ordered: 10/09/2024 [facility] Comment on above: Ordered: 10/09/2024 Prothrombin time (PT ) in Blood by Coagulation assay Protime-INR Lab Routine Menorrhagia with regular cycle Ordered: 10/09/2024 [facility] Comment on above: Ordered: 10/09/2024 Thyrotropin [Units/volume] in Serum or Plasma TSH Lab Routine Menorrhagia with regular cycle Ordered: 10/09/2024 [facility] Comment on above: Ordered: 10/09/2024 Thyroxine (T4) free [Mass/volume] in Serum or Plasma T4, free Lab Routine Menorrhagia with regular cycle Ordered: 10/09/2024 [facility] Comment on above: Ordered: 10/09/2024 Payers Date Payer Category Payer [facility] [id number] 2023 Self-pay 2023 [employer] Blue [facility] [id number] 1993 Unknown [id number] 2.16.840.1.460904.3.579.2 .1258 1993 Unknown [id number] 2.16.840.1.964494.3.579.2 .1258 1993 Unknown [id number] 2.16.840.1.898803.3.579.2 .1258 1993 Unknown [id number] 2.16.840.1.068759.3.579.2 .1258 1993 Unknown [id number] 2.16.840.1.550733.3.579.2 .1258 1993 Unknown [id number] 2.16.840.1.674136.3.579.2 .1258 1993 Unknown [id number] 2.16.840.1.459458.3.579.2 .1258 1993 Unknown [id number] 2.16.840.1.020825.3.579.2 .1258 1993 Unknown [id number] 2.16.840.1.847950.3.579.2 .1258 1993 Unknown [id number] 2.16.840.1.154068.3.579.2 .1258 1993 Unknown [id number] 2.16.840.1.997143.3.579.2 .1258 1993 Unknown [id number] 2.16.840.1.643170.3.579.2 .1258 1993 Unknown [id number] 2.16.840.1.649128.3.579.2 .1258 1993 Unknown [id number] 2.16.840.1.694366.3.579.2 .1259 1993 Unknown [id number] 2.16.840.1.449755.3.579.2 .1259 Unknown HCAP/HFA/FAP Active [id number] Unknown [id number] 2.16.840.1.125165.3.579.2 .531 Unknown [id number] 2.16.840.1.892978.3.579.2 .531 Social History Date Type Detail Facility Start: 09-24-2023 Sex Assigned At N [facility] Other Start: 1995 Sex Assigned At Female F [facility] Start: 04-18-2023 End: 06-18-2023 Tobacco smoking status NHIS Never smoked tobacco (finding) [facility] Start: 04-18-2023 Tobacco use and exposure Smokeless tobacco non-user [facility] Start: 05-31-2024 Alcoholic beverage intake Ex-drinker (finding) [facility] Start: 09-24-2023 End: 05-31-2024 Alcoholic beverage intake [facility] Start: 1995 Sex assigned at Not on file [facility] History of Present illness Narrative 10-09-2024 Jovanna Connors, DANE - 10/09/2024 9:30 AM EST Note Date & Type Note Facility 10-09-2024 History of Presen t illness Narrative Reason for Appointment: Patient ID: Cynthia Givens is a 29 y.o. female who presents for Menstrual Problem Patient presents today for Acute Visit. MEDICATIONS Current Outpatient Medications Medication Instructions omeprazole (PRILOSEC) 20 mg, Oral, Daily before breakfast, Do not crush or chew. ALLERGIES Allergies Allergen Reactions Wound Dressing Adhesive Hives Other Reaction(s): hives Chlorhexidine Gluconate Hives, Itching and Rash PROBLEMS Active Ambulatory Problems Diagnosis Date Noted Encounter for consultation for female sterilization 10/28/2023 Vaginal discharge 10/28/2023 Gastroesophageal reflux disease with esophagitis without hemorrhage 02/22/2024 Resolved Ambulatory Problems Diagnosis Date Noted Bacterial vaginosis in 10/28/2023 First trimester 10/28/2023 Past Medical History: Diagnosis Date Hypertension (CMS/HCC) only when i had gallstone or have serious injury HISTORY PAST MEDICAL HISTORY SOCIAL HISTORY Past Medical History: Diagnosis Date Hypertension (CMS/HCC) only when i had gallstone or have serious injury Social History Tobacco Use Smoking status: Never Smokeless tobacco: Never Substance Use Topics Alcohol use: Not Currently Alcohol/week: 2.0 standard drinks of alcohol Drug use: Never FAMILY HISTORY Family History Problem Relation Name Age of Onset No Known Problems Father Cancer Maternal Grandfather not sure Diabetes Paternal Grandfather not sure Diabetes Paternal Grandmother bula SURGICAL HISTORY Past Surgical History: Procedure Laterality Date ABDOMINAL SURGERY 12/31/22 Gallbladder was removed SECTION, CLASSIC 2014 SECTION, LOW TRANSVERSE 10/18/15 of my daughter SECTION, LOW TRANSVERSE 04/19/2024 GALLBLADDER 2022 SALPINGECTOMY Bilateral 04/19/2024 REVIEW OF SYSTEMS Review of Systems: Review of Systems Constitutional: Negative. HENT: Negative. Eyes: Negative. Respiratory: Negative. Cardiovascular: Negative. Gastrointestinal: Negative. Genitourinary: Positive for menstrual problem. Musculoskeletal: Negative. Skin: Negative. Neurological: Negative. All other systems reviewed and are negative. Hematological: Negative. Endocrine: Negative. Allergic/Immunologic: Negative. OBJECTIVE Objective: Physical Exam Constitutional: Appearance: Normal appearance. She is well-developed. Cardiovascular: Rate and Rhythm: Normal rate and regular rhythm. Pulmonary: Effort: Pulmonary effort is normal. Breath sounds: Normal breath sounds. Abdominal: General: Bowel sounds are normal. There is no distension. Palpations: Abdomen is soft. Tenderness: There is no abdominal tenderness. There is no guarding or rebound. Musculoskeletal: General: No swelling. Normal range of motion. Right lower leg: No edema. Left lower leg: No edema. Neurological: Mental Status: She is alert and oriented to person, place, and time. Skin: General: Skin is warm and dry. Psychiatric: Mood and Affect: Mood normal. Behavior: Behavior normal. Vitals and nursing note reviewed. Exam conducted with a bridge engineer present. Vitals: There is no height or weight on file to calculate BMI. BP: 120/70 Patient's last menstrual period was 08/02/2024. ASSESSMENT & PLAN ICD-10-CM 1. Irregular periods/menstrual cycles N92.6 Pt presents with with irregular periods. Pt had tubal with second section in April. Pt considering ocp to see if periods regulate. Considering ablation for next year. Pt desires weight loss as well. Rx for metformin and in four weeks, pt to start Adipex. Documented by Jovanna Connors LPN on behalf of: Addie Jin DO documented in this encounter [facility] Evaluation note 06-18-2023 Note Date & Type Note Facility 06-18-2023 Evaluation note Encounter Date Diagnosis Assessment Notes Jun, Well adult exam (ICD-10 - Z00.00) Routine lab work ordered. She will continue to keep appointment with RECLAMATION ENGINEER, eye doctor and dentist. Patient is advised to work on healthy diet choices and appropriate servings, weight control, regular exercise as directed, reduced fat intake, and salt avoidance. Patient voiced understanding of this and agrees to this plan. Gradeable Other Evaluation note Note Date & Type Note Facility Evaluation note [facility] Evaluation note Note Date & Type Note Facility Evaluation note Diagnosis Irregular periods/menstrual cycles Menorrhagia with regular cycle documented in this encounter [facility] History general Narrative - Reported Note Date & Type Note Facility History general Narrative - Reported Type Surgical History Foot Surgery Surgical History GALLBLADDER Surgical History 2015 Surgical History SHOULDER-LEFT 2018 Hospitalization History see above Gradeable Other Chief Complaint and Reason for Visit Chief Complaint Z00.00 Chief Complaint Unknown Advance Directives Advance Directive Response Recorded Date/ Time Advance Directives No June 22, 2023 7:06am Summary Purpose Family History No Family History Records FoundNo Family History Records Found Additional Source Comments REASON FOR VISIT (unrecogniz ed section and content) Reason Comments Menstrual Problem Care Teams (unrecognized sec tion and content) Team Status: Active Member Role Status Dates Sherry Nielsen DNP Primary Care Provider Active Team Status: Inactive Member Role Status Dates Sherry Nielsen DNP Primary Care Provider, Attending Provider Active Team Status: Active Member Role Status Dates Sherry Nielsen DNP Primary Care Provider Active Start: April 19, 2024 Addie Jin Attending Provider Active Start: Megan 2023 Team Status: Inactive Member Role Status Dates Addie Jin Attending Provider Active Start: Megan 2023 End: April 19, 2024 Team Status: Active Member Role Status Dates Sherry Nielsen DNP Primary Care Provider Active Start: April 20, 2024 Addie Jin Attending Provider Active Start: Megan 2023 Goals (unrecognized section and content) Goals may be documented in a n alternate section INFORMATION SOURCE (unrecogn ized section and content) DATE CREATED AUTHOR 04/28/2024 [facility] [address] [facility] DATE CREATED AUTHOR 'Lena BOWERS 10/10/2024 [facility] d[facility] Specialists [facility] FOR RECORDS PERTAINING TO PATIENTS WHO ARE [...] BE BASED ON THE PRIMARY CLINICAL RECORDS. [facility] [employer] provides no warranty or guarantee of the accuracy or completeness of information in this document.
== END 2024-10-24 09:19 | disposition home or self-care (01) ==
LOC: NOMS 09:18
PROVIDERS: PCP Nurse Practitioner Family; Visit Provider Obstetrics & Gynecology
DX: N92.0 Excessive and frequent menstruation with regular cycle (principal)
CPT/HCPCS: 76830; 76856

== ENCOUNTER 2024-11-16 19:47 | Outpatient (REF) | payer BC, SELFPAY ==
--- OUTSIDE RECORDS SUMMARY | 2024-11-16 19:56 | XMS_ITS | CCD ---
Author Organization [facility] Care Team Providers Care Back Order Clerk Name Role Phone Sherry Nielsen Unavailable LYNNE Nielsen Primary Care Provider LYNNE Nielsen Attending Provider [phone] Addie Jin Attending Provider Annabel, Addie Attending [...] Adhesive agent; Translations: [adhesive] Drug allergy 3 [facility] Repository (4 sources) Chlorhexidine / Ethanol Drug Allergy 5 Hives, Itching, Rash [facility] Work Phone: (4 sources) Wound Dressing Adhesive Drug Allergy 3 [facility] Medications Current Medications Medication Drug [...] AUTO DIFFon BASOPHILS ABSOLUTE AUTO 0 [facility] Basophils/100 WBC (Bld) 0.5 % 0.2 - 2.0 % [facility] Eosinophils/100 WBC (Bld) 1.1 % 0.9 - 7.0 % [facility] Erythrocyte distribution width (RBC) [Ratio] 13.5 % 11.0 - 15.0 % [facility] Hematocrit (Bld) [Volume fraction] 43 % 36.0 - 48.0 % [facility] Hemoglobin (Bld) [Mass/Vol] 13.9 g/dL 12.0 - 16.0 g/dL [facility] IMMATURE GRANULOCYTES ABS AUTO 0.[address] [facility] Immature granulocytes/100 WBC (Bld) 0.4 % 0.0 - 0.5 % [facility] LYMPHOCYTES ABSOLUTE AUTO [address] [facility] Lymphocytes/100 WBC (Bld) 24.4 % 20.5 - 60.0 % [facility] MCH (RBC) [Entitic mass] 28.5 pg 26. 7 - 34.[address] [facility] MCHC (RBC) [Mass/Vol] 32.3 g/dL 29.9 - 35.2 g/dL [facility] MCV (RBC) [Entitic vol] 88.1 fL 81.0 - 99.[address] [facility] MONOCYTES ABSOLUTE AUTO 0.4 N [facility] Monocytes/100 WBC (Bld) 5.2 % 1.7 - 12.0 % [facility] NEUTROPHILS ABSOLUTE AUTO 5.[address] [facility] Neutrophils/100 WBC (Bld) 68.4 % 43.0 - 75.0 % [facility] Platelet mean volume (Bld) [Entitic vol] 9.6 fL 9.5 - 13.[address] [facility] TB EO # 0.[address] [facility] TB PLT 255 [facility] RBC 4.[address] [facility] TB WBC 8.[address] [facility] HCG ( test) Ql (U)o n 10-09-2024 Interpretation and review of laboratory results Normal [facility] Preg Test, Ur Negative Negative [facility] Basophils Auto (Bld) [#/Vol] on 04-20-2024 Basophils (Bld) [#/Vol] 0.0 10 3/uL 0.0-0.1 [facility] Basophils/100 WBC Auto (Bld) on 04-20-2024 Basophils/100 WBC (Bld) 0.2 % 0.2-2.[address] [facility] Eosinophils/100 WBC Auto (Bl d)on 04-20-2024 Eosinophils/100 WBC (Bld) 0.0 % 0.9-7.0 [facility] Erythrocyte distribution wid th Auto (RBC) [Ratio]on 04-20-2024 Erythrocyte distribution width (RBC) [Ratio] 13.1 % 11.0-15.0 [facility] Hematocrit Auto (Bld) [Volum e fraction]on 04-20-2024 Hematocrit (Bld) [Volume fraction] 31.2 % 36.0-48.0 [facility] Hemoglobin [Mass/volume] in Bloodon 04-20-2024 Hemoglobin (Bld) [Mass/Vol] 10.3 g/dL 12.0-16.0 [facility] Laboratory - Hematology and Cell countson 04-20-2024 Immature granulocytes/100 WBC (Bld) 0.8 % 0.0-0.5 [facility] Leukocytes [#/volume] correc wilber for nucleated erythrocytes in Blood by Automated counon 04-20-2024 WBC corrected for nucl RBC Auto (Bld) [#/Vol] 20.7 10 3/uL 4.0-11.0 [facility] Lymphocytes Auto (Bld) [#/Vo l]on 04-20-2024 Lymphocytes (Bld) [#/Vol] 1.4 10 3/uL 1.2-3.8 [facility] Lymphocytes/100 WBC Auto (Bl d)on 04-20-2024 Lymphocytes/100 WBC (Bld) 7.0 % 20.5-60.0 [facility] MCH Auto (RBC) [Entitic mass ]on 04-20-2024 MCH (RBC) [Entitic mass] 28.9 pg 26.7-34.0 [facility] MCHC Auto (RBC) [Mass/Vol]on 04-20-2024 MCHC (RBC) [Mass/Vol] 33.0 g/dL 29.9-35.2 [facility] MCV Auto (RBC) [Entitic vol] on 04-20-2024 MCV (RBC) [Entitic vol] 87.6 fL 81.0-99.[address] [facility] Monocytes Auto (Bld) [#/Vol] on 04-20-2024 Monocytes (Bld) [#/Vol] 0.8 10 3/uL 0.3-0.8 [facility] Monocytes/100 WBC Auto (Bld) on 04-20-2024 Monocytes/100 WBC (Bld) 3.9 % 1.7-12.[address] [facility] Neutrophils Auto (Bld) [#/Vo l]on 04-20-2024 Neutrophils (Bld) [#/Vol] 18.3 10 3/uL 1.4-6.5 [facility] Neutrophils/100 WBC Auto (Bl d)on 04-20-2024 Neutrophils/100 WBC (Bld) 88.1 % 43.0-75.0 [facility] No Panel Informationon 04-20 Eosinophils # (Auto) 0.0 10 3/uL 0.0-0.7 [facility] Immature Granulocyte # (Auto) 0.17 10 3/uL 0.00-0.03 [facility] Platelet mean volume Auto (B ld) [Entitic vol]on 04-20-2024 Platelet mean volume (Bld) [Entitic vol] 10.6 fL 9.5-13.5 [facility] Platelets Auto (Bld) [#/Vol] on 04-20-2024 Platelets (Bld) [#/Vol] 218 10 3/uL 150-450 [facility] RBC Auto (Bld) [#/Vol]on RBC (Bld) [#/Vol] 3.56 10 6/uL 4.20-5.40 [facility] Activated partial thrombopla stin time (aPTT) in platelet poor plasma by coagulation aon 04-19-2024 aPTT Coag (PPP) [Time] 24.8 s 22.3-36.2 [facility] Basophils Auto (Bld) [#/Vol] on 04-19-2024 Basophils (Bld) [#/Vol] 0.0 10 3/uL 0.0-0.1 [facility] Basophils/100 WBC Auto (Bld) on 04-19-2024 Basophils/100 WBC (Bld) 0.2 % 0.2-2.[address] [facility] Buprenorphine [Presence] in Urineon 04-19-2024 Buprenorphine Ql (U) Negative NEGATIVE [facility] Comment on above: DRUG CLASS TEST SYST EM CUT-OFF CONCENTRATIONS ARE ASFOLLOWS:AMP (Amphetamine): 500 ng/mLBAR (Barbiturates): 200 ng/mLBZO (Benzodiazepines): 150 ng/mLBUP (Buprenorphine): 10 ng/mLCOC (Cocaine): 150 ng/mLmAMP (Methamphetamine): 500 ng/mLMTD (Methadone): 200 ng/mLOPI (Opiates): 100 ng/mLOXY (Oxycodone): 100 ng/mLPCP (Phencyclidine): 25 ng/mLTHC (Cannabinoids): 50 ng/mLTCA (Trycyclic Antidepressants): 300 ng/mL Eosinophils/100 WBC Auto (Bl d)on 04-19-2024 Eosinophils/100 WBC (Bld) 0.3 % 0.9-7.0 [facility] Erythrocyte distribution wid th Auto (RBC) [Ratio]on 04-19-2024 Erythrocyte distribution width (RBC) [Ratio] 13.2 % 11.0-15.0 [facility] Estimated glomerular filtrat ion rate (GFR) non- Americanon 04-19-2024 GFR/1.73 sq M.predicted among non-blacks MDRD (S/P/Bld) [Vol rate/Area] mL/min/{1.73_m2} >=60 [facility] Fibrinogen [Mass/volume] in Platelet poor plasma by Coagulation assayon 04-19-2024 Fibrinogen Coag (PPP) [Mass/Vol] 540 mg/dL 200-400 [facility] Hematocrit Auto (Bld) [Volum e fraction]on 04-19-2024 Hematocrit (Bld) [Volume fraction] 34.4 % 36.0-48.0 [facility] Hemoglobin [Mass/volume] in Bloodon 04-19-2024 Hemoglobin (Bld) [Mass/Vol] 11.2 g/dL 12.0-16.0 [facility] INR in Platelet poor plasma by Coagulation assayon 04-19-2024 INR Coag (PPP) [Relative time] {INR} [facility] Comment on above: DESIRED INR:2.0-3.0 CONDITIONS NOT LISTED BELOW2.5-3.5 FOR PROSTHETIC HEART VALVE REPLACEMENT2.5-3.5 RECURRENT THROMBOSIS Ray 04-19-2024 L Specimen: [id number] Received: 04/20/24 Status: TANNERAntonio Valdez Num: [id number] Spec Type: Surgical Subm Dr: Addie Jin Tissues: A Fallopian Tube - Sterilization (BILATERAL FT) B Placenta - 3rd Trimester (Greater than 28 weeks) (PLACENTA) Procedures: HE/7, Gross/Micro L5, Gross/Micro L2 Age/ Patient Sex Location Account Attending Physician Cynthia Givens 28/ LABELL [id number] Addie Jin SPEC NUM: [id number] RECD: 04/20/24 STATUS: SHANNEN VALDEZ NUM: [id number] CRISTIANA: 04/19/[address]: Addie Jin ENTERED: 04/20/24 [facility] DR: Tanja,Lab SPEC TYPE: Surgical [...] luminal center lined by unremarkable gaines mucosa. Carding Utility Tender sections of each tube are submitted in A1 (tube #1) and A2 (tube #2). B. Received in formalin is a rivero, fused bilobed placental disc with minimal attached -------- Specimen: [id number] Received: 04/20/24 Status: SHANNEN Valdez Num: [id number] Spec Type: Surgical Subm Dr: Addie Jin Tissues: A Fallopian Tube - Sterilization (BILATERAL FT) B Placenta - 3rd Trimester (Greater than 28 weeks) (PLACENTA) Procedures: HE/Saritha, Gross/Micro L5, Gross/Micro L2 -------- Patient: Cynthia Givens [id number] (Continued) -------- Specimen: [id number] Received: 04/20/24 (Continued) Gross Description (Continued) Signed (signature on file) Jean Jarquin MD 04/26/24 1428 -------- Specimen: [id number] Received: 04/20/24 Status: SHANNEN Valdez Num: [id number] Spec Type: Surgical Subm Dr: Addie Jin Tissues: A Fallopian Tube - Sterilization (BILATERAL FT) B Placenta - 3rd Trimester (Greater than 28 weeks) (PLACENTA) Procedures: , Gross/Micro L5, Gross/Micro L2 -------- Patient: Cynthia Givens [id number] (Continued) -------- Specimen: [id number] Received: 04/20/24 (Continued) Gross Description (Continued) membranes, [...] midzonal sections of smaller lobe CPT Codes [id number] -------- -------- (more content not included)... Normal [facility] Laboratory - Chemistry and C hemistry - challengeon 04-19-2024 ALT [Catalytic activity/Vol] 18 U/L 14-59 [facility] AST [Catalytic activity/Vol] 16 U/L 15-37 [facility] Creatinine [Mass/Vol] 0.93 mg/dL 0.55-1.02 [facility] GFR/1.73 sq M.predicted MDRD (S/P/Bld) [Vol rate/Area] mL/min/{1.73_m2} >=60 [facility] LDH [Catalytic activity/Vol] 197 U/L 81-234 [facility] Urate [Mass/Vol] 5.2 mg/dL 2.6-6.0 [facility] Urea nitrogen [Mass/Vol] 10.0 mg/dL 7.0-18.0 [facility] Laboratory - Drug toxicology on 04-19-2024 Amphetamines Ql (U) Negative NEGATIVE [facility] Benzodiazepines Ql (U) Negative NEGATIVE [facility] Cocaine Ql (U) Negative NEGATIVE [facility] Opiates Ql (U) Negative NEGATIVE [facility] Phencyclidine Ql (U) Negative NEGATIVE [facility] Laboratory - Hematology and Cell countson 04-19-2024 Immature granulocytes/100 WBC (Bld) 0.9 % 0.0-0.5 [facility] Leukocytes [#/volume] correc wilber for nucleated erythrocytes in Blood by Automated counon 04-19-2024 WBC corrected for nucl RBC Auto (Bld) [#/Vol] 13.0 10 3/uL 4.0-11.0 [facility] Lymphocytes Auto (Bld) [#/Vo l]on 04-19-2024 Lymphocytes (Bld) [#/Vol] 1.9 10 3/uL 1.2-3.8 [facility] Lymphocytes/100 WBC Auto (Bl d)on 04-19-2024 Lymphocytes/100 WBC (Bld) 14.4 % 20.5-60.0 [facility] MCH Auto (RBC) [Entitic mass ]on 04-19-2024 MCH (RBC) [Entitic mass] 28.8 pg 26.7-34.0 [facility] MCHC Auto (RBC) [Mass/Vol]on 04-19-2024 MCHC (RBC) [Mass/Vol] 32.6 g/dL 29.9-35.2 [facility] MCV Auto (RBC) [Entitic vol] on 04-19-2024 MCV (RBC) [Entitic vol] 88.4 fL 81.0-99.[address] [facility] Methadone [Presence] in Urin e by Screen methodon 04-19-2024 Methadone Screen Ql (U) Negative NEGATIVE [facility] Monocytes Auto (Bld) [#/Vol] on 04-19-2024 Monocytes (Bld) [#/Vol] 0.8 10 3/uL 0.3-0.8 [facility] Monocytes/100 WBC Auto (Bld) on 04-19-2024 Monocytes/100 WBC (Bld) 6.2 % 1.7-12.[address] [facility] Neutrophils Auto (Bld) [#/Vo l]on 04-19-2024 Neutrophils (Bld) [#/Vol] 10.2 10 3/uL 1.4-6.5 [facility] Neutrophils/100 WBC Auto (Bl d)on 04-19-2024 Neutrophils/100 WBC (Bld) 78.0 % 43.0-75.0 [facility] No Panel Informationon 04-19 Urine Barbiturates Screen Negative NEGATIVE [facility] Urine Marijuana (THC) Screen Negative NEGATIVE [facility] Urine Methamphetamines Screen Negative NEGATIVE [facility] Eosinophils # (Auto) 0.0 10 3/uL 0.0-0.7 [facility] Immature Granulocyte # (Auto) 0.12 10 3/uL 0.00-0.03 [facility] Platelet mean volume Auto (B ld) [Entitic vol]on 04-19-2024 Platelet mean volume (Bld) [Entitic vol] 10.7 fL 9.5-13.5 [facility] Platelets Auto (Bld) [#/Vol] on 04-19-2024 Platelets (Bld) [#/Vol] 235 10 3/uL 150-450 [facility] Prothrombin time (PT)on 04-08 PT Coag (PPP) [Time] 9.7 s 9.0-11.6 [facility] RBC Auto (Bld) [#/Vol]on RBC (Bld) [#/Vol] 3.89 10 6/uL 4.20-5.40 [facility] Urine tricyclic antidepressa nt measurementon 04-19-2024 Tricyclic antidepressants (U) [Mass/Vol] Negative NEGATIVE [facility] oxyCODONE+oxyMORphone [Prese nce] in Urine by Screen methodon 04-19-2024 oxyCODONE+oxyMORphone Screen Ql (U) Negative NEGATIVE [facility] Alanine aminotransferase [En zymatic activity/volume] in Serum or PlasmaOrdered By: Sherry Nielsen on 06-22-2023 ALT [Catalytic activity/Vol] 14 U/L Normal 7-52 [facility] Comment on above: Order Comment: Reaso n for Exam Well adult exam Performed By: #### F E PRO, CMP wRFX A1C, TSH3, [id number], [id number], CBC, LIPID #### [facility] [address] [place] [address] [place] Albumin [Mass/volume] in Ser um or Plasma by Bromocresol green (BCG) dye binding methoOrdered By: Sherry Nielsen on 06-22-2023 Albumin BCG dye [Mass/Vol] 4.3 g/dL 3.5-5.7 [facility] Alkaline phosphatase [Enzyma tic activity/volume] in Serum or PlasmaOrdered By: Sherry Nielsen on 06-22-2023 ALP [Catalytic activity/Vol] 88 U/L Normal 34-104 [facility] Comment on above: Order Comment: Reaso n for Exam Well adult exam Performed By: #### F E PRO, CMP wRFX A1C, TSH3, [id number], [id number], CBC, LIPID #### [facility] [address] [place] [address] [place] Aspartate aminotransferase [ Enzymatic activity/volume] in Serum or PlasmaOrdered By: Sherry Nielsen on 06-22-2023 AST [Catalytic activity/Vol] 15 U/L Normal 13-39 [facility] Comment on above: Order Comment: Reaso n for Exam Well adult exam Performed By: #### F E PRO, CMP wRFX A1C, TSH3, [id number], [id number], CBC, LIPID #### [facility] [address] [place] [address] [place] Automated basophil %Ordered By: Sherry Nielsen on 06-22-2023 Basophils/100 WBC (Bld) 0.5 % Normal . [facility] Comment on above: Order Comment: Reaso n for Exam Well adult exam Performed By: #### F E PRO, CMP wRFX A1C, TSH3, [id number], [id number], CBC, LIPID #### [facility] [address] [place] [address] Automated basophil countOrde red By: Sherry Nielsen on 06-22-2023 Basophils (Bld) [#/Vol] 0.0 10*3/uL Normal 0.0-0.2 [facility] Comment on above: Order Comment: Reaso n for Exam Well adult exam Result Comment: PERF ORMED BY: [place] [address] REPORTER GLORIA MESA M.D. Performed By: #### F E PRO, CMP wRFX A1C, TSH3, [id number], [id number], CBC, LIPID #### [address] Automated blood monocyte cou ntOrdered By: Sherry Nielsen on 06-22-2023 Monocytes (Bld) [#/Vol] 0.5 10*3/uL Normal 0.0-0.8 [facility] Comment on above: Order Comment: Reaso n for Exam Well adult exam Performed By: #### F E PRO, CMP wRFX A1C, TSH3, [id number], [id number], CBC, LIPID #### [address] Automated eosinophil %Ordere d By: Sherry Nielsen on 06-22-2023 Eosinophils/100 WBC (Bld) 2.2 % Normal . [facility] Comment on above: Order Comment: Reaso n for Exam Well adult exam Performed By: #### F E PRO, CMP wRFX A1C, TSH3, [id number], [id number], CBC, LIPID #### [address] Automated eosinophil countOr dered By: Sherry Nielsen on 06-22-2023 Eosinophils (Bld) [#/Vol] 0.1 10*3/uL Normal 0.0-0.45 [facility] Comment on above: Order Comment: Reaso n for Exam Well adult exam Performed By: #### F E PRO, CMP wRFX A1C, TSH3, [id number], [id number], CBC, LIPID #### [facility] [address] Automated monocyte %Ordered By: Sherry Nielsen on 06-22-2023 Monocytes/100 WBC (Bld) 7.9 % Normal . [facility] Comment on above: Order Comment: Reaso n for Exam Well adult exam Performed By: #### F E PRO, CMP wRFX A1C, TSH3, [id number], [id number], CBC, LIPID #### [facility] [address] Automated neutrophil %Ordere d By: Sherry Nielsen on 06-22-2023 Neutrophils/100 WBC (Bld) 54.8 % Normal . [facility] Comment on above: Order Comment: Reaso n for Exam Well adult exam Performed By: #### F E PRO, CMP wRFX A1C, TSH3, [id number], [id number], CBC, LIPID #### [facility] [address] Bilirubin.total [Mass/volume ] in Serum or PlasmaOrdered By: Sherry Nielsen on 06-22-2023 Bilirubin [Mass/Vol] 1.1 mg/dL High 0.3-1.0 [facility] Comment on above: Order Comment: Reaso n for Exam Well adult exam Performed By: #### F E PRO, CMP wRFX A1C, TSH3, [id number], [id number], CBC, LIPID #### [facility] [address] CMP with reflex to A1Con Albumin [Mass/Vol] 4.3 g/dL Normal 3.5-5.7 [facility] Comment on above: Order Comment: Reaso n for Exam Well adult exam Performed By: #### F E PRO, CMP wRFX A1C, TSH3, [id number], [id number], CBC, LIPID #### [facility] [address] [place] [address] [place] GFR/1.73 sq M.predicted MDRD (S/P/Bld) [Vol rate/Area] mL/min/{1.73_m2} Normal [facility] Comment on above: Order Comment: Reaso n for Exam Well adult exam Performed By: #### F E PRO, CMP wRFX A1C, TSH3, [id number], [id number], CBC, LIPID #### [facility] [address] [place] [address] [facility] Calcium [Mass/volume] in Ser um or PlasmaOrdered By: Sherry Nielsen on 06-22-2023 Calcium [Mass/Vol] 9.3 mg/dL Normal 8.6-10.3 [facility] Comment on above: Order Comment: Reaso n for Exam Well adult exam Performed By: #### F E PRO, CMP wRFX A1C, TSH3, [id number], [id number], CBC, LIPID #### [facility] [address] [place], [place] [id number] [facility] Carbon dioxide, total [Moles /volume] in Serum or PlasmaOrdered By: Sherry Nielsen on 06-22-2023 CO2 [Moles/Vol] 27.1 mmol/L Normal 21.0-31.0 [facility] Comment on above: Order Comment: Reaso n for Exam Well adult exam Performed By: #### F E PRO, CMP wRFX A1C, TSH3, [id number], [id number], CBC, LIPID #### [facility] [address] [place], [place] [id number] [place] Chloride [Moles/volume] in S adriano or PlasmaOrdered By: Sherry Nielsen on 06-22-2023 Chloride [Moles/Vol] 105 mmol/L Normal 98-107 [facility] Comment on above: Order Comment: Reaso n for Exam Well adult exam Performed By: #### F E PRO, CMP wRFX A1C, TSH3, [id number], [id number], CBC, LIPID #### [facility] [address] Cholesterol [Mass/volume] in Serum or PlasmaOrdered By: Sherry Nielsen on 06-22-2023 Cholesterol [Mass/Vol] 149 mg/dL Normal 140-200 [facility] Comment on above: Chol less than 200 m g/dl low riskChol 201-239 mg/dl borderline riskChol 240 mg/dl and greater high risk Order Comment: Reaso n for Exam Well adult exam Result Comment: Chol less than 200 mg/dl low risk Chol 201-239 mg/dl borderline risk Chol 240 mg/dl and greater high risk Performed By: #### F E PRO, CMP wRFX A1C, TSH3, [id number], [id number], CBC, LIPID #### [facility] [address] Cholesterol in LDL Calc [Mas s/Vol]Ordered By: Sherry Nielsen on 06-22-2023 Cholesterol in LDL [Mass/Vol] 70 mg/dL 0-100 [facility] Comment on above: LDL ATP III CLASSIFI CATIONLDL less than 100 mg/dL OptimalLDL 100-129 mg/dL Near or above optimalLDL 130-159 mg/dL Borderline highLDL 160-189 mg/dL HighLDL greater than 189 mg/dL Very high Cholesterol in VLDL Calc [Ma ss/Vol]Ordered By: Sherry Nielsen on 06-22-2023 Cholesterol in VLDL [Mass/Vol] 16 mg/dL [facility] Complete Blood Count Auto Di ffon 06-22-2023 Mean Corpuscular HGB Conc 33.6 g/dL Normal 32.0-35.0 [facility] Comment on above: Order Comment: Reaso n for Exam Well adult exam Performed By: #### F E PRO, CMP wRFX A1C, TSH3, [id number], [id number], CBC, LIPID #### [facility] [address] [place] [id number] [facility] NRBC% 0.3 /100{WBC} Normal 0-0.5 [facility] Comment on above: Order Comment: Reaso n for Exam Well adult exam Performed By: #### F E PRO, CMP wRFX A1C, TSH3, [id number], [id number], CBC, LIPID #### [facility] [address] [place] [address] [facility] Creatinine [Mass/volume] in Serum or PlasmaOrdered By: Sherry Nielsen on 06-22-2023 Creatinine [Mass/Vol] 0.90 mg/dL Normal 0.60-1.20 [facility] Comment on above: Order Comment: Reaso n for Exam Well adult exam Performed By: #### F E PRO, CMP wRFX A1C, TSH3, [id number], [id number], CBC, LIPID #### [facility] [address] [place] [address] [place] Erythrocyte distribution wid th [Ratio] by Automated countOrdered By: Sherry Nielsen on 06-22-2023 Erythrocyte distribution width (RBC) [Ratio] 12.6 % Normal 11.9-15.3 [facility] Comment on above: Order Comment: Reaso n for Exam Well adult exam Performed By: #### F E PRO, CMP wRFX A1C, TSH3, [id number], [id number], CBC, LIPID #### [facility] [address] [place] [address] [facility] Erythrocytes [#/volume] in B lood by Automated countOrdered By: Sherry Nielsen on 06-22-2023 RBC (Bld) [#/Vol] 4.58 10*6/uL Normal 3.60-5.00 [facility] Comment on above: Order Comment: Reaso n for Exam Well adult exam Performed By: #### F E PRO, CMP wRFX A1C, TSH3, [id number], [id number], CBC, LIPID #### [facility] [address] [place] [address] [place] FE PROon 06-22-2023 % Iron Saturation 34.8 % Normal 20-50 [facility] Comment on above: Order Comment: Reaso n for Exam Well adult exam Performed By: #### F E PRO, CMP wRFX A1C, TSH3, [id number], [id number], CBC, LIPID #### [facility] [address] [place] [address] [place] Total Iron Binding Capacity 351 ug/dL Normal 255-450 [facility] Comment on above: Order Comment: Reaso n for Exam Well adult exam Performed By: #### F E PRO, CMP wRFX A1C, TSH3, [id number], [id number], CBC, LIPID #### [facility] [address] [place] [address] [facility] Ferritin [Mass/volume] in Se rum or PlasmaOrdered By: Sherry Nielsen on 06-22-2023 Ferritin [Mass/Vol] 33.1 ng/mL Normal 11.0-306.8 [facility] Comment on above: Order Comment: Reaso n for Exam Well adult exam Performed By: #### F E PRO, CMP wRFX A1C, TSH3, [id number], [id number], CBC, LIPID #### [facility] [address] [place] [address] [facility] Folate [Mass/volume] in Seru m or PlasmaOrdered By: Sherry Nielsen on 06-22-2023 Folate [Mass/Vol] 23.0 ng/mL >5.9 [facility] Comment on above: Folate reference ran ge: >5.9 ng/mlThe WHO technical consultation on folate and vitamin [id number] has determined that folate concentrations lessthan 4 ng/ml are considered deficient. Glucose [Mass/volume] in Ser um or PlasmaOrdered By: Sherry Nielsen on 06-22-2023 Glucose [Mass/Vol] 94 mg/dL Normal 70-100 [facility] Comment on above: Order Comment: Reaso n for Exam Well adult exam Performed By: #### F E PRO, CMP wRFX A1C, TSH3, [id number], [id number], CBC, LIPID #### [facility] [address] [place] [address] [place] Hematocrit [Volume Fraction] of Blood by Automated countOrdered By: Sherry Nielsen on 06-22-2023 Hematocrit (Bld) [Volume fraction] 41.6 % Normal 34.0-46.4 [facility] Comment on above: Order Comment: Reaso n for Exam Well adult exam Performed By: #### F E PRO, CMP wRFX A1C, TSH3, [id number], [id number], CBC, LIPID #### [facility] [facility] [address] [id number] [place] Hemoglobin [Mass/volume] in BloodOrdered By: Sherry Nielsen on 06-22-2023 Hemoglobin (Bld) [Mass/Vol] 14.0 g/dL Normal 11.8-15.4 [facility] Comment on above: Order Comment: Reaso n for Exam Well adult exam Performed By: #### F E PRO, CMP wRFX A1C, TSH3, [id number], [id number], CBC, LIPID #### [facility] [address] [id number] [place] Iron [Mass/volume] in Serum or PlasmaOrdered By: Sherry Nielsen on 06-22-2023 Iron [Mass/Vol] 122 ug/dL Normal 50-212 [facility] Comment on above: Order Comment: Reaso n for Exam Well adult exam Performed By: #### F E PRO, CMP wRFX A1C, TSH3, [id number], [id number], CBC, LIPID #### [facility] [address] [id number] [facility] Iron binding capacity [Mass/ volume] in Serum or PlasmaOrdered By: Sherry Nielsen on 06-22-2023 Iron binding capacity [Mass/Vol] 351 ug/dL 255-450 [facility] Iron saturation [Mass Fracti on] in Serum or PlasmaOrdered By: Sherry Nielsen on 06-22-2023 Iron saturation [Mass fraction] 34.8 % 20-50 [facility] Leukocytes [#/volume] correc wilebr for nucleated erythrocytes in Blood by Automated counOrdered By: Sherry Nielsen on 06-22-2023 WBC corrected for nucl RBC Auto (Bld) [#/Vol] 6.1 10*3/uL 3.8-11.6 [facility] Leukocytes [#/volume] in Blo od by Automated countOrdered By: Sherry Nielsen on 06-22-2023 WBC (Bld) [#/Vol] 6.1 10*3/uL Normal 3.8-11.6 [facility] Comment on above: Order Comment: Reaso n for Exam Well adult exam Performed By: #### F E PRO, CMP wRFX A1C, TSH3, [id number], [id number], CBC, LIPID #### [facility] [address] [id number] [facility] Lipid Panelon 06-22-2023 LDL Cholesterol,Calculated 70 mg/dL Normal 0-100 [facility] Comment on above: Order Comment: Reaso n for Exam Well adult exam Result Comment: LDL ATP III CLASSIFICATION LDL less than 100 mg/dL Optimal LDL 100-129 mg/dL Near or above optimal LDL 130-159 mg/dL Borderline high LDL 160-189 mg/dL High LDL greater than 189 mg/dL Very high Performed By: #### F E PRO, CMP wRFX A1C, TSH3, [id number], [id number], CBC, LIPID #### [facility] [address] Triglyceride w/Reflex 82 mg/dL Normal 0-149 [facility] Comment on above: Order Comment: [...] F E PRO, CMP wRFX A1C, TSH3, [id number], [id number], CBC, LIPID #### [facility] [address] [id number] [facility] VLDL CHOLESTEROL 16 mg/dL Normal [facility] Comment on above: Order Comment: Reaso n for Exam Well adult exam Performed By: #### F E PRO, CMP wRFX A1C, TSH3, [id number], [id number], CBC, LIPID #### [facility] [address] [id number] [facility] Lymphocytes [#/volume] in Bl ood by Automated countOrdered By: Sherry Nielsen on 06-22-2023 Lymphocytes (Bld) [#/Vol] 2.1 10*3/uL Normal 1.00-4.8 [facility] Comment on above: Order Comment: Reaso n for Exam Well adult exam Performed By: #### F E PRO, CMP wRFX A1C, TSH3, [id number], [id number], CBC, LIPID #### [facility] [address] Lymphocytes/100 leukocytes i n Blood by Automated countOrdered By: Sherry Nielsen on 06-22-2023 Lymphocytes/100 WBC (Bld) 34.6 % Normal . [facility] Comment on above: Order Comment: Reaso n for Exam Well adult exam Performed By: #### F E PRO, CMP wRFX A1C, TSH3, [id number], [id number], CBC, LIPID #### [address] MCH [Entitic mass] by Automa wilber countOrdered By: Sherry Nielsen on 06-22-2023 MCH (RBC) [Entitic mass] 30.5 pg Normal 24.7-34.3 [facility] Comment on above: Order Comment: Reaso n for Exam Well adult exam Performed By: #### F E PRO, CMP wRFX A1C, TSH3, [id number], [id number], CBC, LIPID #### [address] MCHC Auto (RBC) [Mass/Vol]Or dered By: Sherry Nielsen on 06-22-2023 MCHC (RBC) [Mass/Vol] 33.6 g/dL 32.0-35.0 [facility] MCV [Entitic volume] by Auto mated countOrdered By: Sherry Nielsen on 06-22-2023 MCV (RBC) [Entitic vol] 90.9 fL Normal 80-100 [facility] Comment on above: Order Comment: Reaso n for Exam Well adult exam Performed By: #### F E PRO, CMP wRFX A1C, TSH3, [id number], [id number], CBC, LIPID #### [place] [address] [place] Neutrophils [#/volume] in Bl ood by Automated countOrdered By: Sherry Nielsen on 06-22-2023 Neutrophils (Bld) [#/Vol] 3.4 10*3/uL Normal 1.8-7.7 [facility] Comment on above: Order Comment: Reaso n for Exam Well adult exam Performed By: #### F E PRO, CMP wRFX A1C, TSH3, [id number], [id number], CBC, LIPID #### [facility] [address] No Panel InformationOrdered By: Sherry Nielsen on 06-22-2023 Estimated GFR (CKD-EPI) > 60.0 mL/Min [facility] Creatinine Clearance (Chem N/A [facility] Nucleated erythrocytes [Pres ence] in Blood by Automated countOrdered By: Sherry Nielsen on 06-22-2023 Nucleated RBC Auto Ql (Bld) 0.3 /100{WBC} 0-0.5 [facility] Platelet mean volume [Entiti c volume] in Blood by Automated countOrdered By: Sherry Nielsen on 06-22-2023 Platelet mean volume (Bld) [Entitic vol] 8.8 fL Normal 6.3-10.7 [facility] Comment on above: Order Comment: Reaso n for Exam Well adult exam Performed By: #### F E PRO, CMP wRFX A1C, TSH3, [id number], [id number], CBC, LIPID #### [facility] [address] [place] [address] [place] Platelets [#/volume] in Bloo d by Automated countOrdered By: Sherry Nielsen on 06-22-2023 Platelets (Bld) [#/Vol] 219 10*3/uL Normal 150-450 [facility] Comment on above: Order Comment: Reaso n for Exam Well adult exam Performed By: #### F E PRO, CMP wRFX A1C, TSH3, [id number], [id number], CBC, LIPID #### [facility] [address] Potassium [Moles/volume] in Serum or PlasmaOrdered By: Sherry Nielsen on 06-22-2023 Potassium [Moles/Vol] 4.3 mmol/L Normal 3.5-5.1 [facility] Comment on above: Order Comment: Reaso n for Exam Well adult exam Performed By: #### F E PRO, CMP wRFX A1C, TSH3, [id number], [id number], CBC, LIPID #### [facility] [address] Protein [Mass/volume] in Ser um or PlasmaOrdered By: Sherry Nielsen on 06-22-2023 Protein [Mass/Vol] 7.4 g/dL Normal 6.4-8.9 [facility] Comment on above: Order Comment: Reaso n for Exam Well adult exam Performed By: #### F E PRO, CMP wRFX A1C, TSH3, [id number], [id number], CBC, LIPID #### [facility] [address] Serum globulin measurement b y calculation (mass/volume)Ordered By: Sherry Nielsen on 06-22-2023 Globulin (S) [Mass/Vol] 3.1 g/dL Normal [facility] Comment on above: Order Comment: Reaso n for Exam Well adult exam Performed By: #### F E PRO, CMP wRFX A1C, TSH3, [id number], [id number], CBC, LIPID #### [facility] [address] Serum or plasma albumin/glob ulin mass ratioOrdered By: Sherry Nielsen on 06-22-2023 Albumin/Globulin [Mass ratio] 1.4 {ratio} Normal [facility] Comment on above: Order Comment: Reaso n for Exam Well adult exam Performed By: #### F E PRO, CMP wRFX A1C, TSH3, [id number], [id number], CBC, LIPID #### [facility] [address] [id number] [facility] Serum or plasma anion gap de terminationOrdered By: Sherry Nielsen on 06-22-2023 Anion gap [Moles/Vol] 10.2 mmol/L Normal 6.0-15.0 [facility] Comment on above: Order Comment: Reaso n for Exam Well adult exam Performed By: #### F E PRO, CMP wRFX A1C, TSH3, [id number], [id number], CBC, LIPID #### [facility] [address] [id number] [facility] Serum or plasma high density lipoprotein (HDL) cholesterol measurementOrdered By: Sherry Nielsen on 06-22-2023 Cholesterol in HDL [Mass/Vol] 63 mg/dL Normal 23-92 [facility] Comment on above: HDL CHOL ATP-III CLA SSIFICATION Cardiovascular RiskHDL > or equal to 60 mg/dL LOWHDL < 40 mg/dL HIGH Order Comment: Reaso n for Exam Well adult exam Result Comment: HDL CHOL ATP-III CLASSIFICATION Cardiovascular Risk HDL > or equal to 60 mg/dL LOW HDL < 40 mg/dL HIGH Performed By: #### F E PRO, CMP wRFX A1C, TSH3, [id number], [id number], CBC, LIPID #### [facility] [address] Serum or plasma total choles terol/high density lipoprotein (HDL) cholesterol mass ratOrdered By: Sherry Nielsen on 06-22-2023 Cholesterol.total/Choles terol in HDL [Mass ratio] 2.4 {ratio} Normal <5.0 [facility] Comment on above: Order Comment: Reaso n for Exam Well adult exam Performed By: #### F E PRO, CMP wRFX A1C, TSH3, [id number], [id number], CBC, LIPID #### [facility] [address] [id number] [facility] Sodium [Moles/volume] in Ser um or PlasmaOrdered By: Sherry Nielsen on 06-22-2023 Sodium [Moles/Vol] 138 mmol/L Normal 136-145 [facility] Comment on above: Order Comment: Reaso n for Exam Well adult exam Performed By: #### F E PRO, CMP wRFX A1C, TSH3, [id number], [id number], CBC, LIPID #### [facility] [address] [place] [address] [facility] Thyrotropin [Units/volume] i n Serum or PlasmaOrdered By: Sherry Nielsen on 06-22-2023 TSH Qn 1.93 m[IU]/L Normal 0.45-5.33 [facility] Comment on above: Order Comment: Reaso n for Exam Well adult exam Performed By: #### F E PRO, CMP wRFX A1C, TSH3, [id number], [id number], CBC, LIPID #### [facility] [address] [place] [address] [place] Transferrin [Mass/volume] in Serum or PlasmaOrdered By: Sherry Nielsen on 06-22-2023 Transferrin [Mass/Vol] 251 mg/dL Normal 203-362 [facility] Comment on above: Order Comment: Reaso n for Exam Well adult exam Performed By: #### F E PRO, CMP wRFX A1C, TSH3, [id number], [id number], CBC, LIPID #### [facility] [address] [place] [address] [facility] Triglyceride [Mass/volume] i n Serum or PlasmaOrdered By: Sherry Nielsen on 06-22-2023 Triglyceride [Mass/Vol] 82 mg/dL 0-149 [facility] Comment on above: TRIG ATP III CLASSIF ICATIONTRIG less than 150 mg/dL NormalTRIG 150-199 mg/dL Borderline highTRIG 200-500 mg/dL High TRIG greater than 500 mg/dL Very highStandard traceable to the Center for Disease Conrtrol and Prevention (CDC) test method. Urea nitrogen [Mass/volume] in Serum or PlasmaOrdered By: Sherry Nielsen on 06-22-2023 Urea nitrogen [Mass/Vol] 16 mg/dL Normal 7-25 [facility] Comment on above: Order Comment: Reaso n for Exam Well adult exam Performed By: #### F E PRO, CMP wRFX A1C, TSH3, [id number], [id number], CBC, LIPID #### [facility] [address] [place] [address] [place] Vit. B12/Folate Profileon Folate 23.0 ng/mL Normal >5.9 [facility] Comment on above: Order Comment: Reaso n for Exam Well adult exam Result Comment: [place] te reference range: >5.9 ng/ml The WHO technical consultation on folate and vitamin b12 deficiencies has determined that folate concentrations less than 4 ng/ml are considered deficient. Performed By: #### F E PRO, CMP wRFX A1C, TSH3, [id number], [id number], CBC, LIPID #### [facility] [address] [place] [address] [facility] Vitamin B12 ser/plasOrdered By: Sherry Nielsen on 06-22-2023 Cobalamin (Vitamin B12) [Mass/Vol] 333 pg/mL Normal 180-914 [facility] Comment on above: Order Comment: Reaso n for Exam Well adult exam Performed By: #### F E PRO, CMP wRFX A1C, TSH3, [id number], [id number], CBC, LIPID #### [facility] [address] [place] [address] [facility] Vitamin D 25 Hydroxy Totalon 06-22-2023 Vitamin D 25 Hydroxy Total 45.4 ng/mL Normal 30-100 [facility] Comment on above: Order Comment: Reaso n for Exam Well adult exam Result Comment: TEX MIN D STATUS 25(OH)VITAMIN D RANGE (ng/mL) Deficient <20 Insufficient 20 to <30 Sufficient 30 to 100 Reference: Mary MF,Marielena NC, Maximilian HAMILTON, et al. Evaluation,treatment, and prevention of vitamin D deficiency; an Endocrine Society clinical practice guideline. JCEM. 2010; 96(7):1911-30. PERFORMED BY: [facility] [address] [place] [address] REPORTER GLORIA MESA M.D. Performed By: #### F E PRO, CMP wRFX A1C, TSH3, [id number], [id number], CBC, LIPID #### [facility] [address] [place] [address] [facility] Vitamin D+Metabolites [Mass/ volume] in Serum or PlasmaOrdered By: Sherry Nielsen on 06-22-2023 Vitamin D+Metabolites [Mass/Vol] 45.4 ng/mL 30-100 [facility] Comment on above: VITAMIN D STATUS 25( [place])VITAMIN D RANGE (ng/mL) Deficient <20 Insufficient 20 to <30Sufficient 30 to 100Reference: Mary MF,Marielena HOUSER, Maximilian HAMILTON, et al. Evaluation,treatment, and prevention of vitamin D deficiency; an Endocrine Society clinical practice guideline. JCEM. 2010; 96(3):1911-30. Vital Signs Date Time Vital Sign Value Performing Clinician Facility 10-09-2024 09:44-0500 Body weight 94.08 kg You[facility] Phone: [facility] 10-09-2024 09:44-0500 Diastolic blood pressure 70 mm[Hg] [facility] Phone: [facility] 10-09-2024 09:44-0500 Systolic blood pressure 120 mm[Hg] [employer] Work Phone: [facility] [email or web address] 06-18-2023 07:30-0400 Body height 156.21 cm Sherry Nielsen Other [facility] Other 06-18-2023 07:30-0400 Body mass index (BMI) [Ratio] 31.73 kg/m2 Sherry Nielsen Other [facility] Other 06-18-2023 07:30-0400 Body weight 77.43 kg Sherry Nielsen Other [facility] Other 06-18-2023 07:30-0400 Diastolic blood pressure 70 mm[Hg] Sherry Nielsen Other [facility] Other 06-18-2023 07:30-0400 Respiratory rate 18 /min Sherry Nielsen Other [facility] Other 06-18-2023 07:30-0400 SaO2% (BldA) [Mass fraction] 98 % Sherry Shipleycarolee Other [facility] [employer] Other 06-18-2023 07:30-0400 Systolic blood pressure 110 mm[Hg] Sherry Shipleycarolee Other [facility] [employer] Other Encounters Encounter Date Encounter Type Care Provider Facility Start: 10-09-2024 End: 10-09-2024 Bamboo flowsheet Addie Annabel DO Work Phone: [facility] Start: 10-09-2024 End: 10-09-2024 Bamboo flowsheet Addie Annabel DO Work Phone: [facility] Start: 10-09-2024 End: 10-09-2024 Clinisync Result Encounter Addie Annabel DO Work Phone: [facility] External Department Unsolicited Start: 10-09-2024 End: 10-09-2024 [...] Non-patient / Non-visit Addie Annabel Work Phone: [facility] Work Phone: Start: 04-19-2024 End: 04-19-2024 ambulatory Addie Annabel [facility] Work Phone: Start: 04-19-2024 End: 04-19-2024 Departed Referred Addie Annabel Work Phone: [facility] Start: 04-19-2024 Non-patient / Non-visit Addie Annabel Work Phone: [facility] Work Phone: Start: [...] Not Available Start: 12-27-2023 End: 12-27-2023 ambulatory DADIE ANNABEL Not Available Start: 11-29-2023 End: 11-29-2023 ambulatory ROMMEL ALMA Not Available Start: 10-28-2023 End: 10-28-2023 ambulatory ADDIE ANNABEL Not Available Start: 06-22-2023 End: 06-22-2023 Patient encounter procedure DNP Sherry Gia Work Phone: [facility] Start: 06-22-2023 End: 06-22-2023 ambulatory DNP Sherry Gia Work Phone: [facility] Work Phone: Start: 06-18-2023 End: 06-18-2023 ambulatory Sherry Nielsen Other [facility] [employer] Other Start: 06-18-2023 Encounter for genera l adult medical examination without abnormal findings Sherry Nielsen [facility] [place] Start: 06-18-2023 Initial preventive medicine new pt age 18-39yrs Sherry Nielsen [facility] [place] Procedures Date Procedure Procedure Detail Performing Clinician Start: 10-09-2024 ALL CBC WITH AUTO DIFF Addie Annabel DO Work Phone: Start: 10-09-2024 Urine test visual color cmprsn meths Addie Annabel DO Work Phone: Plan of Treatment Date Care Activity Detail Author Start: 11-16-2024 End: 11-16-2024 Patient encounter procedure 11/16/2024 8:40 AM EST Office Visit [facility] [address] [place] [id number] Addie Jin, DO [address] [place], [place] [id number] [facility] Start: 10-24-2024 End: 10-24-2024 Professional / ancillary services management 10/24/2024 9:30 AM EST Ancillary Procedure [facility] [address] [place] [phone] [facility] Start: 10-09-2024 End: 10-09-2025 [...] EST Office Visit [facility] [address] [place] [phone] Addie Jin DO [address] [place] [address] Arrived [facility] Comment on above: Arrived CBC W Auto Different ial panel - Blood CBC and differential Lab Routine Menorrhagia with regular cycle Ordered: 10/09/[address] [facility] Work Phone: Comment on above: Ordered: 10/09/2024 hCG, quantitative, hCG, quantitative, Lab Routine Menorrhagia with regular cycle Ordered: 10/09/[address] [facility] Comment on above: Ordered: 10/09/2024 Hemoglobin A1c/Hemoglobin.total in Blood Hemoglobin A1c Lab Routine Menorrhagia with regular cycle Ordered: 10/09/[address] [facility] Comment on above: Ordered: 10/09/2024 Prothrombin time (PT ) in Blood by Coagulation assay Protime-INR Lab Routine Menorrhagia with regular cycle Ordered: 10/09/[address] [facility] Comment on above: Ordered: 10/09/2024 Thyrotropin [Units/volume] in Serum or Plasma TSH Lab Routine Menorrhagia with regular cycle Ordered: 10/09/[address] [facility] Comment on above: Ordered: 10/09/2024 Thyroxine (T4) free [Mass/volume] in Serum or Plasma T4, free Lab Routine Menorrhagia with regular cycle Ordered: 10/09/[address] [facility] Comment on above: Ordered: 10/09/2024 Payers Date Payer Category Payer [facility] [id number] 2023 Self-pay 2023 [employer] [facility] [id number] 1993 Unknown [id number] 2.16.840.1.403856.3.579.2 .1258 1993 Unknown [id number] 2.16.840.1.898614.3.579.2 .1258 1993 Unknown [id number] 2.16.840.1.166987.3.579.2 .1258 1993 Unknown [id number] 2.16.840.1.980859.3.579.2 .1258 1993 Unknown [id number] 2.16.840.1.069558.3.579.2 .1258 1993 Unknown [id number] 2.16.840.1.305597.3.579.2 .1258 1993 Unknown [id number] 2.16.840.1.720537.3.579.2 .1258 1993 Unknown [id number] 2.16.840.1.613547.3.579.2 .1258 1993 Unknown [id number] 2.16.840.1.047867.3.579.2 .1258 1993 Unknown [id number] 2.16.840.1.667388.3.579.2 .1258 1993 Unknown [id number] 2.16.840.1.335581.3.579.2 .1258 1993 Unknown [id number] 2.16.840.1.642205.3.579.2 .1258 1993 Unknown [id number] 2.16.840.1.511610.3.579.2 .1258 1993 Unknown [id number] 2.16.840.1.286314.3.579.2 .1259 1993 Unknown [id number] 2.16.840.1.438050.3.579.2 .1259 Unknown HCAP/HFA/FAP Active [id number] Unknown [id number] 2.16.840.1.822201.3.579.2 .531 Unknown [id number] 2.16.840.1.459897.3.579.2 .531 Social History Date Type Detail Facility Start: 09-24-2023 Sex Assigned At N [facility] [employer] Other Start: 1995 Sex Assigned At Female F [facility] Start: 04-18-2023 End: 06-18-2023 Tobacco smoking status NHIS Never smoked tobacco (finding) [facility] Start: 04-18-2023 Tobacco use and exposure Smokeless tobacco non-user [facility] Start: 05-31-2024 Alcoholic beverage intake Ex-drinker (finding) [facility] Start: 09-24-2023 End: 05-31-2024 Alcoholic beverage intake [facility] Start: 1995 Sex assigned at Not [...] nursing note reviewed. Exam conducted with a foot setter present. Vitals: There is no height or [...] She will continue to keep appointment with ELECTRONICS MAINTENANCE TECHNICIAN, eye doctor and dentist. Patient is advised to work on healthy diet choices and appropriate servings, weight control, regular exercise as directed, reduced fat intake, and salt avoidance. Patient voiced understanding of this and agrees to this plan. [facility] Other Evaluation note Note Date & Type Note Facility Evaluation [facility] Evaluation note Note Date & Type Note Facility Evaluation note Diagnosis Irregular periods/menstrual cycles Menorrhagia with regular cycle documented in this encounter [facility] History general Narrative - Reported Note Date & Type Note Facility History general Narrative - Reported Type Surgical History Foot Surgery Surgical History GALLBLADDER Surgical History 2015 Surgical History SHOULDER-LEFT 2018 Hospitalization History see above [facility] Other Chief Complaint and Reason for Visit [...] and content) DATE CREATED AUTHOR 04/28/2024 [facility] DATE CREATED AUTHOR 'Lena BOWERS 10/10/2024 [facility] d[facility] Special[facility] FOR RECORDS PERTAINING TO PATIENTS WHO ARE [...] BE BASED ON THE PRIMARY CLINICAL RECORDS. [facility] [employer] provides no warranty or guarantee of the accuracy or completeness of information in this document.
[2024-11-21 14:11] LABS: Age Gdln ACOG Testing Note (.); HPV Aptima Negative (Negative); IGP, Aptima HPV, rfx 16/18,45 Note (.)
== END 2024-11-16 19:48 | disposition home or self-care (01) ==
LOC: LAB 19:47
PROVIDERS: PCP Nurse Practitioner Family; Visit Provider Obstetrics & Gynecology
DX: Z01.419 Encounter for gynecological examination (general) (routine) without abnormal findings (principal)
CPT/HCPCS: 87624; 88175

== ENCOUNTER 2025-03-29 11:27 | Outpatient (REF) | payer BC, SELFPAY ==
--- OUTSIDE RECORDS SUMMARY | 2014-11-27 15:24 | XMS_ITS | Continuity of Care Document ---
Author Organization [facility] Address [address] [place] [address] Phone Care Team Providers Care Senior Trial Attorney Name Role Phone Daria Hester Unavailable Unavaila [...] Diagnoses Date Provider Providers Copied on Encounter [facility], [address] [place] [address], [id number] , [place] tel: [phone] [facility] No Information 0-201 5 Levi Huff. [address] [place] [address], [id number] , [place]. tel: [phone] PREV VISIT, NEW, AGE 18-39 [facility], [address] [place] [address], [id number] , [place] tel: [phone] [facility] annual exam (chief complaint) Routine gynecological examinationContracept ehdy management 5 Levi [facility] Daria. [address] [place] [address], [id number] , [place]. tel:[phone] Family History Family Member Type Diagnosis Age At Onset No Information Payers Payer name Insurance type Covered constitution party ID Authoriza tion(s) No Information Social [...]
--- OUTSIDE RECORDS SUMMARY | 2025-03-29 09:30 | XMS_ITS | Encounter Summary ---
Author Organization [facility] Address [address] [place] [address] Care Team Providers Care Divider Operator Name Role Phone Unavailable Primary Care Provider Unavailabl e Reason for Visit * Reason Comments embx Pre-op Visit Encounter Details Date Type Department Care Team (Late st Contact Info) Description 03/29/2025 9:30 AM EDT Procedure Visit [facility] [address] [phone] Domingo Jin DO [address] [place] [place], [place] [id number] Pre-op examination; Menorrhagia with regular cycle; Pelvic pain; Abnormal uterine bleeding (AUB); Encounter for weight management Social History Tobacco Use Types Packs/Day Years Used Date Smoking Tobacco: Never Smokeless Tobacco: Never Alcohol Use Standard Drinks/Week Comments Not Currently 2 (1 standard drink = 0.6 oz pur e alcohol) Comments No Sex and Gender Information Value Date Recorded Sex Assigned at Not on file Legal Sex Female 7:25 PM EDT Gender Identity Not on file Sexual Orientation Not on file documented as of this encounter Last Filed Vital Signs Vital Sign Reading Time Taken Comments Blood Pressure 110/82 03/29/2025 9:31 AM EDT Pulse - - Temperature - - Respiratory Rate - - Oxygen Saturation - - Inhaled Oxygen Concentration - - Weight 90.9 kg (200 lb 8 oz) 03/29/2025 9:31 AM EDT Height - - Body Mass Index 35.52 11/16/2024 8:51 AM EST documented in this encounter Plan of Treatment Upcoming Encounters Date Type Department Care Team (Late st Contact Info) Description 05/10/2025 8:40 AM EDT Office Visit [facility] [address] [phone] Domingo Jin DO [address] [place] [address] [place] [address] documented as of this encounter Procedures Procedure Name Priority Date/Time Associated Diagnosis Comments POCT , URINE Routine 03/29/2025 9:37 AM EDT Menorrhagia with regular cycle documented in this encounter Results * POCT , urine manually resulted (03/29/2025 9:37 AM EDT) Preg Test, Ur Negative Negative Urine 03/29/2025 9:37 AM EDT Domingo Jin DO POINT OF CARE TEST ENTER/EDIT OR DERABLES Final Result documented in this encounter Visit Diagnoses Diagnosis Pre-op examination Menorrhagia with regular cycle Pelvic pain Abnormal uterine bleeding (AUB) Encounter for weight management documented in this encounter
--- OUTSIDE RECORDS SUMMARY | 2025-04-03 11:32 | XMS_ITS | Encounter Summary ---
Author Organization [facility] Address [address] [place] [address] Care Team Providers Care Kitchen Utility Associate Name Role Phone Poppy Lombardi SURFACE HYDROLOGIST Unavailable Encounter Details Date Type Department Care Team (Late st Contact Info) Description 04/27/2024 Abstract [facility] [address] [place] [address] Domingo Jin DO [address], [facility] Social History Tobacco Use Types Packs/Day Years [...] on file documented as of this encounter Plan of Treatment Upcoming Encounters Date Type Department Care Team (Late st Contact Info) Description 05/10/2025 8:40 AM EDT Office Visit [facility] [address] [place] [address] Domingo Jin, DO [address] [place] [address] documented as of this encounter Visit Diagnoses Not on filedocumented in this encounter Care Teams Kitchen Utility Associate Relationship Specialty Start Date End Date Poppy Lombardi, DARRION [address] [phone] PCP - Pippa Sahni 01/06/25 documented as of this encounter
--- OUTSIDE RECORDS SUMMARY | 2025-04-03 11:32 | XMS_ITS | Encounter Summary ---
Author Organization [facility] Address [address] [place] [address] Care Team Providers Care Oil Speculator Name Role Phone Unavailable Primary Care Provider Unavailabl e Encounter Details Date Type Department Care Team (Late st Contact Info) Description 03/30/2025 Abstract [facility] [address] [place] [phone] Domingo Jin, DO [address], [place] [id number] Social History Tobacco Use Types Packs/Day Years [...] EDT Office Visit [facility] [address] [place] [address] Domingo Jin, DO [address], [place] [id number] documented as of this encounter Visit Diagnoses Not on filedocumented in this encounter
--- OUTSIDE RECORDS SUMMARY | 2025-04-03 11:32 | XMS_ITS | Encounter Summary ---
Author Organization [facility] Address [address] [place] [address] Care Team Providers Care Contact Lens Blocker And Cutter Name Role Phone Poppy Lombardi TALENT ASSOCIATE Unavailable [phone] Encounter Details Date Type Department Care Team (Late Contact Info) Description 09/24/2023 Clinisync Result Encounter [facility] External Department Unsolicited Addie Jin, DO [address] [place] [address] Social History Tobacco Use Types Packs/Day Years Used Date Smoking Tobacco: Never Smokeless Tobacco: Never Alcohol Use Standard Drinks/Week Comments Not Currently 2 (1 standard drink = 0.6 oz pur e alcohol) Comments No Sex and Gender Information Value Date Recorded Sex Assigned at Not on file Legal Sex Female 7:25 PM EDT Gender Identity Not on file Sexual Orientation Not on file COVID-19 Exposure Response Date Recorded In the last 10 days, have yo u been in contact with someone who was confirmed or suspected to have Coronavirus/COVID-19? No / Unsure 09/17/2023 8:49 AM EST documented as of this encounter Plan of Treatment Upcoming Encounters Date Type Department Care Team (Late st Contact Info) Description 05/10/2025 8:40 AM EDT Office Visit [facility] [address] [place] [phone] Addie Jin DO [address] [place] [address] [place] [address] documented as of this encounter Procedures Procedure Name Priority Date/Time Associated Diagnosis Comments US OB TRANSVAGINAL 09/24/2023 1: 14 PM EST documented in this encounter Results * US OB TRANSVAGINAL (09/24/2023 1:14 PM EST) Anatomical Region Laterality Modality Other 09/24/2023 1:14 PM EST Narrative 09/24/2023 1:14 [place] [address] Ultrasound Report Signed Patient: Donald Givens MR#: [id number] : 1995 Acct:[id number] Age/Sex: 28 / F ADM Date: 09/24/23 Loc: US Attending Dr: Addie Jin D.O. Ordering Physician: Addie Jin D.O. Date of Service: 09/24/23 Procedure(s): US OB transvaginal Accession Number(s): [id number] cc: Addie Jin D.O.; Physician,Non-Staff M.Jennie The [address] [address] Patient Name: DONALD GIVENS MRN: [id number] date: 1995 Sex: F Assigned Patient Location: US Current Patient Location: US Accession/Order Number: [id number] Exam Date: 09/24/2023 09:10 Report Date: 09/24/2023 13:14 At the request of: ADDIE JIN Procedure: US OB transvaginal EXAMINATION: US OB transvaginal HISTORY: MISSED MENSES COMPARISON: No relevant comparison available. FINDINGS: Rivero intrauterine gestation Gestational sac: 2.5 cm, 7 weeks 1 day CRL: 1.43 cm, 7 weeks 5 days Yolk sac: 3.1 mm Heart rate: 155 beats minute Cervix: Closed, 3.8 cm The uterus is normal, anteverted, anteflexed The left ovary is not visualized. The right ovary appears normal Clinical age: 10 weeks 4 days Clinical LAUREN: 04/17/2024 Ultrasound age: 7 weeks 5 days Ultrasound LAUREN: 05/07/2024 US/US OB transvaginal IMPRESSION: Viable rivreo intrauterine gestation measuring 7 weeks 5 days Electronically authenticated by: DARLEEN LOZOYA Date: 09/24/2023 13:14 Dictated By: Darleen Lozoya M.D. Signed By: 09/24/231315 DD/ 13 TD/TT: Bender Machine Operator: Procedure Note Radiology, Radiologist, MD - 09/24/2023 [place] [address] Ultrasound Report Signed Patient: Donald Givens LMR#: [id number] : 1995Acct:[id number] Age/Sex: 28 / FADM Date: 09/24/23 Loc: US Attending Dr: Addie Jin D.O. Ordering Physician: Addie Jin D.O. Date of Service: 09/24/23 Procedure(s): US OB transvaginal Accession Number(s): [id number] cc: Addie Jin D.O.; Physician,Non-Staff [place] [address] [place] [address] Patient Name: DONALD GIVENS MRN: [id number] date: 1995 Sex: F Assigned Patient Location: US Current Patient Location: US Accession/Order Number: [id number] Exam Date: 09/24/2023 09:10 Report Date: 09/24/2023 13:14 At the request of: ADDIE JIN Procedure: US OB transvaginal EXAMINATION: US OB transvaginal HISTORY: MISSED MENSES COMPARISON: No relevant comparison available. FINDINGS: Rivero intrauterine gestation Gestational sac: 2.5 cm, 7 weeks 1 day CRL: 1.43 cm, 7 weeks 5 days Yolk sac: 3.1 mm Heart rate: 155 beats minute Cervix: Closed, 3.8 cm The uterus is normal, anteverted, anteflexed The left ovary is not visualized. The right ovary appears normal Clinical age: 10 weeks 4 days Clinical LAUREN: 04/17/2024 Ultrasound age: 7 weeks 5 days Ultrasound LAUREN: 05/07/2024 US/US OB transvaginal IMPRESSION: Viable rivero intrauterine gestation measuring 7 weeks 5 days Electronically authenticated by: DARLEEN LOZOYA Date: 09/24/2023 13:14 Dictated By: Darleen Lozoya M.D. Signed By:09/24/231315 DD/ 13 TD/TT: Bender Machine Operator: us Addie Annabel DO [facility] Final Result documented in this encounter Visit Diagnoses Not on filedocumented in this encounter Care Teams Contact Lens Blocker And Cutter Relationship Specialty Start Date End Date Poppy Lombardi NP [address] [place] [address] PCP - Pippa Commercial 01/06/25 documented as of this encounter
--- OUTSIDE RECORDS SUMMARY | 2025-04-03 11:32 | XMS_ITS | Encounter Summary ---
Author Organization [facility] Address [address] [place] [address] Care Team Providers Care Order Detailer Name Role Phone Unavailable Primary Care Provider Unavailabl e Reason for Referral * Medications - Closed Specialty Diagnoses / Procedures Referred By Kati t Referred To Contact Diagnoses Elevated glucose tolerance test Gastroesophageal reflux disease with esophagitis without hemorrhage Encounter for weight management Domingo Jin DO [address] [place] [address] Phone: tel: fax: Referral ID Status Reason Start Date Expiration Date Visits Re quested Visits Authorized [id number] Closed 1 1 Encounter Details Date Type Department Care Team (Late st Contact Info) Description 03/20/2025 Telephone [facility] [address] [place] [address] Daria Mercedes LPN Social History Tobacco Use Types Packs/Day Years [...] on file documented as of this encounter Miscellaneous Notes * Telephone Encounter - Siria Sanchez MA - 03/20/2025 2:20 PM EDT Discussed with pt that she would need to call insurance to see if they woul cover her endometrial biopsy Semaglutide sent Pt notified documented in this encounter Plan of Treatment Upcoming Encounters Date Type Department Care Team (Late st Contact Info) Description 05/10/2025 8:40 AM EDT Office Visit [facility] [address] [facility] [place] [phone] Domingo Jin, DO [address] [place] [address] documented as of this encounter Visit Diagnoses Diagnosis Elevated glucose tolerance test Impaired glucose tolerance test Gastroesophageal reflux disease with esophagitis without hemorrhage Encounter for weight management documented in this encounter
--- OUTSIDE RECORDS SUMMARY | 2025-04-03 11:32 | XMS_ITS | Clinical Summary ---
Author Organization [facility] Address [address] [place] [address] Care Team Providers Care Consumer Recruiter Name Role Phone Unavailable Primary Care Provider Unavailabl e Allergies Active Allergy Reactions Criticality Noted Date Comments Chlorhexidine Gluconate Hives,Itching,Rash Low 03/2015 Wound Dressing Adhesive Hives High 04/18/2023 Other Reaction(s): hives Medications omeprazole (PriLOSEC) [address] capsuleIndicati ons:Gastroesoph ageal reflux disease with esophagitis without hemorrhage Take 1 capsule (20 mg) by mouth in the morning. Take before meals. Do not crush or chew.. 30 capsule 02/22/20 24 Active metFORMIN XR (Glucophage-XR) 500 MG 24 hr tabletIndicatio ns:Irregular periods/menstru al cycles,Encounte r for weight management Take 1 tablet (500 mg) by mouth in the morning and 1 tablet (500 mg) before bedtime. Do not crush, chew, or split.. 60 tablet 02/13/20 25 Active semaglutide (Ozempic) 2 MG/1.5ML solution pen-injectorInd ications:Elevat ed glucose tolerance test,Gastroesop hageal reflux disease with esophagitis without hemorrhage,Enco unter for weight management FIRST MONTH inject 0.25 mg under the skin once weekly; then SECOND MONTH inject 0.5 mg under the skin 1 (one) time per week for 4 doses. 1 each 1 03/20/20 25 Active fluticasone (Flonase) 50 MCG/ACT nasal sprayIndication s:Sinus pressure Administer 1 spray into each nostril in the morning and 1 spray before bedtime. Shake gently. Before first use, prime pump. After use, clean tip and replace cap.. 16 g 11/14/19 25 025 Discontinued phentermine (Adipex-P) 37.5 MG tabletIndicatio ns:Encounter for weight management Take 1 tablet (37.5 mg) by mouth in the morning. Take before meals. 30 tablet 11/16/19 25 025 Discontinued phentermine (Adipex-P) 37.5 MG tabletIndicatio ns:Encounter for weight management Take 1 tablet (37.5 mg) by mouth in the morning. Take before meals. 30 tablet 12/14/19 25 025 Discontinued cephalexin (Keflex) 500 MG capsuleIndicati ons:UTI symptoms Take 1 capsule (500 mg) by mouth in the morning and 1 capsule (500 mg) in the evening and 1 capsule (500 mg) before bedtime. Do all this for 7 days. 21 capsule 02/28/20 25 025 nitrofurantoin, macrocrystal-mo nohydrate, (Macrobid) 100 MG capsuleIndicati ons:UTI symptoms Take 1 capsule (100 mg) by mouth in the morning and 1 capsule (100 mg) before bedtime. Do all this for 7 days. 14 capsule 03/08/20 25 025 Active Problems Problem Noted Date Diagnosed Date Gastroesophageal reflux dise ase with esophagitis without hemorrhage 02/22/2024 Encounter for consultation for female sterilizat ion 10/28/2023 Vaginal discharge 10/28/2023 Resolved Problems Problem Noted Date Diagnosed Date Resolved Date Bacterial vaginosis in 10/28/2023 04/19/2024 First trimester 10/28/2023 Encounters Date Type Department Care Team Description 03/30/2025 Abstract [facility] [address] [facility] [address] Domingo Jin, 03/29/2025 9:30 AM EDT Procedure Visit [facility] [address] [place] [address] Domingo Jin DO Pre-op examination; Menorrhagia with regular cycle; Pelvic pain; Abnormal uterine bleeding (AUB); Encounter for weight management 03/28/2025 Travel 03/20/[address] [address] [place] [address] Daria Mercedes LPN 03/08/20[address]ill [facility] [address] [place] [address] Domingo Jin DO UTI symptoms 02/27/20[address] [facility] [address] [place] [address] Grazyna Vieira, METAL CASTER 02/09/20[address] [facility] [address] [place] [address] Grazyna Vieira, METAL CASTER 02/08/2025 8:30 AM EDT Office Visit [facility] [address] [place] [address] Domingo Jni, Encounter for weight management 02/08/2025 Bamboo flowsheet [facility] [address] [place] [phone] Domingo Jin DO 02/07/2025 Travel 01/12/2025 Telephone [facility] [address] [place] [address] Daria Mercedes, METAL CASTER from Last 3 Months Family History Medical History Relation Name Comments No Known Problems Father Cancer Maternal Grandfather not sure Diabetes Paternal Grandfather not sure Diabetes Paternal Grandmother bula Relation Name Status Comments Brother 1 Alive Brother 2 Alive Brother 3 Alive Daughter Alive Father Maternal Grandfather not sure Mother Alive Paternal Grandfather not sure Paternal Grandmother bula Social History Tobacco Use Types Packs/Day Years Used Date Smoking Tobacco: Never Smokeless Tobacco: Never Tobacco Cessation:Counseling Given: Not Answered Alcohol Use Standard Drinks/Week Comments Not Currently 2 (1 standard drink = 0.6 oz pur e alcohol) Comments No Sex and Gender Information Value Date Recorded Sex Assigned at Not on file Legal Sex Female 7:25 PM EDT Gender Identity Not on file Sexual Orientation Not on file Last Filed Vital Signs Vital Sign Reading Time Taken Comments Blood Pressure 110/82 03/29/2025 9:31 AM EDT Pulse 100 11/14/2024 12:29 PM EST Temperature 37.1 C (98.7 F) 11/14/2024 12:29 PM EST Respiratory Rate - - Oxygen Saturation 98% 11/14/2024 12:29 PM EST Inhaled Oxygen Concentration - - Weight 90.9 kg (200 lb 8 oz) 03/29/2025 9:31 AM EDT Height 160 cm (5' 3 ) 11/16/2024 8:51 AM EST Body Mass Index 35.52 11/16/2024 8:51 AM EST Plan of Treatment Upcoming Encounters Date Type Department Care Team (Late st Contact Info) Description 05/10/2025 8:40 AM EDT Office Visit [facility] [address] [place] [address] Domingo Jin, DO [address] [facility] [place] [address] Health Maintenance Due Date Last Done Comments Influenza Vaccine (Season Ended) 2025 Pap Smear 11/16/2027 11/16/2024, 10/28/2023 Cervical Cancer Screening 10/28/2028 HPV/Cotest 10/28/2028 Procedures Procedure Name Priority Date/Time Associated Diagnosis Comments POCT , URINE Routine 03/29/2025 9:37 AM EDT Menorrhagia with regular cycle PAP SMEAR Routine 11/16/2024 12:00 AM EST from Last 3 Months or Most Recently Relevant to Health Maintenance Results * POCT , urine manually resulted (03/29/2025 9:37 AM EDT) Preg Test, Ur Negative Negative Urine 03/29/2025 9:37 AM EDT us Domingo Annabel DO POINT OF CARE TEST ENTER/EDIT OR DERABLES Final Result * Pap Smear (11/16/2024 12:00 AM EST) Swab Cervical swab / Unknown us [facility] Annabel Nurse LAB CYTOLOGY ORDERABLES Final Result EXTERNAL LAB from Last 3 Months or Most Recently Relevant to Health Maintenance Insurance [facility]
--- OUTSIDE RECORDS SUMMARY | 2025-04-03 11:32 | XMS_ITS | Encounter Summary ---
Author Organization [facility] Address [address] [place] [address] Care Team Providers Care Museum Exhibit Technician Name Role Phone Poppy Lombardi INSTRUMENT REPAIRER Unavailable [phone] Encounter Details Date Type Department Care Team (Late st Contact Info) Description 10/25/2024 Clinisync Result Encounter [facility] External Department Unsolicited Addie Jin, DO [address] [place] [address] Social History Tobacco Use Types Packs/Day Years [...] Visit [facility] [address] [place] [address] Addie Jni, [address] [place] [address] documented as of this encounter Procedures Procedure Name Priority Date/Time Associated Diagnosis Comments US PELVIS W/ TRANSVAGINAL 10/25/2024 4:39 AM EST documented in this encounter Results * US PELVIS W/ TRANSVAGINAL (10/25/2024 4:39 AM EST) Anatomical Region Laterality Modality Other 10/25/2024 4:39 AM EST Narrative 10/25/2024 4:42 [place] [address] Ultrasound Report Signed Patient: DONALD GIVENS MR#: [id number] : 1995 Acct:[id number] Age/Sex: 29 / F ADM Date: 10/24/24 Loc: [facility] Attending Dr: Addie Jin D.O. Ordering Physician: Addie Jin D.O. Date of Service: 10/24/24 Procedure(s): US pelvis w/ transvaginal Accession Number(s): [id number] cc: Addie Jin D.O.; SKY JUAN [place] [address] Patient Name: DONALD GIVENS MRN: [id number] date: 1995 Sex: F Assigned Patient Location: [facility] Current Patient Location: Accession/Order Number: [id number] Exam Date: 10/24/2024 09:20 Report Date: 10/25/2024 04:39 At the request of: ADDIE JIN Procedure: US pelvis w/ transvaginal EXAMINATION: US pelvis w/ transvaginal HISTORY: MENORRHAGIA COMPARISON: No relevant comparison available. TECHNIQUE: Transabdominal and/or transvaginal sonographic examination was performed as indicated by examination type. FINDINGS: UTERUS: Normal size and appearance. Uterus size: 7.9 x 3.1 x 4.8 cm ENDOMETRIUM: Normal homogeneous appearance. Endometrial thickness: 9 mm RIGHT OVARY: Normal size and appearance. Duplex Doppler demonstrates normal waveform and flow; resistive index 0.4. Ovary size: 2.8 x 1.6 x 3.6 cm LEFT OVARY: Normal size and appearance. Duplex Doppler demonstrates normal waveform and flow; resistive index 0.7. Ovary size: 3.4 x 2.4 x 2.4 cm CUL-DE-SAC: Unremarkable. No significant free fluid. BLADDER: Unremarkable. OTHER: None. US/US pelvis w/ transvaginal IMPRESSION: 1. Normal pelvic ultrasound. Electronically authenticated by: JAMA SALAZAR Date: 10/25/2024 04:39 Dictated By: Jama Salazar M.D. Signed By: 10/25/24 0442 DD/ 0439 TD/TT: Credit Relationship Manager: Procedure Note Radiology, Radiologist, MD - 10/25/2024 [place] [address] Ultrasound Report Signed Patient: DONALD GIVENS LMR#: [id number] : 1995Acct:[id number] Age/Sex: 29 / FADM Date: 10/24/24 Loc: [facility] Attending Dr: Addie Jin D.O. Ordering Physician: Addie Jin D.O. Date of Service: 10/24/24 Procedure(s): US pelvis w/ transvaginal Accession Number(s): [id number] cc: Addie Jin D.O.; SKY JUAN [address] [id number] Patient Name: DONALD GIVENS MRN: [facility]:[id number] date: 1995 Sex: F Assigned Patient Location: [facility] Current Patient Location: Accession/Order Number: [id number] Exam Date: 10/24/2024 09:20 Report Date: 10/25/2024 04:39 At the request of: ADDIE JIN Procedure: US pelvis w/ transvaginal EXAMINATION: US pelvis w/ transvaginal HISTORY: MENORRHAGIA COMPARISON: No relevant comparison available. TECHNIQUE: Transabdominal and/or transvaginal sonographic examination was performed as indicated by examination type. FINDINGS: UTERUS: Normal size and appearance. Uterus size: 7.9 x 3.1 x 4.8 cm ENDOMETRIUM: Normal homogeneous appearance. Endometrial thickness: 9 mm RIGHT OVARY: Normal size and appearance. Duplex Doppler demonstratesnormal waveform and flow; resistive index 0.4. Ovary size: 2.8 x 1.6 x 3.6 cm LEFT OVARY: Normal size and appearance. Duplex Doppler demonstrates normal waveform and flow; resistive index 0.7. Ovary size: 3.4 x 2.4 x 2.4 cm CUL-DE-SAC: Unremarkable. No significant free fluid. BLADDER: Unremarkable. OTHER: None. US/US pelvis w/ transvaginal IMPRESSION: 1. Normal pelvic ultrasound. Electronically authenticated by: JAMA SALAZAR Date: 10/25/2024 04:39 Dictated By: Jama Salazar M.D. Signed By:10/25/24 0442 DD/ 0439 TD/TT: Credit Relationship Manager: us Addie Annabel DO [facility] Final Result documented in this encounter Visit Diagnoses Not on filedocumented in this encounter Care Teams Museum Exhibit Technician Relationship Specialty Start Date End Date Poppy Lombardi NP [address] [place] [phone] PCP - Pippa Commercial 01/06/25 documented as of this encounter
--- OUTSIDE RECORDS SUMMARY | 2025-04-03 11:32 | XMS_ITS | Encounter Summary ---
Author Organization [facility] Address [address] [place] [address] Care Team Providers Care Schedule Planning Manager Name Role Phone Poppy Lombardi COMPLIANCE AUDITOR Unavailable [phone] Encounter Details Date Type Department Care Team (Late st Contact Info) Description 04/26/2024 Abstract [facility] [address] [place] [address] Domingo Jin DO [address], [facility] Social History Tobacco Use Types Packs/Day Years [...] 05/10/2025 8:40 AM EDT Office Visit [facility] [address] [place] [address] Domingo Jin, DO [address] [place] [address] documented as of this encounter Visit Diagnoses Not on filedocumented in this encounter Care Teams Schedule Planning Manager Relationship Specialty Start Date End Date Poppy Lomabrdi, DARRION [address] [place] [phone] PCP - Pippa Sahni 01/06/25 documented as of this encounter
--- OUTSIDE RECORDS SUMMARY | 2025-04-03 11:32 | XMS_ITS | Encounter Summary ---
Author Organization [facility] Address [address] [place] [address] Care Team Providers Care Safety Sitter Name Role Phone Poppy Lombardi PURCHASING ASSOCIATE Unavailable [phone] Encounter Details Date Type Department Care Team (Late st Contact Info) Description 04/27/2024 Abstract [facility] OB [address] [place] [address] Domingo Jin DO [address], [facility] Social History Tobacco Use Types Packs/Day [...] 05/10/2025 8:40 AM EDT Office Visit [facility] OB [address] [place] [address] Domingo Jin, DO [address] [place] [address] documented as of this encounter Visit Diagnoses Not on filedocumented in this encounter Care Teams Safety Sitter Relationship Specialty Start Date End Date Poppy Lombardi, DARRION [address] [place] [phone] PCP - Pippa Sahni 01/06/25 documented as of this encounter
--- OUTSIDE RECORDS SUMMARY | 2025-04-03 11:32 | XMS_ITS | Encounter Summary ---
Author Organization [facility] Address [address] [place] [address] Care Team Providers Care Color Coater Name Role Phone Poppy Lombardi DOCK BUILDER Unavailable Encounter Details Date Type Department Care Team (Late st Contact Info) Description 11/27/2024 Orders Only [facility] OB [address] [facility] [address] Tiana Brown LPN [address] [place] [address] Social History Tobacco Use Types Packs/Day Years [...] 05/10/2025 8:40 AM EDT [facility] [address] [facility] [place] [address] Domingo Jin, DO [address] [facility] [place] [address] documented as of this encounter Procedures Procedure Name Priority Date/Time Associated Diagnosis Comments PAP SMEAR Routine 11/16/2024 12:00 AM EST documented in this encounter Results * Pap Smear (11/16/2024 12:00 AM EST) Swab Cervical swab / Unknown us [facility] Ob Annabel Nurse LAB CYTOLOGY ORDERABLES Final Result EXTERNAL LAB documented in this encounter Visit Diagnoses Not on filedocumented in this encounter Care Teams Color Coater Relationship Specialty Start Date End Date Poppy Lombardi NP [address] [place] [address] PCP - Pippa Commercial 01/06/25 documented as of this encounter
--- OUTSIDE RECORDS SUMMARY | 2025-04-03 11:32 | XMS_ITS | Encounter Summary ---
Author Organization [facility] Address [address] [place] [address] Care Team Providers Care Ticket Agent Name Role Phone Poppy Lombardi MANAGEMENT ASSISTANT Unavailable [phone] Reason for Visit * Reason Comments Med Change Request Encounter Details Date Type Department Care Team (Late st Contact Info) Description 12/06/2024 Refill [facility] [address] [place] [phone] Poppy Lombardi, MANAGEMENT ASSISTANT [address] [place] [address] Sinus pressure Social History Tobacco Use Types Packs/Day Years [...] 05/10/2025 8:40 AM EDT Office Visit [facility] OB [address] [place] [phone] Domingo Jin, DO [address] [place], [place] [id number] documented as of this encounter Visit Diagnoses Diagnosis Sinus pressure Other diseases of nasal cavity and sinuses documented in this encounter Care Teams Ticket Agent Relationship Specialty Start Date End Date Poppy Lombardi NP [address] [place] [address] PCP - Pippa Sahni 01/06/25 documented as of this encounter
--- OUTSIDE RECORDS SUMMARY | 2025-04-03 11:32 | XMS_ITS | Encounter Summary ---
Author Organization [facility] Address [address] [place] [address] Care Team Providers Care Bunch Maker Hand Name Role Phone Unavailable Primary Care Provider Unavailabl e Encounter Details Date Type Department Care Team (Latest Contact Info) Description 03/28/2025 Travel Social History Tobacco Use Types Packs/Day Years [...] EDT Office Visit [facility] [address] [place] [address] Domingo Jin, DO [address] [place] [address] documented as of this encounter Visit Diagnoses Not on filedocumented in this encounter
--- OUTSIDE RECORDS SUMMARY | 2025-04-03 11:32 | XMS_ITS | Encounter Summary ---
Author Organization [facility] Address [address] [place] [address] Care Team Providers Care Fur Joiner Name Role Phone Poppy Lombardi PERFORMANCE TEST CONSULTANT Unavailable [phone] Encounter Details Date Type Department Care Team (Late st Contact Info) Description 12/27/2023 Clinisync Result Encounter [facility] External Department Unsolicited Addie Jin, DO [address] [place] [address] Social History Tobacco Use Types Packs/Day Years Used Date Smoking Tobacco: Never Smokeless Tobacco: Never Alcohol Use Standard Drinks/Week Comments Not Currently 2 (1 standard drink = 0.6 oz pur e alcohol) Comments Yes Sex and Gender Information Value Date Recorded Sex Assigned at Not on file Legal Sex Female 7:25 PM EDT Gender Identity Not on file Sexual Orientation Not on file documented as of this encounter Plan of Treatment Upcoming Encounters Date Type Department Care Team (Late st Contact Info) Description 05/10/2025 8:40 AM EDT Office Visit [facility] [address] [place] [phone] Addie Jin DO [address] [place] [address] documented as of this encounter Procedures Procedure Name Priority Date/Time Associated Diagnosis Comments US OB CERVICAL LENGTH 12/27/2023 10:07 AM EST documented in this encounter Results * US OB CERVICAL LENGTH (12/27/2023 10:07 AM EST) Anatomical Region Laterality Modality Other 12/27/2023 10:0 7 AM EST Narrative 12/27/2023 10:[address] [place] [address] Ultrasound Report Signed Patient: DONALD GIVENS MR#: [id number] : 1995 Acct:[id number] Age/Sex: 28 / F ADM Date: 12/27/23 Loc: [facility] Attending Dr: Addie Jin D.O. Ordering Physician: Addie Jin D.O. Date of Service: 12/27/23 Procedure(s): US OB cervical length Accession Number(s): [id number] cc: Addie Jin D.O.; Physician,Non-Staff M[address] [place] [address] Patient Name: DONALD GIVENS MRN: [id number] date: 1995 Sex: F Assigned Patient Location: [facility] Current Patient Location: [facility] Accession/Order Number: [id number] Exam Date: 12/27/2023 08:40 Report Date: 12/27/2023 10:07 At the request of: ADDIE JIN Procedure: US OB cervical length EXAMINATION: US OB anatomy, US OB cervical length HISTORY: ANATOMY COMPARISON: No relevant comparison available. TECHNIQUE: Transabdominal sonographic examination was performed for obstetrical and evaluation. FINDINGS: Number: 1 Heart Rate: 166.0 bpm H.B. /min Amniotic Fluid Volume: Subjectively normal Placental Location: ANT/FUNDAL with lower margin 8.1 cm from os. Cervix Length: 3.9 cm, closed. ANATOMY: Normal Structures -cerebellum, choroid plexus, cisterna magna, lateral cerebral ventricles, orbits, midline falx, hard palate, four-chamber heart, RVOT, LVOT, stomach, kidneys, bladder, umbilical cord insertion into abdomen, three-vessel cord, cervical spine, thoracic spine, lumbar spine, sacral spine, right upper extremity, left upper extremity, right lower extremity, left lower extremity. SUBOPTIMALLY SEEN: None ABNORMALITIES: None BIOMETRY: BPD: 4.9 cm 21 weeks 0 days HC: 18.0 cm 20 weeks 3 days AC: 15.7 cm 20 weeks 6 days FL: 3.4 cm 20 weeks 5 days EFW:373.5 grams; 24 % FL/AC: 21.7 FL/BPD: 68.8 HC/AC: 1.2 GESTATIONAL AGE: Age by EDC: 21 weeks 1 days LAUREN by EDC: 05/07/2024 Age by current US: 20 weeks 5 days LAUREN by current US: 05/10/2024 US/US OB cervical length IMPRESSION: 1. Single live intrauterine with growth detailed above. Electronically authenticated by: JAMA SALAZAR Date: 12/27/2023 10:07 Dictated By: Jama Salazar M.D. Signed By: 12/27/23 1009 DD/ 1007 TD/TT: Temporary Data Entry Clerk: Procedure Note Radiology, Radiologist, MD - 12/27/2023 [place] [address] Ultrasound Report Signed Patient: DONALD GIVENS LMR#: [id number] : 1995Acct:[id number] Age/Sex: 28 / FADM Date: 12/27/23 Loc: [facility] Attending Dr: Addie Jin D.O. Ordering Physician: Addie Jin D.O. Date of Service: 12/27/23 Procedure(s): US OB cervical length Accession Number(s): [id number] cc: Addie Jin D.O.; Physician,Non-Staff [facility] The [address] [address] Patient Name: DONALD GIVENS MRN: [id number] date: 1995 Sex: F Assigned [facility] Accession/Order Number: [id number] Exam Date: 12/27/2023 08:40 Report Date: 12/27/2023 10:07 At the request of: ADDIE JIN Procedure: US OB cervical length EXAMINATION: US OB anatomy, US OB cervical length HISTORY: ANATOMY COMPARISON: No relevant comparison available. TECHNIQUE: Transabdominal sonographic examination was performed for obstetrical and evaluation. FINDINGS: Number: 1 Heart Rate: 166.0 bpm H.B. /min Amniotic Fluid Volume: Subjectively normal Placental Location: ANT/FUNDAL with lower margin 8.1 cm from os. Cervix Length: 3.9 cm, closed. ANATOMY: Normal Structures -cerebellum, choroid plexus, cisterna magna, lateral cerebral ventricles, orbits, midline falx, hard palate, four-chamberheart, RVOT, LVOT, stomach, kidneys, bladder, umbilical cord insertion intoabdomen, three-vessel cord, cervical spine, thoracic spine, lumbar spine, sacralspine, right upper extremity, left upper extremity, right lower extremity, leftlower extremity. SUBOPTIMALLY SEEN: None ABNORMALITIES: None BIOMETRY: BPD: 4.9 cm 21 weeks 0 days HC: 18.0 cm 20 weeks 3 days AC: 15.7 cm 20 weeks 6 days FL: 3.4 cm 20 weeks 5 days EFW:373.5 grams; 24 % FL/AC: 21.7 FL/BPD: 68.8 HC/AC: 1.2 GESTATIONAL AGE: Age by EDC: 21 weeks 1 days LAUREN by EDC: 05/07/2024 Age by current US: 20 weeks 5 days LAUREN by current US: 05/10/2024 US/US OB cervical length IMPRESSION: 1. Single live intrauterine with growth detailed above. Electronically authenticated by: JAMA SALAZAR Date: 12/27/2023 10:07 Dictated By: Jama Salazar M.D. Signed By:12/27/23 1009 DD/ 1007 TD/TT: Temporary Data Entry Clerk: us Addie Jin DO [facility] Final Result documented in this encounter Visit Diagnoses Not on filedocumented in this encounter Care Teams Fur Joiner Relationship Specialty Start Date End Date Poppy Lombardi NP [address] [place] [address] PCP - [place] [employer] 01/06/25 documented as of this encounter
--- OUTSIDE RECORDS SUMMARY | 2025-04-03 11:32 | XMS_ITS | Encounter Summary ---
Author Organization [facility] Address [address] [place] [address] Care Team Providers Care Associate Professor Computer Science Name Role Phone Poppy Lombardi COIL TAPER Unavailable Encounter Details Date Type Department Care Team (Late st Contact Info) Description 04/19/2024 Abstract [facility] [address] [place] [address] Domingo Jin DO [address], [facility] Social History Tobacco Use Types Packs/Day Years [...] 05/10/2025 8:40 AM EDT Office Visit [facility] [address] [place] [address] Domingo Jin, DO [address] [place] [address] documented as of this encounter Visit Diagnoses Not on filedocumented in this encounter Care Teams Associate Professor Computer Science Relationship Specialty Start Date End Date Poppy Lombardi, DARRION [address] [place] [phone] PCP - Pippa Sahni 01/06/25 documented as of this encounter
--- OUTSIDE RECORDS SUMMARY | 2025-04-03 11:32 | XMS_ITS | Encounter Summary ---
Author Organization [facility] Address [address] [place] [address] Care Team Providers Care Shuttle Veneering Supervisor Name Role Phone Poppy Lombardi PRESS CATCHER Unavailable [phone] Encounter Details Date Type Department Care Team (Late st Contact Info) Description 12/27/2023 Clinisync Result Encounter [facility] External Department Unsolicited Addie Jin, DO [address] [place] [address] Social History Tobacco Use Types Packs/Day Years [...] Visit [facility] [address] [place] [phone] Addie Jin DO [address] [place] [address] documented as of this encounter Procedures Procedure Name Priority Date/Time Associated Diagnosis Comments US OB ANATOMY 12/27/2023 10:07 AM EST documented in this encounter Results * US OB ANATOMY (12/27/2023 10:07 AM EST) Anatomical Region Laterality Modality Other 12/27/2023 10:0 7 AM EST Narrative 12/27/2023 10:10 [place] [address] Ultrasound Report Signed Patient: DONALD GIVENS MR#: [id number] : 1995 Acct:[id number] Age/Sex: 28 / F ADM Date: 12/27/23 Loc: [facility] Attending Dr: Addie Jin D.O. Ordering Physician: Addie Jin D.O. Date of Service: 12/27/23 Procedure(s): US OB anatomy Accession Number(s): [id number] cc: Addie Jin D.O.; Physician,Non-Staff M.DDena [place] [address] Patient Name: DONALD GIVENS MRN: [id number] date: 1995 Sex: F Assigned Patient Location: [facility] Current Patient Location: [facility] Accession/Order Number: [id number] Exam Date: 12/27/2023 08:40 Report Date: 12/27/2023 10:07 At the request of: DADIE JIN Procedure: US OB anatomy EXAMINATION: US OB anatomy, US OB cervical [...] LAUREN by current US: 05/10/2024 US/US OB anatomy IMPRESSION: 1. Single live intrauterine with growth detailed above. Electronically authenticated by: JAMA SALAZAR Date: 12/27/2023 10:07 Dictated By: aJma Salazar M.D. Signed By: 12/27/23 1010 DD/ 1007 TD/TT: Spiral Tube Winder: Procedure Note Radiology, Radiologist, MD - 12/27/2023 [place] [address] Ultrasound Report Signed Patient: DONALD GIVENS R#: [id number] : 1995Acct:[id number] Age/Sex: 28 / FADM Date: 12/27/23 Loc: [facility] Attending Dr: Addie Jin D.O. Ordering Physician: Addie Jin D.O. Date of Service: 12/27/23 Procedure(s): US OB anatomy Accession Number(s): [id number] cc: Addie Jin D.O.; Physician,Non-Staff [place] The [address] [address] Patient Name: DONALD GIVENS MRN: [id number] date: 1995 Sex: F Assigned [facility] Accession/Order Number: [id number] Exam Date: 12/27/2023 08:40 Report Date: 12/27/2023 10:07 At the request of: ADDIE JIN Procedure: US OB anatomy EXAMINATION: US OB anatomy, US OB cervical [...] LAUREN by current US: 05/10/2024 US/US OB anatomy IMPRESSION: 1. Single live intrauterine with growth detailed above. Electronically authenticated by: JAMA SALAZAR Date: 12/27/2023 10:07 Dictated By: Jama Salazar M.D. Signed By:12/27/23 1010 DD/ 1007 TD/TT: Spiral Tube Winder: us Addie Jin DO [facility] Final Result documented in this encounter Visit Diagnoses Not on filedocumented in this encounter Care Teams Shuttle Veneering Supervisor Relationship Specialty Start Date End Date Poppy Lombardi NP [address] [place] [address] PCP - [place] [employer] 01/06/25 documented as of this encounter
--- OUTSIDE RECORDS SUMMARY | 2025-04-03 18:06 | XMS_ITS | CCD ---
Author Organization [facility] FORENSIC SCIENCE EXAMINER [facility] Care Team Providers Care Clinical Services Assistant Name Role Phone Sherry Nielsen Unavailable LYNNE Nielsen Primary Care Provider LYNNE Nielsen Attending Provider Addie Jin Attending Provider [phone] Annabel, Addie Attending Unavailable Annabel, Addie Admitting Unavailable Sherry Nielsen Attending Unavailable Sherry Nielsen Primary Care Unavailable Sherry Nielsen Admitting Unavailable Unavailable Primary Care Provider Unavailabl e ANNABEL, ADDIE Attending Unavailable ANNABEL, ADDIE Attending Unavailable ANNABEL, ADDIE Attending Unavailable ANNABEL, ADDIE Attending Unavailable ANNABEL, ADDIE Attending Unavailable ANNABEL, ADDIE Attending Unavailable ANNABEL, ADDIE Attending Unavailable ROMMEL MARQUEZ Attending Unavailable ANNABEL, ADDIE Attending Unavailable POPPY NERI Attending Unavailable ANNABEL, ADDIE Attending Unavailable ANNABEL, ADDIE Attending Unavailable ANNABEL, ADDIE Attending Unavailable Harjit 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 Unavailable Allergies Allergy Classification Reported Allergen(s) Allergy Type Date of Onset Reaction(s) Facility (2 sources) Adhesive agent; Translations: [adhesive] Drug allergy 3 [facility] (15 sources) Chlorhexidine / Ethanol Drug Allergy 5 Hives, Itching, Rash [facility] Work Phone: (15 sources) Wound Dressing Adhesive Drug Allergy 3 Hives [facility] Medications Current Medications Medication Drug Class(es) Dates Sig (Normalized) Sig (Original) amoxicillin 875 mg / clavulanate 125 mg oral tablet (6 sources) Penicillin-class Antibacterial Start: 11-14-2024 End: 11-24-2024 take 1 tablet by mouth in the morning amoxicillin-clavulan ate (Augmentin) 875-125 MG tablet Indications: Acute non-recurrent maxillary sinusitis Take 1 tablet (875 mg) by mouth in the morning and 1 tablet (875 mg) before bedtime. Do all this for 10 days. 20 tablet 11/14/2024 11/24/2024 Active fluticasone propionate 0.05 mg/actuat metered dose nasal spray (11 sources) Corticosteroid Start: 11-14-2024 take 1 spray(s) nasal route in the morning fluticasone (Flonase) 50 MCG/ACT nasal spray Indications: Sinus pressure Administer 1 spray into each nostril in the morning and 1 spray before bedtime. Shake gently. Before first use, prime pump. After use, clean tip and replace cap.. 16 g 11/14/2024 Active omeprazole 20 mg delayed release oral capsule (15 sources) Proton Pump Inhibitor Start: 02-22-2024 End: 02-21-2025 take 1 capsule by mouth before mealtime omeprazole (PriLOSEC) [address] capsule Indications: Gastroesophageal reflux disease with esophagitis without hemorrhage Take 1 capsule (20 mg) by mouth in the morning. Take before meals. Do not crush or chew.. 30 capsule 11 02/22/2024 02/21/2025 Active phentermine hydrochloride 37.5 mg oral tablet (12 sources) Sympathomimetic Amine Anorectic Start: 11-16-2024 End: 01-13-2025 take 1 tablet by mouth before mealtime phentermine (Adipex-P) 37.5 MG tablet Indications: Encounter for weight management Take 1 tablet (37.5 mg) by mouth in the morning. Take before meals. 30 tablet 12/14/2024 Active Completed/Discontinued Medications Medication Drug Class(es) Dates Sig (Normalized) Sig (Original) 24 hr metFORMIN hydrochloride 500 mg extended release oral tablet (16 sources) Biguanide Start: 10-09-2024 End: 10-09-2025 take 1 tablet by mouth every twenty-four hours in the morning metFORMIN XR (Glucophage-XR) 500 MG 24 hr tablet Indications: Irregular periods/menstrual cycles , Encounter for weight management Take 1 tablet (500 mg) by mouth in the morning and 1 tablet (500 mg) before bedtime. Do not crush, chew, or split.. 60 tablet 11 11/16/2024 02/12/2025 Discontinued (Reorder) Problems Active Problems Problem Classification Problem Date Documented Da te Episodic/Chronic Contraceptive and procreative management (20 sources) Patient encounter status; Translations: [Encounter for other general counseling and advice on contraception] Onset: 10-28-2023 02-22-2024 Episodic Esophageal disorders (15 sources) Gastro-esophageal reflux disease with esophagitis; Translations: [Gastroesophageal reflux disease with esophagitis without hemorrhage] Onset: 02-22-2024 02-22-2024 Chronic Menstrual disorders (6 sources) Irregular periods; Translations: [Irregular menstruation, unspecified] 10-09-2024 Chronic Other upper respiratory disease (2 sources) Other specified disorders of nose and nasal sinuses; Translations: [Other disease of nasal cavity and sinuses] 11-14-2024 Episodic Other upper respiratory infections (2 sources) Acute maxillary sinusitis; Translations: [Acute maxillary sinusitis, unspecified] 11-14-2024 Episodic Unclassified (1 source) Encounter for general adult medical examination without abnormal findings; Translations: [Encounter for general adult medical examination without abnormal findings] Onset: 06-22-2023 Past or Other Problems Problem Classification Problem Date Documented Date Episodic/Chronic Other complications of (15 sources) Bacterial vaginosis in ; Translations: [Infection of other part of genital tract in , unspecified trimester] Onset: 10-28-2023 Resolved: 04-19-2024 05-04-2024 Episodic Other female genital disorders (15 sources) Vaginal discharge; Translations: [Other specified noninflammatory disorders of vagina] Onset: 10-28-2023 10-28-2023 Episodic Other and delivery including normal (15 sources) First trimester ; Translations: [Encounter for supervision of normal , unspecified, first trimester] Onset: 10-28-2023 Resolved: 04-19-2024 05-04-2024 Episodic Results Test Name Value Interpretation Reference Range Facility IGP,APTIMA HPV,AGE GDLNon AGE GDLN ACOG TESTING Note . [facility] Comment on above: TESTS RESULT FLAG UN ITS REF RANGE LAB Clinician Provided Cytology Information Source.............Cervix;Endocervix No. of containers..01 ThinPrep Vial Age Rafiqo EVELINEOG Gregoria... 01 FLAG LEGEND: L-Low Normal,H-High Normal,LL-Alert Low,HH-Alert High <-Panic Low,>-Panic High,A-Abnormal,AA-Critical Abnormal Performed at: 01 =G [address] [address] Latasha De La Garza MD, HPV APTIMA Negative Negative [facility] Comment on above: This nucleic acid am plification test detects fourteen high- risk HPV types (16,18,31,33,35,39,45,51,52,56,58,59,66,68) without differentiation. Performed at: =[address] [id number] Patient Day Coordinator: Latasha De La Garza MD, Phone: [phone] Performed at: [address] [id number] Patient Day Coordinator: Latasha De La Garza MD, Phone: [phone] IGP, APTIMA HPV, RFX 16/18,45 Note . [facility] Comment on above: TESTS RESULT FLAG UN ITS REF RANGE LAB DIAGNOSIS: 02 NEGATIVE FOR INTRAEPITHELIAL LESION OR MALIGNANCY. Specimen adequacy: 02 Satisfactory for evaluation. Endocervical and/or squamous metaplastic cells (endocervical component) are present. Performed by: Jacky Tay Heel Slicker (ASCP) . 02 Note: Note 02 The Pap smear is a screening test designed to aid in the detection of premalignant and malignant conditions of the uterine cervix. It is not a diagnostic procedure and should not be used as the sole means of detecting cervical cancer. Both false-positive and false-negative reports do occur. Test Methodology: Note 02 This liquid based ThinPrep(R) pap test was screened with the use of an image guided system. HPV Genotype Reflex Note 02 Criteria not met, HPV Genotype not performed. FLAG LEGEND: L-Low Normal,H-High Normal,LL-Alert Low,HH-Alert High <-Panic Low,>-Panic High,A-Abnormal,AA-Critical Abnormal Performed at: [address] [place] [address] Latasha De La Garza MD, BRUSH-SPATULA CERVIX ENDOCERVIX [facility] ALL CBC WITH AUTO DIFFon BASOPHILS ABSOLUTE AUTO [address] [facility] Basophils/100 WBC (Bld) 0.5 % 0.2 - 2.0 % [facility] Eosinophils/100 WBC (Bld) 1.1 % 0.9 - 7.0 % [facility] Erythrocyte distribution width (RBC) [Ratio] 13.5 % 11.0 - 15.0 % [facility] Hematocrit (Bld) [Volume fraction] 43 % 36.0 - 48.0 % [facility] Hemoglobin (Bld) [Mass/Vol] 13.9 g/dL 12.0 - 16.0 g/dL [facility] IMMATURE GRANULOCYTES ABS AUTO 0.03 [facility] Immature granulocytes/100 WBC (Bld) 0.4 % 0.0 - 0.5 % [facility] LYMPHOCYTES ABSOLUTE AUTO 2 [facility] Lymphocytes/100 WBC (Bld) 24.4 % 20.5 - 60.0 % [facility] MCH (RBC) [Entitic mass] 28.5 pg 26. 7 - 34.0 pg [facility] MCHC (RBC) [Mass/Vol] 32.3 g/dL 29.9 - 35.2 g/dL [facility] MCV (RBC) [Entitic vol] 88.1 fL 81.0 - 99.0 fL [facility] MONOCYTES ABSOLUTE AUTO 0.4 [facility] Monocytes/100 WBC (Bld) 5.2 % 1.7 - 12.0 % [facility] NEUTROPHILS ABSOLUTE AUTO 5.6 [facility] Neutrophils/100 WBC (Bld) 68.4 % 43.0 - 75.0 % [facility] Platelet mean volume (Bld) [Entitic vol] 9.6 fL 9.5 - 13.5 fL [facility] TBH EO # 0.1 [facility] PLT 255 [facility] RBC 4.88 [facility] WBC 8.2 [facility] HCG ( test) Ql (U)o n 10-09-2024 Interpretation and review of laboratory results Normal [facility] Preg Test, Ur Negative Negative [facility] Basophils Auto (Bld) [#/Vol] on 04-20-2024 Basophils (Bld) [#/Vol] 0.0 10 3/uL 0.0-0.1 [facility] Basophils/100 WBC Auto (Bld) on 04-20-2024 Basophils/100 WBC (Bld) 0.2 % 0.2-2.0 [facility] Eosinophils/100 WBC Auto (Bl d)on 04-20-2024 Eosinophils/100 WBC (Bld) 0.0 % 0.9-7.0 [facility] Erythrocyte distribution wid th Auto (RBC) [Ratio]on 04-20-2024 Erythrocyte distribution width (RBC) [Ratio] 13.1 % 11.0-15.0 [facility] Hematocrit Auto (Bld) [Volum e fraction]on 04-20-2024 Hematocrit (Bld) [Volume fraction] 31.2 % 36.0-48.0 [facility] Hemoglobin [Mass/volume] in Bloodon 04-20-2024 Hemoglobin (Bld) [Mass/Vol] 10.3 g/dL 12.0-16.0 [facility] Laboratory - Hematology and Cell countson 04-20-2024 Immature granulocytes/100 WBC (Bld) 0.8 % 0.0-0.5 [facility] Leukocytes [#/volume] correc wilber for nucleated erythrocytes in Blood by Automated counon 04-20-2024 WBC corrected for nucl RBC Auto (Bld) [#/Vol] 20.7 10 3/uL 4.0-11.0 [facility] Lymphocytes Auto (Bld) [#/Vo l]on 04-20-2024 Lymphocytes (Bld) [#/Vol] 1.4 10 3/uL 1.2-3.8 [facility] Lymphocytes/100 WBC Auto (Bl d)on 04-20-2024 Lymphocytes/100 WBC (Bld) 7.0 % 20.5-60.0 [facility] MCH Auto (RBC) [Entitic mass ]on 04-20-2024 MCH (RBC) [Entitic mass] 28.9 pg 26.7-34.0 [facility] MCHC Auto (RBC) [Mass/Vol]on 04-20-2024 MCHC (RBC) [Mass/Vol] 33.0 g/dL 29.9-35.2 [facility] MCV Auto (RBC) [Entitic vol] on 04-20-2024 MCV (RBC) [Entitic vol] 87.6 fL 81.0-99.0 [facility] Monocytes Auto (Bld) [#/Vol] on 04-20-2024 Monocytes (Bld) [#/Vol] 0.8 10 3/uL 0.3-0.8 [facility] Monocytes/100 WBC Auto (Bld) on 04-20-2024 Monocytes/100 WBC (Bld) 3.9 % 1.7-12.0 [facility] Neutrophils Auto (Bld) [#/Vo l]on 04-20-2024 Neutrophils (Bld) [#/Vol] 18.3 10 3/uL 1.4-6.5 [facility] Neutrophils/100 WBC Auto (Bl d)on 04-20-2024 Neutrophils/100 WBC (Bld) 88.1 % 43.0-75.0 [facility] No Panel Informationon 04-20 Eosinophils # (Auto) 0.0 10 3/uL 0.0-0.7 [facility] Immature Granulocyte # (Auto) 0.17 10 3/uL 0.00-0.03 [facility] Platelet mean volume Auto (B ld) [Entitic vol]on 04-20-2024 Platelet mean volume (Bld) [Entitic vol] 10.6 fL 9.5-13.5 [facility] Platelets Auto (Bld) [#/Vol] on 04-20-2024 Platelets (Bld) [#/Vol] 218 10 3/uL 150-450 [facility] RBC Auto (Bld) [#/Vol]on RBC (Bld) [#/Vol] 3.56 10 6/uL 4.20-5.40 [facility] Activated partial thrombopla stin time (aPTT) in platelet poor plasma by coagulation aon 04-19-2024 aPTT Coag (PPP) [Time] 24.8 s 22.3-36.[address] [facility] Basophils Auto (Bld) [#/Vol] on 04-19-2024 Basophils (Bld) [#/Vol] 0.0 10 3/uL 0.0-0.1 [facility] Basophils/100 WBC Auto (Bld) on 04-19-2024 Basophils/100 WBC (Bld) 0.2 % 0.2-2.0 [facility] Buprenorphine [Presence] in Urineon 04-19-2024 Buprenorphine Ql (U) Negative NEGATIVE [facility] Comment on above: DRUG CLASS TEST SYST EM CUT-OFF CONCENTRATIONS ARE ASFOLLOWS:AMP (Amphetamine): 500 ng/mLBAR (Barbiturates): 200 ng/mLBZO (Benzodiazepines): 150 ng/mLBUP (Buprenorphine): 10 ng/mLCOC (Cocaine): 150 ng/mLmAMP (Methamphetamine): 500 ng/mLMTD (Methadone): 200 ng/mLOPI (Opiates): 100 ng/mLOXY (Oxycodone): 100 ng/mLPCP (Phencyclidine): 25 ng/mLTHC (Cannabinoids): 50 ng/mLTCA (Trycyclic Antidepressants): 300 ng/mL Eosinophils/100 WBC Auto (Bl d)on 04-19-2024 Eosinophils/100 WBC (Bld) 0.3 % 0.9-7.0 [facility] Erythrocyte distribution wid th Auto (RBC) [Ratio]on 04-19-2024 Erythrocyte distribution width (RBC) [Ratio] 13.2 % 11.0-15.0 [facility] Estimated glomerular filtrat ion rate (GFR) non- Americanon 04-19-2024 GFR/1.73 sq M.predicted among non-blacks MDRD (S/P/Bld) [Vol rate/Area] mL/min/{1.73_m2} >=60 [facility] Fibrinogen [Mass/volume] in Platelet poor plasma by Coagulation assayon 04-19-2024 Fibrinogen Coag (PPP) [Mass/Vol] 540 mg/dL 200-400 [facility] Hematocrit Auto (Bld) [Volum e fraction]on 04-19-2024 Hematocrit (Bld) [Volume fraction] 34.4 % 36.0-48.0 [facility] Hemoglobin [Mass/volume] in Bloodon 04-19-2024 Hemoglobin (Bld) [Mass/Vol] 11.2 g/dL 12.0-16.0 [facility] INR in Platelet poor plasma by Coagulation assayon 04-19-2024 INR Coag (PPP) [Relative time] {INR} [facility] Comment on above: DESIRED INR:2.0-3.0 CONDITIONS NOT LISTED BELOW2.5-3.5 FOR PROSTHETIC HEART VALVE REPLACEMENT2.5-3.5 RECURRENT THROMBOSIS Ray 04-19-2024 L Specimen: [id number] Received: 06 Status: SOUT Req Num: [id number] Spec Type: Surgical Subm Dr: Addie Jin Tissues: A Fallopian Tube - Sterilization (BILATERAL FT) B Placenta - 3rd Trimester (Greater than 28 weeks) (PLACENTA) Procedures: HE/7, Gross/Micro L5, Gross/Micro L2 Age/ Patient Sex Location Account Attending Physician Cynthia Givens 28/F [facility] [id number] Addie Jin SPEC NUM: [id number] RECD: 04/20/24 STATUS: SHANNEN VALDEZ NUM: [id number] CRISTIANA: 04/19/[address]: Addie Jin ENTERED: 04/20/24 [facility] DR: Tanja,Lab SPEC TYPE: Surgical DEPT: LO [...] luminal center lined by unremarkable gaines mucosa. Molding Utility Worker sections of each tube are submitted in A1 (tube #1) and A2 (tube #2). B. Received in formalin is a rivero, fused bilobed placental disc with minimal attached -------- Specimen: [id number] Received: 04/20/24 Status: SHANNEN Felixcolumba Num: [id number] Spec Type: Surgical Subm Dr: Addie Jin Tissues: A Fallopian Tube - Sterilization (BILATERAL FT) B Placenta - 3rd Trimester (Greater than 28 weeks) (PLACENTA) Procedures: , Gross/Micro L5, Gross/Micro L2 -------- Patient: Cynthia Givens [id number] (Continued) -------- Specimen: [id number] Received: 04/20/24 (Continued) Gross Description (Continued) Signed (signature on file) Jean Jarquin MD 04/26/24 1428 -------- Specimen: [id number] Received: 04/20/24 Status: SHANNEN Valdez Num: [id number] Spec Type: Surgical Subm Dr: Addie Jin Tissues: A Fallopian Tube - Sterilization (BILATERAL FT) B Placenta - 3rd Trimester (Greater than 28 weeks) (PLACENTA) Procedures: , Gross/Micro L5, Gross/Micro L2 -------- Patient: Cynthia Givens [id number] (Continued) -------- Specimen: [id number] Received: 04/20/24 (Continued) Gross Description (Continued) membranes, [...] midzonal sections of smaller lobe CPT Codes 82161 [id number] -------- -------- (more content not included)... Normal [facility] Laboratory - Chemistry and C hemistry - challengeon 04-19-2024 ALT [Catalytic activity/Vol] 18 U/L 14-59 [facility] AST [Catalytic activity/Vol] 16 U/L 15-37 [facility] Creatinine [Mass/Vol] 0.93 mg/dL 0.55-1.02 [facility] GFR/1.73 sq M.predicted MDRD (S/P/Bld) [Vol rate/Area] mL/min/{1.73_m2} >=60 [facility] LDH [Catalytic activity/Vol] 197 U/L 81-234 [facility] Urate [Mass/Vol] 5.2 mg/dL 2.6-6.0 [facility] Urea nitrogen [Mass/Vol] 10.0 mg/dL 7.0-18.0 [facility] Laboratory - Drug toxicology on 04-19-2024 Amphetamines Ql (U) Negative NEGATIVE [facility] Benzodiazepines Ql (U) Negative NEGATIVE [facility] Cocaine Ql (U) Negative NEGATIVE [facility] Opiates Ql (U) Negative NEGATIVE [facility] Phencyclidine Ql (U) Negative NEGATIVE [facility] Laboratory - Hematology and Cell countson 04-19-2024 Immature granulocytes/100 WBC (Bld) 0.9 % 0.0-0.5 [facility] Leukocytes [#/volume] correc wilber for nucleated erythrocytes in Blood by Automated counon 04-19-2024 WBC corrected for nucl RBC Auto (Bld) [#/Vol] 13.0 10 3/uL 4.0-11.0 [facility] Lymphocytes Auto (Bld) [#/Vo l]on 04-19-2024 Lymphocytes (Bld) [#/Vol] 1.9 10 3/uL 1.2-3.8 [facility] Lymphocytes/100 WBC Auto (Bl d)on 04-19-2024 Lymphocytes/100 WBC (Bld) 14.4 % 20.5-60.0 [facility] MCH Auto (RBC) [Entitic mass ]on 04-19-2024 MCH (RBC) [Entitic mass] 28.8 pg 26.7-34.0 [facility] MCHC Auto (RBC) [Mass/Vol]on 04-19-2024 MCHC (RBC) [Mass/Vol] 32.6 g/dL 29.9-35.[address] [facility] MCV Auto (RBC) [Entitic vol] on 04-19-2024 MCV (RBC) [Entitic vol] 88.4 fL 81.0-99.0 [facility] Methadone [Presence] in Urin e by Screen methodon 04-19-2024 Methadone Screen Ql (U) Negative NEGATIVE [facility] Monocytes Auto (Bld) [#/Vol] on 04-19-2024 Monocytes (Bld) [#/Vol] 0.8 10 3/uL 0.3-0.8 [facility] Monocytes/100 WBC Auto (Bld) on 04-19-2024 Monocytes/100 WBC (Bld) 6.2 % 1.7-12.0 [facility] Neutrophils Auto (Bld) [#/Vo l]on 04-19-2024 Neutrophils (Bld) [#/Vol] 10.2 10 3/uL 1.4-6.5 [facility] Neutrophils/100 WBC Auto (Bl d)on 04-19-2024 Neutrophils/100 WBC (Bld) 78.0 % 43.0-75.0 [facility] No Panel Informationon 04-19 Urine Barbiturates Screen Negative NEGATIVE [facility] Urine Marijuana (THC) Screen Negative NEGATIVE [facility] Urine Methamphetamines Screen Negative NEGATIVE [facility] Eosinophils # (Auto) 0.0 10 3/uL 0.0-0.7 [facility] Immature Granulocyte # (Auto) 0.12 10 3/uL 0.00-0.03 [facility] Platelet mean volume Auto (B ld) [Entitic vol]on 04-19-2024 Platelet mean volume (Bld) [Entitic vol] 10.7 fL 9.5-13.5 [facility] Platelets Auto (Bld) [#/Vol] on 04-19-2024 Platelets (Bld) [#/Vol] 235 10 3/uL 150-450 [facility] Prothrombin time (PT)on 04-08 PT Coag (PPP) [Time] 9.7 s 9.0-11.6 [facility] RBC Auto (Bld) [#/Vol]on RBC (Bld) [#/Vol] 3.89 10 6/uL 4.20-5.40 [facility] Urine tricyclic antidepressa nt measurementon 04-19-2024 Tricyclic antidepressants (U) [Mass/Vol] Negative NEGATIVE [facility] oxyCODONE+oxyMORphone [Prese nce] in Urine by Screen methodon 04-19-2024 oxyCODONE+oxyMORphone Screen Ql (U) Negative NEGATIVE [facility] Alanine aminotransferase [En zymatic activity/volume] in Serum or PlasmaOrdered By: Sherry Nielsen on 06-22-2023 ALT [Catalytic activity/Vol] 14 U/L Normal 7-52 [facility] Comment on above: Order Comment: Reaso n for Exam Well adult exam Performed By: #### F E PRO, CMP wRFX A1C, TSH3, [id number], [id number], CBC, LIPID #### [facility] [address] [place] [address] [place] Albumin [Mass/volume] in Ser um or Plasma by Bromocresol green (BCG) dye binding methoOrdered By: Sherry Nielsen on 06-22-2023 Albumin BCG dye [Mass/Vol] 4.3 g/dL 3.5-5.7 [facility] Alkaline phosphatase [Enzyma tic activity/volume] in Serum or PlasmaOrdered By: Sherry Nielsen on 06-22-2023 ALP [Catalytic activity/Vol] 88 U/L Normal 34-104 [facility] Comment on above: Order Comment: Reaso n for Exam Well adult exam Performed By: #### F E PRO, CMP wRFX A1C, TSH3, [id number], [id number], CBC, LIPID #### [facility] [address] [place] [address] [place] Aspartate aminotransferase [ Enzymatic activity/volume] in Serum or PlasmaOrdered By: Sherry Nielsen on 06-22-2023 AST [Catalytic activity/Vol] 15 U/L Normal 13-39 [facility] Comment on above: Order Comment: Reaso n for Exam Well adult exam Performed By: #### F E PRO, CMP wRFX A1C, TSH3, [id number], [id number], CBC, LIPID #### [facility] [address] [place] [address] [place] Automated basophil %Ordered By: Sherry Nielsen on 06-22-2023 Basophils/100 WBC (Bld) 0.5 % Normal . [facility] Comment on above: Order Comment: Reaso n for Exam Well adult exam Performed By: #### F E PRO, CMP wRFX A1C, TSH3, [id number], [id number], CBC, LIPID #### [facility] [address] [place] [id number] [place] Automated basophil countOrde red By: Sherry Nielsen on 06-22-2023 Basophils (Bld) [#/Vol] 0.0 10*3/uL Normal 0.0-0.2 [facility] Comment on above: Order Comment: Reaso n for Exam Well adult exam Result Comment: PERF ORMED BY: [place] [address] PATHOLOGIST PRINT DEVELOPER [employer]OMATIC GLORIA MESA M.D. Performed By: #### F E PRO, CMP wRFX A1C, TSH3, [id number], [id number], CBC, LIPID #### [address] Automated blood monocyte cou ntOrdered By: Sherry Nielsen on 06-22-2023 Monocytes (Bld) [#/Vol] 0.5 10*3/uL Normal 0.0-0.8 [facility] Comment on above: Order Comment: Reaso n for Exam Well adult exam Performed By: #### F E PRO, CMP wRFX A1C, TSH3, [id number], [id number], CBC, LIPID #### [address] Automated eosinophil %Ordere d By: Sherry Nielsen on 06-22-2023 Eosinophils/100 WBC (Bld) 2.2 % Normal . [facility] Comment on above: Order Comment: Reaso n for Exam Well adult exam Performed By: #### F E PRO, CMP wRFX A1C, TSH3, [id number], [id number], CBC, LIPID #### [address] Automated eosinophil countOr dered By: Sherry Nielsen on 06-22-2023 Eosinophils (Bld) [#/Vol] 0.1 10*3/uL Normal 0.0-0.45 [facility] Comment on above: Order Comment: Reaso n for Exam Well adult exam Performed By: #### F E PRO, CMP wRFX A1C, TSH3, [id number], [id number], CBC, LIPID #### [address] Automated monocyte %Ordered By: Sherry Nielsen on 06-22-2023 Monocytes/100 WBC (Bld) 7.9 % Normal . [facility] Comment on above: Order Comment: Reaso n for Exam Well adult exam Performed By: #### F E PRO, CMP wRFX A1C, TSH3, [id number], [id number], CBC, LIPID #### [facility] [address] Automated neutrophil %Ordere d By: Sherry Nielsen on 06-22-2023 Neutrophils/100 WBC (Bld) 54.8 % Normal . [facility] Comment on above: Order Comment: Reaso n for Exam Well adult exam Performed By: #### F E PRO, CMP wRFX A1C, TSH3, [id number], [id number], CBC, LIPID #### [facility] [address] Bilirubin.total [Mass/volume ] in Serum or PlasmaOrdered By: Sherry Nielsen on 06-22-2023 Bilirubin [Mass/Vol] 1.1 mg/dL High 0.3-1.0 [facility] Comment on above: Order Comment: Reaso n for Exam Well adult exam Performed By: #### F E PRO, CMP wRFX A1C, TSH3, [id number], [id number], CBC, LIPID #### [facility] [address] CMP with reflex to A1Con Albumin [Mass/Vol] 4.3 g/dL Normal 3.5-5.7 [facility] Comment on above: Order Comment: Reaso n for Exam Well adult exam Performed By: #### F E PRO, CMP wRFX A1C, TSH3, [id number], [id number], CBC, LIPID #### [facility] [address] GFR/1.73 sq M.predicted MDRD (S/P/Bld) [Vol rate/Area] mL/min/{1.73_m2} Normal [facility] Comment on above: Order Comment: Reaso n for Exam Well adult exam Performed By: #### F E PRO, CMP wRFX A1C, TSH3, [id number], [id number], CBC, LIPID #### [facility] [address] [place] [address] [place] Calcium [Mass/volume] in Ser um or PlasmaOrdered By: Sherry Nielsen on 06-22-2023 Calcium [Mass/Vol] 9.3 mg/dL Normal 8.6-10.3 [facility] Comment on above: Order Comment: Reaso n for Exam Well adult exam Performed By: #### F E PRO, CMP wRFX A1C, TSH3, [id number], [id number], CBC, LIPID #### [facility] [address] [place] [address] [place] Carbon dioxide, total [Moles /volume] in Serum or PlasmaOrdered By: Sherry Nielsen on 06-22-2023 CO2 [Moles/Vol] 27.1 mmol/L Normal 21.0-31.0 [facility] Comment on above: Order Comment: Reaso n for Exam Well adult exam Performed By: #### F E PRO, CMP wRFX A1C, TSH3, [id number], [id number], CBC, LIPID #### [facility] [address] [place] [address] [place] Chloride [Moles/volume] in S adriano or PlasmaOrdered By: Sherry Nielsen on 06-22-2023 Chloride [Moles/Vol] 105 mmol/L Normal 98-107 [facility] Comment on above: Order Comment: Reaso n for Exam Well adult exam Performed By: #### F E PRO, CMP wRFX A1C, TSH3, [id number], [id number], CBC, LIPID #### [facility] [address] [place] [address] [place] Cholesterol [Mass/volume] in Serum or PlasmaOrdered By: Sherry Nielsen on 06-22-2023 Cholesterol [Mass/Vol] 149 mg/dL Normal 140-200 [facility] Comment on above: Chol less than 200 m g/dl low riskChol 201-239 mg/dl borderline riskChol 240 mg/dl and greater high risk Order Comment: Reaso n for Exam Well adult exam Result Comment: Chol less than 200 mg/dl low risk Chol 201-239 mg/dl borderline risk Chol 240 mg/dl and greater high risk Performed By: #### F E PRO, CMP wRFX A1C, TSH3, [id number], [id number], CBC, LIPID #### [facility] [address] [place] [id number] [facility] Cholesterol in LDL Calc [Mas s/Vol]Ordered By: Sherry Nielsen on 06-22-2023 Cholesterol in LDL [Mass/Vol] 70 mg/dL 0-100 [facility] Comment on above: LDL ATP III CLASSIFI CATIONLDL less than 100 mg/dL OptimalLDL 100-129 mg/dL Near or above optimalLDL 130-159 mg/dL Borderline highLDL 160-189 mg/dL HighLDL greater than 189 mg/dL Very high Cholesterol in VLDL Calc [Ma ss/Vol]Ordered By: Sherry Nielsen on 06-22-2023 Cholesterol in VLDL [Mass/Vol] 16 mg/dL [facility] Complete Blood Count Auto Di ffon 06-22-2023 Mean Corpuscular HGB Conc 33.6 g/dL Normal 32.0-35.0 [facility] Comment on above: Order Comment: Reaso n for Exam Well adult exam Performed By: #### F E PRO, CMP wRFX A1C, TSH3, [id number], [id number], CBC, LIPID #### [facility] [address] [place] [id number] [facility] NRBC% 0.3 /100{WBC} Normal 0-0.5 [facility] Comment on above: Order Comment: Reaso n for Exam Well adult exam Performed By: #### F E PRO, CMP wRFX A1C, TSH3, [id number], [id number], CBC, LIPID #### [facility] [address] [place] [address] [place] Creatinine [Mass/volume] in Serum or PlasmaOrdered By: Sherry Nielsen on 06-22-2023 Creatinine [Mass/Vol] 0.90 mg/dL Normal 0.60-1.20 [facility] Comment on above: Order Comment: Reaso n for Exam Well adult exam Performed By: #### F E PRO, CMP wRFX A1C, TSH3, [id number], [id number], CBC, LIPID #### [facility] [address] [place] [id number] [facility] Erythrocyte distribution wid th [Ratio] by Automated countOrdered By: Sherry Nielsen on 06-22-2023 Erythrocyte distribution width (RBC) [Ratio] 12.6 % Normal 11.9-15.3 [facility] Comment on above: Order Comment: Reaso n for Exam Well adult exam Performed By: #### F E PRO, CMP wRFX A1C, TSH3, [id number], [id number], CBC, LIPID #### [facility] [address] Erythrocytes [#/volume] in B lood by Automated countOrdered By: Sherry Nielsen on 06-22-2023 RBC (Bld) [#/Vol] 4.58 10*6/uL Normal 3.60-5.00 [facility] Comment on above: Order Comment: Reaso n for Exam Well adult exam Performed By: #### F E PRO, CMP wRFX A1C, TSH3, [id number], [id number], CBC, LIPID #### [facility] [address] [place], [place] [id number] [place] FE PROon 06-22-2023 % Iron Saturation 34.8 % Normal 20-50 [facility] Comment on above: Order Comment: Reaso n for Exam Well adult exam Performed By: #### F E PRO, CMP wRFX A1C, TSH3, [id number], [id number], CBC, LIPID #### [facility] [address] [place] [address] [facility] Total Iron Binding Capacity 351 ug/dL Normal 255-450 [facility] Comment on above: Order Comment: Reaso n for Exam Well adult exam Performed By: #### F E PRO, CMP wRFX A1C, TSH3, [id number], [id number], CBC, LIPID #### [facility] [address] [place] [phone] [place] Ferritin [Mass/volume] in Se rum or PlasmaOrdered By: Sherry Nielsen on 06-22-2023 Ferritin [Mass/Vol] 33.1 ng/mL Normal 11.0-306.8 [facility] Comment on above: Order Comment: Reaso n for Exam Well adult exam Performed By: #### F E PRO, CMP wRFX A1C, TSH3, [id number], [id number], CBC, LIPID #### [facility] [address] Folate [Mass/volume] in Seru m or PlasmaOrdered By: Sherry Nielsen on 06-22-2023 Folate [Mass/Vol] 23.0 ng/mL >5.9 [facility] Comment on above: Folate reference ran ge: >5.9 ng/mlThe WHO technical consultation on folate and vitamin [id number] has determined that folate concentrations lessthan 4 ng/ml are considered deficient. Glucose [Mass/volume] in Ser um or PlasmaOrdered By: Sherry Nielsen on 06-22-2023 Glucose [Mass/Vol] 94 mg/dL Normal 70-100 [facility] Comment on above: Order Comment: Reaso n for Exam Well adult exam Performed By: #### F E PRO, CMP wRFX A1C, TSH3, [id number], [id number], CBC, LIPID #### [facility] [address] Hematocrit [Volume Fraction] of Blood by Automated countOrdered By: Sherry Nielsen on 06-22-2023 Hematocrit (Bld) [Volume fraction] 41.6 % Normal 34.0-46.4 [facility] Comment on above: Order Comment: Reaso n for Exam Well adult exam Performed By: #### F E PRO, CMP wRFX A1C, TSH3, [id number], [id number], CBC, LIPID #### [facility] [address] Hemoglobin [Mass/volume] in BloodOrdered By: Sheryr Nielsen on 06-22-2023 Hemoglobin (Bld) [Mass/Vol] 14.0 g/dL Normal 11.8-15.4 [facility] Comment on above: Order Comment: Reaso n for Exam Well adult exam Performed By: #### F E PRO, CMP wRFX A1C, TSH3, [id number], [id number], CBC, LIPID #### [facility] [address] Iron [Mass/volume] in Serum or PlasmaOrdered By: Sherry Nielsen on 06-22-2023 Iron [Mass/Vol] 122 ug/dL Normal 50-212 [facility] Comment on above: Order Comment: Reaso n for Exam Well adult exam Performed By: #### F E PRO, CMP wRFX A1C, TSH3, [id number], [id number], CBC, LIPID #### [facility] [address] Iron binding capacity [Mass/ volume] in Serum or PlasmaOrdered By: Sherry Nielsen on 06-22-2023 Iron binding capacity [Mass/Vol] 351 ug/dL 255-450 [facility] Iron saturation [Mass Fracti on] in Serum or PlasmaOrdered By: Sherry Nielsen on 06-22-2023 Iron saturation [Mass fraction] 34.8 % 20-50 [facility] Leukocytes [#/volume] correc wilber for nucleated erythrocytes in Blood by Automated counOrdered By: Sherry Nielsen on 06-22-2023 WBC corrected for nucl RBC Auto (Bld) [#/Vol] 6.1 10*3/uL 3.8-11.6 [facility] Leukocytes [#/volume] in Blo od by Automated countOrdered By: Sherry Nielsen on 06-22-2023 WBC (Bld) [#/Vol] 6.1 10*3/uL Normal 3.8-11.6 [facility] Comment on above: Order Comment: Reaso n for Exam Well adult exam Performed By: #### F E PRO, CMP wRFX A1C, TSH3, [id number], [id number], CBC, LIPID #### [facility] [address] [place] [address] [facility] Lipid Panelon 06-22-2023 LDL Cholesterol,Calculated 70 mg/dL Normal 0-100 [facility] Comment on above: Order Comment: Reaso n for Exam Well adult exam Result Comment: LDL ATP III CLASSIFICATION LDL less than 100 mg/dL Optimal LDL 100-129 mg/dL Near or above optimal LDL 130-159 mg/dL Borderline high LDL 160-189 mg/dL High LDL greater than 189 mg/dL Very high Performed By: #### F E PRO, CMP wRFX A1C, TSH3, [id number], [id number], CBC, LIPID #### [facility] [address] Triglyceride w/Reflex 82 mg/dL Normal 0-149 [facility] Comment on above: Order Comment: [...] F E PRO, CMP wRFX A1C, TSH3, [id number], [id number], CBC, LIPID #### [address] VLDL CHOLESTEROL 16 mg/dL Normal [facility] Comment on above: Order Comment: Reaso n for Exam Well adult exam Performed By: #### F E PRO, CMP wRFX A1C, TSH3, [id number], [id number], CBC, LIPID #### [place] [address] [place] Lymphocytes [#/volume] in Bl ood by Automated countOrdered By: Sherry Nielsen on 06-22-2023 Lymphocytes (Bld) [#/Vol] 2.1 10*3/uL Normal 1.00-4.8 [facility] Comment on above: Order Comment: Reaso n for Exam Well adult exam Performed By: #### F E PRO, CMP wRFX A1C, TSH3, [id number], [id number], CBC, LIPID #### [facility] [address] [place] [phone] [place] Lymphocytes/100 leukocytes i n Blood by Automated countOrdered By: Sherry Nielsen on 06-22-2023 Lymphocytes/100 WBC (Bld) 34.6 % Normal . [facility] Comment on above: Order Comment: Reaso n for Exam Well adult exam Performed By: #### F E PRO, CMP wRFX A1C, TSH3, [id number], [id number], CBC, LIPID #### [facility] [address] MCH [Entitic mass] by Automa wilber countOrdered By: Sherry Nielsen on 06-22-2023 MCH (RBC) [Entitic mass] 30.5 pg Normal 24.7-34.3 [facility] Comment on above: Order Comment: Reaso n for Exam Well adult exam Performed By: #### F E PRO, CMP wRFX A1C, TSH3, [id number], [id number], CBC, LIPID #### [facility] [address] MCHC Auto (RBC) [Mass/Vol]Or dered By: Sherry Nielsen on 06-22-2023 MCHC (RBC) [Mass/Vol] 33.6 g/dL 32.0-35.0 [facility] MCV [Entitic volume] by Auto mated countOrdered By: Sherry Nielsen on 06-22-2023 MCV (RBC) [Entitic vol] 90.9 fL Normal 80-100 [facility] Comment on above: Order Comment: Reaso n for Exam Well adult exam Performed By: #### F E PRO, CMP wRFX A1C, TSH3, [id number], [id number], CBC, LIPID #### [facility] [address] Neutrophils [#/volume] in Bl ood by Automated countOrdered By: Sherry Nielsen on 06-22-2023 Neutrophils (Bld) [#/Vol] 3.4 10*3/uL Normal 1.8-7.7 [facility] Comment on above: Order Comment: Reaso n for Exam Well adult exam Performed By: #### F E PRO, CMP wRFX A1C, TSH3, [id number], [id number], CBC, LIPID #### [facility] [address] No Panel InformationOrdered By: Sherry Nielsen on 06-22-2023 Estimated GFR (CKD-EPI) > 60.0 mL/Min [facility] Creatinine Clearance (Chem N/A [facility] Nucleated erythrocytes [Pres ence] in Blood by Automated countOrdered By: Sherry Nielsen on 06-22-2023 Nucleated RBC Auto Ql (Bld) 0.3 /100{WBC} 0-0.5 [facility] Platelet mean volume [Entiti c volume] in Blood by Automated countOrdered By: Sherry Nielsen on 06-22-2023 Platelet mean volume (Bld) [Entitic vol] 8.8 fL Normal 6.3-10.7 [facility] Comment on above: Order Comment: Reaso n for Exam Well adult exam Performed By: #### F E PRO, CMP wRFX A1C, TSH3, [id number], [id number], CBC, LIPID #### [facility] [address] Platelets [#/volume] in Bloo d by Automated countOrdered By: Sherry Nielsen on 06-22-2023 Platelets (Bld) [#/Vol] 219 10*3/uL Normal 150-450 [facility] Comment on above: Order Comment: Reaso n for Exam Well adult exam Performed By: #### F E PRO, CMP wRFX A1C, TSH3, [id number], [id number], CBC, LIPID #### [facility] [address] [place] [address] [place] Potassium [Moles/volume] in Serum or PlasmaOrdered By: Sherry Nielsen on 06-22-2023 Potassium [Moles/Vol] 4.3 mmol/L Normal 3.5-5.1 [facility] Comment on above: Order Comment: Reaso n for Exam Well adult exam Performed By: #### F E PRO, CMP wRFX A1C, TSH3, [id number], [id number], CBC, LIPID #### [facility] [address] Protein [Mass/volume] in Ser um or PlasmaOrdered By: Sherry Nielsen on 06-22-2023 Protein [Mass/Vol] 7.4 g/dL Normal 6.4-8.9 [facility] Comment on above: Order Comment: Reaso n for Exam Well adult exam Performed By: #### F E PRO, CMP wRFX A1C, TSH3, [id number], [id number], CBC, LIPID #### [facility] [address] Serum globulin measurement b y calculation (mass/volume)Ordered By: Sherry Nielsen on 06-22-2023 Globulin (S) [Mass/Vol] 3.1 g/dL Normal [facility] Comment on above: Order Comment: Reaso n for Exam Well adult exam Performed By: #### F E PRO, CMP wRFX A1C, TSH3, [id number], [id number], CBC, LIPID #### [facility] [address] [place] [address] Serum or plasma albumin/glob ulin mass ratioOrdered By: Sherry Nielsen on 06-22-2023 Albumin/Globulin [Mass ratio] 1.4 {ratio} Normal [facility] Comment on above: Order Comment: Reaso n for Exam Well adult exam Performed By: #### F E PRO, CMP wRFX A1C, TSH3, [id number], [id number], CBC, LIPID #### [facility] [address] [place] [address] Serum or plasma anion gap de terminationOrdered By: Sherry Nielsen on 06-22-2023 Anion gap [Moles/Vol] 10.2 mmol/L Normal 6.0-15.0 [facility] Comment on above: Order Comment: Reaso n for Exam Well adult exam Performed By: #### F E PRO, CMP wRFX A1C, TSH3, [id number], [id number], CBC, LIPID #### [facility] [address] [place] [address] Serum or plasma high density lipoprotein (HDL) cholesterol measurementOrdered By: Sherry Nielsen on 06-22-2023 Cholesterol in HDL [Mass/Vol] 63 mg/dL Normal 23-92 [facility] Comment on above: HDL CHOL ATP-III CLA SSIFICATION Cardiovascular RiskHDL > or equal to 60 mg/dL LOWHDL < 40 mg/dL HIGH Order Comment: Reaso n for Exam Well adult exam Result Comment: HDL CHOL ATP-III CLASSIFICATION Cardiovascular Risk HDL > or equal to 60 mg/dL LOW HDL < 40 mg/dL HIGH Performed By: #### F E PRO, CMP wRFX A1C, TSH3, [id number], [id number], CBC, LIPID #### [facility] [address] Serum or plasma total choles terol/high density lipoprotein (HDL) cholesterol mass ratOrdered By: Sherry Nielsen on 06-22-2023 Cholesterol.total/Choles terol in HDL [Mass ratio] 2.4 {ratio} Normal <5.0 [facility] Comment on above: Order Comment: Reaso n for Exam Well adult exam Performed By: #### F E PRO, CMP wRFX A1C, TSH3, [id number], [id number], CBC, LIPID #### [facility] [address] [place] [id number] [place] Sodium [Moles/volume] in Ser um or PlasmaOrdered By: Sherry Nielsen on 06-22-2023 Sodium [Moles/Vol] 138 mmol/L Normal 136-145 [facility] Comment on above: Order Comment: Reaso n for Exam Well adult exam Performed By: #### F E PRO, CMP wRFX A1C, TSH3, [id number], [id number], CBC, LIPID #### [facility] [address] [place] [id number] [facility] Thyrotropin [Units/volume] i n Serum or PlasmaOrdered By: Sherry Nielsen on 06-22-2023 TSH Qn 1.93 m[IU]/L Normal 0.45-5.33 [facility] Comment on above: Order Comment: Reaso n for Exam Well adult exam Performed By: #### F E PRO, CMP wRFX A1C, TSH3, [id number], [id number], CBC, LIPID #### [facility] [address] [place] [address] [place] Transferrin [Mass/volume] in Serum or PlasmaOrdered By: Sherry Nielsen on 06-22-2023 Transferrin [Mass/Vol] 251 mg/dL Normal 203-362 [facility] Comment on above: Order Comment: Reaso n for Exam Well adult exam Performed By: #### F E PRO, CMP wRFX A1C, TSH3, [id number], [id number], CBC, LIPID #### [facility] [address] [place] [address] [facility] Triglyceride [Mass/volume] i n Serum or PlasmaOrdered By: Sherry Nielsen on 06-22-2023 Triglyceride [Mass/Vol] 82 mg/dL 0-149 [facility] Comment on above: TRIG ATP III CLASSIF ICATIONTRIG less than 150 mg/dL NormalTRIG 150-199 mg/dL Borderline highTRIG 200-500 mg/dL High TRIG greater than 500 mg/dL Very highStandard traceable to the Center for Disease Conrtrol and Prevention (CDC) test method. Urea nitrogen [Mass/volume] in Serum or PlasmaOrdered By: Sherry Nielsen on 06-22-2023 Urea nitrogen [Mass/Vol] 16 mg/dL Normal 7-25 [facility] Comment on above: Order Comment: Reaso n for Exam Well adult exam Performed By: #### F E PRO, CMP wRFX A1C, TSH3, [id number], [id number], CBC, LIPID #### [facility] [address] [place] [address] [facility] Vit. B12/Folate Profileon Folate 23.0 ng/mL Normal >5.9 [facility] Comment on above: Order Comment: Reaso n for Exam Well adult exam Result Comment: [place] te reference range: >5.9 ng/ml The WHO technical consultation on folate and vitamin b12 deficiencies has determined that folate concentrations less than 4 ng/ml are considered deficient. Performed By: #### F E PRO, CMP wRFX A1C, TSH3, [id number], [id number], CBC, LIPID #### [facility] [address] Vitamin B12 ser/plasOrdered By: Sherry Nielsen on 06-22-2023 Cobalamin (Vitamin B12) [Mass/Vol] 333 pg/mL Normal 180-914 [facility] Comment on above: Order Comment: Reaso n for Exam Well adult exam Performed By: #### F E PRO, CMP wRFX A1C, TSH3, [id number], [id number], CBC, LIPID #### [facility] [address] [place] [id number] [facility] Vitamin D 25 Hydroxy Totalon 06-22-2023 Vitamin D 25 Hydroxy Total 45.4 ng/mL Normal 30-100 [facility] Comment on above: Order Comment: Reaso n for Exam Well adult exam Result Comment: TEX MIN D STATUS 25([place])VITAMIN D RANGE (ng/mL) Deficient <20 Insufficient 20 to <30 Sufficient 30 to 100 Reference: Marielena Sandoval, Maximilian HAMILTON, et al. Evaluation,treatment, and prevention of vitamin D deficiency; an Endocrine Society clinical practice guideline. JCEM. 2010; 96(7):1911-30. PERFORMED BY: [place] [address] PATHOLOGIST PRINT DEVELOPER [employer] GLORIA MESA M.D. Performed By: #### F E PRO, CMP wRFX A1C, TSH3, [id number], [id number], CBC, LIPID #### [facility] [address] [place], [place] [id number] [facility] Vitamin D+Metabolites [Mass/ volume] in Serum or PlasmaOrdered By: Sherry Nielsen on 06-22-2023 Vitamin D+Metabolites [Mass/Vol] 45.4 ng/mL 30-100 [facility] Comment on above: VITAMIN D STATUS 25( [place])VITAMIN D RANGE (ng/mL) Deficient <20 Insufficient 20 to <30Sufficient 30 to 100Reference: Marielena Sandoval, Maximilian HAMILTON, et al. Evaluation,treatment, and prevention of vitamin D deficiency; an Endocrine Society clinical practice guideline. JCEM. 2010; 96(7):1911-30. Vital Signs Date Time Vital Sign Value Performing Clinician Facility 02-08-2025 08:48-0400 Body mass index (BMI) [Ratio] 34.63 kg/m2 Addie Annabel DO Work Phone: [facility] 02-08-2025 08:48-0400 Body weight 88.68 kg Addie Annabel DO Work Phone: [facility] 02-08-2025 08:48-0400 Diastolic blood pressure 82 mm[Hg] Addie Annabel DO Work Phone: [facility] 02-08-2025 08:48-0400 Systolic blood pressure 116 mm[Hg] Addie Annabel DO Work Phone: [facility] 12-14-2024 09:25-0500 Body mass index (BMI) [Ratio] 35.98 kg/m2 Addie Annabel DO Work Phone: [facility] 12-14-2024 09:25-0500 Body weight 92.14 kg Addie Annabel DO Work Phone: [facility] 12-14-2024 09:25-0500 Diastolic blood pressure 70 mm[Hg] Addie Annabel DO Work Phone: [facility] 12-14-2024 09:25-0500 Systolic blood pressure 110 mm[Hg] Addie Annabel DO Work Phone: [facility] 11-16-2024 08:51-0500 Body height 160 cm Addie Annabel DO Work Phone: [facility] 11-16-2024 08:51-0500 Body mass index (BMI) [Ratio] 37.09 kg/m2 Addie Annabel DO Work Phone: [facility] 11-16-2024 08:51-0500 Body weight 94.98 kg Addie Annabel DO Work Phone: [facility] 11-16-2024 08:51-0500 Diastolic blood pressure 70 mm[Hg] Addie Annabel DO Work Phone: [facility] 11-16-2024 08:51-0500 Systolic blood pressure 110 mm[Hg] Addie Annabel DO Work Phone: [facility] 11-14-2024 12:29-0500 Body temperature 98.71 [degF] Poppy Neri COMPUTER PROCESSING SCHEDULER Work Phone: [facility] 11-14-2024 12:29-0500 Body weight 121.11 kg Poppy Neri COMPUTER PROCESSING SCHEDULER Work Phone: [facility] 11-14-2024 12:29-0500 Diastolic blood pressure 78 mm[Hg] Poppy Neri COMPUTER PROCESSING SCHEDULER Work Phone: [facility] 11-14-2024 12:29-0500 Heart rate 100 /min Poppy Neri COMPUTER PROCESSING SCHEDULER Work Phone: [facility] 11-14-2024 12:29-0500 SaO2% (BldA) [Mass fraction] 98 % Poppy Neri COMPUTER PROCESSING SCHEDULER Work Phone: [facility] 11-14-2024 12:29-0500 Systolic blood pressure 118 mm[Hg] Poppy Neri COMPUTER PROCESSING SCHEDULER Work Phone: [facility] 10-09-2024 09:44-0500 Body weight 94.08 kg Addie Annabel DO Work Phone: [facility] 10-09-2024 09:44-0500 Diastolic blood pressure 70 mm[Hg] Addie Annabel DO Work Phone: [facility] [facility] 10-09-2024 09:44-0500 Systolic blood pressure 120 mm[Hg] Addie Annabel DO Work Phone: [facility] 06-18-2023 07:30-0400 Body height 156.21 cm Sherry Nielsen Other [employer] Other 06-18-2023 07:30-0400 Body mass index (BMI) [Ratio] 31.73 kg/m2 Sherry Nielsen Other [employer] Other 06-18-2023 07:30-0400 Body weight 77.43 kg Sherry Shipleycarolee Other [employer] Other 06-18-2023 07:30-0400 Diastolic blood pressure 70 mm[Hg] Sherry Nielsen Other [employer] Other 06-18-2023 07:30-0400 Respiratory rate 18 /min Sherry Gia Other [employer] Other 06-18-2023 07:30-0400 SaO2% (BldA) [Mass fraction] 98 % Sherry Gia Other [employer] Other 06-18-2023 07:30-0400 Systolic blood pressure 110 mm[Hg] Sherry Nielsen Other [employer] Other Encounters Encounter Date Encounter Type Care Provider Facility Start: 02-08-2025 End: 02-08-2025 Bamboo flowsheet Addie Annabel DO Work Phone: [facility] Start: 02-08-2025 End: 02-08-2025 Bamboo flowsheet Addie Annabel DO Work Phone: [facility] Start: 02-08-2025 End: 02-08-2025 Office outpatient visit 15 minutes Addie Annabel DO Work Phone: [facility] Comment on above: Encounter for weight management Start: 02-08-2025 End: 02-08-2025 ambulatory ADDIE ANNABEL Not Available Start: 12-14-2024 End: 12-14-2024 Bamboo flowsheet Addie Annabel DO Work Phone: [facility] Start: 12-14-2024 End: 02-06-2025 Bamboo flowsheet Addie Annabel DO Work Phone: [facility] Start: 12-14-2024 End: 12-14-2024 Office outpatient visit 5 minutes Addie Annabel DO Work Phone: [facility] Comment on above: Encounter for weight management Start: 12-14-2024 End: 12-14-2024 ambulatory ADDIE ANNABEL Not Available Start: 11-16-2024 End: 11-16-2024 Bamboo flowsheet Addie Annabel DO Work Phone: [facility] Start: 11-16-2024 End: 11-21-2024 Bamboo flowsheet Addie Annabel DO Work Phone: [facility] Start: 11-16-2024 End: 11-21-2024 Clinisync Result Encounter Addie Annabel DO Work Phone: [facility] Unsolicited Start: 11-16-2024 End: 11-16-2024 Patient encounter procedure Addie Annabel DO Work Phone: [facility] Work Phone: Start: 11-16-2024 End: 11-16-2024 Periodic preventive med est patient 18-39 yrs Addie Annabel DO Work Phone: [facility] Comment on above: Well woman exam with routine gynecological exam; Irregular periods/menstrual cycles; Encounter for weight management Start: 11-16-2024 End: 11-16-2024 ambulatory ADDIE ANNABEL Not Available Start: 11-14-2024 End: 11-14-2024 Office outpatient visit 25 minutes Poppy Neri [employer] Work Phone: [facility] Comment on above: Sinus pressure (Prim fredo Dx); Acute non-recurrent maxillary sinusitis Start: 11-14-2024 End: 11-14-2024 ambulatory POPPY NERI Not Available Start: 10-09-2024 End: 10-09-2024 Bamboo flowsheet Addie Annabel DO Work Phone: [facility] Start: 10-09-2024 End: 10-09-2024 Bamboo flowsheet Addie Annabel DO Work Phone: [facility] Start: 10-09-2024 End: 10-09-2024 Clinisync Result Encounter Addie Annabel DO Work Phone: [facility] Unsolicited Start: 10-09-2024 End: 10-09-2024 Office outpatient visit 15 minutes Addie Annabel DO Work Phone: [facility] Comment on above: Irregular periods/me nstrual cycles; Menorrhagia with regular cycle Start: 10-09-2024 End: 10-09-2024 ambulatory ADDIE ANNABEL Not Available Start: 05-31-2024 End: 05-31-2024 ambulatory ROMMEL MARQUEZ Not Available Start: 05-10-2024 End: 05-10-2024 ambulatory ADDIE ANNABEL Not Available Start: 05-04-2024 End: 05-04-2024 ambulatory ADDIE ANNABEL Not Available Start: 04-27-2024 End: 04-27-2024 ambulatory ADDIE ANNABEL Not Available Start: 04-20-2024 Non-patient / Non-visit Addie Annabel Work Phone: [facility] Work Phone: Start: 04-19-2024 End: 04-19-2024 ambulatory Addie Annabel [facility] Work Phone: Start: 04-19-2024 End: 04-19-2024 Departed Referred Addie Annabel Work Phone: [facility] Start: 04-19-2024 Non-patient / Non-visit Addie Annabel Work Phone: [facility] Work Phone: Start: 04-19-2024 End: 04-19-2024 ambulatory ADDIE ANNABEL Not Available Start: 04-13-2024 End: 04-13-2024 ambulatory ADDIE ANNABEL Not Available Start: 04-06-2024 End: 04-06-2024 ambulatory ADDIE ANNABEL Not Available Start: 03-23-2024 End: 03-23-2024 ambulatory ADDIE ANNABEL Not Available Start: 03-07-2024 End: 03-07-2024 ambulatory ADDIE ANNABEL Not Available Start: 02-22-2024 End: 02-22-2024 ambulatory ADDIE ANNABEL Not Available Start: 06-22-2023 End: 06-22-2023 Patient encounter procedure DNP Sherry Gia Work Phone: [facility] Start: 06-22-2023 End: 06-22-2023 ambulatory DNP Sherry Gia Work Phone: [facility] Work Phone: Start: 06-18-2023 End: 06-18-2023 ambulatory Sherry Nielsen Other [facility] [employer] Other Start: 06-18-2023 Encounter for genera l adult medical examination without abnormal findings Sherry Nielsen [facility] [place] Start: 06-18-2023 Initial preventive medicine new pt age 18-39yrs Sherry Nielsen [facility] [place] Procedures Date Procedure Procedure Detail Performing Clinician Start: 11-16-2024 IGP,APTIMA HPV,AGE GDLN Addie Annabel DO Work Phone: Start: 11-16-2024 Microscopic observat ion [Identifier] in Cervix by Cyto stain Addie Annabel DO Work Phone: Start: 10-09-2024 ALL CBC WITH AUTO DIFF Addie Annabel DO Work Phone: Start: 10-09-2024 Urine test visual color cmprsn meths Addie Annabel DO Work Phone: Plan of Treatment Date Care Activity Detail Author Start: 10-28-2028 Screening for malign ant neoplasm of cervix [facility] Start: 11-16-2027 Screening for malign ant neoplasm of cervix Pap Smear [facility] Start: 07-09-2025 Influenza vaccination Influenz a Vaccine (Season Ended) [facility] Start: 03-29-2025 End: 03-29-2025 Patient encounter procedure 03/29/2025 9:30 AM EDT Procedure Visit [facility] [address] [place] [id number] Addie Jin, DO [address] [place] [address] [facility] Start: 02-08-2025 End: 02-08-2025 Patient encounter procedure 02/08/2025 8:30 AM EDT Office Visit [facility] [address] [place] [id number] Addie Jin, DO [address] [place] [address] Arrived [facility] Comment on above: Arrived Start: 12-14-2024 End: 12-14-2024 Patient encounter procedure [facility] Comment on above: Arrived Start: 11-16-2024 End: 11-16-2024 Patient encounter procedure [facility] Comment on above: Arrived Start: 10-24-2024 End: 10-24-2024 Professional / ancillary services management 10/24/2024 9:30 AM EST Ancillary Procedure [facility] [address] [place] [phone] [facility] Start: 10-09-2024 End: 10-09-2025 [...] procedure 10/09/2024 9:30 AM EST Office Visit [facility] [address] [id number] Addie Jin, [address] [place] [address] Arrived [facility] Comment on above: Arrived CBC W Auto Different ial panel - Blood CBC and differential Lab Routine Menorrhagia with regular cycle Ordered: 10/09/2024 [facility] Work Phone: Comment on above: Ordered: 10/09/2024 Cytology Cervical or vaginal smear or scraping study Pap Smear Pathology and Cytology Routine Well woman exam with routine gynecological exam Ordered: 11/16/2024 [facility] Work Phone: Comment on above: Ordered: 11/16/2024 hCG, quantitative, hCG, quantitative, Lab Routine Menorrhagia with regular cycle Ordered: 10/09/2024 [facility] Comment on above: Ordered: 10/09/2024 Hemoglobin A1c/Hemoglobin.total in Blood Hemoglobin A1c Lab Routine Menorrhagia with regular cycle Ordered: 10/09/2024 [facility] Comment on above: Ordered: 10/09/2024 Human papilloma viru s DNA [Presence] in Unspecified specimen by Probe with amplification HPV DNA probe, amplified Microbiology Routine Well woman exam with routine gynecological exam Ordered: 11/16/2024 [facility] Comment on above: Ordered: 11/16/2024 Prothrombin time (PT ) in Blood by Coagulation assay Protime-INR Lab Routine Menorrhagia with regular cycle Ordered: 10/09/2024 [facility] Comment on above: Ordered: 10/09/2024 Thyrotropin [Units/volume] in Serum or Plasma TSH Lab Routine Menorrhagia with regular cycle Ordered: 10/09/2024 [facility] Comment on above: Ordered: 10/09/2024 Thyroxine (T4) free [Mass/volume] in Serum or Plasma T4, free Lab Routine Menorrhagia with regular cycle Ordered: 10/09/2024 [facility] Comment on above: Ordered: 10/09/2024 Payers Date Payer Category Payer [employer] [id number] 2023 [employer] Blue Shield [id number] 2023 Self-pay 1993 Unknown [id number] .1258 1993 Unknown [id number] 2.840.1.735838.3.579.2 .1258 1993 Unknown [id number] 2.840.1.868760.3.579.2 .1258 1993 Unknown [id number] 2.840.1.132422.3.579.2 .1258 1993 Unknown [id number] 2.16840.1.682384.3.579.2 .1258 1993 Unknown [id number] 2.16840.1.464338.3.579.2 .1258 1993 Unknown [id number] 2.16840.1.794725.3.579.2 .1258 1993 Unknown [id number] 2.16840.1.218803.3.579.2 .1258 1993 Unknown [id number] 2.16840.1.498227.3.579.2 .9 1993 Unknown [id number] 2.16.840.1.868438.3.579.2 .9 1993 Unknown [id number] 2.16.840.1.821361.3.579.2 .9 1993 Unknown [id number] 2.16.840.1.162133.3.579.2 .1258 1993 Unknown [id number] 2.16.840.1.979114.3.579.2 .9 1993 Unknown [id number] 2.16.840.1.602819.3.579.2 .9 1993 Unknown [id number] 2.16.840.1.964825.3.579.2 .1259 Unknown HCAP/HFA/FAP Active [id number] Unknown [id number] 2.16.840.1.675356.3.579.2 .531 Unknown [id number] 2.16.840.1.257957.3.579.2 .531 Social History Date Type Detail Facility Start: 09-24-2023 End: 11-14-2024 Sex Assigned At [facility] [employer] Other Start: 1995 Sex Assigned At Female F [facility] Start: 04-18-2023 End: 06-18-2023 Tobacco smoking status OKIS Never smoked tobacco (finding) [facility] Start: 04-18-2023 Tobacco use and exposure Smokeless tobacco non-user [facility] Start: 05-31-2024 End: 12-14-2024 Alcoholic beverage intake Ex-drinker (finding) [facility] Start: 05-31-2024 End: 11-14-2024 Alcoholic beverage intake [facility] Start: 1993 Sex assigned at Not on file N [facility] Clinical Notes 06-18-2023 to 02-08-2025 Daria Mercedes DANE - 02/08/2025 8:30 AM ALEXIAlillycole Mercedes, DANE - 11/16/2024 8:40 AM Zeyad Neri NP - 11/14/2024 12:25 PM Tadeo Connors, DANE - 10/09/2024 9:30 AM EST Note Date & Type Note Facility 02-08-2025 History of Presen t illness Narrative Reason for Appointment: Patient ID: Cynthia Givens is a 29 y.o. female who presents for Weight Management Patient presents today for Weight Management Consult. MEDICATIONS Current Outpatient Medications Medication Instructions fluticasone (Flonase) 50 MCG/ACT nasal spray 1 spray, Each Nostril, 2 times daily, Shake gently. Before first use, prime pump. After use, clean tip and replace cap. metFORMIN XR (GLUCOPHAGE-XR) 500 mg, Oral, 2 times daily, Do not crush, chew, or split. omeprazole (PRILOSEC) 20 mg, Oral, Daily before breakfast, Do not crush or chew. phentermine (ADIPEX-P) 37.5 mg, Oral, Daily before breakfast phentermine (ADIPEX-P) 37.5 mg, Oral, Daily before breakfast ALLERGIES Allergies Allergen Reactions Wound Dressing Adhesive [...] SURGERY 12/31/22 Gallbladder was removed SECTION, CLASSIC 2015 SECTION, LOW TRANSVERSE 10/18/15 of my daughter SECTION, LOW TRANSVERSE 04/19/2024 GALLBLADDER 2022 SALPINGECTOMY Bilateral 04/19/2024 REVIEW OF SYSTEMS Review of Systems: Review of Systems All other systems reviewed and are negative. OBJECTIVE Objective: Physical Exam Constitutional: Appearance: Normal [...] nursing note reviewed. Exam conducted with a quality control checker present. Vitals: Estimated body mass index is 34.63 kg/m as calculated from the following: Height as of 11/16/24: 5' 3 . Weight as of this encounter: 195 lb 8 oz. BP: 116/82 No LMP recorded. ASSESSMENT & PLAN ICD-10-CM 1. Encounter for weight management Z76.89 Patient presents today for Adipex #3. Patient voiced that her pulse went up into the 150's and that was even with taking 1/2 tablet. Patient will continue Metformin 1,000 mg daily as she has lost weight over the course of starting her weight management journey. Patient voiced she is now making healthier snack/food choices. Discussed Ozempic with patient and at this time she is going to continue her current regimen and reach out to office if she changes her mind on other forms of weight management medication. Patient will also ensure that she drinks Whey Protein shake in the morning. Patient to return to clinic for routine annual exam and as needed. Documented by Daria Mercedes LPN on behalf of: Addie Jin DO documented in this encounter [facility] 11-16-2024 History of Presen t illness Narrative Reason for Appointment: Patient ID: Cynthia Givens is a 29 y.o. female who presents for Well Women Visit Patient presents today for Annual Exam. and Weight Management Consult. MEDICATIONS Current Outpatient Medications Medication Instructions amoxicillin-clavulanate (Augmentin) 875-125 MG tablet 875 mg, Oral, 2 times daily fluticasone (Flonase) 50 MCG/ACT nasal spray 1 spray, Each Nostril, 2 times daily, Shake gently. Before first use, prime pump. After use, clean tip and replace cap. metFORMIN XR (GLUCOPHAGE-XR) 500 mg, Oral, Daily with evening meal, Do not crush, chew, or split. omeprazole (PRILOSEC) 20 mg, Oral, Daily before breakfast, Do not crush or chew. phentermine (ADIPEX-P) 37.5 mg, Oral, Daily before breakfast ALLERGIES Allergies Allergen Reactions Wound Dressing Adhesive [...] SURGERY 12/31/22 Gallbladder was removed SECTION, CLASSIC 2015 SECTION, LOW TRANSVERSE 10/18/15 of my daughter SECTION, LOW TRANSVERSE 04/19/2024 GALLBLADDER 2022 SALPINGECTOMY Bilateral 04/19/2024 REVIEW OF SYSTEMS Review of Systems: Review of Systems All other systems reviewed and are negative. OBJECTIVE Objective: Physical Exam Constitutional: Appearance: Normal appearance. She is well-developed. Genitourinary: Vulva normal. Breasts: Breasts are soft. Right: Normal. Left: Normal. Cardiovascular: Rate and Rhythm: Normal rate and [...] nursing note reviewed. Exam conducted with a quality control checker present. Vitals: Estimated body mass index is 37.09 kg/m as calculated from the following: Height as of this encounter: 5' 3 . Weight as of this encounter: 209 lb 6.4 oz. BP: 110/70 Patient's last menstrual period was 11/12/2024. ASSESSMENT & PLAN ICD-10-CM 1. Well woman exam with routine gynecological exam Z01.419 Pap Smear HPV DNA probe, amplified 2. Irregular periods/menstrual cycles N92.6 3. Encounter for weight management Z76.89 phentermine (Adipex-P) 37.5 MG tablet Annual Exam: Patient presents today for an annual exam. Patient states she is doing well and has no complaints. Pap was obtained without difficulty. Reviewed patients recent ultrasound with her and WNL. Patient given Adipex #1. Reviewed medication regimen and patient will restart Metformin. Patient will take metformin 1 tablet daily for 1 week and then increase to 2 tablets daily. Patient will also setup appointment in March in office to get Ablation procedure setup for heavy irregular cycles. Patient already has bilateral salpingectomy. Orders Placed This Encounter Procedures HPV DNA probe, amplified Follow Up: Patient is to return in one year for annual & 1 month for Adipex #2 unless needed otherwise. Documented by Daria Mercedes LPN on behalf of: Addie Jin DO documented in this encounter [facility] 11-14-2024 History of Presen t illness Narrative Images from the original note were not included. [address], [address] [facility], [address] P: [phone] F: [phone] HPI Historian of HPI: patient Cynthia Givens is a 29 y.o. female who presents today to the Urgent Care with the following complaints and denials which have been present for 5 day(s). pt states she was sick around but woke up on Wednesday with right side eye pain and a sinus headache. Pt states she used to have a hx of headaches. C/O Denies Symptom Comments [] [x] Runny Nose [] [x] Difficulty Swallowing [] [x] Sore Throat [] [x] Cough [x] [] Ear Pain Right side ear pressure [] [x] Fever [x] [] Chills [x] [] Nasal Congestion [] [x] Myalgia [x] [] Sinus Pain Right side pain under her eye and jaw area [x] [] Sinus Pressure Headache Additional Comments: pt has taken tylenol extra strength OTC medication with relief ROS A complete system ROS was performed and negative aside from the pertinent positives noted in the HPI and PE. Visit Vitals BP 118/78 (BP Location: Left arm, Patient Position: Sitting, BP Cuff Size: Large adult) Pulse 100 Temp 98.7 F Wt 267 lb LMP (LMP Unknown) SpO2 98% OB Status Having periods Smoking Status Never IH Testing: PHYSICAL EXAM Physical Exam Vitals reviewed. Constitutional: General: She is not in acute distress. Appearance: Normal appearance. HENT: Head: Normocephalic and atraumatic. Right Ear: Hearing, tympanic membrane, ear canal and external ear normal. Left Ear: Hearing, tympanic membrane, ear canal and external ear normal. Nose: Nasal tenderness and congestion present. Right Turbinates: Enlarged and swollen. Left Turbinates: Enlarged and swollen. Right Sinus: Maxillary sinus tenderness present. Left Sinus: Maxillary sinus tenderness present. Comments: R>L Mouth/Throat: Mouth: Mucous membranes are moist. Pharynx: Oropharynx is clear. Eyes: Extraocular Movements: Extraocular movements intact. Conjunctiva/sclera: Conjunctivae normal. Pupils: Pupils are equal, round, and reactive to light. Cardiovascular: Rate and Rhythm: Normal rate and regular rhythm. Pulses: Normal pulses. Heart sounds: Normal heart sounds. Pulmonary: Effort: Pulmonary effort is normal. No respiratory distress. Breath sounds: Normal breath sounds. No wheezing, rhonchi or rales. Musculoskeletal: General: Normal range of motion. Cervical back: Normal range of motion and neck supple. Skin: General: Skin is warm and dry. Findings: No rash. Neurological: General: No focal deficit present. Mental Status: She is alert and oriented to person, place, and time. Psychiatric: Mood and Affect: Mood normal. TREATMENT PLAN 1. Sinus pressure (Primary) -Take medication as prescribed below to completion -cough and deep breathe -May use Tylenol/Ibuprofen for pain/fever -May use OTC medication such as cough syrups especially at night time for relief, pseudoephedrine for nasal congestion, and/or Lizy Pot or saline rinses. -Follow up with in 1 week if no improvement or go to the ED for worsening of symptoms such as SOB or CP - fluticasone (Flonase) 50 MCG/ACT nasal spray; Administer 1 spray into each nostril in the morning and 1 spray before bedtime. Shake gently. Before first use, prime pump. After use, clean tip and replace cap.. Dispense: 16 g; Refill: 0 2. Acute non-recurrent maxillary sinusitis Will treat with ATBx given duration of sx. Medication, implications, and side effects discussed. Report any side effects to PCP immediately. Take with food. Change or sterilize toothbrush 24 hours after starting ATB. OTC meds symptomatically and push fluids. The patient will let us know if sx worsen, change, or fail to improve in the next 5-7 days. Signs/symptoms and red flags of when to seek emergent medical attention discussed. Patient expressed an understanding. - amoxicillin-clavulanate (Augmentin) 875-125 MG tablet; Take 1 tablet (875 mg) by mouth in the morning and 1 tablet (875 mg) before bedtime. Do all this for 10 days. Dispense: 20 tablet; Refill: 0 documented in this encounter [facility] 10-09-2024 History of Presen t illness Narrative [...] nursing note reviewed. Exam conducted with a quality control checker present. Vitals: There is no height or [...] Addie Jin DO documented in this encounter [facility] 06-18-2023 Evaluation note Encounter Date Diagnosis Assessment Notes Jun, Well adult exam (ICD-10 - Z00.00) Routine lab work ordered. She will continue to keep appointment with [employer], eye doctor and dentist. Patient is advised to work on healthy diet choices and appropriate servings, weight control, regular exercise as directed, reduced fat intake, and salt avoidance. Patient voiced understanding of this and agrees to this plan. [employer] Other Evaluation noteNo assessment information available [facility] Work Phone: Evaluation note* Diagnosis Irregular periods/menstrual cycles Menorrhagia with regular cycle documented in this encounter [facility]* Diagnosis Well woman exam with routine gynecological exam Routine gynecological examination Irregular periods/menstrual cycles Encounter for weight management documented in this encounter [facility]* Diagnosis Sinus pressure- Primary Other diseases of nasal cavity and sinuses Acute non-recurrent maxillary sinusitis documented in this encounter [facility]* Diagnosis Encounter for weight management documented in this encounter [facility]* Diagnosis Encounter for weight management documented in this encounter [facility] N[facility]ative - Reported* Type Description Date Surgical History Foot Surgery Surgical History GALLBLADDER Surgical History 2014 Surgical History SHOULDER-LEFT 2018 Hospitalization History see above [employer] Other History of Present illness Narrative* Grazyna Vieira LPN - 12/14/2024 9:40 AM EST Reason for Appointment: Patient ID: Cynthia Givens is a 29 y.o. female who presents for Weight Management Patient presents today for a weight management consultation. Patient has been prescribed Adipex andshe is here for her 2nd prescription. Today's Vitals: Estimated body mass index is 35.98 kg/m as calculated from the following: Height as of 11/16/24: 5' 3 . Weight as of this encounter: 203 lb 1.9 oz. Previous Weight/BMI: Wt Readings from Last 2 Encounters: 12/14/24 203 lb 1.9 oz 11/16/24 209 lb 6.4 oz BMI Readings from Last 2 Encounters: 12/14/24 35.98 kg/m 11/16/24 37.09 kg/m Allergies as of 12/14/2024 - Reviewed 12/14/2024 Allergen Reaction Noted Wound dressing adhesive Hives 04/18/2023 Chlorhexidine gluconate Hives, Itching, and Rash 10/12/2015 Past Medical History: Diagnosis Date Hypertension (CMS/HCC) only when i had gallstone or have serious injury Past Surgical History: Procedure Laterality Date ABDOMINAL SURGERY 12/31/22 Gallbladder was removed SECTION, CLASSIC 2015 SECTION, LOW TRANSVERSE 10/18/15 of my daughter SECTION, LOW TRANSVERSE 04/19/2024 GALLBLADDER 2022 SALPINGECTOMY Bilateral 04/19/2024 Assessment/Plan Encounter Diagnosis Name Primary? Encounter for weight management Adipex: Patient presents today for 2nd Adipex prescription. Patients weight and blood pressure has been captured and discussed with the patient. I have discussed/reiterated the importance of keeping a food journal, proper nutrition/diet, and exercise regimen while taking Adipex. Patient verbalized understanding and was given a printed prescription signed by provider to take to their local pharmacy. Follow Up: Patient is to return to the office in 1 month for further evaluation to assess patient progress. Weight and blood pressure will need to be obtained in order for patient to receive 3rd prescription. Documented by: Grazyna Vieira LPN on behalf of Addie Jin DO documented in this [facility] Chief Complaint and Reason for Visit Chief Complaint Z00.00 Chief Complaint Unknown Advance Directives Advance Directive Response Recorded Date/ Time Advance Directives No June 22, 2023 7:06am Summary Purpose Family History No Family History Records FoundNo Family History Records Found Additional Source Comments REASON FOR VISIT (unrecogniz ed section and content) Reason Comments Menstrual Problem Reason Comments Well Women Visit Reason Comments Weight Management Care Teams (unrecognized sec tion and content) [...] Addie Jin Attending Provider Active Start: 2023 Clinical Services Assistant Relationship Specialty Start Date End Date Poppy Neri NP [address] [place] [address] PCP - [place] Commercial 01/06/25 Goals (unrecognized section and content) Goals may be documented in a n alternate section INFORMATION SOURCE (unrecogn ized section and content) DATE CREATED AUTHOR 04/28/2024 [facility] DATE CREATED AUTHOR RENU BOWERS 02/11/2025 [facility] EPIC FOR RECORDS PERTAINING TO PATIENTS WHO ARE [...] BE BASED ON THE PRIMARY CLINICAL RECORDS. [facility] provides no warranty or guarantee of the accuracy or completeness of information in this document.
== END 2025-03-29 11:28 | disposition home or self-care (01) ==
LOC: LAB 11:27
PROVIDERS: PCP Nurse Practitioner Family; Visit Provider Obstetrics & Gynecology
DX: N92.0 Excessive and frequent menstruation with regular cycle (principal)
CPT/HCPCS: 88305

== ENCOUNTER 2025-04-18 08:47 | Outpatient (OUT) | payer BC, SELFPAY ==
--- OUTSIDE RECORDS SUMMARY | 2014-11-27 15:24 | XMS_ITS | Continuity of Care Document ---
Author Organization [facility] Address [address] [place] [address] Phone Care Team Providers Care Assistant Manager [employer] Operations Name Role Phone Daria Hester Unavailable Unavaila [...] Diagnoses Date Provider Providers Copied on Encounter [facility], [address] [place] [address], [id number] , [place] tel: [phone] [facility] No Information 0-201 5 Levi Huff. [address] [place] [address], [id number] , [place]. tel: [phone] PREV VISIT, NEW, AGE 18-39 [facility], [address] [place] [address], [id number] , [place] tel: [phone] [facility] annual exam (chief complaint) Routine gynecological examinationContracept hedy management 5 Levi [facility] Daria. [address] [place] [address], [id number] , [place]. tel:[phone] Family History Family Member Type Diagnosis Age At Onset No Information Payers Payer name Insurance type Covered libertarian ID Authoriza tion(s) No Information Social History [...]
--- OUTSIDE RECORDS SUMMARY | 2025-04-05 23:13 | XMS_ITS | Continuity of Care Document ---
Author Organization [facility] Address [address] [place] [address] Phone Care Team Providers Care Trailer Assembler Name Role Phone Annabel Domingo VELEZ Attending Provider Care Teams Patient Care Team Team Status: Inactive Member Role Status Dates Domingo Jin DO Attending Provider Active Start : March 29, 2025 End: March 29, 2025 Chief Complaint and Reason for Visit Chief Complaint Admit Date Unknown March 29, 2025 9:00a m Allergies, Adverse Reactions, Alerts Allergen Type Severity Reaction Last Updated Verified Status adhesive Allergy Unknown hives June 18, 2023 7:34am Yes Active Social History Smoking Status Status Start Date End Date Date of Observa tion Never smoked tobacco (finding) June 18, 2023 7:33am Observation Status Observation Response Date of Response Patient Sex Female March 31, 2025 1 2:05am Assigned Sex Female July Relevant Diagnostic Tests and/or Laboratory Data Pathology Reports Author Ross Johnson [facility] Report Date/Time April 03, 2025 8:51a m Name: Cynthia Givens : 1995 Specimen #: [id number] Collection Date: 03/29/25 Age at Collection: 29 Received Date: 03/30/25 Submitter: Domingoradhika Perlao Sex at : F Med. Rec. #: [id number] Consultor: [facility] Location: [facility] Consultor2: Consultor3: ____ _ Pathological Diagnosis Endometrium, biopsy: - Proliferative phase endometrium. - No evidence of hyperplasia or malignancy identified. Clinical Information Menorrhagia N92.0 Gross Description Received in formalin labeled with the patients name, date of , and Endometrium BX is a pale watts mucoid material, admixed with gaines-pink to red-brown, delicate tissue fragments, 1.5 x 1 x 0.3 cm in aggregate. The specimen is filtered and entirely submittedin a single cassette. (1, ns, [id number] A) JG Microscopic Description Microscopic examination is performed. CPT Codes 57340 Signature Ross Johnson MD, Pathologist (Case signed 04/03/25, 0851) Advance Directives Advance Directive Response Recorded Date/ Time Advance Directives No June 22, 2023 7:06am Insurance Providers Guarantor Cynthia Givens Address [address] [place] [phone] Contact Info. Home Phone: C Payer Policy Id Coverage Id Subscriber's Name Subscriber Id Effective Date Expiration Date Pippa MENDOZA/BS [id number] Aaron Givens [id number] HCAP/HFA/ FAP Active [id number] Cynthia Givens [id number] Encounters Encounter Location(s) Arrival/Admit Date Discharge/Depart Date Provider(s) Departed Referred [facility] Path Spec [facility] March 29, 2025 9:00am March 29, 2025 9:01am Domingo Jin
--- NOTE | 2025-04-18 08:50 | ECG_ITS ---
[facility] Test Date: 2025-04-18 Pat Name: DONALD VELÁSQUEZ Department: Room: - Gender: Female Research Compliance Specialist: : 1995 Requested By: ADDIE DOE Order Number: [id number] Reading MD: TANIKA LAMAS M.D. Measurements Intervals [place] Rate: 78 P: 19 MI: 110 QRS: 75 QRSD: 85 T: 40 QT: 360 QTc: 410 Interpretive Statements SINUS RHYTHM WITH SHORT MI INTERVAL Borderline ECG No previous ECG available for comparison Electronically Signed On 04-18-2025 17:28:32 EDT by TANIKA LAMAS M.D.
--- OUTSIDE RECORDS SUMMARY | 2025-04-18 08:50 | XMS_ITS | Encounter Summary ---
Author Organization [facility] Address [address] [place] [address] Care Team Providers Care Business Instructor Name Role Phone Poppy Lombardi TAKE AWAY ATTENDANT Unavailable Encounter Details Date Type Department Care Team (Late st Contact Info) Description 04/27/2024 Abstract [facility] [address] [place] [address] Domingo Jin DO [address], [facility] Social History Tobacco Use Types Packs/Day [...] 05/10/2025 8:40 AM EDT Office Visit [facility] [address] [place] [address] Domingo Jin, DO [address] [place] [address] documented as of this encounter Visit Diagnoses Not on filedocumented in this encounter Care Teams Business Instructor Relationship Specialty Start Date End Date Poppy Lombardi, DARRION [address] [place] [phone] PCP - Pippa Sahni 01/06/25 documented as of this encounter
--- OUTSIDE RECORDS SUMMARY | 2025-04-18 08:50 | XMS_ITS | Clinical Summary ---
Author Organization [facility] Address [address] [place] [address] Care Team Providers Care Acid Treater Name Role Phone Unavailable Primary Care Provider [...] morning. Take before meals. 30 tablet 11/16/19 025 Discontinued phentermine (Adipex-P) 37.5 MG tabletIndicatio ns:Encounter for weight management Take 1 tablet (37.5 mg) by mouth in the morning. Take before meals. 30 tablet 12/14/19 025 Discontinued Active Problems Problem Noted Date Diagnosed Date Gastroesophageal reflux dise ase with esophagitis without hemorrhage 02/22/2024 Encounter for consultation for female sterilizat ion 10/28/2023 Vaginal discharge 10/28/2023 Resolved Problems Problem Noted Date Diagnosed Date Resolved Date Bacterial vaginosis in 10/28/2023 04/19/2024 First trimester 10/28/2023 Encounters Date Type Department Care Team Description 03/30/2025 Abstract [facility] [address] [address] Domingo Jin DO 03/29/2025 9:30 AM EDT Procedure Visit [facility] [address] [place] [address] Domingo Jin DO Pre-op examination; Menorrhagia with regular cycle; Pelvic pain; Abnormal uterine bleeding (AUB); Encounter for weight management 03/28/2025 Travel 03/20/2025 Telephone [facility] [address] [place] [address] Daria Mercedes LPN 03/08/2025 Refill [facility] [address] [place] [address] Domingo Jin DO UTI symptoms 02/27/2025 [address] [address] [place] [address] Grazyna Vieira LPN 02/09/[address] [address] [place] [address] Grazyna Vieira LPN 02/08/2025 8:30 AM EDT Office Visit [facility] [address] [place] [address] Domingo Jin DO Encounter for weight management 02/08/2025 Bamboo flowsheet [place] [address] [place] [address] Domingo Jin DO 02/07/2025 Travel from Last 3 Months Family History Medical [...] EDT Office Visit [facility] [address] [facility] [place] [address] AnnabelDomingo meade, DO [address] [place] [address] Procedures Procedure Name Priority Date/Time Associated Diagnosis Comments POCT , URINE Routine 03/29/2025 9:37 AM EDT Menorrhagia with regular cycle from Last 3 Months Results * POCT , urine manually resulted (03/29/2025 9:37 AM EDT) Preg Test, Ur Negative Negative Urine 03/29/2025 9:37 AM EDT Domingo Jin DO POINT OF CARE TEST ENTER/EDIT OR DERABLES Final Result from Last 3 Months Insurance [facility]
--- OUTSIDE RECORDS SUMMARY | 2025-04-18 08:50 | XMS_ITS | Encounter Summary ---
Author Organization [facility] Address [address] [place] [address] Care Team Providers Care Electrical Controls Designer Name Role Phone Unavailable Primary Care Provider Unavailabl e Encounter Details Date Type Department Care Team (Late st Contact Info) Description 03/30/2025 Abstract [facility] [address] [place] [phone] Domingo Jin, DO [address], [place] [id number] Social History Tobacco Use Types Packs/Day Years [...] Visit [facility] [address] [place] [address] Domingo Jin, DO [address], [place] [id number] documented as of this encounter Visit Diagnoses Not on filedocumented in this encounter
--- OUTSIDE RECORDS SUMMARY | 2025-04-18 08:50 | XMS_ITS | Encounter Summary ---
Author Organization [facility] Address [address] [place] [address] Care Team Providers Care Crown Blocker Name Role Phone Poppy Lombardi CITY ROUTE DRIVER Unavailable [phone] Encounter Details Date Type Department Care Team (Late st Contact Info) Description 04/26/2024 Abstract [facility] [address] [place] [address] Domingo Jin DO [address], [facility] Social History Tobacco Use Types Packs/Day Years [...] 05/10/2025 8:40 AM EDT Office Visit [facility] [address] [place] [address] Domingo Jin, DO [address] [place] [address] documented as of this encounter Visit Diagnoses Not on filedocumented in this encounter Care Teams Crown Blocker Relationship Specialty Start Date End Date Poppy Lombardi, DARRION [address] [place] [phone] PCP - Pippa Sahni 01/06/25 documented as of this encounter
--- OUTSIDE RECORDS SUMMARY | 2025-04-18 08:50 | XMS_ITS | Encounter Summary ---
Author Organization [facility] Address [address] [place] [address] Care Team Providers Care Family Support Worker Name Role Phone Poppy Lombardi ROLL CAPPER Unavailable Encounter Details Date Type Department Care Team (Late st Contact Info) Description 10/25/2024 Clinisync Result Encounter [facility] External Department Unsolicited Addie Jin, DO [address] [place] [address] Social History Tobacco Use Types Packs/Day Years [...] Visit [facility] [address] [place] [address] Addie Jin, [address] [place] [address] documented as of this encounter Procedures Procedure Name Priority Date/Time Associated Diagnosis Comments US PELVIS W/ TRANSVAGINAL 10/25/2024 4:39 AM EST documented in this encounter Results * US PELVIS W/ TRANSVAGINAL (10/25/2024 4:39 AM EST) Anatomical Region Laterality Modality Other 10/25/2024 4:39 AM EST Narrative 10/25/2024 4:42 [place] [address] Ultrasound Report Signed Patient: DONALD GIVENS MR#: [id number] : 1995 Acct:[id number] Age/Sex: 29 / F ADM Date: 10/24/24 Loc: [facility] Attending Dr: Addie Jin D.O. Ordering Physician: Addie Jin D.O. Date of Service: 10/24/24 Procedure(s): US pelvis w/ transvaginal Accession Number(s): [id number] cc: Addie Jin D.O.; SKY JUAN [place] [address] Patient Name: DONALD GIVENS MRN: [id number] date: 1995 Sex: F Assigned Patient Location: [facility] Current Patient Location: Accession/Order Number: [id number] Exam Date: 10/24/2024 09:20 Report Date: 10/25/2024 [...] Signed By: 10/25/24 0442 DD/ 0439 TD/TT: Analog Device Designer: Procedure Note Radiology, Radiologist, MD - 10/25/2024 [place] [address] Ultrasound Report Signed Patient: DONALD GIVENS LMR#: [id number] : 1995Acct:[id number] Age/Sex: 29 / FADM Date: 10/24/24 Loc: [facility] Attending Dr: Addie Jin D.O. Ordering Physician: Addie Jin D.O. Date of Service: 10/24/24 Procedure(s): US pelvis w/ transvaginal Accession Number(s): [id number] cc: Addie Jin D.O.; SKY JUAN [address] [id number] Patient Name: DONALD GIVENS MRN: [employer]:[id number] date: 1995 Sex: F Assigned Patient Location: [facility] Current Patient Location: Accession/Order Number: [id number] Exam Date: 10/24/2024 09:20 Report Date: 10/25/2024 [...] M.D. Signed By:10/25/24 0442 DD/ 0439 TD/TT: Analog Device Designer: us Addie Annabel DO [facility] Final Result documented in this encounter Visit Diagnoses Not on filedocumented in this encounter Care Teams Family Support Worker Relationship Specialty Start Date End Date Poppy Lombardi NP [address] [phone] PCP - [place] Commercial 01/06/25 documented as of this encounter
--- OUTSIDE RECORDS SUMMARY | 2025-04-18 08:50 | XMS_ITS | Encounter Summary ---
Author Organization [facility] Address [address] [place] [address] Care Team Providers Care Stave Hewer Name Role Phone Poppy Lombardi NUCLEAR ENGINEERING TECHNICIAN Unavailable Encounter Details Date Type Department Care Team (Late st Contact Info) Description 04/19/2024 Abstract [facility] [address] [place] [address] Domingo Jin DO [address], [facility] Social History Tobacco Use Types Packs/Day [...] 05/10/2025 8:40 AM EDT Office Visit [facility] [address] [place] [address] Domingo Jin, DO [address] [place] [address] documented as of this encounter Visit Diagnoses Not on filedocumented in this encounter Care Teams Stave Hewer Relationship Specialty Start Date End Date Poppy Lombardi, DARRION [address] [place] [phone] PCP - Pippa Sahni 01/06/25 documented as of this encounter
--- OUTSIDE RECORDS SUMMARY | 2025-04-18 08:50 | XMS_ITS | Encounter Summary ---
Author Organization [facility] Address [address] [place] [address] Care Team Providers Care Needle Maker Name Role Phone Poppy Lombardi MEDIUM CYCLE SALESPERSON Unavailable [phone] Encounter Details Date Type Department Care Team (Late st Contact Info) Description 12/27/2023 Clinisync Result Encounter [facility] External Department Unsolicited Addie Jin, DO [address] [place] [address] Social History Tobacco Use Types Packs/Day Years [...] Visit [facility] [address] [place] [address] Addie Jin DO [address] [place] [address] documented as of this encounter Procedures Procedure Name Priority Date/Time Associated Diagnosis Comments US OB ANATOMY 12/27/2023 10:07 AM EST documented in this encounter Results * US OB ANATOMY (12/27/2023 10:07 AM EST) Anatomical Region Laterality Modality Other 12/27/2023 10:0 7 AM EST Narrative 12/27/2023 10:10 [place] [address] Ultrasound Report Signed Patient: DONALD GIVENS MR#: [id number] : 1995 Acct:[id number] Age/Sex: 28 / F ADM Date: 12/27/23 Loc: [facility] Attending Dr: Addie Jin D.O. Ordering Physician: Addie Jin D.O. Date of Service: 12/27/23 Procedure(s): US OB anatomy Accession Number(s): [id number] cc: Addie Jin D.O.; Physician,Non-Staff M.DDena [place] [address] Patient Name: DONALD GIVENS MRN: [id number] date: 1995 Sex: F Assigned Patient Location: [facility] Current Patient Location: [facility] Accession/Order Number: [id number] Exam Date: 12/27/2023 08:40 Report Date: 12/27/2023 [...] By: Jama Salazar M.D. Signed By: 12/27/23 1010 DD/ 1007 TD/TT: Interior Mechanic: Procedure Note Radiology, Radiologist, MD - 12/27/2023 [place] [address] Ultrasound Report Signed Patient: DONALD GIVENS R#: [id number] : 1995Acct:[id number] Age/Sex: 28 / FADM Date: 12/27/23 Loc: [facility] Attending Dr: Addie Jin D.O. Ordering Physician: Addie Jin D.O. Date of Service: 12/27/23 Procedure(s): US OB anatomy Accession Number(s): [id number] cc: Addie Jin D.O.; Physician,Non-Staff Abeba The [address] [address] Patient Name: DONALD GIVENS MRN: [id number] date: 1995 Sex: F Assigned Patient Location: [facility] Current Patient Location: [facility] Accession/Order Number: [id number] Exam Date: 12/27/2023 08:40 Report Date: 12/27/2023 [...] M.D. Signed By:12/27/23 1010 DD/ 1007 TD/TT: Interior Mechanic: us Addie Jin DO [facility] Final Result documented in this encounter Visit Diagnoses Not on filedocumented in this encounter Care Teams Needle Maker Relationship Specialty Start Date End Date Poppy Lombardi NP [address] [place] [address] PCP - [place] [employer] 01/06/25 documented as of this encounter
--- OUTSIDE RECORDS SUMMARY | 2025-04-18 08:50 | XMS_ITS | Encounter Summary ---
Author Organization [facility] Address [address] [place] [address] Care Team Providers Care Speech Communication Professor Name Role Phone Poppy Lombardi WOOD TYPE CUTTER Unavailable [phone] Encounter Details Date Type Department Care Team (Late Contact Info) Description 09/24/2023 Clinisync Result Encounter [facility] External Department Unsolicited Addie Jin, DO [address] [place] [address] Social History Tobacco Use Types Packs/Day Years [...] Visit [facility] [address] [place] [address] Addie Jin DO [address] [place] [address] [place] [address] documented as of this encounter Procedures Procedure Name Priority Date/Time Associated Diagnosis Comments US OB TRANSVAGINAL 09/24/2023 1: 14 PM EST documented in this encounter Results * US OB TRANSVAGINAL (09/24/2023 1:14 PM EST) Anatomical Region Laterality Modality Other 09/24/2023 1:14 PM EST Narrative 09/24/2023 1:14 [place] [address] Ultrasound Report Signed Patient: Donald Givens MR#: [id number] : 1995 Acct:[id number] Age/Sex: 28 / F ADM Date: 09/24/23 Loc: US Attending Dr: Addie Jin D.O. Ordering Physician: Addie Jin D.O. Date of Service: 09/24/23 Procedure(s): US OB transvaginal Accession Number(s): [id number] cc: Addie Jin D.O.; Physician,Non-Staff M.Jennie The [address] [address] Patient Name: DONALD GIVENS MRN: [id number] date: 1995 Sex: F Assigned Patient Location: US Current Patient Location: US Accession/Order Number: [id number] Exam Date: 09/24/2023 09:10 Report Date: 09/24/2023 13:14 At the request of: ADDIE IJN Procedure: US OB transvaginal EXAMINATION: US OB [...] M.D. Signed By: 09/24/231315 DD/ 13 TD/TT: Seafood Team Member: Procedure Note Radiology, Radiologist, MD - 09/24/2023 [place] [address] Ultrasound Report Signed Patient: Donald Givens LMR#: [id number] : 1995Acct:[id number] Age/Sex: 28 / FADM Date: 09/24/23 Loc: US Attending Dr: Addie Jin D.O. Ordering Physician: Addie Jin D.O. Date of Service: 09/24/23 Procedure(s): US OB transvaginal Accession Number(s): [id number] cc: Addie Jin D.O.; Physician,Non-Staff Abeba The [place] [address] Patient Name: DONALD GIVENS MRN: [id number] date: 1995 Sex: F Assigned Patient Location: US Current Patient Location: US Accession/Order Number: [id number] Exam Date: 09/24/2023 09:10 Report Date: 09/24/2023 [...] Lozoya M.D. Signed By:09/24/231315 DD/ 13 TD/TT: Seafood Team Member: us Addie Annabel DO [facility] Final Result documented in this encounter Visit Diagnoses Not on filedocumented in this encounter Care Teams Speech Communication Professor Relationship Specialty Start Date End Date Poppy Lombardi NP [address] [place] [address] PCP - [place] [employer] 01/06/25 documented as of this encounter
--- OUTSIDE RECORDS SUMMARY | 2025-04-18 08:50 | XMS_ITS | Encounter Summary ---
Author Organization [facility] Address [address] [place] [address] Care Team Providers Care Welder 2Nd Shift Name Role Phone Poppy Lombardi TRUCK WASHER Unavailable Encounter Details Date Type Department Care Team (Late st Contact Info) Description 04/27/2024 Abstract [facility] [address] [place] [address] Domingo Jin DO [address], [facility] Social History Tobacco Use Types Packs/Day [...] 05/10/2025 8:40 AM EDT Office Visit [facility] [address] [place] [address] Domingo Jin, DO [address] [place] [address] documented as of this encounter Visit Diagnoses Not on filedocumented in this encounter Care Teams Welder 2Nd Shift Relationship Specialty Start Date End Date Poppy Lombardi, DARRION [address] [place] [phone] PCP - Pippa Sahni 01/06/25 documented as of this encounter
--- OUTSIDE RECORDS SUMMARY | 2025-04-18 08:51 | XMS_ITS | Encounter Summary ---
Author Organization [facility] Address [address] [facility] [place] [address] Care Team Providers Care Dry Yard Worker Name Role Phone Poppy Lombardi PLUNGER SCOOP OPERATOR Unavailable Reason for Visit * Reason Comments Med Change Request Encounter Details Date Type Department Care Team (Late st Contact Info) Description 12/06/2024 Refill [facility] [address] [place] [address] Poppy Lombardi, PLUNGER SCOOP OPERATOR [address] [place] [address] Sinus pressure Social History Tobacco [...] 05/10/2025 8:40 AM EDT Office Visit [facility] OB [address] [facility] [place] [address] Domingo Jin, DO [address], [place] [address] documented as of this encounter Visit Diagnoses Diagnosis Sinus pressure Other diseases of nasal cavity and sinuses documented in this encounter Care Teams Dry Yard Worker Relationship Specialty Start Date End Date Poppy Lombardi NP [address] [place] [address] PCP - Pippa Sahni 01/06/25 documented as of this encounter
--- OUTSIDE RECORDS SUMMARY | 2025-04-18 08:51 | XMS_ITS | Encounter Summary ---
Author Organization [facility] Address [address] [place] [address] Care Team Providers Care Senior Product Development Scientist Name Role Phone Poppy Lombardi METALIZER Unavailable Encounter Details Date Type Department Care Team (Late st Contact Info) Description 11/27/2024 Orders Only [facility] [address] [facility] [place] [address] Tiana Brown LPN [address] [facility] [place] [address] Social History Tobacco Use Types Packs/Day [...] 05/10/2025 8:40 AM EDT Office Visit [facility] [address] [facility] [place] [address] Domingo Jin, DO [address] [facility] [place] [address] documented as of this encounter [...] on filedocumented in this encounter Care Teams Senior Product Development Scientist Relationship Specialty Start Date End Date Poppy Lombardi NP [address] [place] [address] PCP - [place] Commercial 01/06/25 documented as of this encounter
--- OUTSIDE RECORDS SUMMARY | 2025-04-18 08:51 | XMS_ITS | Encounter Summary ---
Author Organization [facility] Address [address] [place] [address] Care Team Providers Care Arrt Technologist Name Role Phone Poppy Lombardi PRODUCTION TECHNICIAN Unavailable [phone] Encounter Details Date Type Department Care Team (Late st Contact Info) Description 12/27/2023 Clinisync Result Encounter [facility] External Department Unsolicited Addie Jin, DO [address] [place] [address] Social History Tobacco Use Types Packs/Day Years [...] Visit [facility] [place] [address] [place] [id number] Addie Jin DO [address] [place] [address] documented as of this encounter Procedures Procedure Name Priority Date/Time Associated Diagnosis Comments US OB CERVICAL LENGTH 12/27/2023 10:07 AM EST documented in this encounter Results * US OB CERVICAL LENGTH (12/27/2023 10:07 AM EST) Anatomical Region Laterality Modality Other 12/27/2023 10:0 7 AM EST Narrative 12/27/2023 10:09 [place] [address] Ultrasound Report Signed Patient: DONALD GIVENS MR#: [id number] : 1995 Acct:[id number] Age/Sex: 28 / F ADM Date: 12/27/23 Loc: [facility] Attending Dr: Addie Jin D.O. Ordering Physician: Addie Jin D.O. Date of Service: 12/27/23 Procedure(s): US OB cervical length Accession Number(s): [id number] cc: Addie Jin D.O.; Physician,Non-Staff [place] [address] Patient Name: DONALD GIVESN MRN: [id number] date: 1995 Sex: F Assigned Patient Location: [facility] Current Patient Location: [facility] Accession/Order Number: [id number] Exam Date: 12/27/2023 08:40 Report Date: 12/27/2023 [...] Signed By: 12/27/23 1009 DD/ 1007 TD/TT: Gum Scoring Machine Operator: Procedure Note Radiology, Radiologist, MD - 12/27/2023 [place] [id number] Ultrasound Report Signed Patient: DONALD GIVENS LMR#: [id number] : 1995Acct:[id number] Age/Sex: 28 / FADM Date: 12/27/23 Loc: [facility] Attending Dr: Addie Jin D.O. Ordering Physician: Addie Jin D.O. Date of Service: 12/27/23 Procedure(s): US OB cervical length Accession Number(s): [id number] cc: Addie Jin D.O.; Physician,Non-Staff [facility] [address] [address] Patient Name: DONALD GIVENS MRN: [id number] date: 1995 Sex: F Assigned [facility] Current [facility] Accession/Order Number: [id number] Exam Date: 12/27/2023 08:40 Report Date: 12/27/2023 [...] M.D. Signed By:12/27/23 1009 DD/ 1007 TD/TT: Gum Scoring Machine Operator: us Addie Jin DO [facility] Final Result documented in this encounter Visit Diagnoses Not on filedocumented in this encounter Care Teams Arrt Technologist Relationship Specialty Start Date End Date Poppy Lombardi NP [address] [place] [address] PCP - [place] [employer] 01/06/25 documented as of this encounter
== END 2025-04-18 08:48 | disposition home or self-care (01) ==
LOC: PST 08:48
PROVIDERS: PCP Nurse Practitioner Family; Visit Provider Obstetrics & Gynecology
DX: Z01.810 Encounter for preprocedural cardiovascular examination (principal); N92.0 Excessive and frequent menstruation with regular cycle; N93.9 Abnormal uterine and vaginal bleeding, unspecified; R10.2 Pelvic and perineal pain
CPT/HCPCS: 93005

== ENCOUNTER 2025-04-27 06:08 | Day surgery (SDC) | payer BC, SELFPAY ==
--- OUTSIDE RECORDS SUMMARY | 2014-11-27 15:24 | XMS_ITS | Continuity of Care Document ---
Author Organization [facility] Address [address] [place] [address] Phone Care Team Providers Care Hydrotechnical Specialist Name Role Phone Daria Hester Unavailable Unavaila ble Allergies, Adverse Reactions, Alerts Substance Reaction Status Criticality No Known Allergies Active No Inform ation Medications Medication Instructions Dosage Effective Dates (start - stop) Status Comments Ortho-Cyclen (28) 0.25 mg-35 mcg tablet take 1 tablet by oral route every day - Active Problems Condition Type Effective Dates (start - stop) Clini faith Status Comments No Known Problems Procedures Procedure Date PREV VISIT, NEW, AGE 18-39 Donation PREV VISIT, NEW, AGE 18-39 [facility] SPECIMEN HANDLING (GC/CHLAMYDIA) Nov URINE TEST Orthotricyclen Lo THIN PREP TIS LIQUID-BASED Advance Directives Directive Yes / No Effective Date File Name No Information Encounters Encounter Description Practice Location Reason(s) For Visit Diagnoses Date Provider Providers Copied on Encounter [facility], [address] [place] [address], [id number] , [place] tel: [phone] [facility] No Information 0-201 5 Levi Huff. [address] [place] [address], [id number] , [place]. tel: [phone] PREV VISIT, NEW, AGE 18-39 [facility], [address] [place] [address], [id number] , [place] tel: [phone] [facility] annual exam (chief complaint) Routine gynecological examinationContracept hedy management 5 Levi [facility] Daria. [address] [place] [address], [id number] , [place]. tel:[phone] Family History Family Member Type Diagnosis Age At Onset No Information Payers Payer name Insurance type Covered alliance party ID Authoriza tion(s) No Information Social History Type Description Quantity Date Captured Comments Alcohol Use Details Unknown Caffeine Use Details Unknown Tobacco Use Status No Information Smoking Status No Information Sex Female Chief Complaint And Reason For Visit No Information Reason For Referral Reason For Referral No Information History Of Present Illness Encounter Date Complaint History Of Prese nt Illness annual exam Currently pregna nt: no. Patient is not contemplating . The patient states she uses none for control. The patient does not use tobacco. She has not been exposed to passive smoke. She does not drink alcohol. Functional Status Date Functional Assessmen t No Information Instructions Date Instruction Additional Infor marilia Ortho Cyclen 1 po QD 3pk given. Encouraged to start OCPs with the onset of her next menses. Take 1 pill po QD at HS. If misses a pill take it as soon as she remembers and if she misses two pills take two pills one day and two pills the next day. Encouraged condoms for back up BC and to prevent STDs. RTC 3 months for follow up Related to Contraceptive management Encouraged monthly B SE. Recommend calcium 1000mg QD. Encouraged good dietary intake and exercise. Pap and cervical cultures sent to lab. Patient to call in 2 weeks if desires results. Related to Routine gynecological examination Assessments Type Assessment Date No Information Patient Care Teams Name Effective Dates (start - stop) Status Members No Information
[2025-04-18 09:48] VITALS: BP 140/86; PULSE 78; TEMP 36.5; O2SAT 99; BMI 35.5
--- OUTSIDE RECORDS SUMMARY | 2025-04-27 06:10 | XMS_ITS | Encounter Summary ---
Author Organization [facility] Address [address] [place] [address] Care Team Providers Care Structural Worker Name Role Phone Poppy Lombardi SPECIALIST ICU Unavailable Encounter Details Date Type Department Care Team (Late st Contact Info) Description 04/19/2024 Abstract [facility] [address] [place] [address] Domingo Jin DO [address], [facility] Social History Tobacco Use Types [...] 05/10/2025 8:40 AM EDT Office Visit [facility] [address] [place] [address] Domingo Jin, DO [address] [place] [address] documented as of this encounter Visit Diagnoses Not on filedocumented in this encounter Care Teams Structural Worker Relationship Specialty Start Date End Date Poppy Lombardi, DARRION [address] [place] [id number] PCP - [place] Sahni 01/06/25 documented as of this encounter
--- OUTSIDE RECORDS SUMMARY | 2025-04-27 06:10 | XMS_ITS | CCD ---
Author Organization [facility] Care Team Providers Care Systems Software Engineer Name Role Phone Sherry Nielsen Unavailable LYNNE Nielsen Primary Care Provider LYNNE Nielsen Attending Provider [phone] Addie Jin Attending Provider Unavailable Primary Care Provider UnavailPoppy Haas NP Unavailable [phone] ANNABEL, ADDIE Attending Unavailable ANNABEL, ADDIE Attending Unavailable ANNABEL, ADDIE Attending Unavailable ANNABEL, ADDIE Attending Unavailable ANNABEL, ADDIE Attending Unavailable ANNABEL, ADDIE Attending Unavailable ANNABEL, ADDIE Attending Unavailable ROMMEL MARQUEZ Attending Unavailable ANNABEL, ADDIE Attending Unavailable POPPY NERI Attending Unavailable ANNABEL, ADDIE Attending Unavailable Annabel, Addie Admitting Unavailable Annabel, Addie Attending Unavailable Annabel, Addie Attending Unavailable Annabel, Addie Admitting Unavailable Annabel DOAddie Attending Provider Allergies Allergy Classification Reported Allergen(s) Allergy Type Date of Onset Reaction(s) Facility (2 sources) Adhesive agent; Translations: [adhesive] Drug allergy 3 [facility] Rep[facility] (17 sources) Chlorhexidine / Ethanol Drug Allergy 5 Hives, Itching, Rash [facility] Work Phone: (17 sources) Wound Dressing Adhesive Drug Allergy 3 [facility] Medications Current Medications Medication Drug Class(es) Dates Sig (Normalized) Sig (Original) amoxicillin 875 mg / clavulanate 125 mg oral tablet (6 sources) Penicillin-class Antibacterial Start: 11-14-2024 End: 11-24-2024 take 1 tablet by mouth in the morning amoxicillin-clavulana te (Augmentin) 875-125 MG tablet Indications: Acute non-recurrent maxillary sinusitis Take 1 tablet (875 mg) by mouth in the morning and 1 tablet (875 mg) before bedtime. Do all this for 10 days. 20 tablet 11/14/2024 11/24/2024 Active 24 hr metFORMIN hydrochloride 500 mg extended release oral tablet (18 sources) Biguanide Start: 10-09-2024 End: 10-09-2025 take 1 tablet by mouth every twenty-four hours in the morning metFORMIN XR (Glucophage-XR) 500 MG 24 hr tablet Indications: Irregular periods/menstrual cycles , Encounter for weight management Take 1 tablet (500 mg) by mouth in the morning and 1 tablet (500 mg) before bedtime. Do not crush, chew, or split.. 60 tablet 11 02/12/2025 Active omeprazole 20 mg delayed release oral capsule (17 sources) Proton Pump Inhibitor Start: 02-22-2024 End: 02-21-2025 take 1 capsule by mouth before mealtime omeprazole (PriLOSEC) [address] capsule Indications: Gastroesophageal reflux disease with esophagitis without hemorrhage Take 1 capsule (20 mg) by mouth in the morning. Take before meals. Do not crush or chew.. 30 capsule 11 02/22/2024 Active 0.25 mg, 0.5 mg dose 1.5 ml semaglutide 1.34 mg/ml pen injector (2 sources) Start: 03-20-2025 semaglutide (Ozempic) 2 MG/1.5ML solution pen-injector Indications: Elevated glucose tolerance test , Gastroesophageal reflux disease with esophagitis without hemorrhage , Encounter for weight management FIRST MONTH inject 0.25 mg under the skin once weekly; then SECOND MONTH inject 0.5 mg under the skin 1 (one) time per week for 4 doses. 1 each 1 03/20/2025 Active Completed/Discontinued Medications Medication Drug Class(es) Dates Sig (Normalized) Sig (Original) fluticasone propionate 0.05 mg/actuat metered dose nasal spray (12 sources) Corticosteroid Start: 11-14-2024 End: 03-29-2025 take 1 spray(s) nasal route in the morning fluticasone (Flonase) 50 MCG/ACT nasal spray Indications: Sinus pressure Administer 1 spray into each nostril in the morning and 1 spray before bedtime. Shake gently. Before first use, prime pump. After use, clean tip and replace cap.. 16 g 11/14/2024 03/29/2025 Discontinued phentermine hydrochloride 37.5 mg oral tablet (14 sources) Sympathomimetic Amine Anorectic Start: 11-16-2024 End: 03-29-2025 take 1 tablet by mouth before mealtime phentermine (Adipex-P) 37.5 MG tablet Indications: Encounter for weight management Take 1 tablet (37.5 mg) by mouth in the morning. Take before meals. 30 tablet 12/14/2024 03/29/2025 Discontinued Problems Active Problems Problem Classification Problem Date Documented Da te Episodic/Chronic Abdominal pain (1 source) Pain in pelvis; Translations: [Pelvic and perineal pain] 03-29-2025 Episodic Esophageal disorders (17 sources) Gastro-esophageal reflux disease with esophagitis; Translations: [Gastroesophageal reflux disease with esophagitis without hemorrhage] Onset: 02-22-2024 02-22-2024 Chronic Menstrual disorders (7 sources) Irregular periods; Translations: [Irregular menstruation, unspecified] 10-09-2024 Chronic Other female genital disorders (1 source) Abnormal uterine bleeding; Translations: [Abnormal uterine and vaginal bleeding, unspecified] 03-29-2025 Chronic Other upper respiratory disease (2 sources) Other specified disorders of nose and nasal sinuses; Translations: [Other disease of nasal cavity and sinuses] 11-14-2024 Episodic Other upper respiratory infections (2 sources) Acute maxillary sinusitis; Translations: [Acute maxillary sinusitis, unspecified] 11-14-2024 Episodic Past or Other Problems Problem Classification Problem Date Documented Date Episodic/Chronic Contraceptive and procreative management (20 sources) Patient encounter status; Translations: [Encounter for other general counseling and advice on contraception] Onset: 10-28-2023 02-22-2024 Episodic Other complications of (17 sources) Bacterial vaginosis in ; Translations: [Infection of other part of genital tract in , unspecified trimester] Onset: 10-28-2023 Resolved: 04-19-2024 05-04-2024 Episodic Other female genital disorders (17 sources) Vaginal discharge; Translations: [Other specified noninflammatory disorders of vagina] Onset: 10-28-2023 10-28-2023 Episodic Other and delivery including normal (17 sources) First trimester ; Translations: [Encounter for supervision of normal , unspecified, first trimester] Onset: 10-28-2023 Resolved: 04-19-2024 05-04-2024 Episodic Results Test Name Value Interpretation Reference Range Facility ECG 12-LEADon 04-18-2025 [place] [address] Electrocardiograph Report Signed Patient: DONALD GIVENS MR#: [id number] : 1995 Acct:[id number] Age/Sex: 29 / F ADM Date: 04/18/25 Loc: [facility] Attending Dr: Addie Jin D.O. Ordering Physician: Addie Jin D.O. Date of Service: 04/18/25 Procedure(s): ECG 12 lead Accession Number(s): [id number] cc: [facility] Test Date: 2025-04-18 Pat Name: DONALD GIVENS Department: Room: - Gender: Female Geoint Analyst: : 1995 Requested By: ADDIE JIN Order Number: [id number] Reading MD: TANIKA LAMAS M.D. Measurements Intervals [place] Rate: 78 P: 19 MT: 110 QRS: 75 QRSD: 85 T: 40 QT: 360 QTc: 410 Interpretive Statements SINUS RHYTHM WITH SHORT MT INTERVAL Borderline ECG No previous ECG available for comparison Electronically Signed On 04-18-2025 17:28:32 EDT by TANIKA LAMAS M.D. Dictated By: TANIKA LAMAS Signed By: 04/18/25 1728 DD/ 0948 TD/TT: Human Resources Compliance Manager: [facility] Radiology, Radiologist, - 04/18/2025 [facility] [place] [id number] Electrocardiograph Report Signed Patient: DONALD GIVENS MR#: [id number] : 1995 Acct:[id number] Age/Sex: 29 / F ADM Date: 04/18/25 Loc: [facility] Attending Dr: Addie Jin D.O. Ordering Physician: Addie Jin D.O. Date of Service: 04/18/25 Procedure(s): ECG 12 lead Accession Number(s): [id number] cc: [facility] Test Date: 2025-04-18 Pat Name: DONALD GIVENS Department: Room: - Gender: Female Geoint Analyst: : 1995 Requested By: ADDIE JIN Order Number: [id number] Reading MD: TANIKA LAMAS M.D. Measurements Intervals [place] Rate: 78 P: 19 MT: 110 QRS: 75 QRSD: 85 T: 40 QT: 360 QTc: 410 Interpretive Statements SINUS RHYTHM WITH SHORT MT INTERVAL Borderline ECG No previous ECG available for comparison Electronically Signed On 04-18-2025 17:28:32 EDT by TANIKA LAMAS M.D. Dictated By: TANIKA LAMAS Signed By: 04/18/25 1728 DD/ 0948 TD/TT: Human Resources Compliance Manager: [facility] Radiology Study observation (narrative) [facility] ECG 12-LEADOrdered By: [employer] on 04-18-2025 [facility] Work Phone: Pathology study report docum entOrdered By: Ross Johnson on 04-03-2025 Pathology study [facility] Other HCG ( test) Ql (U)O rdered By: Siria Sanchez on 03-29-2025 Interpretation and review of laboratory results Normal [facility] Preg Test, Ur Negative Negative [facility] Ray 03-29-2025 L - -------- Specimen: [id number] Received: 03/30/25 Status: SHANNEN Valdez Num: [id number] Spec Type: Surgical Subm Dr: Addie Jin Tissues: A Endometrium - Biopsy (ENDOMETRIAL BIOPSY) Procedures: HE/2, Gross/Micro L4 -------- Age/ Patient Sex Location Account Attending Physician -------- Donald Givens / LABELL [id number] Addie Jin -------- SPEC NUM: [id number] RECD: 03/30/25 STATUS: SHANNEN VALDEZ NUM: [id number] CRISTIANA: 03/29/25-[address]: Addie Jin ENTERED: 03/30/25 [facility] DR: Viv Agrawal SPEC TYPE: Surgical DEPT: LO COSTELLO ENTERED BY: [id number] RECV BY: [id number] ORDERED: HE/2, Gross/Micro L4 ORDERED: HE/2, Gross/Micro L4 Pathological Diagnosis Endometrium, biopsy: - Proliferative phase [...] aggregate. The specimen is filtered and entirely submitted in a single cassette. (1, ns, [id number]) Microscopic Description Microscopic examination is performed. -------- Specimen: [id number] Received: 03/30/25 Status: SHANNEN Felixcolumba Num: [id number] Spec Type: Surgical Subm Dr: Addie Jin Tissues: A Endometrium - Biopsy (ENDOMETRIAL BIOPSY) Procedures: HE/2, Gross/Micro L4 -------- Patient: Donald Givens [id number] (Continued) -------- Specimen: [id number] Received: 03/30/25 (Continued) Signed (signature on file) Ross Johnson MD 04/03/25 0851 -------- Specimen: [id number] Received: 03/30/25 Status: SHANNEN Valdez Num: [id number] Spec Type: Surgical Subm Dr: Addie Jin Tissues: A Endometrium - Biopsy (ENDOMETRIAL BIOPSY) Procedures: /2, Gross/Micro L4 -------- Patient: Donald Givens [id number] (Continued) -------- Specimen: [id number] Received: 03/30/25 (Continued) CPT Codes 30885 -------- -------- Specimen: [id number] Received: 03/30/25 Status: SHANNEN Valdez Num: [id number] Spec Type: Surgical Subm Dr: Addie Jin Tissues: A Endometrium - Biopsy (ENDOMETRIAL BIOPSY) Procedures: HE/2, Gross/Micro L4 -------- Patient: Donald Givens [id number] (Continued) -------- Signed (signature on file) Ross Johnson MD 04/03/25 0851 Normal [facility] IGP,APTIMA HPV,AGE GDLNon AGE GDLN ACOG TESTING Note . [facility] Comment on above: TESTS RESULT FLAG UN ITS REF RANGE LAB Clinician Provided Cytology Information Source.............Cervix;Endocervix No. of containers..01 ThinPrep Vial Age Algo ACOG Gregoria... FLAG LEGEND: L-Low Normal,H-High Normal,LL-Alert Low,HH-Alert High <-Panic Low,>-Panic High,A-Abnormal,AA-Critical Abnormal Performed at: 01 =[address] [phone] Latasha De La Garza MD, HPV APTIMA Negative Negative [facility] Comment on above: This nucleic acid am plification test detects fourteen high- risk HPV types (16,18,31,33,35,39,45,51,52,56,58,59,66,68) without differentiation. Performed at: =[address] [id number] Biology Intern: Latasha De La Garza MD, Phone: [phone] Performed at: [address] [id number] Biology Intern: Latasha De La Garza MD, Phone: [phone] IGP, APTIMA HPV, RFX 16/18,45 Note . [facility] Comment on above: TESTS RESULT FLAG UN ITS REF RANGE LAB DIAGNOSIS: 02 NEGATIVE FOR INTRAEPITHELIAL LESION OR MALIGNANCY. Specimen adequacy: 02 Satisfactory for evaluation. Endocervical and/or squamous metaplastic cells (endocervical component) are present. Performed by: 02 [facility] [employer] (ASCP) . 02 Note: Note 02 The [...] <-Panic Low,>-Panic High,A-Abnormal,AA-Critical Abnormal Performed at: 02 [facility] [address] [address] Latasha De La Garza MD, BRUSH-SPATULA CERVIX ENDOCERVIX [facility] ALL CBC WITH AUTO DIFFon BASOPHILS ABSOLUTE AUTO 0 N [facility] Basophils/100 WBC (Bld) 0.5 % 0.2 - 2.0 % [facility] Eosinophils/100 WBC (Bld) 1.1 % 0.9 - 7.0 % [facility] Erythrocyte distribution width (RBC) [Ratio] 13.5 % 11.0 - 15.0 % [facility] Hematocrit (Bld) [Volume fraction] 43 % 36.0 - 48.0 % [facility] Hemoglobin (Bld) [Mass/Vol] 13.9 g/dL 12.0 - 16.0 g/dL [facility] IMMATURE GRANULOCYTES ABS AUTO 0.03 [facility] Immature granulocytes/100 WBC (Bld) 0.4 % 0.0 - 0.5 % [facility] LYMPHOCYTES ABSOLUTE AUTO 2 [facility] Lymphocytes/100 WBC (Bld) 24.4 % 20.5 - 60.0 % [facility] MCH (RBC) [Entitic mass] 28.5 pg 26. 7 - 34.0 pg [facility] MCHC (RBC) [Mass/Vol] 32.3 g/dL 29.9 - 35.2 g/dL [facility] MCV (RBC) [Entitic vol] 88.1 fL 81.0 - 99.0 fL [facility] MONOCYTES ABSOLUTE AUTO 0.4 N [facility] Monocytes/100 WBC (Bld) 5.2 % 1.7 - 12.0 % [facility] NEUTROPHILS ABSOLUTE AUTO 5.6 [facility] Neutrophils/100 WBC (Bld) 68.4 % 43.0 - 75.0 % [facility] Platelet mean volume (Bld) [Entitic vol] 9.6 fL 9.5 - 13.5 fL [facility] TBH EO # 0.1 [facility] PLT 255 [facility] RBC 4.88 [facility] TB WBC 8.2 [facility] HCG ( test) Ql (U)o n 10-09-2024 Interpretation and review of laboratory results Normal [facility] Preg Test, Ur Negative Negative [facility] Basophils Auto (Bld) [#/Vol] on 04-20-2024 Basophils (Bld) [#/Vol] 0.0 10 3/uL 0.0-0.1 [facility] Basophils/100 WBC Auto (Bld) on 04-20-2024 Basophils/100 WBC (Bld) 0.2 % 0.2-2.0 [facility] Eosinophils/100 WBC Auto (Bl d)on 04-20-2024 Eosinophils/100 WBC (Bld) 0.0 % 0.9-7.0 [facility] Erythrocyte distribution wid th Auto (RBC) [Ratio]on 04-20-2024 Erythrocyte distribution width (RBC) [Ratio] 13.1 % 11.0-15.0 [facility] Hematocrit Auto (Bld) [Volum e fraction]on 04-20-2024 Hematocrit (Bld) [Volume fraction] 31.2 % 36.0-48.0 [facility] Hemoglobin [Mass/volume] in Bloodon 04-20-2024 Hemoglobin (Bld) [Mass/Vol] 10.3 g/dL 12.0-16.0 [facility] Laboratory - Hematology and Cell countson 04-20-2024 Immature granulocytes/100 WBC (Bld) 0.8 % 0.0-0.5 [facility] Leukocytes [#/volume] correc wilber for nucleated erythrocytes in Blood by Automated counon 04-20-2024 WBC corrected for nucl RBC Auto (Bld) [#/Vol] 20.7 10 3/uL 4.0-11.0 [facility] Lymphocytes Auto (Bld) [#/Vo l]on 04-20-2024 Lymphocytes (Bld) [#/Vol] 1.4 10 3/uL 1.2-3.8 [facility] Lymphocytes/100 WBC Auto (Bl d)on 04-20-2024 Lymphocytes/100 WBC (Bld) 7.0 % 20.5-60.0 [facility] MCH Auto (RBC) [Entitic mass ]on 04-20-2024 MCH (RBC) [Entitic mass] 28.9 pg 26.7-34.0 [facility] MCHC Auto (RBC) [Mass/Vol]on 04-20-2024 MCHC (RBC) [Mass/Vol] 33.0 g/dL 29.9-35.2 [facility] MCV Auto (RBC) [Entitic vol] on 04-20-2024 MCV (RBC) [Entitic vol] 87.6 fL 81.0-99.0 [facility] Monocytes Auto (Bld) [#/Vol] on 04-20-2024 Monocytes (Bld) [#/Vol] 0.8 10 3/uL 0.3-0.8 [facility] Monocytes/100 WBC Auto (Bld) on 04-20-2024 Monocytes/100 WBC (Bld) 3.9 % 1.7-12.0 [facility] Neutrophils Auto (Bld) [#/Vo l]on 04-20-2024 Neutrophils (Bld) [#/Vol] 18.3 10 3/uL 1.4-6.5 [facility] Neutrophils/100 WBC Auto (Bl d)on 04-20-2024 Neutrophils/100 WBC (Bld) 88.1 % 43.0-75.0 [facility] No Panel Informationon 04-20 Eosinophils # (Auto) 0.0 10 3/uL 0.0-0.7 [facility] Immature Granulocyte # (Auto) 0.17 10 3/uL 0.00-0.03 [facility] Platelet mean volume Auto (B ld) [Entitic vol]on 04-20-2024 Platelet mean volume (Bld) [Entitic vol] 10.6 fL 9.5-13.5 [facility] Platelets Auto (Bld) [#/Vol] on 04-20-2024 Platelets (Bld) [#/Vol] 218 10 3/uL 150-450 [facility] RBC Auto (Bld) [#/Vol]on RBC (Bld) [#/Vol] 3.56 10 6/uL 4.20-5.40 [facility] Activated partial thrombopla stin time (aPTT) in platelet poor plasma by coagulation aon 04-19-2024 aPTT Coag (PPP) [Time] 24.8 s 22.3-36.2 [facility] Basophils Auto (Bld) [#/Vol] on 04-19-2024 Basophils (Bld) [#/Vol] 0.0 10 3/uL 0.0-0.1 [facility] Basophils/100 WBC Auto (Bld) on 04-19-2024 Basophils/100 WBC (Bld) 0.2 % 0.2-2.0 [facility] Buprenorphine [Presence] in Urineon 04-19-2024 Buprenorphine Ql (U) Negative NEGATIVE [facility] Comment on above: DRUG CLASS TEST SYST EM CUT-OFF CONCENTRATIONS ARE ASFOLLOWS:AMP (Amphetamine): 500 ng/mLBAR (Barbiturates): 200 ng/mLBZO (Benzodiazepines): 150 ng/mLBUP (Buprenorphine): 10 ng/mLCOC (Cocaine): 150 ng/mLmAMP (Methamphetamine): 500 ng/mLMTD (Methadone): 200 ng/mLOPI (Opiates): 100 ng/mLOXY (Oxycodone): 100 ng/mLPCP (Phencyclidine): 25 ng/mLTHC (Cannabinoids): 50 ng/mLTCA (Trycyclic Antidepressants): 300 ng/mL Eosinophils/100 WBC Auto (Bl d)on 04-19-2024 Eosinophils/100 WBC (Bld) 0.3 % 0.9-7.0 [facility] Erythrocyte distribution wid th Auto (RBC) [Ratio]on 04-19-2024 Erythrocyte distribution width (RBC) [Ratio] 13.2 % 11.0-15.0 [facility] Estimated glomerular filtrat ion rate (GFR) non- Americanon 04-19-2024 GFR/1.73 sq M.predicted among non-blacks MDRD (S/P/Bld) [Vol rate/Area] mL/min/{1.73_m2} >=60 [facility] Fibrinogen [Mass/volume] in Platelet poor plasma by Coagulation assayon 04-19-2024 Fibrinogen Coag (PPP) [Mass/Vol] 540 mg/dL 200-400 [facility] Hematocrit Auto (Bld) [Volum e fraction]on 04-19-2024 Hematocrit (Bld) [Volume fraction] 34.4 % 36.0-48.0 [facility] Hemoglobin [Mass/volume] in Bloodon 04-19-2024 Hemoglobin (Bld) [Mass/Vol] 11.2 g/dL 12.0-16.0 [facility] INR in Platelet poor plasma by Coagulation assayon 04-19-2024 INR Coag (PPP) [Relative time] {INR} [facility] Comment on above: DESIRED INR:2.0-3.0 CONDITIONS NOT LISTED BELOW2.5-3.5 FOR PROSTHETIC HEART VALVE REPLACEMENT2.5-3.5 RECURRENT THROMBOSIS Ray 04-19-2024 L Specimen: [id number] Received: 04/20/24-4 Status: SOUT Req Num: [id number] Spec Type: Surgical Subm Dr: Addie Jin Tissues: A Fallopian Tube - Sterilization (BILATERAL FT) B Placenta - 3rd Trimester (Greater than 28 weeks) (PLACENTA) Procedures: HE/7, Gross/Micro L5, Gross/Micro L2 Age/ Patient Sex Location Account Attending Physician Donald Givens 28/ LABELL [id number] Addie Jin SPEC NUM: [id number] RECD: 04/20/24 STATUS: SHANNEN VALDEZ NUM: [id number] CRISTIANA: 04/19/24 [facility] DR: Addie Jin ENTERED: 04/20/24 [facility] DR: Tanja,Lab SPEC TYPE: Surgical DEPT: LO [...] luminal center lined by unremarkable gaines mucosa. Optical Technician sections of each tube are submitted in A1 (tube #1) and A2 (tube #2). B. Received in formalin is a rivero, fused bilobed placental disc with minimal attached -------- Specimen: [id number] Received: 04/20/24 Status: SHANNEN Valdez Num: [id number] Spec Type: Surgical Subm Dr: Addie Jin Tissues: A Fallopian Tube - Sterilization (BILATERAL FT) B Placenta - 3rd Trimester (Greater than 28 weeks) (PLACENTA) Procedures: , Gross/Micro L5, Gross/Micro L2 -------- Patient: ChonDonald L [id number] (Continued) -------- Specimen: [id number] Received: 04/20/24 (Continued) Gross Description (Continued) Signed (signature on file) Jean Jarquin MD 04/26/24 1428 -------- Specimen: [id number] Received: 04/20/24 Status: SHANNEN Valdez Num: [id number] Spec Type: Surgical Subm Dr: Addie Jin Tissues: A Fallopian Tube - Sterilization (BILATERAL FT) B Placenta - 3rd Trimester (Greater than 28 weeks) (PLACENTA) Procedures: , Gross/Micro L5, Gross/Micro L2 -------- Patient: Donald Givens [id number] (Continued) -------- Specimen: [id number] Received: 04/20/24-2397 (Continued) Gross Description (Continued) membranes, and attached [...] midzonal sections of smaller lobe CPT Codes 67507 91544 -------- -------- (more content not included)... Normal [facility] Laboratory - Chemistry and C hemistry - challengeon 04-19-2024 ALT [Catalytic activity/Vol] 18 U/L 14-59 [facility] AST [Catalytic activity/Vol] 16 U/L 15-37 [facility] Creatinine [Mass/Vol] 0.93 mg/dL 0.55-1.02 [facility] GFR/1.73 sq M.predicted MDRD (S/P/Bld) [Vol rate/Area] mL/min/{1.73_m2} >=60 [facility] LDH [Catalytic activity/Vol] 197 U/L 81-234 [facility] Urate [Mass/Vol] 5.2 mg/dL 2.6-6.0 [facility] Urea nitrogen [Mass/Vol] 10.0 mg/dL 7.0-18.0 [facility] Laboratory - Drug toxicology on 04-19-2024 Amphetamines Ql (U) Negative NEGATIVE [facility] Benzodiazepines Ql (U) Negative NEGATIVE [facility] Cocaine Ql (U) Negative NEGATIVE [facility] Opiates Ql (U) Negative NEGATIVE [facility] Phencyclidine Ql (U) Negative NEGATIVE [facility] Laboratory - Hematology and Cell countson 04-19-2024 Immature granulocytes/100 WBC (Bld) 0.9 % 0.0-0.5 [facility] Leukocytes [#/volume] correc wilber for nucleated erythrocytes in Blood by Automated counon 04-19-2024 WBC corrected for nucl RBC Auto (Bld) [#/Vol] 13.0 10 3/uL 4.0-11.0 [facility] Lymphocytes Auto (Bld) [#/Vo l]on 04-19-2024 Lymphocytes (Bld) [#/Vol] 1.9 10 3/uL 1.2-3.8 [facility] Lymphocytes/100 WBC Auto (Bl d)on 04-19-2024 Lymphocytes/100 WBC (Bld) 14.4 % 20.5-60.0 [facility] MCH Auto (RBC) [Entitic mass ]on 04-19-2024 MCH (RBC) [Entitic mass] 28.8 pg 26.7-34.0 [facility] MCHC Auto (RBC) [Mass/Vol]on 04-19-2024 MCHC (RBC) [Mass/Vol] 32.6 g/dL 29.9-35.2 [facility] MCV Auto (RBC) [Entitic vol] on 04-19-2024 MCV (RBC) [Entitic vol] 88.4 fL 81.0-99.0 [facility] Methadone [Presence] in Urin e by Screen methodon 04-19-2024 Methadone Screen Ql (U) Negative NEGATIVE [facility] Monocytes Auto (Bld) [#/Vol] on 04-19-2024 Monocytes (Bld) [#/Vol] 0.8 10 3/uL 0.3-0.8 [facility] Monocytes/100 WBC Auto (Bld) on 04-19-2024 Monocytes/100 WBC (Bld) 6.2 % 1.7-12.0 [facility] Neutrophils Auto (Bld) [#/Vo l]on 04-19-2024 Neutrophils (Bld) [#/Vol] 10.2 10 3/uL 1.4-6.5 [facility] Neutrophils/100 WBC Auto (Bl d)on 04-19-2024 Neutrophils/100 WBC (Bld) 78.0 % 43.0-75.0 [facility] No Panel Informationon 04-19 Urine Barbiturates Screen Negative NEGATIVE [facility] Urine Marijuana (THC) Screen Negative NEGATIVE [facility] Urine Methamphetamines Screen Negative NEGATIVE [facility] Eosinophils # (Auto) 0.0 10 3/uL 0.0-0.7 [facility] Immature Granulocyte # (Auto) 0.12 10 3/uL 0.00-0.03 [facility] Platelet mean volume Auto (B ld) [Entitic vol]on 04-19-2024 Platelet mean volume (Bld) [Entitic vol] 10.7 fL 9.5-13.5 [facility] Platelets Auto (Bld) [#/Vol] on 04-19-2024 Platelets (Bld) [#/Vol] 235 10 3/uL 150-450 [facility] Prothrombin time (PT)on 04-08 PT Coag (PPP) [Time] 9.7 s 9.0-11.6 [facility] RBC Auto (Bld) [#/Vol]on RBC (Bld) [#/Vol] 3.89 10 6/uL 4.20-5.40 [facility] Urine tricyclic antidepressa nt measurementon 04-19-2024 Tricyclic antidepressants (U) [Mass/Vol] Negative NEGATIVE [facility] oxyCODONE+oxyMORphone [Prese nce] in Urine by Screen methodon 04-19-2024 oxyCODONE+oxyMORphone Screen Ql (U) Negative NEGATIVE [facility] Alanine aminotransferase [En zymatic activity/volume] in Serum or PlasmaOrdered By: Sherry Nielsen on 06-22-2023 ALT [Catalytic activity/Vol] 14 U/L 7-52 [facility] Albumin [Mass/volume] in Ser um or Plasma by Bromocresol green (BCG) dye binding methoOrdered By: Sherry Nielsen on 06-22-2023 Albumin BCG dye [Mass/Vol] 4.3 g/dL 3.5-5.7 [facility] Alkaline phosphatase [Enzyma tic activity/volume] in Serum or PlasmaOrdered By: Sherry Nielsen on 06-22-2023 ALP [Catalytic activity/Vol] 88 U/L 34-104 [facility] Aspartate aminotransferase [ Enzymatic activity/volume] in Serum or PlasmaOrdered By: Sherry Nielsen on 06-22-2023 AST [Catalytic activity/Vol] 15 U/L 13-39 [facility] Basophils Auto (Bld) [#/Vol] Ordered By: Sherry Nielsen on 06-22-2023 Basophils (Bld) [#/Vol] 0.0 10*3/uL 0.0-0.2 [facility] Basophils/100 WBC Auto (Bld) Ordered By: Sherry Nielsen on 06-22-2023 Basophils/100 WBC (Bld) 0.5 % . [facility] Bilirubin.total [Mass/volume ] in Serum or PlasmaOrdered By: Sherry Nielsen on 06-22-2023 Bilirubin [Mass/Vol] 1.1 mg/dL 0.3-1.0 [facility] Calcium [Mass/volume] in Ser um or PlasmaOrdered By: Sherry Nielsen on 06-22-2023 Calcium [Mass/Vol] 9.3 mg/dL 8.6-10.3 [facility] Carbon dioxide, total [Moles /volume] in Serum or PlasmaOrdered By: Sherry Nielsen on 06-22-2023 CO2 [Moles/Vol] 27.1 mmol/L 21.0-31.0 [facility] Chloride [Moles/volume] in S adriano or PlasmaOrdered By: Sherry Nielsen on 06-22-2023 Chloride [Moles/Vol] 105 mmol/L 98-107 [facility] Cholesterol [Mass/volume] in Serum or PlasmaOrdered By: Sherry Nielsen on 06-22-2023 Cholesterol [Mass/Vol] 149 mg/dL 140-200 [facility] Comment on above: Chol less than 200 m g/dl low riskChol 201-239 mg/dl borderline riskChol 240 mg/dl and greater high risk Cholesterol in LDL Calc [Mas s/Vol]Ordered By: Sherry Nielsen on 06-22-2023 Cholesterol in LDL [Mass/Vol] 70 mg/dL 0-100 [facility] Comment on above: LDL ATP III CLASSIFI CATIONLDL less than 100 mg/dL OptimalLDL 100-129 mg/dL Near or above optimalLDL 130-159 mg/dL Borderline highLDL 160-189 mg/dL HighLDL greater than 189 mg/dL Very high Cholesterol in VLDL Calc [Ma ss/Vol]Ordered By: Sherry Nielsen on 06-22-2023 Cholesterol in VLDL [Mass/Vol] 16 mg/dL [facility] Creatinine [Mass/volume] in Serum or PlasmaOrdered By: Sherry Nielsen on 06-22-2023 Creatinine [Mass/Vol] 0.90 mg/dL 0.60-1.20 [facility] Eosinophils Auto (Bld) [#/Vo l]Ordered By: Sherry Nielsen on 06-22-2023 Eosinophils (Bld) [#/Vol] 0.1 10*3/uL 0.0-0.45 [facility] Eosinophils/100 WBC Auto (Bl d)Ordered By: Sherry Nielsen on 06-22-2023 Eosinophils/100 WBC (Bld) 2.2 % . [facility] Erythrocyte distribution wid th Auto (RBC) [Ratio]Ordered By: Sherry Nielsen on 06-22-2023 Erythrocyte distribution width (RBC) [Ratio] 12.6 % 11.9-15.3 [facility] Ferritin [Mass/volume] in Se rum or PlasmaOrdered By: Sherry Nielsen on 06-22-2023 Ferritin [Mass/Vol] 33.1 ng/mL 11.0-306.8 [facility] Folate [Mass/volume] in Seru m or PlasmaOrdered By: Sherry Nielsen on 06-22-2023 Folate [Mass/Vol] 23.0 ng/mL >5.9 [facility] Comment on above: Folate reference ran ge: >5.9 ng/mlThe WHO technical consultation on folate and vitamin [id number] has determined that folate concentrations lessthan 4 ng/ml are considered deficient. Globulin Calc (S) [Mass/Vol] Ordered By: Sherry Nielsen on 06-22-2023 Globulin (S) [Mass/Vol] 3.1 g/dL [facility] Glucose [Mass/volume] in Ser um or PlasmaOrdered By: Sherry Nielsen on 06-22-2023 Glucose [Mass/Vol] 94 mg/dL 70-100 [facility] Hematocrit Auto (Bld) [Volum e fraction]Ordered By: Sherry Nielsen on 06-22-2023 Hematocrit (Bld) [Volume fraction] 41.6 % 34.0-46.4 [facility] Hemoglobin [Mass/volume] in BloodOrdered By: Sherry Nielsen on 06-22-2023 Hemoglobin (Bld) [Mass/Vol] 14.0 g/dL 11.8-15.4 [facility] Iron [Mass/volume] in Serum or PlasmaOrdered By: Sherry Nielsen on 06-22-2023 Iron [Mass/Vol] 122 ug/dL 50-212 [facility] Iron binding capacity [Mass/ volume] in Serum or PlasmaOrdered By: Sherry Nielsen on 06-22-2023 Iron binding capacity [Mass/Vol] 351 ug/dL 255-450 [facility] Iron saturation [Mass Fracti on] in Serum or PlasmaOrdered By: Sherry Nielsen on 06-22-2023 Iron saturation [Mass fraction] 34.8 % 20-50 [facility] Leukocytes [#/volume] correc wilber for nucleated erythrocytes in Blood by Automated counOrdered By: Sherry Nielsen on 06-22-2023 WBC corrected for nucl RBC Auto (Bld) [#/Vol] 6.1 10*3/uL 3.8-11.6 [facility] Lymphocytes Auto (Bld) [#/Vo l]Ordered By: Sherry Nielsen on 06-22-2023 Lymphocytes (Bld) [#/Vol] 2.1 10*3/uL 1.00-4.8 [facility] Lymphocytes/100 WBC Auto (Bl d)Ordered By: Sherry Nielsen on 06-22-2023 Lymphocytes/100 WBC (Bld) 34.6 % . [facility] MCH Auto (RBC) [Entitic mass ]Ordered By: Sherry Nielsen on 06-22-2023 MCH (RBC) [Entitic mass] 30.5 pg 24.7-34.3 [facility] MCHC Auto (RBC) [Mass/Vol]Or dered By: Sherry Nielsen on 06-22-2023 MCHC (RBC) [Mass/Vol] 33.6 g/dL 32.0-35.0 [facility] MCV Auto (RBC) [Entitic vol] Ordered By: Sherry Nielsen on 06-22-2023 MCV (RBC) [Entitic vol] 90.9 fL 80-100 [facility] Monocytes Auto (Bld) [#/Vol] Ordered By: Sherry Nielsen on 06-22-2023 Monocytes (Bld) [#/Vol] 0.5 10*3/uL 0.0-0.8 [facility] Monocytes/100 WBC Auto (Bld) Ordered By: Sherry Nielsen on 06-22-2023 Monocytes/100 WBC (Bld) 7.9 % . [facility] Neutrophils Auto (Bld) [#/Vo l]Ordered By: Sherry Nielsen on 06-22-2023 Neutrophils (Bld) [#/Vol] 3.4 10*3/uL 1.8-7.7 [facility] Neutrophils/100 WBC Auto (Bl d)Ordered By: Sherry Nielsen on 06-22-2023 Neutrophils/100 WBC (Bld) 54.8 % . [facility] No Panel InformationOrdered By: Sherry Nielsen on 06-22-2023 Estimated GFR (CKD-EPI) > 60.0 mL/Min [facility] Creatinine Clearance (Chem N/A [facility] Nucleated erythrocytes [Pres ence] in Blood by Automated countOrdered By: Sherry Nielsen on 06-22-2023 Nucleated RBC Auto Ql (Bld) 0.3 /100{WBC} 0-0.5 [facility] Platelet mean volume Auto (B ld) [Entitic vol]Ordered By: Sherry Nielsen on 06-22-2023 Platelet mean volume (Bld) [Entitic vol] 8.8 fL 6.3-10.7 [facility] Platelets Auto (Bld) [#/Vol] Ordered By: Sherry Nielsen on 06-22-2023 Platelets (Bld) [#/Vol] 219 10*3/uL 150-450 [facility] Potassium [Moles/volume] in Serum or PlasmaOrdered By: Sherry Nielsen on 06-22-2023 Potassium [Moles/Vol] 4.3 mmol/L 3.5-5.1 [facility] Protein [Mass/volume] in Ser um or PlasmaOrdered By: Sherry Nielsen on 06-22-2023 Protein [Mass/Vol] 7.4 g/dL 6.4-8.9 [facility] RBC Auto (Bld) [#/Vol]Ordere d By: Sherry Nielsen on 06-22-2023 RBC (Bld) [#/Vol] 4.58 10*6/uL 3.60-5.00 [facility] Serum or plasma albumin/glob ulin mass ratioOrdered By: Sherry Nielsen on 06-22-2023 Albumin/Globulin [Mass ratio] 1.4 {ratio} [facility] Serum or plasma anion gap de terminationOrdered By: Sherry Nielsen on 06-22-2023 Anion gap [Moles/Vol] 10.2 mmol/L 6.0-15.0 [facility] Serum or plasma high density lipoprotein (HDL) cholesterol measurementOrdered By: Sherry Nielsen on 06-22-2023 Cholesterol in HDL [Mass/Vol] 63 mg/dL 23-92 [facility] Comment on above: HDL CHOL ATP-III CLA SSIFICATION Cardiovascular RiskHDL > or equal to 60 mg/dL LOWHDL < 40 mg/dL HIGH Serum or plasma total choles terol/high density lipoprotein (HDL) cholesterol mass ratOrdered By: Sherry Nielsen on 06-22-2023 Cholesterol.total/Choles terol in HDL [Mass ratio] 2.4 {ratio} <5.0 [facility] Sodium [Moles/volume] in Ser um or PlasmaOrdered By: Sherry Nielsen on 06-22-2023 Sodium [Moles/Vol] 138 mmol/L 136-145 [facility] Thyrotropin [Units/volume] i n Serum or PlasmaOrdered By: Sherry Nielsen on 06-22-2023 TSH Qn 1.93 m[IU]/L 0.45-5.33 [facility] Transferrin [Mass/volume] in Serum or PlasmaOrdered By: Sherry Nielsen on 06-22-2023 Transferrin [Mass/Vol] 251 mg/dL 203-362 [facility] Triglyceride [Mass/volume] i n Serum or PlasmaOrdered By: Sherry Nielsen on 06-22-2023 Triglyceride [Mass/Vol] 82 mg/dL 0-149 [facility] Comment on above: TRIG ATP III CLASSIF ICATIONTRIG less than 150 mg/dL NormalTRIG 150-199 mg/dL Borderline highTRIG 200-500 mg/dL High TRIG greater than 500 mg/dL Very highStandard traceable to the Center for Disease Conrtrol and Prevention (CDC) test method. Urea nitrogen [Mass/volume] in Serum or PlasmaOrdered By: Sherry Nielsen on 06-22-2023 Urea nitrogen [Mass/Vol] 16 mg/dL 7-25 [facility] Vitamin B12 ser/plasOrdered By: Sherry Nielsen on 06-22-2023 Cobalamin (Vitamin B12) [Mass/Vol] 333 pg/mL 180-914 [facility] Vitamin D+Metabolites [Mass/ volume] in Serum or PlasmaOrdered By: Sherry Nielsen on 06-22-2023 Vitamin D+Metabolites [Mass/Vol] 45.4 ng/mL 30-100 [facility] Comment on above: VITAMIN D STATUS 25( [place])VITAMIN D RANGE (ng/mL) Deficient <20 Insufficient 20 to <30Sufficient 30 to 100Reference: Mary MF,Marielena NC, Maximilian HAMILTON, et al. Evaluation,treatment, and prevention of vitamin D deficiency; an Endocrine Society clinical practice guideline. JCEM. 2010; 96(7):1911-30. WBC Auto (Bld) [#/Vol]Ordere d By: Sherry Nielsen on 06-22-2023 WBC (Bld) [#/Vol] 6.1 10*3/uL 3.8-11.6 [facility] Vital Signs Date Time Vital Sign Value Performing Clinician Facility 03-29-2025 09:31-0400 Body mass index (BMI) [Ratio] 35.52 kg/m2 Addie Annabel DO Work Phone: [facility] 03-29-2025 09:31-0400 Body weight 90.95 kg Adide Annabel DO Work Phone: [facility] 03-29-2025 09:31-0400 Diastolic blood pressure 82 mm[Hg] Addie Annabel DO Work Phone: [facility] 03-29-2025 09:31-0400 Systolic blood pressure 110 mm[Hg] Addie Annabel DO Work Phone: [facility] 02-08-2025 08:48-0400 Body mass index (BMI) [Ratio] 34.63 kg/m2 Addie Annabel DO Work Phone: [facility] 02-08-2025 08:48-0400 Body weight 88.68 kg Addie Annabel DO Work Phone: [facility] 02-08-2025 08:48-0400 Diastolic blood pressure 82 mm[Hg] Addie Annabel DO Work Phone: [facility] 02-08-2025 08:48-0400 Systolic blood pressure 116 mm[Hg] Addie Annabel DO Work Phone: [facility] 12-14-2024 09:25-0500 Body mass index (BMI) [Ratio] 35.98 kg/m2 Addie Annabel DO Work Phone: [facility] 12-14-2024 09:25-0500 Body weight 92.14 kg Addie Annabel DO Work Phone: [facility] 12-14-2024 09:25-0500 Diastolic blood pressure 70 mm[Hg] Addie Annabel DO Work Phone: [facility] 12-14-2024 09:25-0500 Systolic blood pressure 110 mm[Hg] Addie Annabel DO Work Phone: [facility] 11-16-2024 08:51-0500 Body height 160 cm Addie Annabel DO Work Phone: [facility] 11-16-2024 08:51-0500 Body mass index (BMI) [Ratio] 37.09 kg/m2 Addie Annabel DO Work Phone: [facility] 11-16-2024 08:51-0500 Body weight 94.98 kg Addie Annabel DO Work Phone: [facility] 11-16-2024 08:51-0500 Diastolic blood pressure 70 mm[Hg] Addie Annabel DO Work Phone: [facility] 11-16-2024 08:51-0500 Systolic blood pressure 110 mm[Hg] Addie Annabel DO Work Phone: [facility] 11-14-2024 12:29-0500 Body temperature 98.71 [degF] Poppy Neri CHEMICAL PROCESS ENGINEER Work Phone: [facility] 11-14-2024 12:29-0500 Body weight 121.11 kg Poppy Neri CHEMICAL PROCESS ENGINEER Work Phone: [facility] 11-14-2024 12:29-0500 Diastolic blood pressure 78 mm[Hg] Poppy Neri CHEMICAL PROCESS ENGINEER Work Phone: [facility] 11-14-2024 12:29-0500 Heart rate 100 /min Poppy Neri CHEMICAL PROCESS ENGINEER Work Phone: [facility] 11-14-2024 12:29-0500 SaO2% (BldA) [Mass fraction] 98 % Poppy Neri CHEMICAL PROCESS ENGINEER Work Phone: [facility] 11-14-2024 12:29-0500 Systolic blood pressure 118 mm[Hg] Poppy Neri CHEMICAL PROCESS ENGINEER Work Phone: [facility] 10-09-2024 09:44-0500 Body weight 94.08 kg Addie Annabel DO Work Phone: [facility] 10-09-2024 09:44-0500 Diastolic blood pressure 70 mm[Hg] Adide Annabel DO Work Phone: [facility] 10-09-2024 09:44-0500 Systolic blood pressure 120 mm[Hg] Addie Annabel DO Work Phone: [facility] 06-18-2023 07:30-0400 Body height 156.21 cm Sherry Nielsen Other [facility] Other 06-18-2023 07:30-0400 Body mass index (BMI) [Ratio] 31.73 kg/m2 Sherry Shipleycarolee Other [facility] Other 06-18-2023 07:30-0400 Body weight 77.43 kg Sherry Shipleycarolee Other [facility] Other 06-18-2023 07:30-0400 Diastolic blood pressure 70 mm[Hg] Sherry Gia Other [facility] Other 06-18-2023 07:30-0400 Respiratory rate 18 /min Sherry Shipleycarolee Other [facility] Other 06-18-2023 07:30-0400 SaO2% (BldA) [Mass fraction] 98 % Sherry Shipleycarolee Other [facility] Other 06-18-2023 07:30-0400 Systolic blood pressure 110 mm[Hg] Sherry Shipleycarolee Other [facility] Other Encounters Encounter Date Encounter Type Care Provider Facility Start: 04-18-2025 End: 04-18-2025 Clinisync Result Encounter Addie Annabel DO Work Phone: [facility] Unsolicited Start: 04-18-2025 End: 04-18-2025 Clinisync Result Encounter Addie Annabel DO Work Phone: [facility] Unsolicited Start: 03-29-2025 End: 03-29-2025 Patient encounter procedure Addie Annabel DO Work Phone: [facility] Comment on above: Pre-op examination; Menorrhagia with regular cycle; Pelvic pain; Abnormal uterine bleeding (AUB); Encounter for weight management Start: 03-29-2025 End: 03-29-2025 Preprocedural examination done Addie Annabel DO Work Phone: [facility] Start: 03-29-2025 End: 03-29-2025 ambulatory ADDIE ANNABEL [facility] Work Phone: Start: 03-29-2025 End: 03-29-2025 Departed Referred Addie Annabel DO Work Phone: [facility] Start: 02-08-2025 End: 02-08-2025 Bamboo flowsheet Addie [...] [facility] Start: 12-14-2024 End: 12-14-2024 Bamboo flowsheet Addie [...] Office outpatient visit 25 minutes Poppy Neri CHEMICAL PROCESS ENGINEER Work Phone: [facility] Comment on above: Sinus pressure (Prim [...] Non-patient / Non-visit Addie Annabel Work Phone: [facility] Work Phone: Start: 04-19-2024 End: 04-19-2024 ambulatory Addie Annabel [facility] Work Phone: Start: 04-19-2024 End: 04-19-2024 Departed Referred Addie Annabel Work Phone: [facility] Start: 04-19-2024 Non-patient / Non-visit Addie Annabel Work Phone: [facility] Work Phone: Start: 04-19-2024 End: 04-19-2024 ambulatory ADDIE ANNABEL Not Available Start: 04-13-2024 End: 04-13-2024 ambulatory ADDIE ANNABEL Not Available Start: 04-06-2024 End: 04-06-2024 ambulatory ADDIE ANNABEL Not Available Start: 06-22-2023 End: 06-22-2023 ambulatory DNP Sherry Nielsen Work Phone: [facility] Work Phone: Start: 06-22-2023 End: 06-22-2023 Patient encounter procedure DNP Sherry Nielsen Work Phone: [facility] Start: 06-18-2023 End: 06-18-2023 ambulatory Sherry Gia Other [facility] Other Start: 06-18-2023 Encounter for genera l adult medical examination without abnormal findings Sherry Nielsen [facility] [place] Start: 06-18-2023 Initial preventive medicine new pt age 18-39yrs Sherry Nielsen [facility] Procedures Date Procedure Procedure Detail Performing Clinician Start: 04-18-2025 ECG 12-LEAD Addie Fazi o DO Work Phone: Start: 03-29-2025 Urine test visual color cmprsn meths Addie Annabel DO Work Phone: Start: 11-16-2024 IGP,APTIMA HPV,AGE GDLN Addie Annabel [...] Screening for malign ant neoplasm of cervix [facility] Start: 11-16-2027 Screening for malign ant neoplasm of cervix Pap Smear [facility] Start: 07-09-2025 Influenza vaccination Influenz a Vaccine (Season Ended) [facility] Start: 05-10-2025 End: 05-10-2025 Patient encounter procedure 05/10/2025 8:40 AM EDT Office Visit [facility] [address] [place] [address] Addie Jin DO [address] [place] [address] [facility] Start: 03-29-2025 End: 03-29-2025 Patient encounter procedure 03/29/2025 9:30 AM EDT Procedure Visit [facility] [address] [facility] [place] [id number] Addie Jin, DO [address] [place] [address] [facility] Start: 02-08-2025 End: 02-08-2025 Patient encounter procedure 02/08/2025 8:30 AM EDT Office Visit [facility] [address] [facility] [place] [id number] Addie Jin, DO [address] [place] [address] Arrived [facility] Comment on above: Arrived Start: 12-14-2024 End: 12-14-2024 Patient encounter procedure [facility] Comment on above: Arrived Start: 11-16-2024 End: 11-16-2024 Patient encounter procedure [facility] Comment on above: Arrived Start: 10-24-2024 End: 10-24-2024 Professional / ancillary services management 10/24/2024 9:30 AM EST Ancillary Procedure [facility] [address] [place] [id number] [facility] Start: 10-09-2024 End: 10-09-2025 [...] EST Office Visit [facility] [address] [place] [id number] Addie Jin, [address] [place] [address] Arrived [facility] Comment on above: Arrived CBC W Auto Different ial panel - Blood CBC and differential Lab Routine Menorrhagia with regular cycle Ordered: 10/09/2024 [facility] Work Phone: Comment on above: Ordered: 10/09/2024 Cytology Cervical or vaginal smear or scraping study Pap Smear Pathology and Cytology Routine Well woman exam with routine gynecological exam Ordered: 11/16/2024 [facility] Work Phone: Comment on above: Ordered: 11/16/2024 hCG, quantitative, hCG, quantitative, Lab Routine Menorrhagia with regular cycle Ordered: 10/09/2024 [facility] Comment on above: Ordered: 10/09/2024 Hemoglobin A1c/Hemoglobin.total in Blood Hemoglobin A1c Lab Routine Menorrhagia with regular cycle Ordered: 10/09/2024 [facility] Comment on above: Ordered: 10/09/2024 Human papilloma viru s DNA [Presence] in Unspecified specimen by Probe with amplification HPV DNA probe, amplified Microbiology Routine Well woman exam with routine gynecological exam Ordered: 11/16/2024 [facility] Comment on above: Ordered: 11/16/2024 Prothrombin time (PT ) in Blood by Coagulation assay Protime-INR Lab Routine Menorrhagia with regular cycle Ordered: 10/09/2024 [facility] Comment on above: Ordered: 10/09/2024 Thyrotropin [Units/volume] in Serum or Plasma TSH Lab Routine Menorrhagia with regular cycle Ordered: 10/09/2024 [facility] Comment on above: Ordered: 10/09/2024 Thyroxine (T4) free [Mass/volume] in Serum or Plasma T4, free Lab Routine Menorrhagia with regular cycle Ordered: 10/09/2024 [facility] Comment on above: Ordered: 10/09/2024 Payers Date Payer Category Payer Self-pay 2023 [employer] [id number] 2023 [employer] [id number] 1993 Unknown [id number] .1258 1993 Unknown [id number] [id number] .1258 1993 Unknown [id number] [id number] .1258 1993 Unknown [id number] [id number] .1258 1993 Unknown [id number] [id number] .1258 1993 Unknown [id number] [id number] .1258 1993 Unknown [id number] [id number] .1258 1993 Unknown [id number] [id number] .1258 1993 Unknown [id number] [id number] .1258 1993 Unknown [id number] [id number] .1259 1993 Unknown [id number] [id number] .1259 1993 Unknown [id number] [id number] .1259 1993 Unknown [id number] [id number] .1259 Unknown HCAP/HFA/FAP Active [id number] Unknown [id number] [id number] .531 Unknown [id number] [id number] .531 Social History Date Type Detail Facility Start: 09-24-2023 End: 11-14-2024 Sex Assigned At [facility] Other Start: 1995 Sex Assigned At Female [facility] Start: 04-18-2023 End: 06-18-2023 Tobacco smoking status NHIS Never smoked tobacco (finding) [facility] Start: 04-18-2023 Tobacco use and exposure Smokeless tobacco non-user [facility] Start: 05-31-2024 End: 12-14-2024 Alcoholic beverage intake Ex-drinker (finding) [facility] Start: 05-31-2024 End: 11-14-2024 Alcoholic beverage intake [facility] Start: 1995 Sex assigned at Not on file [facility] Start: 03-31-2025 Sex Female (finding) [facility] Clinical Notes 06-18-2023 to 03-29-2025 Daria Mercedes, DANE - 03/29/2025 9:30 AM Nidhi Mercedes LPN - 02/08/2025 8:30 AM Nidhi Mercedes LPN - 11/16/2024 8:40 AM Zeyad Neri NP - 11/14/2024 12:25 PM EST Note Date & Type Note Facility 03-29-2025 History of Presen t illness Narrative Reason for Appointment: Patient ID: Donald Givens is a 29 y.o. female who presents for embx and Pre-op Visit Patient presents today for Pre Op/Endometrial Biopsy appointment. Patient is scheduled to undergo Endometrial Ablation with Sabrina on 03/27/[address] Jin at [facility]. MEDICATIONS Current Outpatient Medications Medication Instructions metFORMIN XR (GLUCOPHAGE-XR) 500 mg, Oral, 2 times daily, Do not crush, chew, or split. omeprazole (PRILOSEC) 20 mg, Oral, Daily before breakfast, Do not crush or chew. semaglutide (Ozempic) 2 MG/1.5ML solution pen-injector FIRST MONTH inject 0.25 mg under the skin once weekly; then SECOND MONTH inject 0.5 mg under the skin 1 (one) time per week for 4 doses. ALLERGIES Allergies Allergen Reactions Wound Dressing Adhesive [...] Negative. Gastrointestinal: Negative. Genitourinary: Positive for menstrual problem and vaginal bleeding. Musculoskeletal: Negative. Skin: Negative. Neurological: Negative. All other systems reviewed and are negative. Hematological: Negative. Endocrine: Negative. Allergic/Immunologic: Negative. OBJECTIVE Objective: Physical Exam Constitutional: Appearance: Normal appearance. She is well-developed. Genitourinary: Vulva normal. Cardiovascular: Rate and Rhythm: Normal rate and [...] nursing note reviewed. Exam conducted with a plate glass installer present. Vitals: Estimated body mass index is 35.52 kg/m as calculated from the following: Height as of 11/16/24: 5' 3 . Weight as of this encounter: 200 lb 8 oz. BP: 110/82 Patient's last menstrual period was 03/11/2025 (approximate). ASSESSMENT & PLAN ICD-10-CM 1. Pre-op examination Z01.818 2. Menorrhagia with regular cycle N92.0 POCT , urine manually resulted 3. Pelvic pain R10.2 4. Abnormal uterine bleeding (AUB) N93.9 5. Encounter for weight management Z76.89 EMBX: Patient was placed in dorsal lithotomy position with feet in stirrups. A sterile speculum was placed into the vagina and the cervix was visualized. The cervix was grasped with a single tooth tenaculum. The endometrial pipette was placed through the cervix into the uterus, endometrial curettage was performed and sampling was obtained, endometrial curettings were placed in formalin, and single tooth tenaculum was removed. Excellent hemostasis was assured. All instruments were removed from vagina. Pre Op: Patient is doing well but has complaints of bleeding and pelvic pain. Patient has tried hormone therapy in the past but all attempts to subside patients issues have failed. I have discussed conservative management vs. surgical management with the patient in detail and patient desires surgical management at this time. Patient will undergo Endometrial Ablation with Sabrina on 03/27/2025. Surgical consents were signed, mmc was reviewed, and patient is to proceed to [facility] OR. Follow Up: Patient is to follow up between 1-2 weeks post op to assess proper healing and recovery from procedure. Discussed weight management and nursing will check on prior authorization for Ozempic as it was sent to pharmacy last week. Nursing will reach out to patient with determination. Follow Up: Patient is to follow up between 1-2 weeks post operative to assess proper healing and recovery from procedure. Documented by Daria Mercedes LPN on behalf of: Addie Jin DO documented in this encounter [facility] 02-08-2025 History of Presen t illness Narrative Reason for Appointment: Patient ID: Donald Givens is a 29 y.o. female who [...] nursing note reviewed. Exam conducted with a plate glass installer present. Vitals: Estimated body mass index is [...] Addie Jin DO documented in this encounter [facility] 11-16-2024 History of Presen t illness Narrative Reason for Appointment: Patient ID: Donald Givens is a 29 y.o. female who [...] nursing note reviewed. Exam conducted with a plate glass installer present. Vitals: Estimated body mass index is [...] Addie Jin DO documented in this encounter [facility] 11-14-2024 History of Presen t illness Narrative Images from the original note were not included. [address] , [address] [facility], [address] P: [phone] F: [phone] HPI Historian of HPI: patient Donald Givens is a 29 y.o. female who presents today to the Urgent Care with the following complaints and denials which have been present for 5 day(s). pt states she was sick around [place] but woke up on Wednesday with right [...] tablet; Refill: 0 documented in this encounter [facility] 10-09-2024 History of Presen t illness Narrative Reason for Appointment: Patient ID: Donald Givens is a 29 y.o. female who [...] nursing note reviewed. Exam conducted with a plate glass installer present. Vitals: There is no height or [...] Addie Jin DO documented in this encounter [facility] 06-18-2023 Evaluation note Encounter Date Diagnosis Assessment Notes Jun, Well adult exam (ICD-10 - Z00.00) Routine lab work ordered. She will continue to keep appointment with RETAIL ANALYTICS MANAGER, eye doctor and dentist. Patient is advised to work on healthy diet choices and appropriate servings, weight control, regular exercise as directed, reduced fat intake, and salt avoidance. Patient voiced understanding of this and agrees to this plan. [facility] Other Evaluation noteNo assessment information available [facility] Work Phone: Evaluation note* Diagnosis Irregular periods/menstrual cycles Menorrhagia with regular cycle documented in this encounter [facility] HealthcareEvaluation note* Diagnosis Well woman exam with routine gynecological exam Routine gynecological examination Irregular periods/menstrual cycles Encounter for weight management documented [facility] this encounter [facility] Diagnosis Sinus pressure- Primary Other diseases of nasal cavity and sinuses Acute non-recurrent maxillary sinusitis documented in this encounter [facility] HealthcareEvaluation note* Diagnosis Encounter for weight management documented in this encounter [facility] HealthcareEvaluation note* Diagnosis Encounter for weight management documented in this encounter [facility] HealthcareEvaluation note* Diagnosis Pre-op examination Menorrhagia with regular cycle Pelvic pain Abnormal uterine bleeding (AUB) Encounter for weight management documented in this encounter [facility] HealthcareHistory general Narrative - Reported* Type Description Date Surgical History Foot Surgery Surgical History GALLBLADDER Surgical History 2015 Surgical History SHOULDER-LEFT 2018 Hospitalization History see above [facility] Other History of Present illness Narrative* Grazyna Vieira LPN - 12/14/2024 9:40 AM EST Reason for Appointment: Patient ID: Donald Givens is a 29 y.o. female who [...] of [facility]ie Jin DO [facility] Complaint and Reason for Visit Chief Complaint Z00.00 Chief Complaint Unknown Chief Complaint Admit Date Unknown March 29, 2025 9:00a m Advance Directives Advance Directive Response Recorded Date/ Time Advance Directives No June 22, 2023 7:06am Summary Purpose Family History No Family History Records FoundNo Family History Records Found Additional Source Comments REASON FOR VISIT (unrecogniz ed section and content) Reason Comments Menstrual Problem Reason Comments Well Women Visit Reason Comments Weight Management Reason Comments embx Pre-op Visit Care Teams (unrecognized sec tion and content) [...] Addie Jin Attending Provider Active Start: Megan marquez 2023 Systems Software Engineer Relationship Specialty Start Date End Date Poppy Neri DARRION [address] [place] [address] PCP - [place] [employer] 01/06/25 Team Status: Inactive Member Role Status Dates Addie Jin DO Attending Provider Active Start : March 29, 2025 End: March 29, 2025 Goals (unrecognized section and content) Goals may be documented in a n alternate section INFORMATION SOURCE (unrecogn ized section and content) DATE CREATED AUTHOR 04/04/2025 [facility] EPIC DATE CREATED AUTHOR 'Lena CARTER ATION 04/05/2025 [facility] FOR RECORDS PERTAINING TO [...] BE BASED ON THE PRIMARY CLINICAL RECORDS. [facility] [employer] [facility]. provides no warranty or guarantee of the accuracy or completeness of information in this document.
--- OUTSIDE RECORDS SUMMARY | 2025-04-27 06:10 | XMS_ITS | Encounter Summary ---
Author Organization [facility] Address [address] [place] [address] Care Team Providers Care Dental Appliance Fixer Name Role Phone Unavailable Primary Care Provider Unavailabl e Encounter Details Date Type Department Care Team (Late st Contact Info) Description 03/30/2025 Abstract [facility] OB [address] [place] [id number] Domingo Jin, DO [address] [place], [place] [id number] Social History Tobacco Use Types Packs/Day Years [...] Visit [facility] [address] [place] [address] Domingo Jin, DO [address], [place] [id number] documented as of this encounter Visit Diagnoses Not on filedocumented in this encounter
--- OUTSIDE RECORDS SUMMARY | 2025-04-27 06:10 | XMS_ITS | Clinical Summary ---
Author Organization [facility] Healthcare Address [address] [place] [address] Care Team Providers Care Tool Polisher Name Role Phone Unavailable Primary Care Provider [...] crush, chew, or split.. 60 tablet 11 02/13/20 25 Active semaglutide (Ozempic) 2 MG/1.5ML [...] tip and replace cap.. 16 g 11/14/19 025 Discontinued phentermine (Adipex-P) 37.5 MG tabletIndicatio [...] Diagnosed Date Resolved Date Bacterial vaginosis in ([facility]) 10/28/2023 04/19/2024 First trimester ([facility]) 10/28/2023 04/19/2024 Encounters Date Type Department Care Team Description 04/19/2025 Abstract [facility] [address] [place] [address] Siria Sanchez MA 04/18/2025 Clinisync Result Encounter [facility] External Department Unsolicited Addie Jin DO 03/30/2025 Abstract [facility] [place] [address] Addie Jin, 03/29/2025 9:30 AM EDT Procedure Visit [facility] [place] [address] Addie Jin, Pre-op examination; Menorrhagia with regular cycle; Pelvic pain; Abnormal uterine bleeding (AUB); Encounter for weight management 03/28/2025 Travel 03/20/[address] [facility] [address] [place] [address] Daria Mercedes, COMPUTATOR 03/08/20[address] [facility] [address] [place] [address] Addie Jin DO UTI symptoms 02/27/20[address] [facility] [address] [place] [address] Grazyna Vieira, COMPUTATOR 02/09/20[address] [facility] [address] [place] [address] Grazyna Vieira, COMPUTATOR 02/08/2025 8:30 AM EDT Office Visit [facility] [address] [place] [address] Addie Jin DO Encounter for weight management 02/08/2025 Bamboo flowsheet [facility] [address] [place] [phone] Addie Jin DO 02/07/2025 Travel from Last 3 [...] EDT Office Visit [facility] [address] [address] Addie Jin DO [address] [place] [address] Procedures Procedure Name Priority Date/Time Associated Diagnosis Comments ECG 12-LEAD 04/18/2025 9:48 AM EDT POCT , URINE Routine 03/29/2025 9:37 AM EDT Menorrhagia with regular cycle from Last 3 Months Results * ECG 12-LEAD (04/18/2025 9:48 AM EDT) Anatomical Region Laterality Modality Other 04/18/2025 9:48 AM EDT Narrative 04/18/2025 5:28 PM EDT The [address] [address] Electrocardiograph Report Signed Patient: DONALD GIVENS MR#: [id number] : 1995 Acct:[id number] Age/Sex: 29 / F ADM Date: 04/18/25 Loc: PST Attending Dr: Addie Jin D.O. Ordering Physician: Addie Jin D.O. Date of Service: 04/18/25 Procedure(s): ECG 12 lead Accession Number(s): [id number] cc: The [facility] Test Date: 2025-04-18 Pat Name: DONALD GIVENS Department: Room: - Gender: Female Rockboard Lather: : 1995 Requested By: ADDIE JIN Order Number: [id number] Mary MD: TANIKA LAMAS M.D. Measurements Intervals [place]el Rate: 78 P: 19 IL: 110 QRS: 75 QRSD: 85 T: 40 QT: 360 QTc: 410 Interpretive Statements SINUS RHYTHM WITH SHORT [place] INTERVAL Borderline ECG No previous ECG available for comparison Electronically Signed On 04-18-2025 17:28:32 EDT by TANIKA LAMAS M.D. Dictated By: TANIKA LAMAS Signed By: 04/18/25 172 DD/ 7 TD/TT: Saw Grinder: Procedure Note Radiology, Radiologist, MD - 04/18/2025 [place] [address] Electrocardiograph Report Signed Patient: DONALD GIVENS LMR#: [id number] : 1995Acct:[id number] Age/Sex: 29 / FADM Date: 04/18/25 Loc: PST Attending Dr: Addie Jin D.O. Ordering Physician: Addie Jin D.O. Date of Service: 04/18/25 Procedure(s): ECG 12 lead Accession Number(s): [id number] cc: The [facility] Test Date: 2025-04-18 Pat Name: DONALD GIVENS Department: Room: - Gender: Female Rockboard Lather: : 1995 Requested By: ADDIE JIN Order Number: [id number] Mary MD: TANIKA LAMAS M.D. Measurements Intervals Cassel Rate: 78 P: 19 IL: 110 QRS: 75 QRSD: 85 T: 40 QT: 360 QTc: 410 Interpretive Statements SINUS RHYTHM WITH SHORT [place] INTERVAL Borderline ECG No previous ECG available for comparison Electronically Signed On 04-18-2025 17:28:32 EDT by TANIKA LAMAS M.D. Dictated By: TANIKA LAMAS Signed By:04/18/251727 DD/ 7 TD/TT: Saw Grinder: us Addie Annabel DO [facility] Final Result * POCT , urine manually resulted (03/29/2025 9:37 AM EDT) Preg Test, Ur Negative Negative Urine 03/29/2025 9:37 AM EDT Addie Annabel DO POINT OF CARE TEST ENTER/EDIT OR DERABLES Final Result from Last 3 Months Insurance [facility]
--- OUTSIDE RECORDS SUMMARY | 2025-04-27 06:11 | XMS_ITS | Encounter Summary ---
Author Organization [facility] Address [address] [place] [address] Care Team Providers Care Doctor Osteopathic Name Role Phone Poppy Lombardi RESTAURANT KITCHEN MANAGER Unavailable Encounter Details Date Type Department Care Team (Late st Contact Info) Description 04/27/[address] [facility] OB [address] [place] [address] Domingo Jin DO [address], [facility] Social History Tobacco Use Types Packs/Day Years [...] 05/10/2025 8:40 AM EDT Office Visit [facility] OB [address] [place] [address] Domingo Jin, DO [address] [place] [address] documented as of this encounter Visit Diagnoses Not on filedocumented in this encounter Care Teams Doctor Osteopathic Relationship Specialty Start Date End Date Poppy Lombardi, DARRION [address] [place] [phone] PCP - Pippa Sahni 01/06/25 documented as of this encounter
--- OUTSIDE RECORDS SUMMARY | 2025-04-27 06:11 | XMS_ITS | Encounter Summary ---
Author Organization [facility] Address [address] [place] [address] Care Team Providers Care Pick Up Name Role Phone Poppy Lombardi SHIPPING TEAM LEADER Unavailable [phone] Encounter Details Date Type Department Care Team (Late st Contact Info) Description 10/25/2024 Clinisync Result Encounter [facility] External Department Unsolicited Addie Jin, DO [address] [place] [address] Social History Tobacco Use Types Packs/Day Years [...] Visit [facility] OB [address] [place] [phone] Addie Jin, [address] [place] [address] documented as of this encounter Procedures Procedure Name Priority Date/Time Associated Diagnosis Comments US PELVIS W/ TRANSVAGINAL 10/25/2024 4:39 AM EST documented in this encounter Results * US PELVIS W/ TRANSVAGINAL (10/25/2024 4:39 AM EST) Anatomical Region Laterality Modality Other 10/25/2024 4:39 AM EST Narrative 10/25/2024 4:42 [place] [address] Ultrasound Report Signed Patient: DONALD GIVENS MR#: [id number] : 1995 Acct:[id number] Age/Sex: 29 / F ADM Date: 10/24/24 Loc: [facility] Attending Dr: Addie Jin D.O. Ordering Physician: Addie Jin D.O. Date of Service: 10/24/24 Procedure(s): US pelvis w/ transvaginal Accession Number(s): [id number] cc: Addie Jin D.O.; SKY JUAN [place] [address] Patient Name: DONALD GIVENS MRN: [id number] date: 1995 Sex: F Assigned Patient Location: [facility] Current Patient Location: Accession/Order Number: [id number] Exam Date: 10/24/2024 09:20 Report Date: 10/25/2024 [...] Signed By: 10/25/24 0442 DD/ 0439 TD/TT: Manager Support Services: Procedure Note Radiology, Radiologist, MD - 10/25/2024 [place] [address] Ultrasound Report Signed Patient: DONALD GIVENS LMR#: [id number] : 1995Acct:[id number] Age/Sex: 29 / FADM Date: 10/24/24 Loc: [facility] Attending Dr: Addie Jin D.O. Ordering Physician: Addie Jin D.O. Date of Service: 10/24/24 Procedure(s): US pelvis w/ transvaginal Accession Number(s): [id number] cc: Addie Jin D.O.; SKY JUAN [address] [id number] Patient Name: DONALD GIVENS MRN: [facility]:[id number] date: 1995 Sex: F Assigned Patient Location: [facility] Current Patient Location: Accession/Order Number: [id number] Exam Date: 10/24/2024 09:20 Report Date: 10/25/2024 [...] M.D. Signed By:10/25/24 0442 DD/ 0439 TD/TT: Manager Support Services: us Addie Annabel DO [facility] Final Result documented in this encounter Visit Diagnoses Not on filedocumented in this encounter Care Teams Pick Up Relationship Specialty Start Date End Date Poppy Lombardi NP [address] [place] [phone] PCP - [employer] 01/06/25 documented as of this encounter
--- OUTSIDE RECORDS SUMMARY | 2025-04-27 06:11 | XMS_ITS | Encounter Summary ---
Author Organization [facility] Address [address] [place] [address] Care Team Providers Care Hospital Tray Service Worker Name Role Phone Poppy Lombardi OUTSIDE INSTALLATION MACHINIST Unavailable Encounter Details Date Type Department Care Team (Late st Contact Info) Description 11/27/2024 Orders Only [facility] OB [address] [facility] [place] [address] Tiana Brown LPN [address] [facility] [place] [address] Social History Tobacco Use Types Packs/Day [...] 05/10/2025 8:40 AM EDT Office Visit [facility] [address] [facility] [place] [address] Domingo Jin, DO [address] [facility] [place] [address] documented as of this encounter [...] on filedocumented in this encounter Care Teams Hospital Tray Service Worker Relationship Specialty Start Date End Date Poppy Lombardi NP [address] [place] [address] PCP - [employer] 01/06/25 documented as of this encounter
--- OUTSIDE RECORDS SUMMARY | 2025-04-27 06:11 | XMS_ITS | Encounter Summary ---
Author Organization [facility] Address [address] [place] [address] Care Team Providers Care Customs Appraiser Name Role Phone Unavailable Primary Care Provider Unavailabl e Encounter Details Date Type Department Care Team (Late st Contact Info) Description 04/18/2025 Clinisync Result Encounter [facility] External Department Unsolicited Addie Jin, DO [address] [place] [address] Social History Tobacco Use Types Packs/Day Years [...] Visit [facility] OB [address] [place] [phone] Addie Jin DO [address] [place] [address] documented as of this encounter Procedures Procedure Name Priority Date/Time Associated Diagnosis Comments ECG 12-LEAD 04/18/2025 9:48 AM EDT documented in this encounter Results * ECG 12-LEAD (04/18/2025 9:48 AM EDT) Anatomical Region Laterality Modality Other 04/18/2025 9:48 AM EDT Narrative 04/18/2025 5:28 [place] [address] Electrocardiograph Report Signed Patient: DONALD GIVENS MR#: [id number] : 1995 Acct:[id number] Age/Sex: 29 / F ADM Date: 04/18/25 Loc: PST Attending Dr: Addie Jin D.O. Ordering Physician: Addie Jin D.O. Date of Service: 04/18/25 Procedure(s): ECG 12 lead Accession Number(s): [id number] cc: The [facility] Test Date: 2025-04-18 Pat Name: DONALD GIVENS Department: Room: - Gender: Female Assembler Corncob Pipes: : 1995 Requested By: ADDIE JIN Order Number: [id number] Reading MD: TANIKA LAMAS M.D. Measurements Intervals [place] Rate: 78 P: 19 LA: 110 QRS: 75 QRSD: 85 T: 40 QT: 360 QTc: 410 Interpretive Statements SINUS RHYTHM WITH SHORT LA INTERVAL Borderline ECG No previous ECG available for comparison Electronically Signed On 04-18-2025 17:28:32 EDT by TANIKA LAMAS M.D. Dictated By: TANIKA LAMAS Signed By: 04/18/25 1728 DD/ 0948 TD/TT: Hub Cutter: Procedure Note Radiology, Radiologist, MD - 04/18/2025 [place] [address] Electrocardiograph Report Signed Patient: DONALD GIVENS LMR#: [id number] : 1995Acct:[id number] Age/Sex: 29 / FADM Date: 04/18/25 Loc: PST Attending Dr: Addie Jin D.O. Ordering Physician: Addie Jin D.O. Date of Service: 04/18/25 Procedure(s): ECG 12 lead Accession Number(s): [id number] cc: [facility] Test Date: 2025-04-18 Pat Name: DONALD GIVENS Department: Room: - Gender: Female Assembler Corncob Pipes: : 1995 Requested By: ADDIE JIN Order Number: [id number] Reading MD: TANIKA LAMAS M.D. Measurements Intervals [place]idian Rate: 78 P: 19 LA: 110 QRS: 75 QRSD: 85 T: 40 QT: 360 QTc: 410 Interpretive Statements SINUS RHYTHM WITH SHORT LA INTERVAL Borderline ECG No previous ECG available for comparison Electronically Signed On 04-18-2025 17:28:32 EDT by TANIKA LAMAS M.D. Dictated By: TANIKA LAMAS Signed By:04/18/25 1728 DD/ 0948 TD/TT: Hub Cutter: us Addie Jin DO [facility] Final Result documented in this encounter Visit Diagnoses Not on filedocumented in this encounter
--- OUTSIDE RECORDS SUMMARY | 2025-04-27 06:11 | XMS_ITS | Encounter Summary ---
Author Organization [facility] Address [address] [place] [address] Care Team Providers Care Washer Cutter Name Role Phone Poppy Lombardi FUR CUTTER Unavailable Encounter Details Date Type Department Care Team (Late st Contact Info) Description 04/26/2024 Abstract [facility] OB [address] [place] [address] Domingo Jin DO [address], [facility] Social History Tobacco Use Types [...] 05/10/2025 8:40 AM EDT Office Visit [facility] OB [address] [place] [address] Domingo Jin, DO [address] [place] [address] documented as of this encounter Visit Diagnoses Not on filedocumented in this encounter Care Teams Washer Cutter Relationship Specialty Start Date End Date Poppy Lombardi, DARRION [address] [place] [phone] PCP - Pippa Sahni 01/06/25 documented as of this encounter
--- OUTSIDE RECORDS SUMMARY | 2025-04-27 06:11 | XMS_ITS | Encounter Summary ---
Author Organization [facility] Address [address] [place] [address] Care Team Providers Care Clothes Model Name Role Phone Poppy Lombardi TEXTURE ARTIST Unavailable Encounter Details Date Type Department Care Team (Late st Contact Info) Description 12/27/2023 Clinisync Result Encounter [facility] External Department Unsolicited Addie Jin, DO [address] [place] [address] Social History Tobacco Use Types Packs/Day Years [...] Visit [facility] OB [address] [place] [phone] Addie Jin DO [address] [place] [address] documented as of this encounter Procedures Procedure Name Priority Date/Time Associated Diagnosis Comments US OB CERVICAL LENGTH 12/27/2023 10:07 AM EST documented in this encounter Results * US OB CERVICAL LENGTH (12/27/2023 10:07 AM EST) Anatomical Region Laterality Modality Other 12/27/2023 10:0 7 AM EST Narrative 12/27/2023 10:09 [place] [address] Ultrasound Report Signed Patient: DONALD GIVENS MR#: [id number] : 1995 Acct:[id number] Age/Sex: 28 / F ADM Date: 12/27/23 Loc: [facility] Attending Dr: Addie Jin D.O. Ordering Physician: Addie Jin D.O. Date of Service: 12/27/23 Procedure(s): US OB cervical length Accession Number(s): [id number] cc: Addie Jin D.O.; Physician,Non-Staff M.DDena [place] [address] Patient Name: DONALD GIVENS MRN: [id number] date: 1995 Sex: F Assigned Patient Location: [facility] Current Patient Location: [facility] Accession/Order Number: [id number] Exam Date: 12/27/2023 08:40 Report Date: 12/27/2023 [...] Signed By: 12/27/23 1009 DD/ 1007 TD/TT: College Physics Instructor: Procedure Note Radiology, Radiologist, MD - 12/27/2023 [place] [address] Ultrasound Report Signed Patient: DONALD GIVENS LMR#: [id number] : 1995Acct:[id number] Age/Sex: 28 / FADM Date: 12/27/23 Loc: [facility] Attending Dr: Addie Jin D.O. Ordering Physician: Addie Jin D.O. Date of Service: 12/27/23 Procedure(s): US OB cervical length Accession Number(s): [id number] cc: Addie Jin D.O.; Physician,Non-Staff [place] The [address] [address] Patient Name: DONALD GIVENS MRN: [id number] date: 1995 Sex: F Assigned Patient Location: [facility] Current Patient Location: [facility] Accession/Order Number: [id number] Exam Date: 12/27/2023 08:40 Report Date: 12/27/2023 [...] M.D. Signed By:12/27/23 1009 DD/ 1007 TD/TT: College Physics Instructor: us Addie Jin DO [facility] Final Result documented in this encounter Visit Diagnoses Not on filedocumented in this encounter Care Teams Clothes Model Relationship Specialty Start Date End Date Poppy Lombardi NP [address] [place] [address] PCP - [place] Commercial 01/06/25 documented as of this encounter
--- OUTSIDE RECORDS SUMMARY | 2025-04-27 06:11 | XMS_ITS | Encounter Summary ---
Author Organization [facility] Address [address] [place] [address] Care Team Providers Care Willow Worker Name Role Phone Poppy Lombardi MARKETING CONTENT MANAGER Unavailable [phone] Encounter Details Date Type Department Care Team (Late st Contact Info) Description 12/27/2023 Clinisync Result Encounter [facility] External Department Unsolicited Addie Jin, DO [address] [place] [address] Social History Tobacco Use Types Packs/Day Years [...] Visit [facility] [place] [address] [place] [id number] Addie Jin DO [address] [place] [address] documented as of this encounter Procedures Procedure Name Priority Date/Time Associated Diagnosis Comments US OB ANATOMY 12/27/2023 10:07 AM EST documented in this encounter Results * US OB ANATOMY (12/27/2023 10:07 AM EST) Anatomical Region Laterality Modality Other 12/27/2023 10:0 7 AM EST Narrative 12/27/2023 10:10 [place] [address] Ultrasound Report Signed Patient: DONALD GIVENS MR#: [id number] : 1995 Acct:[id number] Age/Sex: 28 / F ADM Date: 12/27/23 Loc: [facility] Attending Dr: Addie Jin D.O. Ordering Physician: Addie Jin D.O. Date of Service: 12/27/23 Procedure(s): US OB anatomy Accession Number(s): [id number] cc: Addie Jin D.O.; Physician,Non-Staff [place] [address] Patient Name: DONALD GIVENS MRN: [id number] date: 1995 Sex: F Assigned Patient Location: [facility] Current Patient Location: [facility] Accession/Order Number: [id number] Exam Date: 12/27/2023 08:40 Report Date: 12/27/2023 [...] Signed By: 12/27/23 1010 DD/ 1007 TD/TT: Senior Construction Estimator: Procedure Note Radiology, Radiologist, MD - 12/27/2023 [place] [address] Ultrasound Report Signed Patient: DONALD GIVENS R#: [id number] : 1995Acct:[id number] Age/Sex: 28 / FADM Date: 12/27/23 Loc: [facility] Attending Dr: Addie Jin D.O. Ordering Physician: Addie Jin D.O. Date of Service: 12/27/23 Procedure(s): US OB anatomy Accession Number(s): [id number] cc: Addie Jin D.O.; Physician,Non-Staff [place] [facility] [address] [address] Patient Name: DONALD GIVENS MRN: [id number] date: 1995 Sex: F Assigned [facility] Current [facility]: [facility] Accession/Order Number: [id number] Exam Date: 12/27/2023 08:40 Report Date: 12/27/2023 [...] M.D. Signed By:12/27/23 1010 DD/ 1007 TD/TT: Senior Construction Estimator: us Addie Jin DO [facility] Final Result documented in this encounter Visit Diagnoses Not on filedocumented in this encounter Care Teams Willow Worker Relationship Specialty Start Date End Date Poppy Lombardi NP [address] [place] [address] PCP - [place] [employer] 01/06/25 documented as of this encounter
--- OUTSIDE RECORDS SUMMARY | 2025-04-27 06:11 | XMS_ITS | Encounter Summary ---
Author Organization [facility] Address [address] [facility] [place] [address] Care Team Providers Care Defensive Driving Instructor Name Role Phone Poppy Lombardi DEMAND PLANNING ANALYST Unavailable Reason for Visit * Reason Comments Med Change Request Encounter Details Date Type Department Care Team (Late st Contact Info) Description 12/06/2024 Refill [facility] [address] [place] [phone] Poppy Lombardi, DEMAND PLANNING ANALYST [address] [place] [address] Sinus pressure Social History Tobacco [...] 05/10/2025 8:40 AM EDT Office Visit [facility] OB [address] [place] [phone] Domingo Jin, DO [address], [place] [id number] documented as of this encounter Visit Diagnoses Diagnosis Sinus pressure Other diseases of nasal cavity and sinuses documented in this encounter Care Teams Defensive Driving Instructor Relationship Specialty Start Date End Date Poppy Lombardi NP [address] [place] [address] PCP - Pippa Sahni 01/06/25 documented as of this encounter
--- OUTSIDE RECORDS SUMMARY | 2025-04-27 06:11 | XMS_ITS | Encounter Summary ---
Author Organization [facility] Address [address] [place] [address] Care Team Providers Care Mold Blower Name Role Phone Unavailable Primary Care Provider Unavailabl e Encounter Details Date Type Department Care Team (Late Contact Info) Description 04/19/2025 Abstract [facility] [address] [place] [address] Siria Sanchez MA Social History Tobacco Use Types Packs/Day Years [...] Encounters Date Type Department Care Team (Late Contact Info) Description 05/10/2025 8:40 AM EDT Office Visit [facility] [address] [place] [address] Domingo Jin [address], [place] [id number] documented as of this encounter Visit Diagnoses Not on filedocumented in this encounter
--- OUTSIDE RECORDS SUMMARY | 2025-04-27 06:11 | XMS_ITS | Encounter Summary ---
Author Organization [facility] Address [address] [place] [address] Care Team Providers Care Transitions Manager Name Role Phone Poppy Lombardi TAX ASSISTANT Unavailable [phone] Encounter Details Date Type Department Care Team (Late st Contact Info) Description 04/27/2024 Abstract [facility] OB [address] [place] [address] Domingo Jin DO [address], [facility] Social History Tobacco Use Types Packs/Day [...] 05/10/2025 8:40 AM EDT Office Visit [facility] OB [address] [place] [address] Domingo Jin, DO [address] [place] [address] documented as of this encounter Visit Diagnoses Not on filedocumented in this encounter Care Teams Transitions Manager Relationship Specialty Start Date End Date Poppy Lombardi, DARRION [address] [place] [id number] PCP - Pippa Sahni 01/06/25 documented as of this encounter
[2025-04-27 06:20] LABS: Basophils Absolute Auto 0.1 10^3/uL (0.0-0.1); Basophils Percent Auto 0.8 % (0.2-2.0); Eosinophils Absolute Auto 0.1 10^3/uL (0.0-0.7); Eosinophils Percent Auto 1.2 % (0.9-7.0); Hematocrit 43.2 % (36.0-48.0); Hemoglobin 14.4 g/dL (12.0-16.0); Immature Granulocytes Abs Auto 0.02 10^3/uL (0.00-0.03); Immature Granulocytes Pct Auto 0.3 % (0.0-0.5); Lymphocytes Absolute Auto 2.4 10^3/uL (1.2-3.8); Lymphocytes Percent Auto 31.1 % (20.5-60.0); Mean Corpuscular HGB Conc 33.3 g/dL (29.9-35.2); Mean Corpuscular Hemoglobin 29.4 pg (26.7-34.0); Mean Corpuscular Volume 88.3 fL (81.0-99.0); Mean Platelet Volume 10.1 fL (9.5-13.5); Monocytes Absolute Auto 0.7 10^3/uL (0.3-0.8); Monocytes Percent Auto 8.7 % (1.7-12.0); Neutrophils Absolute Auto 4.4 10^3/uL (1.4-6.5); Neutrophils Percent Auto 57.9 % (43.0-75.0); Platelet Count 251 10^3/uL (150-450); Red Blood Count 4.89 10^6/uL (4.20-5.40); Red Cell Distribution Width 12.8 % (11.0-15.0); White Blood Count 7.6 10^3/uL (4.0-11.0)
[2025-04-27 06:32] LABS: Glucometer 107 mg/dL (74-106)
[2025-04-27 06:33] VITALS: BP 138/96; PULSE 96; TEMP 35.9; O2SAT 99
[2025-04-27 06:42] LABS: HCG Quantitative <1 mIU/mL
[2025-04-27] MEDS: LACTATED RINGER'S SOLUTION 1,000 ML 50 ML IV (06:43)
[2025-04-27 08:11] VITALS: BP 133/71; PULSE 110; TEMP 36.6; O2SAT 94
--- NOTE | 2025-04-27 08:11 | PM.ONB ---
Brief Operative Note Date of procedure: 04/27/25 Pre-op diagnosis general: menorrhagia Post-op diagnosis: same as pre-op Procedure: NAME OF PROCEDURE: [ ] Sabrina endometrial ablation with hysteroscopy. PROCEDURE: The patient was taken back to the OR where she was prepped and draped in the normal sterile fashion after being placed in the dorsal lithotomy position, after being placed under general anesthesia without difficulty.? A weighted speculum was placed into the vagina. The anterior lip was grasped with a single tooth tenaculum. The patient was then sounded to approximated 8cm. The patient?s cervix was gently dilated using hegardilators. The hysteroscope was passed through the cervix into the uterus where both ostia were seen. No gross evidence of polyps, fibroids or malignancy. The cervical length was noted to be 4 cm. The total cavity length is 4cm.? The Sabrina ablation apparatus was set to approximately 4cm in length. This was placed through the cervix and into the uterus. After the seal was tested, at that time the total ablation of 120 seconds was performed with the Sabrina withoutdifficulty. All instruments were removed from the vagina. Excellent hemostasis noted.? Sponge and lap count correct times 2.? Patient taken to recovery in stable condition. Anesthesia: MAC Surgeon: Domingo Jin Estimated blood loss (mL): 5 Pathology: none sent Condition: stable Disposition: PACU Urinary Catheter Management Urinary Catheter Management Urethral: Cath placed during this visit: no
[2025-04-27 08:26] VITALS: BP 137/93; PULSE 91; O2SAT 96
[2025-04-27] MEDS: LACTATED RINGER'S SOLUTION 1,000 ML 150 ML IV (08:36)
[2025-04-27 08:41] VITALS: BP 133/89; PULSE 87; O2SAT 97
[2025-04-27 09:11] VITALS: BP 134/87; PULSE 78; O2SAT 97
--- NOTE | 2025-04-27 09:20 | PC.NURSE ---
large amount yellow urine
== END 2025-04-27 09:19 | disposition home or self-care (01) ==
LOC: SURGOUT 06:08
PROVIDERS: PCP Nurse Practitioner Family; Visit Provider Obstetrics & Gynecology
PROC: (CPT 952; principal; 2025-04-27 07:30)
DX: N92.0 Excessive and frequent menstruation with regular cycle (principal); N93.9 Abnormal uterine and vaginal bleeding, unspecified; R10.2 Pelvic and perineal pain; Z90.49 Acquired absence of other specified parts of digestive tract; K21.9 Gastro-esophageal reflux disease without esophagitis; F41.9 Anxiety disorder, unspecified
CPT/HCPCS: 58563; 36415; 82948; 84702; 85025; J1100; J1885; J2250; J2405; J2704; J3010